=== PATIENT | female | born 1955 | race Caucasian/White ===

== ENCOUNTER → 2017-04-16 15:04 | Outpatient (CLI) | payer OTHER, SELFPAY | PROVIDERS: Family Provider Family Medicine; PCP Family Medicine; Visit Provider Nurse Practitioner Women's Health | DX: R30.0 Dysuria (principal) | CPT/HCPCS: 87077; 87086; 87088; 87186 ==

== ENCOUNTER → 2017-10-24 07:26 | Outpatient (CLI) | payer OTHER, SELFPAY ==
[2017-10-24 10:10] LABS: Hematocrit 41.1 % (37-47); Hemoglobin 13.3 g/dl (12.0-15.0); Mean Corp Hgb Conc 32.4 g/gl (32-36); Mean Corpuscular Hgb 25.8 pg (27.0-32.0); Mean Corpuscular Volume 79.7 fL (81-99); Mean Platelet Vol. 9.4 fl (6.2-12.0); Platelet Count 227 K/mm3 (150-450); RBC Distribution Width CV 14.9 % (11.6-14.6); RBC Distribution Width SD 43.4 fl (35.1-43.9); Red Blood Count 5.16 M/mm3 (4.2-5.4); White Blood Count 5.2 K/mm3 (4.4-11.0)
[2017-10-24 10:16] LABS: Scan Indicated on CBC? Y/N NO
[2017-10-24 10:28] LABS: Anion Gap 9 (5-15); BUN 20 mg/dL (7-18); BUN/Creat Ratio 23.9 RATIO (10-20); Calcium,Total 8.8 mg/dL (8.5-10.1); Chloride 107 mmol/L (98-107); Cholesterol 175 mg/dL (200); Creatinine, Serum 0.84 mg/dL (0.55-1.02); EST Glomerular Filtration Rate 73 mL/min (>60); Est Glom Filt Rate - Afr Amer 88 mL/min (>60); Glucose 81 mg/dL (74-106); High Density Lipoprotein 49 mg/dL; Potassium 3.9 mmol/L (3.5-5.1); Sodium Level 144 mmol/L (136-145); Triglycerides 94 mg/dL; Very Low Density Lipoprotein 19 mg/dL (5-40)
[2017-10-25 08:49] LABS: Vitamin D,25 Hydroxy 52.3 ng/mL (29.95-100.01)
== END ==
PROVIDERS: Family Provider Family Medicine; PCP Family Medicine; Visit Provider Family Medicine
DX: I10 Essential (primary) hypertension (principal); E78.5 Hyperlipidemia, unspecified; M19.049 Primary osteoarthritis, unspecified hand
CPT/HCPCS: 36415; 80048; 80061; 82306; 85027

== ENCOUNTER → 2017-11-25 08:44 | Outpatient (CLI) | payer OTHER, SELFPAY | PROVIDERS: Family Provider Family Medicine; PCP Family Medicine; Visit Provider Nurse Practitioner Adult Health | DX: N39.0 Urinary tract infection, site not specified (principal); R30.0 Dysuria | CPT/HCPCS: 87086; 87088 ==

== ENCOUNTER → 2017-12-02 09:19 | Outpatient (CLI) | payer OTHER, SELFPAY | PROVIDERS: Family Provider Family Medicine; PCP Family Medicine; Visit Provider Nurse Practitioner Women's Health | DX: R30.0 Dysuria (principal) | CPT/HCPCS: 87077; 87086; 87088; 87186 ==

== ENCOUNTER → 2018-06-19 16:10 | Outpatient (CLI) | payer OTHER, SELFPAY ==
[2018-06-19 13:08] VITALS: BMI 25.8
[2018-06-24 14:41] LABS: HPV APTIMA, High Risk Negative (Negative)
== END ==
PROVIDERS: Family Provider Family Medicine; PCP Family Medicine; Referring Provider Nurse Practitioner Women's Health; Visit Provider Nurse Practitioner Women's Health
DX: Z12.4 Encounter for screening for malignant neoplasm of cervix (principal)
CPT/HCPCS: 87624; 88175; G0145

== ENCOUNTER → 2019-02-19 07:39 | Outpatient (CLI) | payer OTHER, SELFPAY ==
[2018-12-25 12:39] VITALS: BMI 25.8
[2019-02-19 10:28] LABS: Absolute Lymphocyte Count 1.26 X10^3/uL (0.83-4.51); Absolute Neutrophil Count 3.4 X10^3/uL (2.0-7.7); Basophil# 0.02 X10^3/uL; Basophil% 0.4 % (0-1); Eosinophil# 0.17 X10^3/uL; Eosinophils% 3.2 % (0-5); Hematocrit 44.4 % (37-47); Hemoglobin 14.4 g/dL (12.0-15.0); Lymphocyte # 1.26 X10^3/ul (4.0); Lymphocyte % 23.6 % (19-41); Mean Corp Hgb Conc 32.4 g/dL (32-36); Mean Corpuscular Hgb 27.5 pg (27.0-32.0); Mean Corpuscular Volume 84.7 fL (81-99); Monocyte# 0.52 X10^3/uL; Monocyte% 9.7 % (0-10); NRBC Flagged by Analyzer 0 % (0-5); Neutrophil # 3.36 X10^3/uL (2.7-7.7); Neutrophil % 62.9 % (47-70); Platelet Count 206 K/mm3 (150-450); RBC Distribution Width CV 13.8 % (11.6-14.6); RBC Distribution Width SD 42.7 fl (35.1-43.9); Red Blood Count 5.24 M/mm3 (4.2-5.4); White Blood Count 5.3 K/mm3 (4.4-11.0)
[2019-02-19 10:41] LABS: Microalbumin:Creatinine Ratio 52.6 mg/g CRE (<30 mg/g CRE)
[2019-02-19 10:42] LABS: ALB/GLOB Ratio 1.2 RATIO (0.9-2.4); AST(SGOT) 23 U/L (15-37); Alanine Aminotransfer ALT/SGPT 39 U/L (13-56); Albumin, Serum 3.8 g/dL (3.2-5.0); Alkaline Phosphatase 80 U/L (45-117); Anion Gap 5 (5-15); BUN 21 mg/dL (7-18); BUN/Creat Ratio 24.5 RATIO (10-20); Calcium,Total 9.1 mg/dL (8.5-10.1); Chloride 106 mmol/L (98-107); Cholesterol 171 mg/dL (200); Creatinine, Serum 0.86 mg/dL (0.55-1.02); EST Glomerular Filtration Rate 71 mL/min (>60); Est Glom Filt Rate - Afr Amer 86 mL/min (>60); Free T3 3.9 pg/mL (2.18-3.98); Globulin 3.3 g/dL (2.2-4.2); Glucose 89 mg/dL (74-106); High Density Lipoprotein 43 mg/dL; Potassium 3.8 mmol/L (3.5-5.1); Protein, Total 7.1 g/dL (6.4-8.2); Sodium Level 141 mmol/L (136-145); T4 Free Direct 0.99 ng/dL (0.76-1.46); Thyroid Stim Hormone (TSH) 0.95 uIU/mL (0.358-3.74); Triglycerides 137 mg/dL; Very Low Density Lipoprotein 27 mg/dL (5-40)
== END ==
PROVIDERS: Family Provider Family Medicine; PCP Family Medicine; Referring Provider Family Medicine; Visit Provider Family Medicine
DX: E04.1 Nontoxic single thyroid nodule (principal); I10 Essential (primary) hypertension; E78.5 Hyperlipidemia, unspecified
CPT/HCPCS: 36415; 80053; 80061; 82043; 82570; 84439; 84443; 84481; 85025

== ENCOUNTER → 2019-03-26 16:25 | Outpatient (CLI) | payer OTHER, SELFPAY ==
[2018-12-25 12:39] VITALS: BMI 25.8
--- NOTE | 2019-03-26 16:25 | LES_PTH ---
PATIENT: OSVALDO KEN [facility] U#:[id number] AGE/SX: 69/F ROOM: RE03/26/[address]: Dr. Dong Jones MD : 1955 BED: DIS: SPEC #: [id number] RECD: 03/26/19 18:14 STATUS: CARRIE ERIC #: [id number] ADRIAN: 03/26/19 16:[address]: Dong Jones DEPT: SURGICAL PATHOLOGY RECD BY: Denny Fitzgerald ENTERED: 03/27/19 11:55 SP TYPE: Lesion OTHR DR: Dong Jones MD Tissues: Skin of leg, NOS Procedures: Surgery Specimen Level IV HEADER OPERATION: Shave biopsy of left leg PRE-OP DIAGNOSIS: 2 x 1 x 0.3 mm raised verrucal lesion TISSUE SUBMITTED: Left leg shave biopsy MICROSCOPIC DIAGNOSIS Lesion of left leg, shave biopsy: Verrucoid keratosis, inflamed. AM:kailey 03/30/19 MICROSCOPIC DESCRIPTION Slides are reviewed. GROSS DESCRIPTION Received in fixative is one container labeled with the patient's name and designated leg shave biopsy. The specimen consists of a light cho shaved biopsy of skin measuring 1.2 x 1.2 x 0.2 cm. The specimen is inked, serially sectioned and totally submitted in one cassette. / AM:kailey 03/27/19 TC:5 CPT: 31872
== END ==
PROVIDERS: Family Provider Family Medicine; PCP Family Medicine; Referring Provider Family Medicine; Visit Provider Family Medicine
DX: L98.9 Disorder of the skin and subcutaneous tissue, unspecified (principal)
CPT/HCPCS: 88305

== ENCOUNTER → 2019-05-15 14:36 | Outpatient (CLI) | payer OTHER, SELFPAY ==
[2018-12-25 12:39] VITALS: BMI 25.8
== END ==
PROVIDERS: PCP Family Medicine; Visit Provider Family Medicine
DX: N39.0 Urinary tract infection, site not specified (principal)
CPT/HCPCS: 87086; 87088

== ENCOUNTER → 2019-05-20 17:48 | Outpatient (CLI) | payer OTHER, SELFPAY ==
[2018-12-25 12:39] VITALS: BMI 25.8
[2019-05-20 17:51] LABS: Mucous, Urine 0 SEEN /hpf (<or=2+); Red Blood Cells-Urine 0 SEEN /hpf (0-5); Squamous Epithelial Cells - UA 0 SEEN /hpf (5-10)
[2019-05-20 18:51] LABS: Color, Urine Yellow (Yellow); Glucose, Dipstick Normal (Normal); Ketone-Dipstick Negative (Negative); Leukocyte Esterase-Dipstick 100 /ul (Negative); Nitrite-Dipstick Negative (Negative); Occult Blood-Urine Negative /ul (Negative); Protein-Dipstick Negative (Negative); Urine Bilirubin Dipstick Negative (Negative); Urine Clarity Clear (Clear); Urine Urobilinogen Normal (Normal)
[2019-05-20 19:39] LABS: Bacteria 1+ /hpf (None Seen); White Blood Cells 5-10 SEEN /hpf (0-5)
== END ==
PROVIDERS: PCP Family Medicine; Referring Provider Family Medicine; Visit Provider Family Medicine
DX: Z00.00 Encounter for general adult medical examination without abnormal findings (principal); R30.0 Dysuria; R35.0 Frequency of micturition
CPT/HCPCS: 81001; 87086; 87088; 87186

== ENCOUNTER → 2019-05-26 08:02 | Outpatient (CLI) | payer OTHER, SELFPAY ==
[2018-12-25 12:39] VITALS: BMI 25.8
[2019-05-26 10:13] LABS: Absolute Lymphocyte Count 1.94 X10^3/uL (0.83-4.51); Absolute Neutrophil Count 4.9 X10^3/uL (2.0-7.7); Basophil# 0.05 X10^3/uL; Basophil% 0.7 % (0-1); Eosinophil# 0.24 X10^3/uL; Eosinophils% 3.1 % (0-5); Hematocrit 45.1 % (37-47); Hemoglobin 14.4 g/dL (12.0-15.0); Lymphocyte # 1.94 X10^3/ul (4.0); Lymphocyte % 25.3 % (19-41); Mean Corp Hgb Conc 31.9 g/dL (32-36); Mean Corpuscular Hgb 27.5 pg (27.0-32.0); Mean Corpuscular Volume 86.2 fL (81-99); Mean Platelet Vol. 8.8 fl (6.2-12.0); Monocyte# 0.53 X10^3/uL; Monocyte% 6.9 % (0-10); NRBC Flagged by Analyzer 0 % (0-5); Neutrophil # 4.89 X10^3/uL (2.7-7.7); Neutrophil % 63.6 % (47-70); Platelet Count 260 K/mm3 (150-450); RBC Distribution Width CV 13.7 % (11.6-14.6); RBC Distribution Width SD 43.2 fl (35.1-43.9); Red Blood Count 5.23 M/mm3 (4.2-5.4); White Blood Count 7.7 K/mm3 (4.4-11.0)
[2019-05-26 10:44] LABS: AST(SGOT) 25 U/L (15-37); Alanine Aminotransfer ALT/SGPT 46 U/L (13-56); Albumin, Serum 3.6 g/dL (3.2-5.0); Alkaline Phosphatase 88 U/L (45-117); Anion Gap 4 (5-15); BUN 21 mg/dL (7-18); BUN/Creat Ratio 26.3 RATIO (10-20); Calcium,Total 8.9 mg/dL (8.5-10.1); Chloride 106 mmol/L (98-107); Cholesterol 213 mg/dL (200); EST Glomerular Filtration Rate 77 mL/min (>60); Est Glom Filt Rate - Afr Amer 93 mL/min (>60); Globulin 3.5 g/dL (2.2-4.2); Glucose 89 mg/dL (74-106); High Density Lipoprotein 42 mg/dL; Potassium 3.9 mmol/L (3.5-5.1); Protein, Total 7.1 g/dL (6.4-8.2); Sodium Level 140 mmol/L (136-145); Thyroid Stim Hormone (TSH) 1.17 uIU/mL (0.358-3.74); Triglycerides 190 mg/dL; Very Low Density Lipoprotein 38 mg/dL (5-40)
[2019-05-26 10:59] LABS: Hemoglobin A1c 5.8 % (4.2-6.3)
== END ==
PROVIDERS: PCP Family Medicine; Referring Provider Family Medicine; Visit Provider Family Medicine
DX: Z00.00 Encounter for general adult medical examination without abnormal findings (principal); R30.0 Dysuria; R35.0 Frequency of micturition
CPT/HCPCS: 36415; 80053; 80061; 83036; 84443; 85025

== ENCOUNTER → 2019-12-01 12:45 | Outpatient (CLI) | payer OTHER, SELFPAY ==
[2018-12-25 12:39] VITALS: BMI 25.8
[2019-12-01 15:47] LABS: Absolute Lymphocyte Count 1.75 X10^3/uL (0.83-4.51); Absolute Neutrophil Count 4.2 X10^3/uL (2.0-7.7); Basophil# 0.03 X10^3/uL; Basophil% 0.4 % (0-1); Eosinophil# 0.18 X10^3/uL; Eosinophils% 2.7 % (0-5); Hematocrit 43.5 % (37-47); Hemoglobin 13.8 g/dL (12.0-15.0); Lymphocyte # 1.75 X10^3/ul (4.0); Lymphocyte % 25.8 % (19-41); Mean Corp Hgb Conc 31.7 g/dL (32-36); Mean Corpuscular Hgb 27.7 pg (27.0-32.0); Mean Corpuscular Volume 87.3 fL (81-99); Mean Platelet Vol. 9.1 fl (6.2-12.0); Monocyte# 0.63 X10^3/uL; Monocyte% 9.3 % (0-10); NRBC Flagged by Analyzer 0 % (0-5); Neutrophil # 4.18 X10^3/uL (2.7-7.7); Neutrophil % 61.5 % (47-70); Platelet Count 265 K/mm3 (150-450); RBC Distribution Width CV 13.4 % (11.6-14.6); Red Blood Count 4.98 M/mm3 (4.2-5.4); White Blood Count 6.8 K/mm3 (4.4-11.0)
[2019-12-01 16:07] LABS: ALB/GLOB Ratio 0.8 RATIO (0.9-2.4); AST(SGOT) 62 U/L (15-37); Alanine Aminotransfer ALT/SGPT 131 U/L (13-56); Albumin, Serum 3.5 g/dL (3.2-5.0); Alkaline Phosphatase 146 U/L (45-117); Anion Gap 7 (5-15); BUN 24 mg/dL (7-18); Calcium,Total 9.5 mg/dL (8.5-10.1); Chloride 104 mmol/L (98-107); Creatinine, Serum 0.83 mg/dL (0.55-1.02); EST Glomerular Filtration Rate 74 mL/min (>60); Est Glom Filt Rate - Afr Amer 89 mL/min (>60); Globulin 4.2 g/dL (2.2-4.2); Glucose 80 mg/dL (74-106); Potassium 4.6 mmol/L (3.5-5.1); Protein, Total 7.7 g/dL (6.4-8.2); Sodium Level 140 mmol/L (136-145)
[2019-12-01 16:10] LABS: Erythrocyte Sedimentation Rate 27 mm/hr (0-30)
== END ==
PROVIDERS: PCP Family Medicine; Referring Provider Family Medicine; Visit Provider Family Medicine
DX: R68.83 Chills (without fever) (principal)
CPT/HCPCS: 36415; 80053; 85025; 85652; 86140

== ENCOUNTER → 2019-12-29 09:07 | Outpatient (CLI) | payer MEDICARE, OTHER, SELFPAY ==
[2018-12-25 12:39] VITALS: BMI 25.8
[2019-12-29 10:54] LABS: AST(SGOT) 22 U/L (15-37); Alanine Aminotransfer ALT/SGPT 37 U/L (13-56); Albumin, Serum 3.6 g/dL (3.2-5.0); Alkaline Phosphatase 79 U/L (45-117); Anion Gap 5 (5-15); BUN 21 mg/dL (7-18); BUN/Creat Ratio 24.5 RATIO (10-20); Calcium,Total 9.3 mg/dL (8.5-10.1); Chloride 106 mmol/L (98-107); Cholesterol 179 mg/dL (200); Creatinine, Serum 0.86 mg/dL (0.55-1.02); EST Glomerular Filtration Rate 71 mL/min (>60); Est Glom Filt Rate - Afr Amer 86 mL/min (>60); Globulin 3.7 g/dL (2.2-4.2); Glucose 88 mg/dL (74-106); High Density Lipoprotein 50 mg/dL; Potassium 4.2 mmol/L (3.5-5.1); Protein, Total 7.3 g/dL (6.4-8.2); Sodium Level 139 mmol/L (136-145); Thyroid Stim Hormone (TSH) 0.95 uIU/mL (0.358-3.74); Triglycerides 150 mg/dL; Very Low Density Lipoprotein 30 mg/dL (5-40)
== END ==
PROVIDERS: PCP Family Medicine; Referring Provider Family Medicine; Visit Provider Family Medicine
DX: Z00.00 Encounter for general adult medical examination without abnormal findings (principal); E78.5 Hyperlipidemia, unspecified
CPT/HCPCS: 36415; 80053; 80061; 84443

== ENCOUNTER → 2020-06-23 07:30 | Outpatient (CLI) | payer MEDICARE, OTHER, SELFPAY ==
[2018-12-25 12:39] VITALS: BMI 25.8
[2020-06-23 10:53] LABS: ALB/GLOB Ratio 1.1 RATIO (0.9-2.4); AST(SGOT) 26 U/L (15-37); Alanine Aminotransfer ALT/SGPT 49 U/L (13-56); Albumin, Serum 3.6 g/dL (3.2-5.0); Alkaline Phosphatase 97 U/L (45-117); Anion Gap 5 (5-15); BUN 19 mg/dL (7-18); BUN/Creat Ratio 23.9 RATIO (10-20); Calcium,Total 9.2 mg/dL (8.5-10.1); Chloride 105 mmol/L (98-107); Cholesterol 196 mg/dL (200); EST Glomerular Filtration Rate 77 mL/min (>60); Est Glom Filt Rate - Afr Amer 93 mL/min (>60); Globulin 3.4 g/dL (2.2-4.2); Glucose 89 mg/dL (74-106); High Density Lipoprotein 44 mg/dL; Potassium 3.9 mmol/L (3.5-5.1); Sodium Level 140 mmol/L (136-145); Thyroid Stim Hormone (TSH) 1.35 uIU/mL (0.358-3.74); Triglycerides 219 mg/dL; Very Low Density Lipoprotein 44 mg/dL (5-40)
== END ==
PROVIDERS: PCP Family Medicine; Referring Provider Family Medicine; Visit Provider Family Medicine
DX: Z00.00 Encounter for general adult medical examination without abnormal findings (principal); I10 Essential (primary) hypertension
CPT/HCPCS: 36415; 80053; 80061; 84443

== ENCOUNTER → 2021-07-19 | Outpatient (CLI) | payer MEDICARE, OTHER, SELFPAY ==
[2021-07-19 10:14] LABS: Absolute Lymphocyte Count 1.81 X10^3/uL (0.83-4.51); Absolute Neutrophil Count 3.8 X10^3/uL (2.0-7.7); Basophil# 0.03 X10^3/uL; Basophil% 0.5 % (0-1); Eosinophil# 0.21 X10^3/uL; Eosinophils% 3.3 % (0-5); Hematocrit 45.4 % (37-47); Hemoglobin 14.6 g/dL (12.0-15.0); Lymphocyte # 1.81 X10^3/ul (0.83-4.51); Lymphocyte % 28.7 % (19-41); Mean Corp Hgb Conc 32.2 g/dL (32-36); Mean Corpuscular Hgb 28.1 pg (27.0-32.0); Mean Corpuscular Volume 87.3 fL (81-99); Mean Platelet Vol. 8.9 fl (6.2-12.0); Monocyte# 0.48 X10^3/uL; Monocyte% 7.6 % (0-10); NRBC Flagged by Analyzer 0 % (0-5); Neutrophil # 3.75 X10^3/uL (2.7-7.7); Neutrophil % 59.6 % (47-70); Platelet Count 255 K/mm3 (150-450); RBC Distribution Width CV 13.2 % (11.6-14.6); RBC Distribution Width SD 42.2 fl (35.1-43.9); White Blood Count 6.3 K/mm3 (4.4-11.0)
[2021-07-19 10:37] LABS: AST(SGOT) 23 U/L (15-37); Alanine Aminotransfer ALT/SGPT 35 U/L (13-56); Albumin, Serum 3.7 g/dL (3.2-5.0); Alkaline Phosphatase 80 U/L (45-117); Anion Gap 3 (5-15); BUN 18 mg/dL (7-18); BUN/Creat Ratio 20.7 RATIO (10-20); Calcium,Total 9.4 mg/dL (8.5-10.1); Chloride 105 mmol/L (98-107); Cholesterol 160 mg/dL (200); Creatinine, Serum 0.87 mg/dL (0.55-1.02); EST Glomerular Filtration Rate 69 mL/min (>60); Est Glom Filt Rate - Afr Amer 84 mL/min (>60); Globulin 3.6 g/dL (2.2-4.2); Glucose 80 mg/dL (74-106); High Density Lipoprotein 39 mg/dL; Potassium 3.9 mmol/L (3.5-5.1); Protein, Total 7.3 g/dL (6.4-8.2); Sodium Level 141 mmol/L (136-145); Triglycerides 186 mg/dL; Very Low Density Lipoprotein 37 mg/dL (5-40)
== END | disposition home or self-care (01) ==
LOC: MTLAB 07:29
PROVIDERS: PCP Family Medicine; Referring Provider Family Medicine; Visit Provider Family Medicine
DX: C50.919 Malignant neoplasm of unspecified site of unspecified female breast (principal); I10 Essential (primary) hypertension; E78.5 Hyperlipidemia, unspecified
CPT/HCPCS: 36415; 80053; 80061; 85025

== ENCOUNTER → 2022-01-25 | Outpatient (CLI) | payer MEDICARE, OTHER, SELFPAY ==
[2022-01-25 18:50] LABS: ALB/GLOB Ratio 1.1 RATIO (0.9-2.4); AST(SGOT) 18 U/L (15-37); Alanine Aminotransfer ALT/SGPT 33 U/L (13-56); Albumin, Serum 3.5 g/dL (3.2-5.0); Alkaline Phosphatase 83 U/L (45-117); Anion Gap 5 (5-15); BUN 23 mg/dL (7-18); BUN/Creat Ratio 24.8 RATIO (10-20); Calcium,Total 8.9 mg/dL (8.5-10.1); Chloride 105 mmol/L (98-107); Creatinine, Serum 0.93 mg/dL (0.55-1.02); EST Glomerular Filtration Rate 64 mL/min (>60); Est Glom Filt Rate - Afr Amer 78 mL/min (>60); Globulin 3.3 g/dL (2.2-4.2); Glucose 173 mg/dL (74-106); Potassium 3.9 mmol/L (3.5-5.1); Protein, Total 6.8 g/dL (6.4-8.2); Sodium Level 139 mmol/L (136-145); Thyroid Stim Hormone (TSH) 0.83 uIU/mL (0.358-3.74)
[2022-01-25 18:59] LABS: Microalbumin,Random Urine 95.9 mg/L (NO RANGE EST.); Microalbumin:Creatinine Ratio 89.6 mg/g CRE (<30 mg/g CRE)
== END | disposition home or self-care (01) ==
LOC: MFPLAB 15:04
PROVIDERS: PCP Family Medicine; Referring Provider Family Medicine; Visit Provider Family Medicine
DX: I10 Essential (primary) hypertension (principal); E04.1 Nontoxic single thyroid nodule
CPT/HCPCS: 36415; 80053; 82043; 82570; 84443

== ENCOUNTER → 2022-07-24 | Outpatient (CLI) | payer MEDICARE, OTHER, SELFPAY ==
[2022-07-24 15:55] LABS: Absolute Lymphocyte Count 1.86 X10^3/uL (0.83-4.51); Absolute Neutrophil Count 5.2 X10^3/uL (2.0-7.7); Basophil# 0.03 X10^3/uL; Basophil% 0.4 % (0-1); Eosinophil# 0.27 X10^3/uL; Eosinophils% 3.4 % (0-5); Hematocrit 44.5 % (37-47); Hemoglobin 14.2 g/dL (12.0-15.0); Lymphocyte # 1.86 X10^3/ul (0.83-4.51); Lymphocyte % 23.7 % (19-41); Mean Corp Hgb Conc 31.9 g/dL (32-36); Mean Corpuscular Hgb 27.2 pg (27.0-32.0); Mean Corpuscular Volume 85.2 fL (81-99); Mean Platelet Vol. 9.1 fl (6.2-12.0); Monocyte# 0.49 X10^3/uL; Monocyte% 6.2 % (0-10); NRBC Flagged by Analyzer 0 % (0-5); Neutrophil # 5.18 X10^3/uL (2.7-7.7); Platelet Count 239 K/mm3 (150-450); RBC Distribution Width CV 13.8 % (11.6-14.6); RBC Distribution Width SD 42.2 fl (35.1-43.9); Red Blood Count 5.22 M/mm3 (4.2-5.4); White Blood Count 7.9 K/mm3 (4.4-11.0)
[2022-07-24 16:27] LABS: ALB/GLOB Ratio 1.2 RATIO (0.9-2.4); AST(SGOT) 31 U/L (15-37); Alanine Aminotransfer ALT/SGPT 50 U/L (13-56); Albumin, Serum 3.8 g/dL (3.2-5.0); Alkaline Phosphatase 96 U/L (45-117); Anion Gap 8 (5-15); BUN 21 mg/dL (7-18); BUN/Creat Ratio 26.4 RATIO (10-20); CRP < 2.90 mg/L (0.0-3.0); Calcium,Total 9.2 mg/dL (8.5-10.1); Chloride 104 mmol/L (98-107); EST Glomerular Filtration Rate 77 mL/min (>60); Est Glom Filt Rate - Afr Amer 93 mL/min (>60); Globulin 3.1 g/dL (2.2-4.2); Glucose 148 mg/dL (74-106); Potassium 4.1 mmol/L (3.5-5.1); Protein, Total 6.9 g/dL (6.4-8.2); Sodium Level 141 mmol/L (136-145)
[2022-07-24 18:19] LABS: Microalbumin,Random Urine 90.7 mg/L (NO RANGE EST.); Microalbumin:Creatinine Ratio 68.2 mg/g CRE (<30 mg/g CRE)
== END | disposition home or self-care (01) ==
LOC: MTLAB 14:17
PROVIDERS: PCP Family Medicine; Referring Provider Family Medicine; Visit Provider Family Medicine
DX: I10 Essential (primary) hypertension (principal); R09.81 Nasal congestion
CPT/HCPCS: 36415; 80053; 82043; 82570; 85025; 86140

== ENCOUNTER → 2023-01-29 | Outpatient (CLI) | payer MEDICARE, OTHER, SELFPAY ==
[2023-01-29 17:38] LABS: Absolute Lymphocyte Count 1.99 X10^3/uL (0.83-4.51); Absolute Neutrophil Count 5.5 X10^3/uL (2.0-7.7); Basophil# 0.03 X10^3/uL; Basophil% 0.4 % (0-1); Eosinophil# 0.29 X10^3/uL; Eosinophils% 3.5 % (0-5); Hematocrit 46.6 % (37-47); Hemoglobin 14.5 g/dL (12.0-15.0); Lymphocyte # 1.99 X10^3/ul (0.83-4.51); Lymphocyte % 23.8 % (19-41); Mean Corp Hgb Conc 31.1 g/dL (32-36); Mean Corpuscular Volume 86.8 fL (81-99); Mean Platelet Vol. 9.3 fl (6.2-12.0); NRBC Flagged by Analyzer 0 % (0-5); Neutrophil # 5.52 X10^3/uL (2.7-7.7); Neutrophil % 66.1 % (47-70); Platelet Count 291 K/mm3 (150-450); RBC Distribution Width CV 13.7 % (11.6-14.6); RBC Distribution Width SD 43.5 fl (35.1-43.9); Red Blood Count 5.37 M/mm3 (4.2-5.4); White Blood Count 8.4 K/mm3 (4.4-11.0)
[2023-01-29 18:27] LABS: Microalbumin:Creatinine Ratio 75.4 mg/g CRE (<30 mg/g CRE)
[2023-01-29 18:32] LABS: AST(SGOT) 19 U/L (15-37); Alanine Aminotransfer ALT/SGPT 32 U/L (13-56); Albumin, Serum 3.8 g/dL (3.2-5.0); Alkaline Phosphatase 93 U/L (45-117); Anion Gap 7 (5-15); BUN 25 mg/dL (7-18); BUN/Creat Ratio 26.3 RATIO (10-20); Calcium,Total 9.2 mg/dL (8.5-10.1); Chloride 104 mmol/L (98-107); Creatinine, Serum 0.95 mg/dL (0.55-1.02); EST Glomerular Filtration Rate 62 mL/min (>60); Est Glom Filt Rate - Afr Amer 75 mL/min (>60); Globulin 3.7 g/dL (2.2-4.2); Glucose 154 mg/dL (74-106); Potassium 4.1 mmol/L (3.5-5.1); Protein, Total 7.5 g/dL (6.4-8.2); Sodium Level 139 mmol/L (136-145); T4 Free Direct 0.99 ng/dL (0.76-1.46); Thyroid Stim Hormone (TSH) 0.76 uIU/mL (0.358-3.74)
== END | disposition home or self-care (01) ==
LOC: MFPLAB 15:02
PROVIDERS: PCP Family Medicine; Visit Provider Family Medicine
DX: M19.049 Primary osteoarthritis, unspecified hand (principal); E04.1 Nontoxic single thyroid nodule; I10 Essential (primary) hypertension
CPT/HCPCS: 36415; 80053; 82043; 82570; 84439; 84443; 85025

== ENCOUNTER 2023-03-04 10:00 | Outpatient (RCR) | payer MEDICARE, OTHER, SELFPAY ==
--- NOTE | 2023-02-13 12:46 | HP.OTEVAL_ITS ---
Patient's Visit Information Visit Information Visit Information: OSVALDO KEN is a 67 year old F, referred to Occupational Therapy by Dr. Dong Jones MD, with a diagnosis of OA. Date of Evaluation: 02/13/23 Occupational Therapist: RAYSA Magana/Francia, CHT Subjective Subjective: This 67 year old female was seen for OT eval with dx OA of bilateral hands. pt states right hand limiting more than left- more difficulty with cold temperatures pt states she continues to struggle with pain in hands and weakness- states she does notice a big difference if she does not take her Meloxicam pt would like to know what she can do to decrease pain increase function to continue to perform her ADls and IADls at a IND level. ADLs Dressing: Button shirt Fasteners: Buttons, Zippers and Snaps Grooming: Trim nails and Squeeze toothpaste on Kitchen: Chop with knife, Peel fruits & vegetables, Open jars, Open bottle caps and Ziplock bags Household: Dust and Laundry Yard: Mow lawn Comments: the above daily tasks are challenging and cause pain following. pt states she will have her help her the most he can Pain right hand: Current Pain Intensity: 3 Pain Intensity Range: 4 left hand: Current Pain Intensity: 0 Pain Intensity Range: 4 ROM CMC: right 30 left 25 MP: right hyper ext + 30 /left + 30 Radial Abduction: right 30 left 30# PIP: right IF 80 MF 70 RF 80 left IF 85 MF90 RF 95 ROM Comments: pt demo a all PIP and DIP joint deformity thumb CMC OA with MPJ instability pt demo with a decrease in PIP flexion of right D2-5 Strength Equity Research Analyst: right 20# left 25# Lateral Pinch: right 10# left 10# Tripod Pinch: right 10# left 6# Strength Comments: pt demo weakness of bilateral hands discomfort with resistive testing Sensation Sensation Comments: neuropathy Quick DASH-Disab of Arm,Shoulder& Hand Quick DASH Score: 35.0000 Goals Goal:: pt will demo a increase in bilateral hand strength by 10# to increase pts ind with ADLs by d,c Goal:: pt will demo the ability to form right composite fist to hold small obj ects without difficulty (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 Goal:: Pt will demo understanding of using supportive bracing 80% of workday/ADLS to decrease stress on tendon origin to allow healing and decrease pain by end of 4th session. 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 pt would benefit from skilled OT services 1-2x week for 6-10 weeks to ed. pt on joint protection raji. use of ad. eq. light strengthening- modalities to decrease joint stiffness and pain. Today therapist ed. pt on dx. and use of heat to decrease joint pain. pt demo understanding and agrees to POC. Rehabilitation Potential: Good Anticipated Interventions Anticipated Interventions: A/AAROM/PROM, Strengthening, Modalities, Orthoses, Joint Protection/Energy Conservation, Ergonomic Education, ADL Training, Education re assistive Equipment, Education re Diagnosis and Home Program Visit Plan Frequency: 2x /Week Duration: 2-4 Months General Plan: ed.pt on joint protection modalities to decrease pain thumb care for CMC OA ed. on bracing to support CMC and MPJ support of bracing for work tasks TEXT: Thank you for the opportunity to evaluate your patient. For Medicare and Medicare HMO plans, please review the plan of care and approve it. It will need to be FAXED BACK to us at [phone] for Medicare purposes. Please let me know if there are questions or concerns regarding this plan of care. Physician Sig nature: Date:
--- NOTE | 2023-06-26 14:42 | HP.OT.NRP ---
Patient Information Patient Information: OSVALDO KEN was seen in my office for initial evaluation on 02/13/23. 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 Pertinent comments regarding their Occupational therapy will appear below: pt was seen for 4 OT sessions. pt has not scheduled further apts and due to time lapse in services pt is d/c. At this point I will be discontinuing this patient from occupational therapy. I would be happy to see this patient again in the future if found appropriate by the physician. Thank you! Alma Bo, OTR/L, CHT
== END 2023-03-04 19:00 | disposition home or self-care (01) ==
LOC: OT 10:00
PROVIDERS: PCP Family Medicine; Referring Provider Family Medicine; Visit Provider Family Medicine
DX: M19.049 Primary osteoarthritis, unspecified hand (principal)
CPT/HCPCS: 97110; 97140; 97166; 97530

== ENCOUNTER → 2023-07-17 | Outpatient (CLI) | payer MEDICARE, OTHER, SELFPAY ==
[2023-07-17 10:33] LABS: Microalbumin:Creatinine Ratio 85.5 mg/g CRE (<30 mg/g CRE)
[2023-07-17 10:55] LABS: AST(SGOT) 25 U/L (15-37); Alanine Aminotransfer ALT/SGPT 42 U/L (13-56); Albumin, Serum 3.6 g/dL (3.2-5.0); Alkaline Phosphatase 99 U/L (45-117); Anion Gap 3 (5-15); BUN 19 mg/dL (7-18); BUN/Creat Ratio 22.1 RATIO (10-20); Calcium,Total 9.3 mg/dL (8.5-10.1); Chloride 105 mmol/L (98-107); Creatinine, Serum 0.86 mg/dL (0.55-1.02); EST Glomerular Filtration Rate 70 mL/min (>60); Est Glom Filt Rate - Afr Amer 84 mL/min (>60); Globulin 3.6 g/dL (2.2-4.2); Glucose 97 mg/dL (74-106); Protein, Total 7.2 g/dL (6.4-8.2); Sodium Level 139 mmol/L (136-145)
== END | disposition home or self-care (01) ==
PROVIDERS: PCP Family Medicine; Referring Provider Family Medicine; Visit Provider Family Medicine
DX: I10 Essential (primary) hypertension (principal)
CPT/HCPCS: 36415; 80053; 82043; 82570

== ENCOUNTER → 2023-08-19 | Outpatient (CLI) | payer MEDICARE, OTHER, SELFPAY | END | disposition home or self-care (01) | LOC: LABSPEC 13:53 | PROVIDERS: PCP Family Medicine; Referring Provider Nurse Practitioner Women's Health; Visit Provider Nurse Practitioner Women's Health | DX: N89.8 Other specified noninflammatory disorders of vagina (principal) | CPT/HCPCS: 87255 ==

== ENCOUNTER → 2023-09-20 | Outpatient (CLI) | payer MEDICARE, OTHER, SELFPAY ==
[2023-09-20 10:11] LABS: Mucous, Urine 0 SEEN /hpf (<or=2+)
[2023-09-20 10:39] LABS: Color, Urine Yellow (Yellow); Glucose, Dipstick Normal (Normal); Ketone-Dipstick Negative (Negative); Leukocyte Esterase-Dipstick 100 /ul (Negative); Nitrite-Dipstick Positive (Negative); Occult Blood-Urine 10 /ul (Negative); Protein-Dipstick 15 mg/dl (Negative); Specific Gravity, Urine 1.015 (1.002-1.030); Urine Clarity Sl. Cloudy (Clear); Urine Urobilinogen 1 mg/dl (Normal)
[2023-09-20 10:40] LABS: Urine Bilirubin Dipstick 3 mg/dL (Negative)
[2023-09-20 10:50] LABS: Bacteria 1+ /hpf (None Seen); Red Blood Cells-Urine 0-5 SEEN /hpf (0-5); Squamous Epithelial Cells - UA 0-5 SEEN /hpf (5-10); White Blood Cells 10-25 SEEN /hpf (0-5)
== END | disposition home or self-care (01) ==
PROVIDERS: PCP Family Medicine; Referring Provider Physician Assistant Surgical; Visit Provider Physician Assistant Surgical
DX: N39.0 Urinary tract infection, site not specified (principal); R30.0 Dysuria
CPT/HCPCS: 81001; 87077; 87086; 87088; 87186

== ENCOUNTER → 2024-01-07 | Outpatient (CLI) | payer MEDICARE, OTHER, SELFPAY ==
--- OUTSIDE RECORDS SUMMARY | 2024-01-07 10:25 | XMS RPT_ITS | CCD ---
Author Organization [facility] Care Team Providers Care Glaze Carrier Name Role Phone Cogar SQE, Roslyn N Unavailable Cogar SQE, Roslyn N Unavailable Jennifer CUTTER TENDER, Mine Hobbs Unavailable Violetta Deluna Unavailable Unavailable Kelle Cohen Unavailable Unavailable Chi LAZARN, Lida Gillespie Unavailable Unavailab inocencia VO, Eddi Arce Unavailable Kelle Cohen Unavailable Unavailable Zhao HUBER MD, Lucille Unavailable Andriy Jones MD Primary Care Provider Zhao HUBER MD, Lucille Unavailable Andriy Jones MD Primary Care Provider Zhao HUBER MD, Lucille Unavailable Andriy Jones MD Primary Care Provider Andriy Jones MD Primary Care Provider Lucille Churchill MD Unavailable Andriy Jones MD Primary Care Provider ANDRIY JONES Primary Care Unavailable JUAN AMBRIZ Attending Unavailable ANDRIY JONES Primary Care Unavailable JUAN AMBRIZ Referring Unavailable JUAN AMBRIZ Attending Unavailable Allergies Allergy Classification Reported Allergen(s) Allergy Type Date of Onset Reaction(s) Facility (13 sources) miconazole drug allergy 08-02-2016 [facility] Work Phone: (13 sources) CURITY TELFA ADHESIVE drug allergy 08-02-2016 [facility] Work Phone: (8 sources) Miconazole; Translations: [MICONAZOLE] Drug Allergy 11-17-2003 [facility] (8 sources) Polyhexam Jaczvp-Cyw-Vyh Band; Translations: [POLYHEXAM [id number] BAND] Drug Allergy 01-31-2016 [facility] Medications Current Medications Medication Drug Class(es) Dates Sig (Normalized) Sig (Original) amLODIPine 2.5 mg oral tablet (7 sources) Dihydropyridine Calcium Channel Christa take 1 tablet by mouth once daily amLODIPine (NORVASC) 2.5 mg tablet Take 2.5 mg by mouth once daily. 0 Active Comment on above: Take 2.5 mg by mouth once daily. azelastine hydrochloride 0.137 mg/actuat metered dose nasal spray (2 sources) Histamine-1 Receptor Antagonist Start: 09-12-2022 take 2 spray(s) nasal route twice daily azelastine 0.1% nasal spray instill 2 sprays into each nostril twice a day if needed for NASAL IRRITATION 0 09/12/2022 Active Comment on above: instill 2 sprays int o each nostril twice a day if needed for NASAL IRRITATION Calcium Carbonate / vitamin D3 (7 sources) take 1 tablet by mouth twice daily calcium carbonate/vitami n D3 (CALCIUM 600 + D ORAL) Take 1 tablet by mouth twice daily. 0 Active Comment on above: Take 1 tablet by celestino th twice daily. lisinopril 40 mg oral tablet (20 sources) Angiotensin Converting Enzyme Inhibitor Start: 08-02-2016 take 1 tablet by mouth once daily lisinopril (ZESTRIL, PRINIVIL) 40 mg tablet Take 40 mg by mouth once daily. 0 02/04/2017 Active Start: 08-02-2016 LISINOPRIL 10 MG TABS as directed LISINOPRIL [id number] Roslyn Xie LPN Comment on above: Take 40 mg by mouth once daily. meloxicam 15 mg oral tablet (20 sources) Nonsteroidal Anti-inflammatory Drug Start: 3 take 1 tablet by mouth once daily meloxicam (MOBIC) 15 mg tablet Take 1 tablet by mouth once daily. 0 10/21/2012 Active Comment on above: Take 1 tablet by celestino th once daily. pumpkin seed extract/soy germ (AZO BLADDER CONTROL ORAL) (7 sources) take 1 tablet by mouth twice daily pumpkin seed extract/soy germ (AZO BLADDER CONTROL ORAL) Take 1 tablet by mouth twice daily. 0 Active Comment on above: Take 1 tablet by celestino th twice daily. rosuvastatin calcium 10 mg oral tablet (7 sources) HMG-CoA Reductase Inhibitor Start: 0 take 1 tablet by mouth once daily rosuvastatin (CRESTOR) 10 mg tablet Take 10 mg by mouth once daily. 0 01/02/2020 Active Comment on above: Take 10 mg by mouth once daily. Completed/Discontinued Medications Medication Drug Class(es) Dates Sig (Normalized) Sig (Original) acetaminophen 32 mg/ml oral solution (20 sources) Start: 08-02-2016 ACETAMINOPHEN 160 MG/5ML ELIX as directed ACETAMINOPHEN [id number] Roslyn Pascalar SQE acetaminophen (T YLENOL EXTRA STRENGTH) 500 mg tablet Take 1,000 mg by mouth as needed. 0 Active Comment on above: Take 1,000 mg by celestino th as needed. biotin 1 mg oral capsule (13 sources) Start: 08-02-2016 BIOTIN 1 MG CAPS as directed BIOTIN [id number] Roslyn Jose Miguel Pascalar SQE cholecalciferol (20 sources) Vitamin D Start: 08-02-2016 AQUEOUS VITAMIN D 400 UNIT/ML LIQD as directed CHOLECALCIFEROL [id number] Roslyn Jose Miguel Gwynar SQE Start: 08-02-2016 AQUEOUS VITAMI N D 400 UNIT/ML LIQD as directed CHOLECALCIFEROL [id number] Roslyn Jose Miguel Pascalar SQE Start: 08-02-2016 AQUEOUS VITAMI N D 400 UNIT/ML LIQD as directed CHOLECALCIFEROL [id number] Roslyn Gillespie Gwynar SQE take 1 tablet by celestino th once daily cholecalciferol (VITAMIN D) 1,000 unit tab tablet Take 1,000 Units by mouth once daily. 0 Active Comment on above: Take 1,000 Units by mouth once daily. ciprofloxacin 500 mg oral tablet (20 sources) Quinolone Antimicrobial Start: 01-29-20 End: 02-01-20 17 take 1 tablet by mouth twice daily CIPROFLOXACIN HCL 500 MG TABS One tablet by mouth twice daily CIPROFLOXACIN HCL [id number] Mine Rodriguez CUTTER TENDER Start: 08-02-2016 CETRAXAL 0.2 % SOLN as directed CIPROFLOXACIN HCL [id number] Roslyn N Cogar SQE Start: 08-02-2016 CETRAXAL 0.2 % SOLN as directed CIPROFLOXACIN HCL [id number] Roslyn N Cogar SQE diclofenac sodium 0.01 mg/mg topical gel (7 sources) Nonsteroidal Anti-inflammatory Drug End: 10-01-2023 diclofenac (VOLTAREN) 1 % topical gel Apply to affected area twice daily. 0 10/01/2023 Discontinued Comment on above: Apply to affected ar ea twice daily. exemestane 25 mg oral tablet (7 sources) Aromatase Inhibitor Start: 03-27-2023 End: 10-01-2023 exemestane (AROMASIN) 25 mg tablet TAKE 1 TABLET DAILY AFTER A MEAL 90 tablet 1 03/27/2023 10/01/2023 Discontinued Start: 03-20-2022 exemestane (AR OMASIN) 25 mg tablet TAKE 1 TABLET DAILY AFTER A MEAL 90 tablet 3 03/20/2022 Active Start: 03-24-2021 exemestane (AR OMASIN) 25 mg tablet TAKE 1 TABLET DAILY AFTER A MEAL 90 tablet 3 03/24/2021 Active Comment on above: TAKE 1 TABLET DAILY AFTER A MEAL MASTECTOMY BRA(S) (9 sources) Start: 01-09-2017 MASTECTOMY BRA(S) MASTECTOMY BRA(S) Omega Randle MD OMEGA-3 FATTY ACIDS (2 sources) Start: 08-02-2016 [facility] OMEGA-3 GUMMY FISH/DHA 113.5 MG CHEW as directed OMEGA-3 FATTY ACIDS [id number] Roslyn N Cogar SQE OMEGA-3 FATTY ACIDS (11 sources) Start: 08-02-2016 [facility] OMEGA-3 GUMMY FISH/DHA 113.5 MG CHEW as directed OMEGA-3 FATTY ACIDS [id number] Roslyn N Cogar SQE omeprazole (20 sources) Proton Pump Inhibitor Start: 08-02-2016 [facility] OMEPRAZOLE 20 MG TBEC as directed OMEPRAZOLE [id number] Roslyn N Cogar SQE Start: 08-02-2016 [facility] OMEPRAZOLE 20 MG TBEC as directed OMEPRAZOLE [id number] Roslyn Xie SQE take 1 capsule by mo ut once daily as needed omeprazole (PRILOSEC) 20 mg capsule Indications: 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 0 Active Comment on above: Take 20 mg by mouth once daily as needed. 1 ml promethazine hydrochloride 50 mg/ml injection (13 sources) Phenothiazine Start: 08-03-19 17 PHENERGAN 50 MG/ML SOLN as directed PROMETHAZINE HCL [id number] Roslyn Xie SQE simvastatin 10 mg oral tablet (13 sources) HMG-CoA Reductase Inhibitor Start: 08-03-19 SIMVASTATIN 10 MG TABS as directed SIMVASTATIN [id number] Roslyn Xie SQE sulfamethoxazole 800 mg / trimethoprim 160 mg oral tablet (3 sources) Dihydrofolate Reductase Inhibitor Antibacterial, Sulfonamide Antimicrobial Start: 02-13-20 17 take 1 tablet by mouth twice daily SULFAMETHOXAZOLE-TR IMETHOPRIM 800-160 MG TABS One tablet by mouth twice daily SULFAMETHOXAZOLE-TR IMETHOPRIM [id number] Mine Rodriguez CUTTER TENDER Problems Active Problems Problem Classification Problem Date Documented Da te Episodic/Chronic Cancer of breast (20 sources) Malignant neoplasm of upper-outer quadrant of female breast; Translations: [Malignant neoplasm of upper-outer quadrant of left female breast] Onset: 08-21-2006 Resolved: 09-24-2016 Chronic Essential hypertension (13 sources) Hypertensive disorder; Translations: [Essential (primary) hypertension] 08-02-2016 Chronic Menopausal disorders (7 sources) Atrophic vaginitis; Translations: [Postmenopausal atrophic vaginitis] Onset: 02-03-2013 02-03-2013 Chronic Other aftercare (1 source) Long-term current use of aromatase inhibitor; 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] Episodic Other diseases of veins and lymphatics (7 sources) Lymphedema; Translations: [Lymphedema, not elsewhere classified] Onset: 04-13-2019 04-13-2019 Chronic Residual codes; unclassified (1 source) Menopause present; Translations: [Asymptomatic menopausal state] Episodic Unclassified (8 sources) Influenza vaccination ; Translations: [Encounter for immunization] Onset: 01-07-2017 01-07-2017 Past or Other Problems Problem Classification Problem Date Documented Date Episodic/Chronic Genitourinary symptoms and ill-defined conditions (14 sources) Dysuria; Translations: [Urgent desire to urinate] Onset: 3 01-28-2017 Episodic Lymphadenitis (7 sources) Axillary lymphadenopathy; Translations: [Localized enlarged lymph nodes] Onset: 6 01-24-2016 Episodic Nonmalignant breast conditions (1 source) Mammographic microcalcification of breast; Translations: [Mammographic microcalcification found on diagnostic imaging of breast] Onset: 4 Resolved: 2 11-08-2011 Episodic Open wounds of extremities (13 sources) Unspecified open wound of unspecified toe(s) with damage to nail, initial encounter; Translations: [Unspecified open wound of unspecified toe(s) with damage to nail, initial encounter] Onset: 7 08-02-2016 Episodic Other bone disease and musculoskeletal deformities (7 sources) Osteopenia; Translations: [Other specified disorders of bone density and structure, unspecified site] Onset: 3 04-29-2012 Episodic Other screening for suspected conditions (not mental disorders or infectious disease) (1 source) Mammography abnormal; Translations: [Other abnormal and inconclusive findings on diagnostic imaging of breast] Onset: 8 Resolved: 2 11-08-2011 Episodic Urinary tract infections (3 sources) Urinary tract infectious disease; Translations: [Urinary tract infection, site not specified] Onset: 7 02-12-2017 Episodic Results Test Name Value Interpretation Reference Range Facility [facility] 10-01-2023 CNOVS Visit (SP) Office (HEMAWS) OSVALDO KEN ([id number]) 1955 F Date Time Provider Department 10/01/23 1:30 PM JUAN AMBRIZ During your visit today, we recorded the following information about you: Temperature Pulse Blood pressure Weight 97.2 degrees 82/minute 137/84 75.6 kg Juan Ambriz APRN.LUMBER PLANER 10/01/2023 1:54 PM Signed Chief Complaint Patient presents with: Established Patient HPI: Osvaldo Ken is a 67 year old female who presents here today for follow up breast cancer. Per Dr. Torres's previous note: H/o noted on a screening mammogram done 12/26/2015 to be status post lumpectomy of the right breast. Biopsy clips were noted in both breasts. There was a surgical clip noted in the right breast. Significant only, there was a new mass observed in the left breast in the upper outer quadrant at middle depth. She underwent diagnostic imaging on 01/05/2016. The mammogram portion identified a 2 cm irregular high density mass with a spiculated margin and pleomorphic calcifications in the left breast at the 12:00 middle depth. Ultrasound demonstrated a 2.2 x 1.6 x 2.4 cm irregular mass within angular margin in the left breast at 12:00 middle depth 4 cm from the nipple. It was noted to be hypoechoic with internal echoes and posterior acoustic shadowing. An ultrasound-guided core needle biopsy of the left breast mass done on 01/10/2016 retrieved tissue that on pathologic analysis proved to be invasive ductal carcinoma, nuclear grade 2. ER-positive (>95%, strong) and NV (4%, weak). HER-2 quantified at 3+. An MRI of the breast performed on 01/19/2016 demonstrated no suspicious enhancement or mass identified within the right breast. In the left breast there was a 4.4 x 2.7 x 3.9 cm irregular mass with spiculated margins at 12:00 middle depth left breast. Two enlarged lymph nodes were noted in the left axilla measuring 1.4 x 1.0 cm and 1.1 x 0.9 cm. Additionally there were at least 2 subcentimeter T2 hyperintense lesions in the liver. A dedicated liver MRI was recommended for further evaluation. She underwent biopsy of the 2 lymph nodes 01/24/2016. Both negative for malignancy in the submitted sample. MRI abdomen showed no evidence liver metastases. --------- Previous therapy: 1) Neoadjuvant AC every 3 weeks followed by weekly Taxol/Herceptin and Perjeta. She required admission for NF following first cycle. Completed herceptin. 2) Underwent bilateral mastectomy with left sentinel axillary lymph node biopsy on 08/22/2016. Pathology: FROZEN SECTION DIAGNOSIS A. Left axillary sentinel lymph node, biopsy: Two out of two lymph nodes negative for metastatic carcinoma. MICROSCOPIC DIAGNOSIS A. Left axillary lymph nodes, biopsy: Two out of two lymph nodes negative for metastatic carcinoma. B. Left breast, mastectomy: Invasive ductal carcinoma. Ductal carcinoma in situ. See complete cancer checklist below. C. Possible additional left axillary sentinel lymph nodes, biopsy: Breast parenchyma with adenosis with associated microcalcifications and fibrocystic change. No evidence of malignancy. D. Right breast, mastectomy: Extensive adenosis with associated microcalcifications. Skin with seborrheic keratosis. Microfibroadenomas. No evidence of carcinoma. COMMENT B. INVASIVE BREAST CANCER SUMMARY: Procedure: Mastectomy Specimen: Total breast Specimen integrity: Single intact specimen. Specimen size: 25 x 18 x 5 cm Specimen laterality: Left breast Nipple: Free of carcinoma Skeletal muscle: Not present Histologic type of invasive carcinoma: invasive ductal carcinoma Histologic Grade: [place] grade: Glandular/tubular differentiation score: 3 Nuclear pleomorphism score: 2 Mitotic count score: 2 Overall grade - 2 (Total score of 7) Margins: Uninvolved by invasive carcinoma. 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 See specimen A. Method of evaluation of sentinel lymph nodes: H AND E and immunohistochemistry. Microcalcifications - present in non-neoplastic adenosis Treatment effect - no known presurgical therapy Additional patholo (more content not included)... Normal [facility] CNOVSPon 03-27-2023 CNOVSP Visit (SP) Office (HEMAWS) OSVALDO KEN ([id number]) 1955 F Date Time Provider Department 03/27/23 8:30 AM JUAN AMBRIZ During your visit today, we recorded the following information about you: Temperature Pulse Blood pressure Weight 98.2 degrees 94/minute 158/79 75.5 kg Height 1.689 m Juan Ambriz APRN.LUMBER PLANER 03/27/2023 8:56 AM Signed Chief Complaint Patient presents with: Established Patient HPI: Osvaldo Ken is a 67 year old female who presents here today for follow up breast cancer. Per Dr. Torres's previous note: H/o noted on a screening mammogram done 12/26/2015 to be status post lumpectomy of the right breast. Biopsy clips were noted in both breasts. There was a surgical clip noted in the right breast. Significant only, there was a new mass observed in the left breast in the upper outer quadrant at middle depth. She underwent diagnostic imaging on 01/05/2016. The mammogram portion identified a 2 cm irregular high density mass with a spiculated margin and pleomorphic calcifications in the left breast at the 12:00 middle depth. Ultrasound demonstrated a 2.2 x 1.6 x 2.4 cm irregular mass within angular margin in the left breast at 12:00 middle depth 4 cm from the nipple. It was noted to be hypoechoic with internal echoes and posterior acoustic shadowing. An ultrasound-guided core needle biopsy of the left breast mass done on 01/10/2016 retrieved tissue that on pathologic analysis proved to be invasive ductal carcinoma, nuclear grade 2. ER-positive (>95%, strong) and NV (4%, weak). HER-2 quantified at 3+. An MRI of the breast performed on 01/19/2016 demonstrated no suspicious enhancement or mass identified within the right breast. In the left breast there was a 4.4 x 2.7 x 3.9 cm irregular mass with spiculated margins at 12:00 middle depth left breast. Two enlarged lymph nodes were noted in the left axilla measuring 1.4 x 1.0 cm and 1.1 x 0.9 cm. Additionally there were at least 2 subcentimeter T2 hyperintense lesions in the liver. A dedicated liver MRI was recommended for further evaluation. She underwent biopsy of the 2 lymph nodes 01/24/2016. Both negative for malignancy in the submitted sample. MRI abdomen showed no evidence liver metastases. --------- Previous therapy: 1) Neoadjuvant AC every 3 weeks followed by weekly Taxol/Herceptin and Perjeta. She required admission for following first cycle. Completed herceptin. 2) Underwent bilateral mastectomy with left sentinel axillary lymph node biopsy on 08/22/2016. Pathology: FROZEN SECTION DIAGNOSIS A. Left axillary sentinel lymph node, biopsy: Two out of two lymph nodes negative for metastatic carcinoma. MICROSCOPIC DIAGNOSIS A. Left axillary lymph nodes, biopsy: Two out of two lymph nodes negative for metastatic carcinoma. B. Left breast, mastectomy: Invasive ductal carcinoma. Ductal carcinoma in situ. See complete cancer checklist below. C. Possible additional left axillary sentinel lymph nodes, biopsy: Breast parenchyma with adenosis with associated microcalcifications and fibrocystic change. No evidence of malignancy. D. Right breast, mastectomy: Extensive adenosis with associated microcalcifications. Skin with seborrheic keratosis. Microfibroadenomas. No evidence of carcinoma. COMMENT B. INVASIVE BREAST CANCER SUMMARY: Procedure: Mastectomy Specimen: Total breast Specimen integrity: Single intact specimen. Specimen size: 25 x 18 x 5 cm Specimen laterality: Left breast Nipple: Free of carcinoma Skeletal muscle: Not present Histologic type of invasive carcinoma: invasive ductal carcinoma Histologic Grade: [place] grade: Glandular/tubular differentiation score: 3 Nuclear pleomorphism score: 2 Mitotic count score: 2 Overall grade - 2 (Total score of 7) Margins: Uninvolved by invasive carcinoma. 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 See specimen A. Method of evaluation of sentinel lymph nodes: H AND E and immunohistochemistry. Microcalcifications - present in non-neoplastic adenosis Treatment effect - no known presurgical therapy (more content not included)... Normal [facility] Microbiology: Culture, Urine on 02-16-2017 CUUR . Invalid Interpretation Code [facility] Office Visiton 02-12-2017 Bilirubin Ql (U) Negative Invalid Interpretation Code [facility] blood in urine (hemoglobin) by dipstick non-hemolyzed moderate Invalid Interpretation Code [facility] Documentation of current medications (procedure) Done Invalid Interpretation Code [facility] specific gravity, urine 1.010 Invalid Interpretation Code [facility] Tobacco smoking status NHIS Tobacco smoking status NHIS Invalid Interpretation Code [facility] Tobacco smoking status NHIS Never Invalid Interpretation Code [facility] Tobacco use HS Never smoker Invalid Interpretation Code [facility] Urine, appearance clear Invalid Interpretation Code [facility] Urine, color yellow Invalid Interpretation Code [facility] Urine, glucose presence Negative Invalid Interpretation Code [facility] Urine, ketones presence Negative Invalid Interpretation Code [facility] Urine, leukocyte esterase presence 1+ Invalid Interpretation Code [facility] Urine, nitrite presence Negative Invalid Interpretation Code [facility] Urine, pH 6.0 [pH] Invalid Interpretation Code [facility] Urine, protein Negative Invalid Interpretation Code [facility] Urine, urobilinogen presence Negative Invalid Interpretation Code [facility] Microbiology: Culture, Urine on 01-30-2017 CUUR Trimethoprim/Sulfame tho $ <=20 S Invalid Interpretation Code [facility] Microbiology: (P) Culture, U rineon 01-29-2017 CUUR . Invalid Interpretation Code [facility] Office Visit: , HTNon 2016 Documentation of current medications (procedure) Done Invalid Interpretation Code [facility] Work Phone: Protein mass conc Done Invalid Interpretation Code [facility] Work Phone: Tobacco smoking status NHIS Never Invalid Interpretation Code [facility] Work Phone: Tobacco smoking status NHIS Never smoker Invalid Interpretation Code [facility] Work Phone: Tobacco use [facility] Never smoker Invalid Interpretation Code [facility] Work Phone: Vital Signs Date Time Vital Sign Value Performing Clinician Facility 10-01-2023 13:26-0400 Body mass index (BMI) [Ratio] 26.5 kg/m2 Juan Ambriz APRN.LUMBER PLANER Work Phone: [facility] 10-01-2023 13:26-0400 Body temperature 97.2 [degF] Juan Ambriz APRN.LUMBER PLANER Work Phone: [facility] 10-01-2023 13:26-0400 Body weight 75.61 kg Juan Ambriz APRN.LUMBER PLANER Work Phone: [facility] 10-01-2023 13:26-0400 Diastolic blood pressure 84 mm[Hg] Juan Ambriz APRN.LUMBER PLANER Work Phone: [facility] 10-01-2023 13:26-0400 Heart rate 82 /min Juan Ambriz FLAT HAMMERER.LUMBER PLANER Work Phone: [facility] 10-01-2023 13:26-0400 SaO2% (BldA) [Mass fraction] 95 % Juan Ambriz FLAT HAMMERER.LUMBER PLANER Work Phone: [facility] 10-01-2023 13:26-0400 Systolic blood pressure 137 mm[Hg] Juan Ambriz FLAT HAMMERER.LUMBER PLANER Work Phone: [facility] 09-25-2022 13:29-0400 Body height 168.9 cm Juan Ambriz FLAT HAMMERER.LUMBER PLANER Work Phone: [facility] 09-25-2022 13:29-0400 Body temperature 97.11 [degF] Juan Ambriz FLAT HAMMERER.LUMBER PLANER Work Phone: [facility] 09-25-2022 13:29-0400 Body weight 75.07 kg Juan Ambriz FLAT HAMMERER.LUMBER PLANER Work Phone: [facility] 09-25-2022 13:29-0400 Diastolic blood pressure 75 mm[Hg] Juan Ambriz FLAT HAMMERER.LUMBER PLANER Work Phone: [facility] 09-25-2022 13:29-0400 Heart rate 80 /min Juan Ambriz FLAT HAMMERER.LUMBER PLANER Work Phone: [facility] 09-25-2022 13:29-0400 SaO2% (BldA) [Mass fraction] 95 % [place] Ambriz FLAT HAMMERER.LUMBER PLANER Work Phone: [facility] 09-25-2022 13:29-0400 Systolic blood pressure 120 mm[Hg] Juan Ambriz FLAT HAMMERER.LUMBER PLANER Work Phone: [facility] 09-21-2021 13:51-0400 Body temperature 97.81 [degF] Juan Ambriz FLAT HAMMERER.LUMBER PLANER Work Phone: [facility] 09-21-2021 13:51-0400 Body weight 74.84 kg Juan Ambriz FLAT HAMMERER.LUMBER PLANER Work Phone: [facility] 09-21-2021 13:51-0400 Diastolic blood pressure 75 mm[Hg] Juan Ambriz FLAT HAMMERER.LUMBER PLANER Work Phone: [facility] 09-21-2021 13:51-0400 Heart rate 79 /min Juan Sethenter FLAT HAMMERER.LUMBER PLANER Work Phone: [facility] 09-21-2021 13:51-0400 Systolic blood pressure 130 mm[Hg] Juan Sethenter FLAT HAMMERER.LUMBER PLANER Work Phone: [facility] 02-12-2017 14:22-0500 BMI (Body Mass Index) 25.43 kg/m2 Mine Rodriguez NP [facility] 02-12-2017 14:22-0500 BP Diastolic 77 mm[Hg] Mine Rodriguez NP [facility] 02-12-2017 14:22-0500 BP Systolic 127 mm[Hg] Mine Rodriguez NP [facility] 02-12-2017 14:22-0500 Height 167.64 cm Mine Rodriguez NP [facility] 02-12-2017 14:22-0500 Weight 71.49 kg Mine Rodriguez NP [facility] 01-04-2017 12:50-0400 Body Temperature 98.9 [degF] Lida Mireles LPN [facility] Work Phone: 08-02-2016 09:30-0400 BMI (Body Mass Index) 27.29 kg/m2 Roslyn Xie LPN [facility] Work Phone: 08-02-2016 09:30-0400 Body Temperature 98.7 [degF] Roslyn Xie LPN [facility] Work Phone: 08-02-2016 09:30-0400 BP Diastolic 94 mm[Hg] Roslyn Xie LPN [facility] Work Phone: 08-02-2016 09:30-0400 BP Systolic 148 mm[Hg] Roslyn Xie LPN [facility] Work Phone: 08-02-2016 09:30-0400 Height 165.1 cm Roslyn Xie LPN [facility] Work Phone: 08-02-2016 09:30-0400 Pulse (Heart Rate) 83 /min Roslyn Xie LPN [facility] Work Phone: 08-02-2016 09:30-0400 Pulse Oximetry 97 % Roslyn Xie LPN [facility] Work Phone: 08-02-2016 09:30-0400 Respiratory Rate 16 /min Roslyn Xie LPN [facility] Work Phone: 08-02-2016 09:30-0400 Weight 74.39 kg Roslyn Xie LPN [facility] Work Phone: Encounters Encounter Date Encounter Type Care Provider Facility Start: 10-01-2023 End: 10-01-2023 ambulatory Juan Ambriz FLAT HAMMERER.LUMBER PLANER Work Phone: Hematology/Oncology Comment on above: Malignant neoplasm o f upper-outer quadrant of left breast in female, estrogen receptor positive (HCC) (Primary Dx) Start: 10-01-2023 End: 10-01-2023 Patient encounter procedure Juan Ambriz FLAT HAMMERER.LUMBER PLANER Work Phone: Hematology/Oncology Start: 03-27-2023 End: 03-27-2023 ambulatory ANDRIY JONES Facility:[facility] Start: 09-25-2022 End: 09-25-2022 ambulatory Juan Ambriz FLAT HAMMERER.LUMBER PLANER Work Phone: Hematology/Oncology Comment on above: Malignant neoplasm o f upper-outer quadrant of left breast in female, estrogen receptor positive (HCC) (Primary Dx) Start: 09-25-2022 End: 09-25-2022 Patient encounter procedure Juan Ambriz FLAT HAMMERER.LUMBER PLANER [facility] Start: 04-14-2022 Telephone encounter Juan hunter FLAT HAMMERER.LUMBER PLANER Work Phone: Hematology/Oncology Comment on above: Future Appointment Start: 03-20-2022 Orders Only Lazaro A Masci D O Work Phone: Hematology/Oncology Start: 03-13-2022 Telephone encounter Juan hunter FLAT HAMMERER.LUMBER PLANER Work Phone: Hematology/Oncology Comment on above: Patient Question Start: 11-06-2021 ambulatory Juan Bailey r FLAT HAMMERER.LUMBER PLANER Work Phone: Hematology/Oncology Comment on above: Bone Density Start: 09-21-2021 End: 09-21-2021 ambulatory Juan Ambriz FLAT HAMMERER.LUMBER PLANER Work Phone: Hematology/Oncology Comment on above: Malignant neoplasm o f upper-outer quadrant of left breast in female, estrogen receptor positive (HCC) (Primary Dx); 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; 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 Start: 09-21-2021 End: 09-21-2021 Patient encounter procedure Juan Ambriz FLAT HAMMERER.LUMBER PLANER Work Phone: [facility] Procedures Date Procedure Procedure Detail Performing Clinician Start: 09-03-2021 Adult depression scr eening assessment Juan Ambriz FLAT HAMMERER.LUMBER PLANER Work Phone: Start: 02-12-2017 End: 02-12-2017 Urnls dip stick/tablet rgnt non-auto w/o micrscp Mine Rodriguez CUTTER TENDER Work Phone: Start: 01-07-2017 End: 01-07-2017 Cciiv4 vaccine preservative free 0.5 ml im use Eddi VO Work Phone: Start: 01-07-2017 Influenza vaccination Flu vaccine Jason VO Start: 10-27-2015 Lipid 1996 panel - S david or Plasma Juan Ambriz FLAT HAMMERER.LUMBER PLANER Work Phone: Start: 11-16-2014 Colonoscopy Juan hunter FLAT HAMMERER.LUMBER PLANER Work Phone: Plan of Treatment Date Care Activity Detail Author Start: 03-20-2033 Urine microalbumin profile DTaP,Tdap,Td Vaccine (2 - Td or Tdap) [facility] Start: 11-16-[address] [facility] Start: 11-16-2024 COLORECTAL CANCER SCREENING COLORECTAL CANCER SCREENING [facility] Start: 11-16-2024 Screening for malign ant neoplasm of colon [facility] Start: 03-31-2024 End: 03-31-2024 ambulatory 03/31/2024 1:30 PM EST Visit (SP) Office Hematology/Oncology [address] [place] [id number] Juan Ambriz APRN.LUMBER PLANER [address] [place] [id number] 6 MTH OV* Hematology/Oncology Comment on above: 6 MTH OV* Start: 11-17-2023 Influenza vaccination Influenza Vacc ine (#1) [facility] Start: 06-17-2023 Covid-19 Vaccine () Covid-19 Vaccine ( season) [facility] Start: 03-18-2023 Advance Directive Discussion Advance Directive Discussion [facility] Start: 03-18-2023 Behavioral Health Screening Behavioral Health Screening [facility] Start: 11-16-2022 Influenza vaccination INFLUENZA (#1) [facility] Start: 09-03-2022 Adult depression screening assessment DEPRESSION SCREENING [facility] Start: 03-18-2022 ADVANCE DIRECTIVE DISCUSSION ADVANCE DIRECTIVE DISCUSSION [facility] Start: 03-18-2022 DEPRESSION ASSESSMENT DEPRESSION ASS ESSMENT [facility] Start: 11-16-2021 Influenza vaccination INFLUENZA (#1) [facility] Start: 05-13-2021 COVID-19 VACCINE (4 - Booster for Pfizer series) COVID-19 VACCINE (4 - Booster for Pfizer series) [facility] Start: 05-05-2021 COVID-19 VACCINE (4 - Booster for Pfizer series) COVID-19 VACCINE (4 - Booster for Pfizer series) [facility] Start: 04-07-2021 COVID-19 VACCINE (4 - Booster for Pfizer series) COVID-19 VACCINE (4 - Booster for Pfizer series) [facility] Start: 04-07-2021 COVID-19 VACCINE (4 - Pfizer series) COVID-19 VACCINE (4 - Pfizer series) [facility] Start: 03-18-2021 ADVANCE DIRECTIVE DISCUSSION ADVANCE DIRECTIVE DISCUSSION [facility] Start: 03-18-2021 DEPRESSION ASSESSMENT DEPRESSION ASS ESSMENT [facility] Start: 10-26-2020 Lipid panel Lipid Screening [facility] Start: 10-26-2020 [address] L[address]ID SCREEN [facility] Start: 12-29-2019 PNEUMOCOCCAL: 65+ (1 - PCV) PNEUMOCOCCAL: 65+ (1 - PCV) [facility] Start: 07-03-2019 DIABETES SCREEN DIABETES SCREEN [facility] Start: 07-03-2019 Diabetes Screening Diabetes Screenin g [facility] Start: 02-21-2017 End: 02-21-2017 Appointment Appointment [facility] Start: 02-12-2017 End: 02-12-2017 Appointment Appointment [facility] Start: 02-12-2017 End: 02-12-2017 *CUUID - Urine AV Culture - Identificatn *CUUID - Urine AV Culture - Identificatn [facility] Start: 01-28-2017 End: 01-28-2017 *CUUID - Urine AV Culture - Identificatn *CUUID - Urine AV Culture - Identificatn [facility] Start: 01-04-2017 End: 01-04-2017 Appointment Appointment [facility] Work Phone: Start: 08-02-2016 End: 08-02-2016 Appointment Appointment [facility] Work Phone: Start: 2004 SHINGRIX VACCINE (1 of 2) SHINGRIX VACCINE (1 of 2) [facility] Start: 12-29-1999 COLOGUARD (FIT-DNA) COLOGUARD (FIT-D NA) [facility] Start: 12-29-[address] COLONOGRAPHY [facility] Start: 12-29-1999 FECAL OCCULT BLOOD FECAL OCCULT BLOO D [facility] Start: 12-29-1999 Screening for malign ant neoplasm of colon [facility] Start: 12-29-1999 SIGMOIDOSCOPY SIGMOIDOSCOPY [facility] Start: 1973 SHINGRIX VACCINE (1 of 2) SHINGRIX VACCINE (1 of 2) [facility] Start: 1973 Urine microalbumin profile DTAP,TDAP,TD (1 - Tdap) [facility] Start: 1972 HEPATITIS C SCREENING HEPATITIS C [facility] Start: 1972 Hepatitis C screening Hepatitis C [facility] Start: 1960 PNEUMOCOCCAL: 65+ (1 - PCV) PNEUMOCOCCAL: 65+ (1 - PCV) [facility] End: 10-21-2022 Dxa bone density study / sites axial skel DXA-AXIAL [facility] Routine Menopause custodial (current) use of aromatase inhibitors 1 Occurrences starting 09/21/2021 until 10/21/2022 [facility] Work Phone: Comment on above: 1 Occurrences starti ng 09/21/2021 until 10/21/2022 Patient Education CHRONIC%20HYPERTENSION [facility] Work Phone: [facility] Immunizations Immunization Date Immunization Notes Care Provider Aracely hammond 12-14-2022 influenza virus vacc ine, unspecified formulation Juan Ambriz FLAT HAMMERER.LUMBER PLANER Work Phone: [facility] 01-04-2017 influenza, injectabl e, quadrivalent, preservative free Juan Ambriz FLAT HAMMERER.LUMBER PLANER Work Phone: [facility] Payers Date Payer Category Payer Medicare MEDICARE MEDICAR E A AND B [id number] 2019-Present [phone] [address] [address] [place] [address] Medicare [id number] 2019 Medicare MEDICARE MEDICAR E A AND B [id number] 2019-Present [phone] [address] [address] [place] [address] Medicare [id number] 2019 Unknown MMO MMO MEDICARE SUPPLEMENT [id number] 2019-Present [phone] [address] [place] [address] Indemnity [id number] 2019 Unknown MMO MMO MEDICARE SUPPLEMENT [id number] 2019-Present [phone] [address] [place] [address] Indemnity [id number] 2019 Medicare [id number] 2019 Medicare [id number] Social History Date Type Detail Facility Start: 01-24-2011 Tobacco smoking stat us MDIS Never smoked tobacco [facility] Start: 09-21-2021 End: 10-01-2023 Alcohol intake Current non-drinker of alcohol (finding) [facility] Start: 1955 Sex Assigned At Not on file C [facility] Start: 09-11-2021 End: 09-21-2021 Exposure to SARS-CoV-2 (event) Not sure [facility] Start: 01-24-2011 Tobacco use and exposure Smoke less tobacco non-user [facility] Start: 02-21-2020 End: 09-25-2022 History of Social function [facility] Start: 02-21-2020 End: 09-25-[address] [facility] Adult Depression Screening Assessment 0 [facility] Start: 1955 Sex Assigned At Female C [facility] Start: 03-25-2023 Gender identity Identifies as female gender (finding) [facility] Start: 03-25-2023 Sexual orientation Heterosexual (magi latif) [facility] Medical Equipment Procedure Code Equipment Code Equipment Origin al Text Equipment Identifier Dates [place] [employer] M ri 6fr Polyurethane Implantable Infusion Slim Catheter - [id number] Start: 01-31-2016 Clinical Notes 01-24-2016 to 10-01-2023 Juan Ambriz APRN.CNP - 10/01/2023 1:23 PM Juan Virk APRN.CNP - 09/25/2022 1:41 PM EDTTelephone Encounter - Nargis Elliott - 04/14/2022 2:58 PM EST Note Date & Type Note Facility 10-01-2023 Note HNO ID: [id number] Author: JUAN AMBRIZ APRN.CNP Service: ? Author Type: Nurse Practitioner Type: Progress Notes Filed: 10/01/2023 13:54 Note Text: Chief Complaint Patient presents with: Established Patient HPI: Osvaldo Ken is a 67 year old female who presents here today for follow up breast cancer. Per Dr. Torres's previous note: H/o noted on a screening mammogram done 12/26/2015 to be status post lumpectomy of the right breast. Biopsy clips were noted in both breasts. There was a surgical clip noted in the right breast. Significant only, there was a new mass observed in the left breast in the upper outer quadrant at middle depth. She underwent diagnostic imaging on 01/05/2016. The mammogram portion identified a 2 cm irregular high density mass with a spiculated margin and pleomorphic calcifications in the left breast at the 12:00 middle depth. Ultrasound demonstrated a 2.2 x 1.6 x 2.4 cm irregular mass within angular margin in the left breast at 12:00 middle depth 4 cm from the nipple. It was noted to be hypoechoic with internal echoes and posterior acoustic shadowing. An ultrasound-guided core needle biopsy of the left breast mass done on 01/10/2016 retrieved tissue that on pathologic analysis proved to be invasive ductal carcinoma, nuclear grade 2. ER-positive (>95%, strong) and NV (4%, weak). HER-2 quantified at 3+. An MRI of the breast performed on 01/19/2016 demonstrated no suspicious enhancement or mass identified within the right breast. In the left breast there was a 4.4 x 2.7 x 3.9 cm irregular mass with spiculated margins at 12:00 middle depth left breast. Two enlarged lymph nodes were noted in the left axilla measuring 1.4 x 1.0 cm and 1.1 x 0.9 cm. Additionally there were at least 2 subcentimeter T2 hyperintense lesions in the liver. A dedicated liver MRI was recommended for further evaluation. She underwent biopsy of the 2 lymph nodes 01/24/2016. Both negative for malignancy in the submitted sample. MRI abdomen showed no evidence liver metastases. Previous therapy: 1) Neoadjuvant AC every 3 weeks followed by weekly Taxol/Herceptin and Perjeta. She required admission for NF following first cycle. Completed herceptin. 2) Underwent bilateral mastectomy with left sentinel axillary lymph node biopsy on 08/22/2016. Pathology: FROZEN SECTION DIAGNOSIS A. Left axillary sentinel lymph node, biopsy: Two out of two lymph nodes negative for metastatic carcinoma. MICROSCOPIC DIAGNOSIS A. Left axillary lymph nodes, biopsy: Two out of two lymph nodes negative for metastatic carcinoma. B. Left breast, mastectomy: Invasive ductal carcinoma. Ductal carcinoma in situ. See complete cancer checklist below. C. Possible additional left axillary sentinel lymph nodes, biopsy: Breast parenchyma with adenosis with associated microcalcifications and fibrocystic change. No evidence of malignancy. D. Right breast, mastectomy: Extensive adenosis with associated microcalcifications. Skin with seborrheic keratosis. Microfibroadenomas. No evidence of carcinoma. COMMENT B. INVASIVE BREAST CANCER SUMMARY: Procedure: Mastectomy Specimen: Total breast Specimen integrity: Single intact specimen. Specimen size: 25 x 18 x 5 cm Specimen laterality: Left breast Nipple: Free of carcinoma Skeletal muscle: Not present Histologic type of invasive carcinoma: invasive ductal carcinoma Histologic Grade: [place] grade: Glandular/tubular differentiation score: 3 Nuclear pleomorphism score: 2 Mitotic count score: 2 Overall grade - 2 (Total score of 7) Margins: Uninvolved by invasive carcinoma. 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 See specimen A. Method of evaluation of sentinel lymph nodes: H AND E and immunohistochemistry. Microcalcifications - present in non-neoplastic adenosis Treatment effect - no known presurgical therapy Additional pathologic findings: Extensive adenosis with associated microcalcifications and focal microfibroadenoma. Changes of previous biopsy. Ancillary studies: Previously performed on same tumor ([id number] / [id number]). ER: >95%, strong NV: 4%, weak Her2 chuck: 3+ (IHC) PATH (more content not included)... [facility] 10-01-2023 History of Present illness Narrative Chief Complaint Patient presents with: Established Patient HPI: Osvaldo Ken is a 67 year old female who presents here today for follow up breast cancer. Per Dr. Torres's previous note: H/o noted on a screening mammogram done 12/26/2015 to be status post lumpectomy of the right breast. Biopsy clips were noted in both breasts. There was a surgical clip noted in the right breast. Significant only, there was a new mass observed in the left breast in the upper outer quadrant at middle depth. She underwent diagnostic imaging on 01/05/2016. The mammogram portion identified a 2 cm irregular high density mass with a spiculated margin and pleomorphic calcifications in the left breast at the 12:00 middle depth. Ultrasound demonstrated a 2.2 x 1.6 x 2.4 cm irregular mass within angular margin in the left breast at 12:00 middle depth 4 cm from the nipple. It was noted to be hypoechoic with internal echoes and posterior acoustic shadowing. An ultrasound-guided core needle biopsy of the left breast mass done on 01/10/2016 retrieved tissue that on pathologic analysis proved to be invasive ductal carcinoma, nuclear grade 2. ER-positive (>95%, strong) and NV (4%, weak). HER-2 quantified at 3+. An MRI of the breast performed on 01/19/2016 demonstrated no suspicious enhancement or mass identified within the right breast. In the left breast there was a 4.4 x 2.7 x 3.9 cm irregular mass with spiculated margins at 12:00 middle depth left breast. Two enlarged lymph nodes were noted in the left axilla measuring 1.4 x 1.0 cm and 1.1 x 0.9 cm. Additionally there were at least 2 subcentimeter T2 hyperintense lesions in the liver. A dedicated liver MRI was recommended for further evaluation. She underwent biopsy of the 2 lymph nodes 01/24/2016. Both negative for malignancy in the submitted sample. MRI abdomen showed no evidence liver metastases. Previous therapy: 1) Neoadjuvant AC every 3 weeks followed by weekly Taxol/Herceptin and Perjeta. She required admission for NF following first cycle. Completed herceptin. 2) Underwent bilateral mastectomy with left sentinel axillary lymph node biopsy on 08/22/2016. Pathology: FROZEN SECTION DIAGNOSIS A. Left axillary sentinel lymph node, biopsy: Two out of two lymph nodes negative for metastatic carcinoma. MICROSCOPIC DIAGNOSIS A. Left axillary lymph nodes, biopsy: Two out of two lymph nodes negative for metastatic carcinoma. B. Left breast, mastectomy: Invasive ductal carcinoma. Ductal carcinoma in situ. See complete cancer checklist below. C. Possible additional left axillary sentinel lymph nodes, biopsy: Breast parenchyma with adenosis with associated microcalcifications and fibrocystic change. No evidence of malignancy. D. Right breast, mastectomy: Extensive adenosis with associated microcalcifications. Skin with seborrheic keratosis. Microfibroadenomas. No evidence of carcinoma. COMMENT B. INVASIVE BREAST CANCER SUMMARY: Procedure: Mastectomy Specimen: Total breast Specimen integrity: Single intact specimen. Specimen size: 25 x 18 x 5 cm Specimen laterality: Left breast Nipple: Free of carcinoma Skeletal muscle: Not present Histologic type of invasive carcinoma: invasive ductal carcinoma Histologic Grade: Isma grade: Glandular/tubular differentiation score: 3 Nuclear pleomorphism score: 2 Mitotic count score: 2 Overall grade - 2 (Total score of 7) Margins: Uninvolved by invasive carcinoma. 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 See specimen A. Method of evaluation of sentinel lymph nodes: H & E and immunohistochemistry. Microcalcifications - present in non-neoplastic adenosis Treatment effect - no known presurgical therapy Additional pathologic findings: Extensive adenosis with associated microcalcifications and focal microfibroadenoma. Changes of previous biopsy. Ancillary studies: Previously performed on same tumor ([id number] / [id number]). ER: >95%, strong NV: 4%, weak Her2 chuck: 3+ (IHC) PATHOLOGIC STAGE: pT1c N0(sn) Mx 3) Anastrozole-Began September 2016. Stopped due to MS side effects. Current therapy: 4) Exemestane. Began November 2016 No new concerns today. Appetite: Good. Wt. stable. Energy level: Good. Denies fevers or recent illness. Resp:occ. 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 Skin:denies rashes/lesions Heme:denies bleeding The ROS is otherwise negative. Past medical history, appointments, medications, allergies reviewed. No changes. EXAM: BP 137/84 Pulse 82 Temp 36.2 C (97.2 F) (Temporal) Wt 75.6 kg (166 lb 11.2 oz) LMP 12/17/2003 SpO2 95% BMI 26.50 kg/m APPEARANCE Well appearing, alert, in no acute distress, well-hydrated, well nourished. HEART RRR with normal S1 and S2, no murmurs LUNG clear to auscultation BREAST FEMALE b/l mastectomy scars, no nodule LYMPH NODES No cervical lymphadenopathy, No supraclavicular lymphadenopathy, and No axillary lymphadenopathy. ABDOMEN bowel sounds normoactive, soft, non-tender, non-distended EXTREMITIES No edema NEURO Awake, alert and oriented x 3, Normal gait, and No involuntary motions. SKIN Skin color, texture, turgor normal, no suspicious rashes or lesions ASSESSMENT/PLAN: 1. Malignant neoplasm of upper-outer quadrant of left breast in female, estrogen receptor positive (HCC) - ICD9: 174.4, V86.0, ICD10: C50.412, Z17.0 cT2 cN0 ER/NV positive, HER-2 amplified invasive ductal carcinoma of the left breast. ypT1c (1.8 cm residual tumor) pN0(sln). - No concerning findings on exam. - Did not tolerate arimidex d/t joint pain/aches. - Tolerated aromasin overall well-hand stiffness/aches. - Will complete 7 years of therapy this month. - Follow up in 6 months. - Pt. aware to call office with any questions/concerns. The patient indicates understanding of these issues and agrees with the plan. All documentation from previous visit of 03/27/23-Dr. Torres/myself was copied and pasted, documentation has been reviewed and edited as necessary for today's visit. Juan Ambriz APRN.OTTO documented in this encounter [facility] 03-27-2023 Note HNO ID: [id number] Author: JUAN AMBRIZ APRN.OTTO Service: ? Author Type: Nurse Practitioner Type: Progress Notes Filed: 03/27/2023 08:56 Note Text: Chief Complaint Patient presents with: Established Patient HPI: Osvaldo Ken is a 67 year old female who presents here today for follow up breast cancer. Per Dr. Torres's previous note: H/o noted on a screening mammogram done 12/26/2015 to be status post lumpectomy of the right breast. Biopsy clips were noted in both breasts. There was a surgical clip noted in the right breast. Significant only, there was a new mass observed in the left breast in the upper outer quadrant at middle depth. She underwent diagnostic imaging on 01/05/2016. The mammogram portion identified a 2 cm irregular high density mass with a spiculated margin and pleomorphic calcifications in the left breast at the 12:00 middle depth. Ultrasound demonstrated a 2.2 x 1.6 x 2.4 cm irregular mass within angular margin in the left breast at 12:00 middle depth 4 cm from the nipple. It was noted to be hypoechoic with internal echoes and posterior acoustic shadowing. An ultrasound-guided core needle biopsy of the left breast mass done on 01/10/2016 retrieved tissue that on pathologic analysis proved to be invasive ductal carcinoma, nuclear grade 2. ER-positive (>95%, strong) and NV (4%, weak). HER-2 quantified at 3+. An MRI of the breast performed on 01/19/2016 demonstrated no suspicious enhancement or mass identified within the right breast. In the left breast there was a 4.4 x 2.7 x 3.9 cm irregular mass with spiculated margins at 12:00 middle depth left breast. Two enlarged lymph nodes were noted in the left axilla measuring 1.4 x 1.0 cm and 1.1 x 0.9 cm. Additionally there were at least 2 subcentimeter T2 hyperintense lesions in the liver. A dedicated liver MRI was recommended for further evaluation. She underwent biopsy of the 2 lymph nodes 01/24/2016. Both negative for malignancy in the submitted sample. MRI abdomen showed no evidence liver metastases. Previous therapy: 1) Neoadjuvant AC every 3 weeks followed by weekly Taxol/Herceptin and Perjeta. She required admission for NF following first cycle. Completed herceptin. 2) Underwent bilateral mastectomy with left sentinel axillary lymph node biopsy on 08/22/2016. Pathology: FROZEN SECTION DIAGNOSIS A. Left axillary sentinel lymph node, biopsy: Two out of two lymph nodes negative for metastatic carcinoma. MICROSCOPIC DIAGNOSIS A. Left axillary lymph nodes, biopsy: Two out of two lymph nodes negative for metastatic carcinoma. B. Left breast, mastectomy: Invasive ductal carcinoma. Ductal carcinoma in situ. See complete cancer checklist below. C. Possible additional left axillary sentinel lymph nodes, biopsy: Breast parenchyma with adenosis with associated microcalcifications and fibrocystic change. No evidence of malignancy. D. Right breast, mastectomy: Extensive adenosis with associated microcalcifications. Skin with seborrheic keratosis. Microfibroadenomas. No evidence of carcinoma. COMMENT B. INVASIVE BREAST CANCER SUMMARY: Procedure: Mastectomy Specimen: Total breast Specimen integrity: Single intact specimen. Specimen size: 25 x 18 x 5 cm Specimen laterality: Left breast Nipple: Free of carcinoma Skeletal muscle: Not present Histologic type of invasive carcinoma: invasive ductal carcinoma Histologic Grade: [place] grade: Glandular/tubular differentiation score: 3 Nuclear pleomorphism score: 2 Mitotic count score: 2 Overall grade - 2 (Total score of 7) Margins: Uninvolved by invasive carcinoma. 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 See specimen A. Method of evaluation of sentinel lymph nodes: H AND E and immunohistochemistry. Microcalcifications - present in non-neoplastic adenosis Treatment effect - no known presurgical therapy Additional pathologic findings: Extensive adenosis with associated microcalcifications and focal microfibroadenoma. Changes of previous biopsy. Ancillary studies: Previously performed on same tumor ([id number] / [id number]). ER: >95%, strong NV: 4%, weak Her2 chuck: 3+ ([facility]) PATH (more content not included)... [facility] 09-25-2022 History of Present illness Narrative Chief Complaint Patient presents with: Established Patient HPI: Osvaldo Ken is a 66 year old female who presents here today for follow up breast cancer. Per Dr. Torres's previous note: H/o noted on a screening mammogram done 12/26/2015 to be status post lumpectomy of the right breast. Biopsy clips were noted in both breasts. There was a surgical clip noted in the right breast. Significant only, there was a new mass observed in the left breast in the upper outer quadrant at middle depth. She underwent diagnostic imaging on 01/05/2016. The mammogram portion identified a 2 cm irregular high density mass with a spiculated margin and pleomorphic calcifications in the left breast at the 12:00 middle depth. Ultrasound demonstrated a 2.2 x 1.6 x 2.4 cm irregular mass within angular margin in the left breast at 12:00 middle depth 4 cm from the nipple. It was noted to be hypoechoic with internal echoes and posterior acoustic shadowing. An ultrasound-guided core needle biopsy of the left breast mass done on 01/10/2016 retrieved tissue that on pathologic analysis proved to be invasive ductal carcinoma, nuclear grade 2. ER-positive (>95%, strong) and NV (4%, weak). HER-2 quantified at 3+. An MRI of the breast performed on 01/19/2016 demonstrated no suspicious enhancement or mass identified within the right breast. In the left breast there was a 4.4 x 2.7 x 3.9 cm irregular mass with spiculated margins at 12:00 middle depth left breast. Two enlarged lymph nodes were noted in the left axilla measuring 1.4 x 1.0 cm and 1.1 x 0.9 cm. Additionally there were at least 2 subcentimeter T2 hyperintense lesions in the liver. A dedicated liver MRI was recommended for further evaluation. She underwent biopsy of the 2 lymph nodes 01/24/2016. Both negative for malignancy in the submitted sample. MRI abdomen showed no evidence liver metastases. Previous therapy: 1) Neoadjuvant AC every 3 weeks followed by weekly Taxol/Herceptin and Perjeta. She required admission for NF following first cycle. Completed herceptin. 2) Underwent bilateral mastectomy with left sentinel axillary lymph node biopsy on 08/22/2016. Pathology: FROZEN SECTION DIAGNOSIS A. Left axillary sentinel lymph node, biopsy: Two out of two lymph nodes negative for metastatic carcinoma. MICROSCOPIC DIAGNOSIS A. Left axillary lymph nodes, biopsy: Two out of two lymph nodes negative for metastatic carcinoma. B. Left breast, mastectomy: Invasive ductal carcinoma. Ductal carcinoma in situ. See complete cancer checklist below. C. Possible additional left axillary sentinel lymph nodes, biopsy: Breast parenchyma with adenosis with associated microcalcifications and fibrocystic change. No evidence of malignancy. D. Right breast, mastectomy: Extensive adenosis with associated microcalcifications. Skin with seborrheic keratosis. Microfibroadenomas. No evidence of carcinoma. COMMENT B. INVASIVE BREAST CANCER SUMMARY: Procedure: Mastectomy Specimen: Total breast Specimen integrity: Single intact specimen. Specimen size: 25 x 18 x 5 cm Specimen laterality: Left breast Nipple: Free of carcinoma Skeletal muscle: Not present Histologic type of invasive carcinoma: invasive ductal carcinoma Histologic Grade: [place] grade: Glandular/tubular differentiation score: 3 Nuclear pleomorphism score: 2 Mitotic count score: 2 Overall grade - 2 (Total score of 7) Margins: Uninvolved by invasive carcinoma. 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 See specimen A. Method of evaluation of sentinel lymph nodes: H & E and immunohistochemistry. Microcalcifications - present in non-neoplastic adenosis Treatment effect - no known presurgical therapy Additional pathologic findings: Extensive adenosis with associated microcalcifications and focal microfibroadenoma. Changes of previous biopsy. Ancillary studies: Previously performed on same tumor ([id number] / [id number]). ER: >95%, strong NV: 4%, weak Her2 chuck: 3+ ([facility]) PATHOLOGIC STAGE: pT1c N0(sn) Mx 3) Anastrozole-Began September 2016. Stopped due to MS side effects. Current therapy: 4) Exemestane. Began November 2016 No new concerns today. Appetite: Good. Energy level: I'd say good. Denies fevers. 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 Skin:denies rashes/lesions Heme:denies bleeding The ROS is otherwise negative. Past medical history, appointments, medications, allergies reviewed. No changes. EXAM: BP 120/75 Pulse 80 Temp 36.2 C (97.1 F) (Temporal) Ht 168.9 cm (5' 6.5 ) Wt 75.1 kg (165 lb 8 oz) LMP 12/17/2003 SpO2 95% BMI 26.31 kg/m APPEARANCE Well appearing, alert, in no acute distress, well-hydrated, well nourished. HEART RRR with normal S1 and S2, no murmurs LUNG clear to auscultation BREAST FEMALE b/l mastectomy scars, no nodule LYMPH NODES No cervical lymphadenopathy, No supraclavicular lymphadenopathy, and No axillary lymphadenopathy. ABDOMEN bowel sounds normoactive, soft, non-tender EXTREMITIES No edema NEURO Awake, alert and oriented x 3, Normal gait, and No involuntary motions. SKIN Skin color, texture, turgor normal, no suspicious rashes or lesions ASSESSMENT/PLAN: 1. Malignant neoplasm of upper-outer quadrant of left breast in female, estrogen receptor positive (HCC) - ICD9: 174.4, V86.0, ICD10: C50.412, Z17.0 cT2 cN0 ER/NV positive, HER-2 amplified invasive ductal carcinoma of the left breast. ypT1c (1.8 cm residual tumor) pN0(sln). - No concerning findings on exam. - Did not tolerate arimidex d/t joint pain/aches. - Tolerating aromasin well. - Continue aromasin to complete 7 years of therapy. - Follow up in 6 months. - Pt. aware to call office with any questions/concerns. The patient indicates understanding of these issues and agrees with the plan. All documentation from previous visit of 03/20/22-Dr. Torres/myself was copied and pasted, documentation has been reviewed and edited as necessary for today's visit. Juan Ambriz APRN.OTTO documented in this encounter [facility] 04-14-2022 Miscellaneous Notes LM for patient to return call to reschedule. When patient calls, please reschedule 09/17 appointment to another day/time that best suits the patient. Once rescheduled, document and close this note. Nargis Elliott documented in this encounter [facility] 03-14-2022 Miscellaneous Notes Ruthann called to confirm if fax arrived. She is sending again. Please call her at [phone] if not received. Noted. Will watch for fax from [employer]. Fatmata Salazar LPN Pt stated [employer] may be reaching out for a new prescription for the bras and bra forms for pt. Need new because of being on Medicare now. documented in this encounter [facility] 11-07-2021 Miscellaneous Notes Spoke with pt. Reviewed bone density. Pt. agreeable to continue aromasin. Goal of therapy 7 years. Juan Ambriz APRN.LUMBER PLANER documented in this encounter [facility] 09-21-2021 Nurse Note Est. Pt, 6 month f/u Kimberly Clements LPN documented in this encounter [facility] 09-21-2021 History of Present illness Narrative Chief Complaint Patient presents with: Established Patient HPI: Osvaldo Ken is a 65 year old female who presents here today for follow up breast cancer. Per Dr. Torres's previous note: H/o noted on a screening mammogram done 12/26/2015 to be status post lumpectomy of the right breast. Biopsy clips were noted in both breasts. There was a surgical clip noted in the right breast. Significant only, there was a new mass observed in the left breast in the upper outer quadrant at middle depth. She underwent diagnostic imaging on 01/05/2016. The mammogram portion identified a 2 cm irregular high density mass with a spiculated margin and pleomorphic calcifications in the left breast at the 12:00 middle depth. Ultrasound demonstrated a 2.2 x 1.6 x 2.4 cm irregular mass within angular margin in the left breast at 12:00 middle depth 4 cm from the nipple. It was noted to be hypoechoic with internal echoes and posterior acoustic shadowing. An ultrasound-guided core needle biopsy of the left breast mass done on 01/10/2016 retrieved tissue that on pathologic analysis proved to be invasive ductal carcinoma, nuclear grade 2. ER-positive (>95%, strong) and NV (4%, weak). HER-2 quantified at 3+. An MRI of the breast performed on 01/19/2016 demonstrated no suspicious enhancement or mass identified within the right breast. In the left breast there was a 4.4 x 2.7 x 3.9 cm irregular mass with spiculated margins at 12:00 middle depth left breast. Two enlarged lymph nodes were noted in the left axilla measuring 1.4 x 1.0 cm and 1.1 x 0.9 cm. Additionally there were at least 2 subcentimeter T2 hyperintense lesions in the liver. A dedicated liver MRI was recommended for further evaluation. She underwent biopsy of the 2 lymph nodes 01/24/2016. Both negative for malignancy in the submitted sample. MRI abdomen showed no evidence liver metastases. Previous therapy: 1) Neoadjuvant AC every 3 weeks followed by weekly Taxol/Herceptin and Perjeta. She required admission for NF following first cycle. Completed herceptin. 2) Underwent bilateral mastectomy with left sentinel axillary lymph node biopsy on 08/22/2016. Pathology: FROZEN SECTION DIAGNOSIS A. Left axillary sentinel lymph node, biopsy: Two out of two lymph nodes negative for metastatic carcinoma. MICROSCOPIC DIAGNOSIS A. Left axillary lymph nodes, biopsy: Two out of two lymph nodes negative for metastatic carcinoma. B. Left breast, mastectomy: Invasive ductal carcinoma. Ductal carcinoma in situ. See complete cancer checklist below. C. Possible additional left axillary sentinel lymph nodes, biopsy: Breast parenchyma with adenosis with associated microcalcifications and fibrocystic change. No evidence of malignancy. D. Right breast, mastectomy: Extensive adenosis with associated microcalcifications. Skin with seborrheic keratosis. Microfibroadenomas. No evidence of carcinoma. COMMENT B. INVASIVE BREAST CANCER SUMMARY: Procedure: Mastectomy Specimen: Total breast Specimen integrity: Single intact specimen. Specimen size: 25 x 18 x 5 cm Specimen laterality: Left breast Nipple: Free of carcinoma Skeletal muscle: Not present Histologic type of invasive carcinoma: invasive ductal carcinoma Histologic Grade: [place] grade: Glandular/tubular differentiation score: 3 Nuclear pleomorphism score: 2 Mitotic count score: 2 Overall grade 2 (Total score of 7) Margins: Uninvolved by invasive carcinoma. Distance from closest (posterior margin) 20 mm Lymph-Vascular invasion: Not identified Dermal lymph-vascular invasion: No identified Ductal carcinoma in situ (DCIS) DCIS is present Estimated size (extent) of DCIS: 2 x 2 x 2 mm Number of blocks with DCIS: 3 Number of blocks examined: 15 Architectural patterns: Cribriform, solid and focal comedo Nuclear grade: Grade 3 Necrosis: Focally present Lobular carcinoma in situ (LCIS): Not present Lymph nodes: Number of sentinel lymph nodes examined 2 Total number of lymph nodes examined (sentinel and nonsentinel) 2 No evidence of macrometastases, micrometastases or isolated tumor cells. See specimen A. Method of evaluation of sentinel lymph nodes: H & E and immunohistochemistry. Microcalcifications present in non-neoplastic adenosis Treatment effect - no known presurgical therapy Additional pathologic findings: Extensive adenosis with associated microcalcifications and focal microfibroadenoma. Changes of previous biopsy. Ancillary studies: Previously performed on same tumor ([id number] / [id number]). ER: >95%, strong NV: 4%, weak Her2 chuck: 3+ ([facility]) PATHOLOGIC STAGE: pT1c N0(sn) Mx 3) Anastrozole-Began September 2016. Stopped due to MS side effects. Current therapy: 4) Exemestane. Began November 2016 No new concerns today. Appetite: Good. Energy level: It's ok. Denies fevers or recent illness. 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 Skin:denies rashes/lesions Heme:denies bleeding The ROS is otherwise negative. Past medical history, appointments, medications, allergies reviewed. No changes. EXAM: BP 130/75 Pulse 79 Temp 36.6 C (97.8 F) Wt 74.8 kg (165 lb) LMP 12/17/2003 BMI 26.52 kg/m APPEARANCE Well appearing, alert, in no acute distress, well-hydrated, well nourished. HEART RRR with normal S1 and S2, no murmurs LUNG clear to auscultation BREAST FEMALE b/l mastectomy scars, no nodule LYMPH NODES No cervical lymphadenopathy, No supraclavicular lymphadenopathy and No axillary lymphadenopathy. ABDOMEN bowel sounds normoactive, soft, non-tender, non-distended, without organomegaly or palpable masses EXTREMITIES No edema NEURO Awake, alert and oriented x 3, Normal gait and No involuntary motions. SKIN Skin color, texture, turgor normal, no suspicious rashes or lesions ASSESSMENT/PLAN: 1. Malignant neoplasm of upper-outer quadrant of left breast in female, estrogen receptor positive (HCC) - ICD9: 174.4, V86.0, ICD10: C50.412, Z17.0 cT2 cN0 ER/NV positive, HER-2 amplified invasive ductal carcinoma of the left breast. ypT1c (1.8 cm residual tumor) pN0(sln). - No concerning findings on exam. - Did not tolerate arimidex d/t joint pain/aches. - Tolerating aromasin well. - Has now completed 5 years of AI therapy. - Continue aromasin for now. If worsening bone density will stop. - Needs bone density. - Follow up in 6 months. - Pt. aware to call office with any questions/concerns. The patient indicates understanding of these issues and agrees with the plan. All documentation from previous visit of 03/06/21-Dr. Torres/myself was copied and pasted, documentation has been reviewed and edited as necessary for today's visit. Juan Ambriz APRN.OTTO documented in this encounter [facility] 01-24-2016 History of Past i llness Narrative Problem Noted Date Resolved Date Breast cancer of upper-outer quadrant of left fe male breast 01/24/2016 09/24/2016 Cancer Staging:Clinical: Unsigned Infiltrating ductal carcinoma of left breast 06/201501/24/2016 Abnormal mammogram, unspecified 04/11/2007 11/08/2011 BREAST CANCER UPPER OUTER (LCIS) 08/21/2006 01/24/2016 Mammographic microcalcification 11/17/2003 11/08/2011 documented as of this encounter (statuses as of 09/21/2021) [facility] History of Past illness Narrative* Problem Noted Date Resolved Date Breast cancer of upper-outer quadrant of left fe male breast 01/24/2016 09/24/2016 Cancer Staging:Clinical: Unsigned Infiltrating ductal carcinoma of left breast 06/201501/24/2016 Abnormal mammogram, unspecified 04/11/2007 11/08/2011 BREAST CANCER UPPER OUTER (LCIS) 08/21/2006 01/24/2016 Mammographic microcalcification 11/17/2003 11/08/2011 documented as of this encounter (statuses as of 11/07/2021) [facility] of Past illness Narrative* Problem Noted Date Resolved Date Breast cancer of upper-outer quadrant of left fe male breast 01/24/2016 09/24/2016 Cancer Staging:Clinical: Unsigned Infiltrating ductal carcinoma of left breast 06/201501/24/2016 Abnormal mammogram, unspecified 04/11/2007 11/08/2011 BREAST CANCER UPPER OUTER (LCIS) 08/21/2006 01/24/2016 Mammographic microcalcification 11/17/2003 11/08/2011 documented as of this encounter (statuses as of 03/18/2022) [facility] of Past illness Narrative* Problem Noted Date Resolved Date Breast cancer of upper-outer quadrant of left fe male breast 01/24/2016 09/24/2016 Cancer Staging:Clinical: Unsigned Infiltrating ductal carcinoma of left breast 06/201501/24/2016 Abnormal mammogram, unspecified 04/11/2007 11/08/2011 BREAST CANCER UPPER OUTER (LCIS) 08/21/2006 01/24/2016 Mammographic microcalcification 11/17/2003 11/08/2011 documented as of this encounter (statuses as of 03/22/2022) [facility] History of Past illness Narrative* Problem Noted Date Resolved Date Breast cancer of upper-outer quadrant of left fe male breast 01/24/2016 09/24/2016 Cancer Staging:Clinical: Unsigned Infiltrating ductal carcinoma of left breast 06/201501/24/2016 Abnormal mammogram, unspecified 04/11/2007 11/08/2011 BREAST CANCER UPPER OUTER (LCIS) 08/21/2006 01/24/2016 Mammographic microcalcification 11/17/2003 11/08/2011 documented as of this encounter (statuses as of 04/14/2022) [facility] of Past illness Narrative* Problem Noted Date Diagnosed Date Resolved Date Breast cancer of upper-outer quadrant of left female breast 01/24/2016 09/24/2016 Cancer Staging:Clinical: Unsigned Infiltrating ductal carcinoma of left breast 6 01/24/2016 Abnormal mammogram, unspecified 04/11/2007 11/08/2011 BREAST CANCER UPPER OUTER (LCIS) 08/21/2006 01/24/2016 Mammographic microcalcification 11/17/2003 11/08/2011 documented as of this encounter (statuses as of 09/26/2022) 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 Diagnosis Malignant neoplasm of upper-outer quadrant of left breast in female, estrogen receptor positive (HCC)- Primary [facility] Diagnosis Malignant neoplasm of upper-outer quadrant of left breast in female, estrogen receptor positive (HCC)- Primary documented in this encounter [facility] Advance Directives No Advanced Directives Records FoundDocuments on File Type Date Recorded Patient Corporate Representative Expl anation Advance Directive(s) 01/31/2016 12:55 PM Advance Directive(s) 01/30/2016 3:55 PM Summary Purpose Family History No Family History Records Found Additional Source Comments Source Comments (unrecognize d section and content) In the event this informatio n is protected by the Federal Confidentiality of Alcohol and Drug Abuse Patient Records regulations: The Federal rules restrict any use of the information to criminally investigate or prosecute any alcohol or drug abuse patient.[facility] event this information is protected by the Federal Confidentiality of Alcohol and Drug Abuse Patient Records regulations: The Federal rules restrict any use of the information to criminally investigate or prosecute any alcohol or drug abuse patient.[facility] the event this information is protected by the Federal Confidentiality of Alcohol and Drug Abuse Patient Records regulations: The Federal rules restrict any use of the information to criminally investigate or prosecute any alcohol or drug abuse patient.[facility] event this information is protected by the Federal Confidentiality of Alcohol and Drug Abuse Patient Records regulations: The Federal rules restrict any use of the information to criminally investigate or prosecute any alcohol or drug abuse patient.[facility] event this information is protected by the Federal Confidentiality of Alcohol and Drug Abuse Patient Records regulations: The Federal rules restrict any use of the information to criminally investigate or prosecute any alcohol or drug abuse patient.[facility] event this information is protected by the Federal Confidentiality of Alcohol and Drug Abuse Patient Records regulations: The Federal rules restrict any use of the information to criminally investigate or prosecute any alcohol or drug abuse patient.[facility] event this information is protected by the Federal Confidentiality of Alcohol and Drug Abuse Patient Records regulations: The Federal rules restrict any use of the information to criminally investigate or prosecute any alcohol or drug abuse patient.[facility] Reason for Visit (unrecogniz ed section and content) Reason Comments Established Patient Reason Comments Patient Question Reason Comments Future Appointment Care Teams (unrecognized sec tion and content) Glaze Carrier Relationship Specialty Start Date End Date Andriy Jones MD [address], [place] [id number] PCP - General Family Practice 12/04/18 Lucille Churchill MD, [address], [place] [id number] Physician Radiation Oncology 07/02/16 Glaze Carrier Relationship Specialty Start Date End Date Andriy Jones MD [address], [place] [id number] PCP - General Family Practice 12/04/18 Lucille Churchill MD, [address] [place] [address] Physician Radiation Oncology 07/02/16 Glaze Carrier Relationship Specialty Start Date End Date Andriy Jones MD [address] [place] [address] PCP - General Family Medicine 12/04/18 Lucille Churchill MD, [address] [place] [address] Physician Radiation Oncology 07/02/16 Glaze Carrier Relationship Specialty Start Date End Date Andriy Jones MD [address] [place] [address] PCP - General Family Medicine 12/04/18 Lucille Churchill MD, [address] [place] [address] Physician Radiation Oncology 07/02/16 Glaze Carrier Relationship Specialty Start Date End Date Andriy Jones MD [address] [place] [address] PCP - General Family Medicine 12/04/18 Lucille Churchill MD, [address] [place] [address] Physician Radiation Oncology 07/02/16 Glaze Carrier Relationship Specialty Start Date End Date Andriy Jones MD [address] [place] [address] PCP - General Family Medicine 12/04/18 Lucille Churchill MD, [address] [place] [address] Physician Radiation Oncology 07/02/16 Glaze Carrier Relationship Specialty Start Date End Date Andriy Jones MD [address] [facility] [place], [place] [id number] PCP - General Family Medicine 12/04/18 Lucille Churchill MD [address] [address] Physician Radiation Oncology 07/02/16 INFORMATION SOURCE (unrecogn ized section and content) DATE CREATED AUTHOR 10/05/2023 [facility] FOR RECORDS PERTAINING TO PATIENTS WHO ARE OR HAVE BEEN ENROLLED IN A CHEMICAL DEPENDENCY/SUBSTANCEABUSE PROGRAM, SOME INFORMATION MAY BE OMITTED. This clinical summary was aggregated from multiple sources. Caution should be exercised in using it in the provision of clinical care. This summary normalizes information from multiple sources, and as a consequence, information in this document may materially change the coding, format and clinical context of patient data. In addition, data may be omitted in some cases. CLINICAL DECISIONS SHOULD BE BASED ON THE PRIMARY CLINICAL RECORDS. [employer] provides no warranty or guarantee of the accuracy or completeness of information in this document.
== END | disposition home or self-care (01) ==
LOC: LABSPEC 09:54
PROVIDERS: PCP Family Medicine; Referring Provider Physician Assistant; Visit Provider Physician Assistant
DX: N39.0 Urinary tract infection, site not specified (principal)
CPT/HCPCS: 87077; 87086; 87088; 87186

== ENCOUNTER → 2024-04-07 | Outpatient (CLI) | payer MEDICARE, OTHER, SELFPAY ==
[2024-04-07 10:03] LABS: Absolute Lymphocyte Count 1.62 X10^3/uL (0.83-4.51); Absolute Neutrophil Count 1.8 X10^3/uL (2.0-7.7); Basophil# 0.04 X10^3/uL; Basophil% 0.9 % (0-1); Eosinophil# 0.16 X10^3/uL; Eosinophils% 3.6 % (0-5); Hematocrit 44.2 % (37-47); Hemoglobin 14.2 g/dL (12.0-15.0); Lymphocyte # 1.62 X10^3/ul (0.83-4.51); Lymphocyte % 36.9 % (19-41); Mean Corp Hgb Conc 32.1 g/dL (32-36); Mean Corpuscular Hgb 27.6 pg (27.0-32.0); Monocyte# 0.72 X10^3/uL; Monocyte% 16.4 % (0-10); NRBC Flagged by Analyzer 0 % (0-5); Neutrophil # 1.83 X10^3/uL (2.7-7.7); Neutrophil % 41.7 % (47-70); Platelet Count 208 K/mm3 (150-450); RBC Distribution Width CV 13.7 % (11.6-14.6); RBC Distribution Width SD 43.3 fl (35.1-43.9); Red Blood Count 5.14 M/mm3 (4.2-5.4); White Blood Count 4.4 K/mm3 (4.4-11.0)
[2024-04-07 10:25] LABS: Microalbumin,Random Urine 53.7 mg/L (NO RANGE EST.); Microalbumin:Creatinine Ratio 47.9 mg/g CRE (<30 mg/g CRE)
[2024-04-07 10:34] LABS: AST(SGOT) 30 U/L (15-37); Alanine Aminotransfer ALT/SGPT 52 U/L (13-56); Albumin, Serum 3.3 g/dL (3.2-5.0); Alkaline Phosphatase 83 U/L (45-117); Anion Gap 2 (5-15); BUN 17 mg/dL (7-18); BUN/Creat Ratio 21.7 RATIO (10-20); Calcium,Total 9.2 mg/dL (8.5-10.1); Chloride 108 mmol/L (98-107); Cholesterol 159 mg/dL (200); Creatinine, Serum 0.78 mg/dL (0.55-1.02); EST Glomerular Filtration Rate 77 mL/min (>60); Est Glom Filt Rate - Afr Amer 94 mL/min (>60); Globulin 3.3 g/dL (2.2-4.2); Glucose 87 mg/dL (74-106); High Density Lipoprotein 51 mg/dL; Protein, Total 6.6 g/dL (6.4-8.2); Sodium Level 140 mmol/L (136-145); Triglycerides 172 mg/dL; Very Low Density Lipoprotein 34 mg/dL (5-40)
== END | disposition home or self-care (01) ==
LOC: MTLAB 07:49
PROVIDERS: PCP Family Medicine; Referring Provider Family Medicine; Visit Provider Family Medicine
DX: E04.1 Nontoxic single thyroid nodule (principal); M19.049 Primary osteoarthritis, unspecified hand; I10 Essential (primary) hypertension; E78.5 Hyperlipidemia, unspecified
CPT/HCPCS: 36415; 80053; 80061; 82043; 82570; 84443; 85025

== ENCOUNTER → 2024-07-28 | Outpatient (CLI) | payer MEDICARE, OTHER, SELFPAY | END | disposition home or self-care (01) | LOC: LABSPEC 15:33 | PROVIDERS: PCP Family Medicine; Referring Provider Nurse Practitioner Women's Health; Visit Provider Nurse Practitioner Women's Health | DX: R30.0 Dysuria (principal) | CPT/HCPCS: 87077; 87086; 87088; 87186 ==

== ENCOUNTER → 2024-08-17 | Outpatient (CLI) | payer MEDICARE, OTHER, SELFPAY | END | disposition home or self-care (01) | LOC: LABSPEC 08:14 | PROVIDERS: PCP Family Medicine; Visit Provider Nurse Practitioner Family | DX: R82.90 Unspecified abnormal findings in urine (principal) | CPT/HCPCS: 87086; 87088; 87186 ==

== ENCOUNTER → 2024-09-16 | Outpatient (CLI) | payer MEDICARE, OTHER, SELFPAY ==
--- OUTSIDE RECORDS SUMMARY | 2024-09-16 07:59 | XMS RPT_ITS | CCD ---
Author Organization [facility] Care Team Providers Care Chain Saw Operator Name Role Phone Cogar PRINTED FORMS PROOFREADER, Roslyn N Unavailable Cogar PRINTED FORMS PROOFREADER, Roslyn N Unavailable Jennifer WHITFIELD, Mine Hobbs Unavailable Violetta Deluna Unavailable Unavailable Kelle Cohen Unavailable Unavailable Chi LAZARN, Lida Gillespie Unavailable Unavailab inocencia VO, Eddi Arce Unavailable Kelle Cohen Unavailable Unavailable Zhao HUBER MD, Lucille Unavailable Andriy Jones MD Primary Care Provider Zhao HUBER MD, Lucille Unavailable Andriy Jones MD Primary Care Provider MD Andriy Jones Primary Care Provider UnavailDr. Andriy Delgadillo Attending Provider Zhao HUBER MD, Lucille Unavailable Andriy Jones MD Primary Care Provider Andriy Jones MD Primary Care Provider Lucille Churchill MD Unavailable Andriy Jones MD Primary Care Provider ANDRIY JONES Primary Care Unavailable IRENE AMBRIZ Attending Unavailable ANDRIY JONES Primary Care Unavailable IRENE AMBRIZ Attending Unavailable Dr. Andriy Jones MD Primary Care Provider Dr. Andriy Jones MD Attending Provider [phone] Andriy Jones MD Referring Provider Jennifer RABBIT BREEDER-C, Mine Attending Provider Jennifer RABBIT BREEDER-C, Mine Referring Provider Robert HUBER, Dr. Umana Primary Care Provider Robert HUBER, Dr. Umana Referring Provider Brianna RABBIT BREEDER-C, Marnie Attending Provider Jones, Andriy Referring Unavailable Jones, Andriy Primary Care Unavailable Foster VO, Eddi Attending Unavailable Jones, Andriy Referring Unavailable Marnie Reed Attending Unavailable Jones, Andriy Primary Care Unavailable Jones, Andriy Referring Unavailable Jones, Andriy Primary Care Unavailable Jennifer RABBIT BREEDER, Mine Attending Unavailable Ervin VO, Carlos Eduardo Knowles Attending Unavailable Jones, Andriy Referring Unavailable Jones, Andriy Primary Care Unavailable Ervin VO, Carlos Eduardo Knowles Attending Unavailable Ervin VO, Carlos Eduardo Knowles Referring Unavailable Jones, Andriy Primary Care Unavailable Jones, Andriy Primary Care Unavailable Jones, Andriy Attending Unavailable Jones, Andriy Primary Care Unavailable Foster PA, Eddi Attending Unavailable Foster PA, Eddi Referring Unavailable Marnie Reed Attending Unavailable Jones, Andriy Primary Care Unavailable Jones, Andriy Primary Care Unavailable Gracey RABBIT BREEDER, Mine Attending Unavailable Gracey RABBIT BREEDER, Mine Referring Unavailable Jones, Andriy Attending Unavailable Jones, Andriy Referring Unavailable Jones, Andriy Primary Care Unavailable Allergies Allergy Classification Reported Allergen(s) Allergy Type Date of Onset Reaction(s) Facility Adhesive Tape (1 source) Adhesive Tape Substance Allergy 2 [facility] Azole Antifungals (1 source) Miconazole Drug Allergy 2 [facility] (13 sources) miconazole drug allergy 7 [facility] Work Phone: (13 sources) CURITY TELFA ADHESIVE drug allergy 7 [facility] Work Phone: (1 source) MYCONAZOL Allergy to substance 9 [facility] Work Phone: (1 source) TELFA Allergy to substance 9 [facility] Work Phone: (16 sources) Miconazole; Translations: [MICONAZOLE] Drug Allergy 4 [facility] (9 sources) Polyhexam Oqzwrv-Lmx-Azp Band; Translations: [POLYHEXAM JEPBFM-[id number]-CSD BAND] Drug Allergy 6 [facility] (8 sources) Adhesive Tape; Translations: [adhesive tape] Propensity to adverse reactions 2 Other [facility] Comment on above: TELFA REDNESS (1 source) Miconazole Drug Allergy 5 [facility] Repository Medications Current Medications Medication Drug Class(es) Dates Sig (Normalized) Sig (Original) amLODIPine 2.5 mg oral tablet (12 sources) Dihydropyridine Calcium Channel Christa Start: 08-19-2023 take 1 tablet by mouth once daily Amlodipine 2.5 mg tablet Active 2.5 mg PO DAILY August 19, 2023 12:00am Comment on above: Take 2.5 mg by mouth once daily. azelastine hydrochloride 0.137 mg/actuat metered dose nasal spray (7 sources) Histamine-1 Receptor Antagonist Start: 08-19-2023 Azelastine 137 mcg (0.1 %) aerosol,spray Active 1 NMA INTRANASAL TWICE A DAY August 19, 2023 12:00am administer into each nostril Start: 09-12-2022 take 2 spray(s) nasa l route twice daily azelastine 0.1% nasal spray instill 2 sprays into each nostril twice a day if needed for NASAL IRRITATION 09/12/2022 Active Comment on above: instill 2 sprays int o each nostril twice a day if needed for NASAL IRRITATION calcium carbonate 1500 mg oral tablet (9 sources) Start: 02-21-2016 Calcium Carbonate 600 MG tablet Active 1 {tbl} PO DAILY February 21, 2016 1:00am Calcium Carbonate / vitamin D3 (8 sources) take 1 tablet by mouth twice daily calcium carbonate/vitamin D3 (CALCIUM 600 + D ORAL) Take 1 tablet by mouth twice daily. Active take 1 tablet by mouth twice daniela ly calcium carbonate/vitamin D3 (CALCIUM 600 + D ORAL) Take 1 tablet by mouth twice daily. 0 Active Comment on above: Take 1 tablet by celestino twice daily. diclofenac sodium 0.01 mg/mg topical gel (11 sources) Nonsteroidal Anti-inflammatory Drug Start: apply 2 g topically once Diclofenac Sodium 1 % gel Active 2 g TOPICAL ONCE August 19, 2023 12:00am apply to single elbow, wrist or hand; for hand includes palm/fingers/back of hand End: 10-01-2023 diclofenac (VOLTAREN) 1 % to pical gel Apply to affected area twice daily. 0 10/01/2023 Discontinued Comment on above: Apply to affected ar ea twice daily. lisinopril 30 mg oral tablet (20 sources) Angiotensin Converting Enzyme Inhibitor Start: 08-19-2023 Lisinopril 30 mg tablet Active 40 mg PO DAILY August 19, 2023 11:33am Start: 08-02-2016 take 1 tablet by celestino th once daily lisinopril (ZESTRIL, PRINIVIL) 40 mg tablet Take 40 mg by mouth once daily. 02/04/2017 Active Start: 08-02-2016 LISINOPRIL 10 MG TABS as directed LISINOPRIL [id number] Roslyn Xie LPN Start: 02-21-2016 End: 08-19-2023 take 1 tablet by mouth once daily Lisinopril 30 MG tablet Discontinued 30 mg PO DAILY February 21, 2016 1:00am August 19, 2023 11:38am Comment on above: Take 40 mg by mouth once daily. meloxicam 15 mg oral tablet (20 sources) Nonsteroidal Anti-inflammatory Drug Start: 10-21-2012 take 1 tablet by mouth once daily Meloxicam 15 MG tablet Active 15 mg PO DAILY February 21, 2016 1:00am Comment on above: Take 1 tablet by celestino once daily. [place]-3 Fatty Acids (5 sources) Start: 02-21-2016 take 1000 mg by mouth once daily [place]-3 Fatty Acids Active 1000 MG PO DAILY February 21, 2016 6:09am Start: 02-21-2016 take 1000 mg by mouth once daniela ly [place]-3 Fatty Acids Active 1000 MG PO DAILY February 21, 2016 1:00am Start: 02-21-2016 take 1000 mg by mouth once daniela ly [place]-3 Fatty Acids Active 1000 MG PO DAILY February 21, 2016 12:00am [place]-3 Fatty Acids 500 MG capsule (4 sources) Start: 02-21-2016 take 1 capsule by mouth once daily [place]-3 Fatty Acids 500 MG capsule Active 1000 mg PO DAILY February 21, 2016 1:00am pumpkin seed extract/soy germ (AZO BLADDER CONTROL ORAL) (8 sources) take 1 tablet by mouth twice daily pumpkin seed extract/soy germ (AZO BLADDER CONTROL ORAL) Take 1 tablet by mouth twice daily. Active take 1 tablet by mouth twice daniela ly pumpkin seed extract/soy germ (AZO BLADDER CONTROL ORAL) Take 1 tablet by mouth twice daily. 0 Active Comment on above: Take 1 tablet by celestino th twice daily. rosuvastatin calcium 40 mg oral tablet (12 sources) HMG-CoA Reductase Inhibitor Start: take 1 tablet by mouth once daily Rosuvastatin 40 mg tablet Active 40 mg PO DAILY August 19, 2023 12:00am Start: 01-02-2020 take 1 tablet by celestino th once daily rosuvastatin (CRESTOR) 10 mg tablet Take 10 mg by mouth once daily. 01/02/2020 Active Comment on above: Take 10 mg by mouth once daily. trastuzumab (9 sources) HER2/chuck Receptor Antagonist Start: 08-16-2016 Herceptin Active IV August 16, 2016 10:16am Start: 08-16-2016 Herceptin Acti ve IV August 16, 2016 12:00am Start: 08-16-2016 Herceptin Acti ve IV August 15, 2016 11:00pm Vitamin D3 (9 sources) Start: 02-21-2016 take 1 tablet by celestino th once daily Vitamin D3 Active 1 TABLET PO DAILY February 21, 2016 6:09am Start: 02-21-2016 Vitamin D3 Act omero 1 {tbl} PO DAILY February 21, 2016 1:00am Start: 02-21-2016 take 1 tablet by mouth once da renetta Vitamin D3 Active 1 TABLET PO DAILY February 21, 2016 1:00am Start: 02-21-2016 take 1 tablet by mouth once da renetta Vitamin D3 Active 1 TABLET PO DAILY February 21, 2016 12:00am Completed/Discontinued Medications Medication Drug Class(es) Dates Sig (Normalized) Sig (Original) acetaminophen 32 mg/ml oral solution (20 sources) Start: 08-02-2016 ACETAMINOPHEN 160 MG/5ML ELIX as directed ACETAMINOPHEN [id number] Roslyn Xie LPN acetaminophen (T YLENOL EXTRA STRENGTH) 500 mg tablet Take 1,000 mg by mouth as needed. Active Comment on above: Take 1,000 mg by celestino th as needed. acetaminophen 325 mg / HYDROcodone bitartrate 5 mg oral tablet (9 sources) Opioid Agonist Start: 08-22-2016 End: 08-19-2023 Hydrocodone-Acetaminophe n 1 TABLET tablet Discontinued 1 {tbl} PO EVERY 6 HOURS NEEDED as needed for Pain August 22, 2016 12:00am August 19, 2023 11:33am Start: 08-22-2016 take 1 tablet by celestino th every six hours as needed Hydrocodone-Acetaminophen Active 1 TABLE T PO EVERY 6 HOURS NEEDED August 22, 2016 12:00am biotin 1 mg oral capsule (13 sources) Start: 08-02-2016 BIOTIN 1 MG CA PS as directed BIOTIN [id number] Roslyn N Cogar PRINTED FORMS PROOFREADER cholecalciferol (20 sources) Vitamin D Start: 08-02-2016 AQUEOUS VITAMI N D 400 UNIT/ML LIQD as directed CHOLECALCIFEROL [id number] Roslyn N Cogar PRINTED FORMS PROOFREADER Start: 08-02-2016 AQUEOUS VITAMI N D 400 UNIT/ML LIQD as directed CHOLECALCIFEROL [id number] Roslyn N Cogar PRINTED FORMS PROOFREADER Start: 08-02-2016 AQUEOUS VITAMI N D 400 UNIT/ML LIQD as directed CHOLECALCIFEROL [id number] Roslyn N Cogar PRINTED FORMS PROOFREADER take 1 tablet by celestino th once daily cholecalciferol (VITAMIN D) 1,000 unit tab tablet Take 1,000 Units by mouth once daily. Active Comment on above: Take 1,000 Units by mouth once daily. ciprofloxacin 500 mg oral tablet (20 sources) Quinolone Antimicrobial Start: 12-03-19 End: 12-06-19 take 1 tablet by mouth twice daily Ciprofloxacin Hcl 500 mg tablet Discontinued 500 mg PO TWICE A DAY 6 3 December 02, 2017 12:00am December 04, 2017 12:00am December 05, 2017 12:07am Start: 04-16-2017 End: 04-21-2017 take 1 tablet by mouth twice daily Ciprofloxacin Hcl 500 mg tablet Discontinued 500 mg PO TWICE A DAY 10 5 April 16, 2017 1:00am April 20, 2017 1:00am April 21, 2017 1:06am Start: 01-28-2017 End: 01-31-2017 take 1 tablet by mouth twice daily CIPROFLOXACIN HCL 500 MG TABS One tablet by mouth twice daily CIPROFLOXACIN HCL [id number] Minechristi Rodriguez ROSEANN Start: 08-02-2016 CETRAXAL 0.2 % SOLN as directed CIPROFLOXACIN HCL [id number] Roslyn Pascalar PRINTED FORMS PROOFREADER Start: 08-02-2016 CETRAXAL 0.2 % SOLN as directed CIPROFLOXACIN HCL [id number] Roslyn Gillespie Cogar PRINTED FORMS PROOFREADER exemestane 25 mg oral tablet (11 sources) Aromatase Inhibitor Start: 03-27-2023 End: 07-28-2024 take 1 tablet by mouth once daily after mealtime Exemestane (Aromasin) 25 mg tablet Discontinued 25 mg PO DAILY August 19, 2023 12:00am July 28, 2024 2:25pm must administer after a meal Start: 03-20-2022 exemestane (AR OMASIN) 25 mg tablet TAKE 1 TABLET DAILY AFTER A MEAL 90 tablet 3 03/20/2022 Active Start: 03-24-2021 exemestane (AR OMASIN) 25 mg tablet TAKE 1 TABLET DAILY AFTER A MEAL 90 tablet 3 03/24/2021 Active Comment on above: TAKE 1 TABLET DAILY AFTER A MEAL MASTECTOMY BRA(S) (9 sources) Start: MASTECTOMY BRA(S) MASTECTOMY BRA(S) Omega Randle MD nitrofurantoin, macrocrystals 25 mg / nitrofurantoin, monohydrate 75 mg oral capsule (20 sources) Nitrofuran Antibacterial Start: End: take 1 capsule by mouth twice daily at mealtime Nitrofurantoin Monohyd/M-Cryst (Macrobid) 100 mg capsule Discontinued 100 mg PO TWICE A DAY 14 July 28, 2024 12:00am August 03, 2024 12:00am August 04, 2024 12:08am must administer with a meal/food Start: 01-07-2024 End: 01-12-2024 take 1 capsule by mouth every twelve hours at mealtime Nitrofurantoin Monohyd/M-Cryst (Macrobid) 100 mg capsule Discontinued 100 mg PO Q12H 10 January 07, 2024 12:00am January 11, 2024 12:00am January 12, 2024 12:08am must administer with a meal/food Start: 09-20-2023 End: 09-27-2023 take 1 capsule by mouth every twelve hours at mealtime Nitrofurantoin Monohyd/M-Cryst 100 mg capsule Discontinued 1 NMA PO Q12H 14 September 20, 2023 12:00am September 26, 2023 12:00am September 27, 2023 12:06am administer with a meal/food; swallow whole; do not open, crush, dissolve , or chew Start: 04-04-2017 End: 04-11-2017 take 1 capsule by mouth every twelve hours at mealtime Nitrofurantoin Monohyd/M-Cryst 100 mg capsule Discontinued 100 mg PO Q12H 14 April 04, 2017 1:00am April 10, 2017 1:00am April 11, 2017 1:05am administer with a meal/food; swallow whole; do not open, crush, dissolve , or chew OMEGA-3 FATTY ACIDS (2 sources) Start: 08-02-2016 [facility] OMEGA-3 MMY FISH/DHA 113.5 MG CHEW as directed OMEGA-3 FATTY ACIDS [id number] Roslyn N Cogar PRINTED FORMS PROOFREADER OMEGA-3 FATTY ACIDS (11 sources) Start: 08-02-2016 [facility] OMEGA-3 MMY FISH/DHA 113.5 MG CHEW as directed OMEGA-3 FATTY ACIDS [id number] Roslyn N Cogar PRINTED FORMS PROOFREADER omeprazole (20 sources) Proton Pump Inhibitor Start: 08-02-2016 [facility] OMEP RAZOLE 20 MG TBEC as directed OMEPRAZOLE [id number] Roslyn N Cogar PRINTED FORMS PROOFREADER Start: 08-02-2016 [facility] OMEPRAZOLE 20 MG TBEC as directed OMEPRAZOLE [id number] Roslyn N Cogar PRINTED FORMS PROOFREADER Start: 02-21-2016 take 1 capsule by mo [facility] once daily as needed for gastroesophageal reflux disease Omeprazole 20 MG capsule Active 20 mg PO DAILY NEEDED as needed for Heartburn February 21, 2016 1:00am Comment on above: Take 20 mg by mouth once daily as needed. 1 ml promethazine hydrochloride 50 mg/ml injection (13 sources) Phenothiazine Start: 08-02-2016 PHENERGAN 50 MG/ML SOLN as directed PROMETHAZINE HCL [id number] Roslyn Xie PRINTED FORMS PROOFREADER simvastatin 10 mg oral tablet (20 sources) HMG-CoA Reductase Inhibitor Start: 08-02-2016 SIMVASTATIN 10 MG TABS as directed SIMVASTATIN [id number] Roslyn Xie LPN Start: 02-21-2016 End: 08-19-2023 take 1 tablet by mouth at bedtime Simvastatin 40 MG tablet Discontinued 40 mg PO AT BEDTIME February 21, 2016 1:00am August 19, 2023 11:34am sulfamethoxazole 800 mg / trimethoprim 160 mg oral tablet (3 sources) Dihydrofolate Reductase Inhibitor Antibacterial, Sulfonamide Antimicrobial Start: 02-12-2017 take 1 tablet by mouth twice daily SULFAMETHOXAZOLE-TRIMETHOPRIM 800-160 MG TABS One tablet by mouth twice daily SULFAMETHOXAZOLE-TRIMETHOPRIM [id number] Mine Rodriguez RABBIT BREEDER valACYclovir 1000 mg oral tablet (4 sources) Herpesvirus Nucleoside Analog DNA Polymerase Inhibitor, Herpes Simplex Virus Nucleoside Analog DNA Polymerase Inhibitor, Herpes Zoster Virus Nucleoside Analog DNA Polymerase Inhibitor Start: 08-19-2023 End: 08-29-2023 Valacyclovir 1 gram tablet Discontinued 1000 mg PO TWICE A DAY 04 01August 19, 2023 12:00am August 28, 2023 12:00am August 29, 2023 12:06am Problems Active Problems Problem Classification Problem Date Documented Date Episodic/Chronic Cancer of breast (20 sources) Malignant neoplasm of upper-outer quadrant of female breast; Translations: [Malignant neoplasm of upper-outer quadrant of left female breast] Onset: 08-21-2006 Resolved: 09-24-2016 Chronic Cancer of breast (13 sources) History of malignant neoplasm of breast; Translations: [Personal history of malignant neoplasm of breast] 06-19-2018 Episodic Comment on above: 2016 on left but had bilateral mastectomy, chemo only Disorders of lipid metabolism (9 sources) Hyperlipidemia; Translations: [Hyperlipidemia, unspecified] 02-21-2017 Chronic Esophageal disorders (9 sources) Gastroesophageal reflux disease; Translations: [Gastro-esophageal reflux disease without esophagitis] 02-21-2017 Chronic Essential hypertension (20 sources) Hypertensive disorder; Translations: [Essential (primary) hypertension] 08-02-2016 Chronic Genitourinary symptoms and ill-defined conditions (20 sources) Dysuria; Translations: [Urgent desire to urinate] Onset: 02-03-2013 01-28-2017 Episodic Menopausal disorders (8 sources) Atrophic vaginitis; Translations: [Postmenopausal atrophic vaginitis] Onset: 02-03-2013 02-03-2013 Chronic Osteoarthritis (9 sources) Arthritis; Translations: [Unspecified osteoarthritis, unspecified site] 02-21-2017 Chronic Other aftercare (1 source) Long-term current use of aromatase inhibitor; Translations: [custodial (current) use of aromatase inhibitors] Episodic Other diseases of veins and lymphatics (8 sources) Lymphedema; Translations: [Lymphedema, not elsewhere classified] Onset: 04-13-2019 04-13-2019 Chronic Residual codes; unclassified (1 source) Menopause present; Translations: [Asymptomatic menopausal state] Episodic Thyroid disorders (1 source) Nontoxic single thyroid nodule; Translations: [Nontoxic single thyroid nodule] Onset: 04-28-2024 Chronic Unclassified (8 sources) Influenza vaccination ; Translations: [Encounter for immunization] Onset: 01-07-2017 01-07-2017 Past or Other Problems Problem Classification Problem Date Documented Date Episodic/Chronic Lymphadenitis (8 sources) Axillary lymphadenopathy; Translations: [Localized enlarged lymph nodes] Onset: 6 01-24-2016 Episodic Nonmalignant breast conditions (2 sources) Mammographic microcalcification of breast; Translations: [Mammographic microcalcification found on diagnostic imaging of breast] Onset: 4 Resolved: 2 11-08-2011 Episodic Open wounds of extremities (13 sources) Unspecified open wound of unspecified toe(s) with damage to nail, initial encounter; Translations: [Unspecified open wound of unspecified toe(s) with damage to nail, initial encounter] Onset: 7 08-02-2016 Episodic Other bone disease and musculoskeletal deformities (8 sources) Osteopenia; Translations: [Other specified disorders of bone density and structure, unspecified site] Onset: 3 04-29-2012 Episodic Other screening for suspected conditions (not mental disorders or infectious disease) (2 sources) Mammography abnormal; Translations: [Other abnormal and inconclusive findings on diagnostic imaging of breast] Onset: 8 Resolved: 2 11-08-2011 Episodic Urinary tract infections (14 sources) Urinary tract infectious disease; Translations: [Recurrent urinary tract infection] Onset: 7 02-12-2017 Episodic Results Test Name Value Interpretation Reference Range Facility Urine Cultureon 08-19-2024 [facility] Presumptive E. coli [place] Count 11,000-25,000 Presumptive E. coli: REACTION Ampicillin Islt MEHNAZ >=32 Ampicillin+Sulbac Islt MEHNAZ >=32 R Cefepime Islt MEHNAZ <=0.12 S cefTRIAXone Islt MEHNAZ 0.5 S Ciprofloxacin Islt MEHNAZ <=0.06 S B-Lactamase Extended Susc Islt NEG Gentamicin Islt MEHNAZ <=1 S levoFLOXacin Islt MEHNAZ <=0.12 S Meropenem Islt MEHNAZ <=0.25 S Nitrofurantoin Islt MEHNAZ <=16 S Pip+Tazo Islt MEHNAZ 16 I TMP SMX Islt MEHNAZ <=20 S Normal [facility] Comment on above: Performed By: #### M [id number] #### [facility] [address] [place] [address], [id number] Urine cultureOrdered By: Pete Reed on 08-17-2024 Bacteria identified Cx Nom (U) Presumptive E. coli Abnormal [facility] Laboratory - Chemistry and C hemistry - challengeOrdered By: Marnie Reed on 08-15-2024 Bilirubin Ql (U) Negative [facility] Glucose Ql (U) Negative [facility] Ketones Ql (U) Negative [facility] pH (U) 6.0 [pH] [facility] Specific gravity (U) [Rel density] 1.010 [facility] Urobilinogen (U) [Mass/Vol] Negative [facility] Laboratory - Hematology and Cell countsOrdered By: Marnie Reed on 08-15-2024 Hemoglobin Ql (U) Negative [facility] Laboratory - Specimen inform ationOrdered By: Marnie Reed on 08-15-2024 Clarity (U) Clear [facility] Color (U) Yellow [facility] Laboratory - UrinalysisOrder ed By: Marnie Reed on 08-15-2024 Nitrite Ql (U) Negative [facility] Protein Ql (U) Trace [facility] No Panel InformationOrdered By: Marnie Reed on 08-15-2024 Urine Leukocytes Positive [facility] Urine Non-Hemolyzed Blood Negative [facility] Urgent Care Visit Reporton 0 08-15-2024 Urgent Care Visit Report [facility] [address], [address] [place] [address] OFFICE VISIT Date of Service: 08/15/24 MR#: [id number] Acct: [id number] Name: LATOYA KEN Rep #: [id number] : 1955 Provider: JAZMYN Reed Age/Sex: 68/F Location: [email or web address] Status: Signed Intake Vital Signs 07/28/24 14:25 08/15/24 08:38 Height 5 ft 6 in BP 118/72 Blood Pressure Location Lt brachial Position Sitting Respiration 15 Pulse 82 Pulse Source NIBP Temp 98.1 F Temp Source Oral Pulse Oximetry (%) 97 Oxygen Delivery Method room air Intake Visit Reasons: CONCERN FOR UTI Chief Complaint: urinary 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 Is patient in pain?: No Allergies miconazole Allergy (Verified 08/15/24 09:24) Rash adhesive tape Adverse Reaction (Verified 08/15/24 09:24) Other Medications ???Medication ???Instructions ???Recorded ???Confirmed ???Type Vitamin D3 1 tab PO DAILY 02/21/16 07/28/24 H istory calcium carbonate 1 tab PO DAILY 02/21/16 07/28/24 H istory meloxicam 15 mg tablet 15 mg PO DAILY 02/21/16 07/28/24 H istory omega-3 fatty acids 500 mg capsule 1,000 mg PO DAILY 02/21/1607/28 History omeprazole 20 mg capsule,delayed 20 mg PO DAILY PRN PRN Heartburn 1 04/23/15 07/28/24 History release Herceptin IV 08/16/16 07/28/24 History amlodipine 2.5 mg tablet 2.5 mg PO DAILY 08/19/23 07/28/24 History azelastine 137 mcg (0.1 %) nasal 1 spray intranasal BID 08/19/23 History spray diclofenac sodium 1 % topical gel 2 g topical ONCE 08/19/23 5 History lisinopril 30 mg tablet 40 mg PO DAILY 08/19/23 07/28/24 H istory rosuvastatin 40 mg tablet 40 mg PO DAILY 08/19/23 07/28/24 H istory Is last menstrual period known: No Post menopausal: Yes Patient : No Have you fallen in the past year?: No Nurse's Note: urinary urgency for over 1 week. had UTI 5-13 and given 5 days of Macrobid, pt was improved but s/s did not resolve. after ATB s/s fully returned immediately. denies abd pain, back pain, fever. [facility] Medical History (Updated 08/15/24 @ 09:33 by JAZMYN Sweeney) Breast cancer GERD (gastroesophageal reflux disease) Arthritis Hyperlipidemia Hypertension Surgical History H/O left mastectomy Family History Mother Breast cancer Father Myocardial infarction Social History Smoking Status: Never smoker alcohol intake: never substance use type: does not use what type of physical activity do you participate in: none seatbelt use: always do you feel safe at home: Yes HPI HPI Chief Complaint: urinary urgency Details: LATOYA KEN, is a 68 F who presents to the office today for urine urgency -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- they did a urine- was tx for uti with macrobid- took the full course of the atb -never felt like it cleared up when completed atb -had exam with pcp on 08/06- felt fine -current sx urgency- no burning or pain, no discharge, no fever or chills, denies back, abdominal or pelvic pain -tried so far azo defense on occasion- trying to drink more water- denies a lot of caffeine intake -urine flow normal -last night up 3x -denies any hx of DM2 ROS Const Constitutional: Positive for other (ROS negative x6 except what was placed in HPI) Exam Const General: cooperative and no acute distress Orientation: alert and oriented x3 Resp Effort Inspection: normal respiratory effort, able to speak in complete sentences and symmetric chest movement Auscultation: Bilateral: Clear to Auscultation, Left: Clear to Auscultation and Right: Clear to Auscultation Cardio Rate: regular rate Rhythm: regular rhythm Heart Sounds: S1 normal and S2 normal GI Auscultation: normal bowel sounds Palpation: soft and no hepatosplenomegaly Other: -in office urine negative for uti -no abd/pelvic pain with palpation -no CVA tenderness Neuro General: patient alert, patient awake and patient oriented x3 Extrem General: normal to inspection and full ROM Psych Appearance: grossly normal Mental Status: mental status grossly normal Attitude: cooperative Thought Process: normal Thought Content: normal Judgment: judgment good Results POC Urinalysis Dip (Clinic) Office Urine Color Yellow Last Edit by Kelle Biggs on 08/15/24 08:52 Office Urine Clarity Clear Last Edit by Kelle Biggs on 08/15/24 08:52 Office Urine Glucose Negative Last Edit by Kelle Biggs on 08/15/24 08:52 Office Urine Ketones Negative Last Edit by Kelle Biggs on 08/15/24 08:52 Off Ur Spec [place] 1.010 Last Edit by Kelle Biggs on 08/15/24 08:52 Office Ur (more content not included)... Normal [facility] Urine Cultureon 07-30-2024 URC Escherichia coli [place] Count 50,000-80,000 Escherichia coli: REACTION Ampicillin Islt MEHNAZ >=32 Ampicillin+Sulbac Islt MEHNAZ >=32 R Cefepime Islt MEHNAZ <=0.12 S cefTRIAXone Islt MEHNAZ 0.5 S Ciprofloxacin Islt MEHNAZ <=0.06 S B-Lactamase Extended Susc Islt NEG Gentamicin Islt MEHNAZ <=1 S levoFLOXacin Islt MEHNAZ <=0.12 S Meropenem Islt MEHNAZ <=0.25 S Nitrofurantoin Islt MEHNAZ <=16 S Pip+Tazo Islt MEHNAZ 16 I TMP SMX Islt MEHNAZ <=20 S Normal [facility] Comment on above: Performed By: #### M 100.1659 #### [facility] Laboratory [facility] [place] [address], [address] Laboratory - Chemistry and C hemistry - challengeOrdered By: Mine Rodriguez on 07-28-2024 Bilirubin Ql (U) Negative [facility] Glucose Ql (U) Negative [facility] Ketones Ql (U) Negative [facility] pH (U) 5.0 [pH] [facility] Specific gravity (U) [Rel density] 1.015 [facility] Urobilinogen (U) [Mass/Vol] Negative [facility] Laboratory - Hematology and Cell countsOrdered By: Mine Rodriguez on 07-28-2024 Hemoglobin Ql (U) Negative [facility] Laboratory - Specimen inform ationOrdered By: Mine Rodriguez on 07-28-2024 Clarity (U) Cloudy [facility] Color (U) YELLOW [facility] Laboratory - UrinalysisOrder ed By: Mine Rodriguez on 07-28-2024 Nitrite Ql (U) Positive [facility] Protein Ql (U) Negative [facility] No Panel InformationOrdered By: Mine Rodriguez on 07-28-2024 Urine Leukocytes Positive [facility] Urine Non-Hemolyzed Blood Negative [facility] 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 Office Visit Reporton 07-28-2024 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 Office Visit Report [facility] [address], [address] [place] [address] OFFICE VISIT Date of Service: 07/28/24 MR#: [id number] Acct: [id number] Name: LATOYA KEN Rep #: [id number] : 1955 Provider: JAZMYN bailey Age/Sex: 68/F Location: [facility] [place] Status: Signed Intake Vital Signs 09/20/23 09:01 07/28/24 14:20 07/28/24 14:25 Height 5 ft 6 in 5 ft 6 in 5 ft 6 in Weight: 166 lb 2 oz BMI 26.8 BP 128/78 H 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: No Is patient in pain?: No Allergies miconazole Allergy (Verified 07/28/24 14:40) Rash adhesive tape Adverse Reaction (Verified 07/28/24 14:40) Other Medications ???Medication ???Instructions ???Recorded ???Confirmed ???Type Vitamin D3 1 tab PO DAILY 02/21/16 07/28/24 H istory calcium carbonate 1 tab PO DAILY 02/21/16 07/28/24 H istory meloxicam 15 mg tablet 15 mg PO DAILY 02/21/16 07/28/24 H istory omega-3 fatty acids 500 mg capsule 1,000 mg PO DAILY 02/21/1607/28 History omeprazole 20 mg capsule,delayed 20 mg PO DAILY PRN PRN Heartburn 1 04/23/15 07/28/24 History release Herceptin IV 08/16/16 07/28/24 History amlodipine 2.5 mg tablet 2.5 mg PO DAILY 08/19/23 07/28/24 History azelastine 137 mcg (0.1 %) nasal 1 spray intranasal BID 08/19/23 History spray diclofenac sodium 1 % topical gel 2 g topical ONCE 08/19/23 5 History lisinopril 30 mg tablet 40 mg PO DAILY 08/19/23 07/28/24 H istory rosuvastatin 40 mg tablet 40 mg PO DAILY 08/19/23 07/28/24 H istory nitrofurantoin 100 mg PO BID 7 days #14 caps 07/1607/28/24 Rx monohydrate/macrocryst als 100 mg capsule (Macrobid) Is last menstrual period known: No Post menopausal: Yes Patient : No : No PFSH Medical History Breast cancer GERD (gastroesophageal reflux disease) Arthritis Hyperlipidemia Hypertension Surgical History H/O left mastectomy Family History Mother Breast cancer Father Myocardial infarction Social History Smoking Status: Never smoker alcohol intake: never substance use type: does not use what type of physical activity do you participate in: none seatbelt use: always do you feel safe at home: Yes History 2 Elective abortions Hx Para 2 Spontaneous abortions Hx # Term Pregnancies Ectopic pregnancies Hx # Pregnancies Multiple births # of living children Past Pregnancies Del. Date Name GA/Weeks Outcome Route Bth Weight Infant Gen Labor Lgth Anesthesia Del Locatn Provider FOB Unknown 10/19/1983 John Unknown 03/20/1985 [facility] Encounter for routine gynecological examination Details: LATOYA KEN is a 68 year old who presents for annual exam. Feeling urinary urgency Last PAP: NA History of abnormal PAP: no Last mammogram: NA History of abnormal mammogram: bilat mastectomy left breast CA 2016 and chemo Colon cancer screening: <10 yr Shannen Other preventative health care screenings: Krystal Jones Female Reproductive History Questions: metorrhagia: No and sexually active: No ROS Const Constitutional: Denies fatigue, weight gain or weight loss Cardio Card: Denies chest pain Resp Resp: Denies cough or dyspnea on exertion GI GI: Denies abdominal pain, bloating, change in stool character, constipation or vomiting : Reports as per HPI; Denies difficulty voiding, pelvic pain, urinary frequency, urinary incontinence, urinary urgency, vaginal discharge or vaginal pruritus Exam Const General: cooperative, healthy appearing, no acute distress and well developed Orientation: alert, oriented to person and oriented to place HENWA Head: normal to inspection Neck Neck: normal visual inspection Thyroid: thyroid normal Lymphatic: no lymphadenopathy noted Chest Breast inspection: Other (bilateral mastectomy) Breast palpation: no axillary lymphadenopathy and other (bilateral mastectomy.) Resp Effort Inspection: normal respiratory effort GI Palpation: soft, no masses and nontender Rectal Exam: deferred External Female Exam: normal external appearance and normal appearance of the urethra Urethra: normal appearance of the urethra and normal palpation Speculum Exam - Vagina: normal vaginal discharge and vagina atrophic Speculum Exam - Cervix: normal appearance of the cervix Bimanual Exam- Vagina Uterus: normal bimanual exam, uterine size normal, uterine shape normal and non-tender Bimanual Exam- Adnexa, other: normal adnexae, no masses, normal and non-t (more content not included)... Normal [facility] Urine cultureOrdered By: Bartolome Rodriguez on 07-28-2024 Bacteria identified Cx Nom (U) Escherichia coli Abnormal [facility] Absolute lymphocyte countOrd ered By: Andriy Jones on 04-07-2024 Lymphocytes Auto (Unsp spec) [#/Vol] 1.62 10*3/uL 0.83-4.51 [facility] Absolute neutrophil countOrd ered By: Andriy Jones on 04-07-2024 Neutrophils (Bld) [#/Vol] 1.8 10*3/uL Low 2.0-7.7 [facility] Albumin to globulin ratioOrd ered By: Andriy Jones on 04-07-2024 Albumin/Globulin [Mass ratio] 1.0 {ratio} 0.9-2.4 [facility] Automated lymphocyte count a s percentage of total leukocytesOrdered By: Andriy Jones on 04-07-2024 Lymphocytes/100 WBC Auto (Unsp spec) 36.9 % - [facility] Basophil percentageOrdered B y: Andriy Jones on 04-07-2024 Basophils/100 WBC (Bld) 0.9 % 0-1 [facility] Bilirubin, totalOrdered By: Andriy Jones on 04-07-2024 Bilirubin [Mass/Vol] 0.40 mg/dL 0.20-1.00 [facility] Comment on above: For patients on eltr ombopag therapy, use of Dimension [place] TBIL is not recommended. Blood urea nitrogen (BUN)/cr eatinine ratioOrdered By: Andriyhailee Jones on 04-07-2024 Urea nitrogen/Creatinine [Mass ratio] 21.7 mg/mg High 10- [facility] CBC W/Diff, Automatedon 03-19 Absolute Lymph 1.62 X10 3/uL Normal 0.83-4.51 [facility] Comment on above: Order Comment: Order Date: 02/06/24 Order Info: [id number] - CBCD Performed By: #### L 500.4050, L502.0250, L500.4100, L501.9520, L100.0100 #### [facility] Laboratory [address] [place], [address] Absolute Neut 1.8 X10 3/uL Low 2.0-7.7 [facility] Comment on above: Order Comment: Order Date: 02/06/24 Order Info: [id number] - CBCD Performed By: #### L 500.4050, L502.0250, L500.4100, L501.9520, L100.0100 #### [facility] Laboratory [address] [place], [address] Basophils/100 WBC (Bld) 0.9 % Normal 0-1 [facility] Comment on above: Order Comment: Order Date: 02/06/24 Order Info: [id number] - CBCD Performed By: #### L 500.4050, L502.0250, L500.4100, L501.9520, L100.0100 #### [facility] Laboratory [address] [place], [address] Eosinophils/100 WBC (Bld) 3.6 % Normal 0-5 [facility] Comment on above: Order Comment: Order Date: 02/06/24 Order Info: [id number] - CBCD Performed By: #### L 500.4050, L502.0250, L500.4100, L501.9520, L100.0100 #### [facility] Laboratory [address] [place], [address] Erythrocyte distribution width (RBC) [Ratio] 13.7 % Normal 11.6-14.6 [facility] Comment on above: Order Comment: Order Date: 02/06/24 Order Info: [id number] - CBCD Performed By: #### L 500.4050, L502.0250, L500.4100, L501.9520, L100.0100 #### [facility] Laboratory [address] [place], [address] Hematocrit (Bld) [Volume fraction] 44.2 % Normal 37-47 [facility] Comment on above: Order Comment: Order Date: 02/06/24 Order Info: [id number] - CBCD Performed By: #### L 500.4050, L502.0250, L500.4100, L501.9520, L100.0100 #### [facility] Laboratory [address] [place], [address] Hemoglobin (Bld) [Mass/Vol] 14.2 g/dL Normal 12.0-15.0 [facility] Comment on above: Order Comment: Order Date: 02/06/24 Order Info: [id number] - CBCD Performed By: #### L 500.4050, L502.0250, L500.4100, L501.9520, L100.0100 #### [facility] Laboratory [address] [place], [address] IG% 0.500 Normal 0.0-0.9 [facility] Comment on above: Order Comment: Order Date: 02/06/24 Order Info: [id number] - CBCD Result Comment: IG% - Immature Granulocytes (promyelocytes, myelocytes and metamyelocytes) > 1% indicates that a LEFT SHIFT is Present. Performed By: #### L 500.4050, L502.0250, L500.4100, L501.9520, L100.0100 #### [facility] Laboratory [address] [place], [address] Lymphocytes/100 WBC (Bld) 36.9 % Normal 19-41 [facility] Comment on above: Order Comment: Order Date: 02/06/24 Order Info: [id number] - CBCD Performed By: #### L 500.4050, L502.0250, L500.4100, L501.9520, L100.0100 #### [facility] Laboratory [address] [place], [address] MCH (RBC) [Entitic mass] 27.6 pg Normal 27.0-32.0 [facility] Comment on above: Order Comment: Order Date: 02/06/24 Order Info: [id number] - CBCD Performed By: #### L 500.4050, L502.0250, L500.4100, L501.9520, L100.0100 #### [facility] Laboratory [address] [place], [address] MCHC (RBC) [Mass/Vol] 32.1 g/dL Normal 32-[address] [facility] Comment on above: Order Comment: Order Date: 02/06/24 Order Info: [id number] - CBCD Performed By: #### L 500.4050, L502.0250, L500.4100, L501.9520, L100.0100 #### [facility] Laboratory [address] [place], [address] MCV (RBC) [Entitic vol] 86.0 fL Normal 81-99 [facility] Comment on above: Order Comment: Order Date: 02/06/24 Order Info: [id number] - CBCD Performed By: #### L 500.4050, L502.0250, L500.4100, L501.9520, L100.0100 #### [facility] Laboratory [address] [place], [address] Monocytes/100 WBC (Bld) 16.4 % High 0-10 [facility] Comment on above: Order Comment: Order Date: 02/06/24 Order Info: [id number]- - CBCD Performed By: #### L 500.4050, L502.0250, L500.4100, L501.9520, L100.0100 #### [facility] Laboratory [address] [place], [address] Neutrophils/100 WBC (Bld) 41.7 % Low 47-70 [facility] Comment on above: Order Comment: Order Date: 02/06/24 Order Info: [id number]- - CBCD Performed By: #### L 500.4050, L502.0250, L500.4100, L501.9520, L100.0100 #### [facility] Laboratory [address] [place], [address] Nucleated RBC (Bld) [#/Vol] 0 10*3/uL Normal 0-5 [facility] Comment on above: Order Comment: Order Date: 02/06/24 Order Info: [id number] - CBCD Performed By: #### L 500.4050, L502.0250, L500.4100, L501.9520, L100.0100 #### [facility] Laboratory [address] [place], [address] Platelet mean volume (Bld) [Entitic vol] 9.0 fL Normal 6.2-12.0 [facility] Comment on above: Order Comment: Order Date: 02/06/24 Order Info: [id number] - CBCD Performed By: #### L 500.4050, L502.0250, L500.4100, L501.9520, L100.0100 #### [facility] Laboratory [address] [place], [address] Platelets (Bld) [#/Vol] 208 10*3/uL Normal 150-450 [facility] Comment on above: Order Comment: Order Date: 02/06/24 Order Info: [id number]- - CBCD Performed By: #### L 500.4050, L502.0250, L500.4100, L501.9520, L100.0100 #### [facility] Laboratory [address] [place], [address] RBC (Bld) [#/Vol] 5.14 10*6/uL Normal 4.2-5.4 [facility] Comment on above: Order Comment: Order Date: 02/06/24 Order Info: [id number]- - CBCD Performed By: #### L 500.4050, L502.0250, L500.4100, L501.9520, L100.0100 #### [facility] Laboratory [address] [place], [address] RDW SD 43.3 fl Normal 35.1-43.9 [facility] Comment on above: Order Comment: Order Date: 02/06/24 Order Info: [id number] - CBCD Performed By: #### L 500.4050, L502.0250, L500.4100, L501.9520, L100.0100 #### [facility] Laboratory [address] [place], [address] WBC (Bld) [#/Vol] 4.4 10*3/uL Normal 4.4-11.0 [facility] Comment on above: Order Comment: Order Date: 02/06/24 Order Info: [id number] - CBCD Performed By: #### L 500.4050, L502.0250, L500.4100, L501.9520, L100.0100 #### [facility] Laboratory [address] [place], [address] Carbon dioxide measurementOr dered By: Andriy Jones on 04-07-2024 CO2 [Moles/Vol] 31.0 mmol/L 21.0-32.0 [facility] Chloride measurementOrdered By: Andriy Jones on 04-07-2024 Chloride [Moles/Vol] 108 mmol/L High 98-107 [facility] Comprehensive Metabolic Prof ilon 04-07-2024 Albumin [Mass/Vol] 3.3 g/dL Normal 3.2-5.0 [facility] Comment on above: Order Comment: Order Date: 02/06/24Order Info: [id number] - CMPOrder Info: [id number] - LIPIDOrder Info: [id number] - TSH Performed By: #### L 500.4050, L502.0250, L500.4100, L501.9520, L100.0100 ####[facility] [address] [place], [address] Albumin/Globulin [Mass ratio] 1.0 {ratio} Normal 0.9-2.4 [facility] Comment on above: Order Comment: Order Date: 02/06/24Order Info: [id number] - CMPOrder Info: [id number] - LIPIDOrder Info: [id number] - TSH Performed By: #### L 500.4050, L502.0250, L500.4100, L501.9520, L100.0100 ####[facility] [address] [place], [address] ALK P 83 U/L Normal 45-117 [facility] Comment on above: Order Comment: Order Date: 02/06/24Order Info: [id number] - CMPOrder Info: [id number] - LIPIDOrder Info: [id number] - TSH Performed By: #### L 500.4050, L502.0250, L500.4100, L501.9520, L100.0100 ####[facility] [address] [place], [address] ALT [Catalytic activity/Vol] 52 U/L Normal 13-56 [facility] Comment on above: Order Comment: Order Date: 02/06/24Order Info: [id number] - CMPOrder Info: [id number] - LIPIDOrder Info: [id number] - TSH Performed By: #### L 500.4050, L502.0250, L500.4100, L501.9520, L100.0100 ####[facility] [address] [place], [address] AST [Catalytic activity/Vol] 30 U/L Normal 15-37 [facility] Comment on above: Order Comment: Order Date: 02/06/24Order Info: [id number] - CMPOrder Info: [id number] - LIPIDOrder Info: [id number] - TSH Performed By: #### L 500.4050, L502.0250, L500.4100, L501.9520, L100.0100 ####[facility] [address] [place], [address] Bilirubin [Mass/Vol] 0.40 mg/dL Normal 0.20-1.00 [facility] Comment on above: Order Comment: Order Date: 02/06/24Order Info: [id number] - CMPOrder Info: [id number] - LIPIDOrder Info: [id number] - TSH Result Comment: For patients on eltrombopag therapy, use of Dimension [place] TBIL is not recommended. Performed By: #### L 500.4050, L502.0250, L500.4100, L501.9520, L100.0100 ####[facility] [address] [place], [address] BUN/CRE 21.7 RATIO High 10-20 [facility] Comment on above: Order Comment: Order Date: 02/06/24Order Info: [id number] - CMPOrder Info: [id number] - LIPIDOrder Info: [id number] - TSH Performed By: #### L 500.4050, L502.0250, L500.4100, L501.9520, L100.0100 ####[facility] [address] [place], [address] CA,Total 9.2 mg/dL Normal 8.5-10.1 [facility] Comment on above: Order Comment: Order Date: 02/06/24Order Info: [id number]- - CMPOrder Info: [id number] - LIPIDOrder Info: [id number] - TSH Performed By: #### L 500.4050, L502.0250, L500.4100, L501.9520, L100.0100 ####[facility] [address] [place], [address] Chloride [Moles/Vol] 108 mmol/L High 98-107 [facility] Comment on above: Order Comment: Order Date: 02/06/24Order Info: [id number] - CMPOrder Info: [id number] - LIPIDOrder Info: [id number] - TSH Performed By: #### L 500.4050, L502.0250, L500.4100, L501.9520, L100.0100 ####[facility] [address] [place], [address] CO2 [Moles/Vol] 31.0 mmol/L Normal 21.0-32.0 [facility] Comment on above: Order Comment: Order Date: 02/06/24Order Info: [id number]- - CMPOrder Info: [id number] - LIPIDOrder Info: 3 - TSH Performed By: #### L 500.4050, L502.0250, L500.4100, L501.9520, L100.0100 ####[facility] [address] [place], [address] Creatinine [Mass/Vol] 0.78 mg/dL Normal 0.55-1.[address] [facility] Comment on above: Order Comment: Order Date: 02/06/24Order Info: [id number]- - CMPOrder Info: [id number] - LIPIDOrder Info: 3 - TSH Result Comment: The validity of the calculated GFR GFRAA in patients over 70 years has not been determined. Clinical correlation is essential. Performed By: #### L 500.4050, L502.0250, L500.4100, L501.9520, L100.0100 ####[facility] [address] [place], [address] EST GFR - AA 94 mL/min Normal >60 [facility] Comment on above: Order Comment: Order Date: 02/06/24Order Info: [id number] - CMPOrder Info: - LIPIDOrder Info: [id number] - TSH Result Comment: Afri can [place] GFR Calc Performed By: #### L 500.4050, L502.0250, L500.4100, L501.9520, L100.0100 ####[facility] [address] [place], [address] GAP 2 Low 5-15 [facility] Comment on above: Order Comment: Order Date: 02/06/24Order Info: 07 - CMPOrder Info: [id number] - LIPIDOrder Info: 3 - TSH Performed By: #### L 500.4050, L502.0250, L500.4100, L501.9520, L100.0100 ####[facility] [address] [place], [address] GFR/1.73 sq M.predicted among non-blacks MDRD (S/P/Bld) [Vol rate/Area] 77 mL/min/{1.73_m2} Normal >60 [facility] Comment on above: Order Comment: Order Date: 02/06/24Order Info: 07- - CMPOrder Info: [id number] - LIPIDOrder Info: [id number] - TSH Result Comment: Non- GFR Calc Performed By: #### L 500.4050, L502.0250, L500.4100, L501.9520, L100.0100 ####[facility] [address] [place], [address] Globulin (S) [Mass/Vol] 3.3 g/dL Normal 2.2-4.2 [facility] Comment on above: Order Comment: Order Date: 02/06/24Order Info: [id number]- - CMPOrder Info: [id number] - LIPIDOrder Info: [id number] - TSH Performed By: #### L 500.4050, L502.0250, L500.4100, L501.9520, L100.0100 ####[facility] [address] [place], [address] Glucose [Mass/Vol] 87 mg/dL Normal 74-106 [facility] Comment on above: Order Comment: Order Date: 02/06/24Order Info: [id number] - CMPOrder Info: [id number] - LIPIDOrder Info: [id number] - TSH Performed By: #### L 500.4050, L502.0250, L500.4100, L501.9520, L100.0100 ####[facility] [address] [place], [address] Potassium [Moles/Vol] 4.0 mmol/L Normal 3.5-5.[address] [facility] Comment on above: Order Comment: Order Date: 02/06/24Order Info: 07- - CMPOrder Info: [id number] - LIPIDOrder Info: 6-3 - TSH Performed By: #### L 500.4050, L502.0250, L500.4100, L501.9520, L100.0100 ####[facility] [address] [place], [address] Sodium [Moles/Vol] 140 mmol/L Normal 136-145 [facility] Comment on above: Order Comment: Order Date: 02/06/24Order Info: [id number] - CMPOrder Info: [id number] - LIPIDOrder Info: [id number] - TSH Performed By: #### L 500.4050, L502.0250, L500.4100, L501.9520, L100.0100 ####[facility] [address] [place], [place], [address] T PROT 6.6 g/dL Normal 6.4-8.2 [facility] Comment on above: Order Comment: Order Date: 02/06/24Order Info: [id number] - CMPOrder Info: [id number] - LIPIDOrder Info: 3 - TSH Performed By: #### L 500.4050, L502.0250, L500.4100, L501.9520, L100.0100 ####[facility] [address] [place], [address] Urea nitrogen [Mass/Vol] 17 mg/dL Normal 7-18 [facility] Comment on above: Order Comment: Order Date: 02/06/24Order Info: [id number] - CMPOrder Info: [id number] - LIPIDOrder Info: 3 - TSH Performed By: #### L 500.4050, L502.0250, L500.4100, L501.9520, L100.0100 ####[facility] [address] [place], [place], [id number] Eosinophil percentageOrdered By: Andriy Jones on 04-07-2024 Eosinophils/100 WBC (Bld) 3.6 % 0-5 [facility] Erythrocyte distribution wid th ratioOrdered By: Andriy Jones on 04-07-2024 Erythrocyte distribution width (RBC) [Ratio] 13.7 % 11.6-14.6 [facility] Erythrocyte distribution wid th standard deviationOrdered By: Andriy Jones on 04-07-2024 Erythrocyte distribution width (RBC) [Ratio] 43.3 fl 35.1-43.9 [facility] Glomerular filtration rate ( GFR) estimationOrdered By: Andriy Jones on 04-07-2024 GFR/1.73 sq M.predicted among non-blacks MDRD (S/P/Bld) [Vol rate/Area] 77 mL/min/{1.73_m2} >60 [facility] Comment on above: Non- GFR Calc Glucose measurementOrdered B y: Andriy Jones on 04-07-2024 Glucose [Mass/Vol] 87 mg/dL 74-106 [facility] Hematocrit Auto (Bld) [Volum e fraction]Ordered By: Andriy Jones on 04-07-2024 Hematocrit (Bld) [Volume fraction] 44.2 % 37-47 [facility] Hemoglobin measurementOrdere d By: Andriy Jones on 04-07-2024 Hemoglobin (Bld) [Mass/Vol] 14.2 g/dL 12.0-15.0 [facility] High density lipoprotein (HD L) measurementOrdered By: Andriy Jones on 04-07-2024 Cholesterol in HDL [Mass/Vol] 51 mg/dL >40 [facility] Comment on above: The drugs N-Acetylcy steine and Metamizole may falsely depress this assay. Reference Range HDL <40 mg/dL Low HDL Cholesterol HDL >or= 60 mg/dL High HDL Cholesterol Immature granulocytes/100 WB C Auto (Bld)Ordered By: Andriy Jones on 04-07-2024 Immature granulocytes/100 WBC (Bld) 0.500 % 0.0-0.9 [facility] Comment on above: IG% - Immature Granu locytes (promyelocytes, myelocytes and metamyelocytes) > 1% indicates that a LEFT SHIFT is Present. Laboratory - Chemistry and C hemistry - challengeOrdered By: Andriy Jones on 04-07-2024 AST [Catalytic activity/Vol] 30 U/L 15-37 [facility] Lipid Profileon 04-07-2024 Cholesterol [Mass/Vol] 159 mg/dL Normal 200 [facility] Comment on above: Order Comment: Order Date: 02/06/24Order Info: [id number] - CMPOrder Info: [id number] - LIPIDOrder Info: [id number] - TSH Result Comment: <200 mg/dL Desirable 200-240 mg/dL Borderline >240 mg/dL High Risk Performed By: #### L 500.4050, L502.0250, L500.4100, L501.9520, L100.0100 ####[facility] [address] [place], [address] Cholesterol in HDL [Mass/Vol] 51 mg/dL Normal [facility] Comment on above: Order Comment: Order Date: 02/06/24Order Info: [id number] - CMPOrder Info: [id number] - LIPIDOrder Info: [id number] - TSH Result Comment: The drugs N-Acetylcysteine and Metamizole may falsely depress this assay. Reference Range HDL <40 mg/dL Low HDL Cholesterol HDL >or= 60 mg/dL High HDL Cholesterol Performed By: #### L 500.4050, L502.0250, L500.4100, L501.9520, L100.0100 ####[facility] [address] [place], [address] Cholesterol in LDL [Mass/Vol] 74 mg/dL Normal 0-130 [facility] Comment on above: Order Comment: Order Date: 02/06/24Order Info: [id number] - CMPOrder Info: [id number] - LIPIDOrder Info: [id number] - TSH Performed By: #### L 500.4050, L502.0250, L500.4100, L501.9520, L100.0100 ####[facility] [address] [place], [address] Cholesterol in VLDL [Mass/Vol] 34 mg/dL Normal 5-40 [facility] Comment on above: Order Comment: Order Date: 02/06/24Order Info: [id number] - CMPOrder Info: [id number] - LIPIDOrder Info: [id number] - TSH Performed By: #### L 500.4050, L502.0250, L500.4100, L501.9520, L100.0100 ####[facility] [address] [place], [address] Triglyceride [Mass/Vol] 172 mg/dL Normal [facility] Comment on above: Order Comment: Order Date: 02/06/24Order Info: [id number] - CMPOrder Info: [id number] - LIPIDOrder Info: [id number] - TSH Result Comment: The drugs N-Acetylcysteine and Metamizole may falsely depress this assay. Serum Triglycerides Reference Interval Normal <150 mg/dL Borderline high 150 - 199 mg/dL High 200 - 499 mg/dL Very High > or = 500 mg/dL Performed By: #### L 500.4050, L502.0250, L500.4100, L501.9520, L100.0100 ####[facility] [address] [place], [place], [phone] Low density lipoprotein (LDL ) cholesterol measurementOrdered By: Andriy Jones on 04-07-2024 Cholesterol in LDL [Mass/Vol] 74 mg/dL 0-130 [facility] MCV (mean corpuscular volume ) determinationOrdered By: Andriy Jones on 04-07-2024 MCV (RBC) [Entitic vol] 86.0 fL 81-99 [facility] Mean corpuscular hemoglobin (MCH) determinationOrdered By: Andriy Jones on 04-07-2024 MCH (RBC) [Entitic mass] 27.6 pg 27.0-32.0 [facility] Mean corpuscular hemoglobin concentration (MCHC) determinationOrdered By: Andriy Jones on 04-07-2024 MCHC (RBC) [Mass/Vol] 32.1 g/dL 32-[address] [facility] Mean platelet volume determi nationOrdered By: Andriy Jones on 04-07-2024 Platelet mean volume (Bld) [Entitic vol] 9.0 fL 6.2-12.0 [facility] Microalb:Creat Ratio,Random URon 04-07-2024 Creatinine [Mass/Vol] 112.00 mg/dL Normal NO RAN GE EST. [facility] Comment on above: Order Comment: Order Date: 02/06/24 Order Info: [id number] - MIACRE Performed By: #### L 500.4050, L502.0250, L500.4100, L501.9520, L100.0100 #### [facility] Laboratory [address] [place], [place], [address] MALB:CRE 47.9 mg/g CRE High <30 mg/g CRE [facility] Comment on above: Order Comment: Order Date: 02/06/24 Order Info: [id number] - MIACRE Performed By: #### L 500.4050, L502.0250, L500.4100, L501.9520, L100.0100 #### [facility] Laboratory [address] [place], [address] MICROALBUMIN,UR 53.7 mg/L Normal NO RANGE EST. [facility] Comment on above: Order Comment: Order Date: 02/06/24 Order Info: [id number] - MIACRE Performed By: #### L 500.4050, L502.0250, L500.4100, L501.9520, L100.0100 #### [facility] [address] [place], [place], [phone] Monocyte percentageOrdered B y: Andriy Jones on 04-07-2024 Monocytes/100 WBC (Bld) 16.4 % High 0-10 [facility] Neutrophil percentageOrdered By: Andriy Jones on 04-07-2024 Neutrophils/100 WBC (Bld) 41.7 % Low 47-70 [facility] Nucleated red blood cell per centageOrdered By: Andriy Jones on 04-07-2024 Nucleated RBC/100 WBC (Bld) [Ratio] 0 % 0-5 [facility] Platelet countOrdered By: David Jones on 04-07-2024 Platelets (Bld) [#/Vol] 208 10*3/uL 150-450 [facility] Potassium measurementOrdered By: Andriy Jones on 04-07-2024 Potassium [Moles/Vol] 4.0 mmol/L 3.5-5.[address] [facility] RBC Auto (Bld) [#/Vol]Ordere d By: Andriy Jones on 04-07-2024 RBC (Bld) [#/Vol] 5.14 10*6/uL 4.2-5.4 [facility] Serum anion gap measurementO rdered By: Andriy Jones on 04-07-2024 Anion gap [Moles/Vol] 2 mmol/L Low 5-[address] [facility] Serum globulin measurementOr dered By: Andriy Jones on 04-07-2024 Globulin (S) [Mass/Vol] 3.3 g/dL 2.2-4.2 [facility] Serum or plasma alanine larose otransferase (ALT) measurementOrdered By: Andriy Jones on 04-07-2024 ALT [Catalytic activity/Vol] 52 U/L 13-56 [facility] Serum or plasma albumin yahaira urement (mass/volume)Ordered By: Andriy Jones on 04-07-2024 Albumin [Mass/Vol] 3.3 g/dL 3.2-5.0 [facility] Serum or plasma alkaline shelbie sphatase measurementOrdered By: Andriy Jones on 04-07-2024 ALP [Catalytic activity/Vol] 83 U/L 45-117 [facility] Serum or plasma calcium yahaira urement (mass/volume)Ordered By: Andriy Jones on 04-07-2024 Calcium [Mass/Vol] 9.2 mg/dL 8.5-10.1 [facility] Serum or plasma cholesterol measurement (mass/volume)Ordered By: Andriy Jones on 04-07-2024 Cholesterol [Mass/Vol] 159 mg/dL <200 [facility] Comment on above: <200 mg/dL Desirable 200-240 mg/dL Borderline >240 mg/dL High Risk Serum or plasma creatinine m easurement (mass/volume)Ordered By: Andriy Jones on 04-07-2024 Creatinine [Mass/Vol] 0.78 mg/dL 0.55-1.[address] [facility] Comment on above: The validity of the calculated GFR & GFRAA in patients over 70 years has not been determined. Clinical correlation is essential. Serum or plasma thyroid stim ulating hormone (TSH) measurement (units/volume)Ordered By: Andriy Jones on 04-07-2024 TSH Qn 1.680 uIU/mL 0.358-3.740 [facility] Serum or plasma urea nitroge n measurement (mass/volume)Ordered By: Andriy Jones on 04-07-2024 Urea nitrogen [Mass/Vol] 17 mg/dL 7-18 [facility] Sodium levelOrdered By: Andriy Jones on 04-07-2024 Sodium [Moles/Vol] 140 mmol/L 136-145 [facility] Thyroid Stim Hormone (TSH)on 04-07-2024 TSH 1.680 uIU/mL Normal 0.358-3.740 [facility] Comment on above: Order Comment: Order Date: 02/06/24Order Info: [id number] - CMPOrder Info: [id number] - LIPIDOrder Info: [id number] - TSH Performed By: #### L 500.4050, L502.0250, L500.4100, L501.9520, L100.0100 ####[facility] [address] [place], [place], [phone] Total proteinOrdered By: Krystle Jones on 04-07-2024 Protein [Mass/Vol] 6.6 g/dL 6.4-8.2 [facility] Triglycerides measurementOrd ered By: Andriy Jones on 04-07-2024 Triglyceride [Mass/Vol] 172 mg/dL <199 [facility] Comment on above: The drugs N-Acetylcy steine and Metamizole may falsely depress this assay.Serum Triglycerides Reference Interval Normal <150 mg/dL Borderline high 150 - 199 mg/dL High 200 - 499 mg/dL Very High > or = 500 mg/dL Urine creatinine measurement (mass/volume)Ordered By: Andriy Jones on 04-07-2024 Creatinine (U) [Mass/Vol] 112.00 mg/dL NO RANGE EST. [facility] Very low density lipoprotein (VLDL) cholesterol measurementOrdered By: Andriy Jones on 04-07-2024 Very low density lipoprotein (VLDL) cholesterol measurement 34 mg/dL 5-40 [facility] White blood cell (WBC) count Ordered By: Andriy Jones on 04-07-2024 WBC (Bld) [#/Vol] 4.4 10*3/uL 4.4-11.0 [facility] CNOVSPon 03-31-2024 CNOVSP Visit (SP) Office (HEMAWS) LATOYA KEN ([id number]) 1955 F Date Time Provider Department 03/31/24 1:30 PM IRENE AMBRIZ During your visit today, we recorded the following information about you: Temperature Pulse Blood pressure Weight 97.6 degrees 89/minute 132/82 74 kg Irene Ambriz APRN.[employer] 03/31/2024 1:56 PM Signed Chief Complaint Patient presents with: Established Patient HPI: Latoya Ken is a 68 year old female who presents here today [...] nuclear grade 2. ER-positive (>95%, strong) and [place] (4%, weak). HER-2 quantified at 3+. An [...] effect - no known presurgical therapy Additional pathologi (more content not included)... Normal [facility] Urine Cultureon 01-09-2024 U[facility] Escherichia coli [place] Count >100,000 Escherichia coli: REACTION Ampicillin Islt MEHNAZ >=32 Ampicillin+Sulbac Islt MEHNAZ >=32 R ceFAZolin Islt MEHNAZ >=64 R Cefepime Islt MEHNAZ <=0.12 S cefTRIAXone Islt MEHNAZ <=0.25 S Ciprofloxacin Islt MEHNAZ <=0.25 S B-Lactamase Extended Susc Islt NEG Gentamicin Islt MEHNAZ <=1 S Imipenem Islt MEHNAZ <=0.25 S levoFLOXacin Islt MEHNAZ <=0.12 S Nitrofurantoin Islt MEHNAZ <=16 S Pip+Tazo Islt MEHNAZ 16 I Tobramycin Islt MEHNAZ <=1 S TMP SMX Islt MEHNAZ <=20 S Normal [facility] Comment on above: Performed By: #### M 100.2200 #### [facility] Laboratory [address] [place], [place], [id number] Urgent Care Visit Reporton 1 Urgent Care Visit Report [facility] [address] , [address] [place] [address] OFFICE VISIT Date of Service: 01/07/24 MR#: [id number] Acct: [id number] Name: LATOYA KEN Rep #: [id number] : 1955 Provider: TAVO Foster Age/Sex: 68/F Location: [facility] Status: Signed Intake Vital Signs 09/20/23 09:01 01/07/24 07:47 Height 5 ft 6 in Weight: 165 lb BMI 26.6 BP 148/96 H 118/62 Blood Pressure Location Lt brachial Lt brachial Position Sitting Sitting Respiration 16 15 Pulse 89 80 Pulse Source Monitor NIBP Temp 98.0 F 97.7 F L Temp Source Temporal Oral Pulse Oximetry (%) 98 98 Oxygen Delivery Method room air room air Intake Visit Reasons: Urinary tract infection Chief Complaint: dysuria 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: No Is patient in pain?: No Allergies miconazole Allergy (Verified 01/07/24 07:47) Rash adhesive tape Adverse Reaction (Verified 01/07/24 07:47) Other Is last menstrual period known: No Post menopausal: Yes Patient : No Have you fallen in the past year?: No Nurse's Note: urinary urgency, decreased output since this morning. denies abd pain/back pain/ fevers. concern for UTI PFSH Medical History (Updated 09/20/23 @ 09:10 by Eddi VO, PA) Breast cancer GERD (gastroesophageal reflux disease) Arthritis Hyperlipidemia Hypertension Surgical History H/O left mastectomy Family History Mother Breast cancer Father Myocardial infarction Social History Smoking Status: Never smoker alcohol intake: never substance use type: does not use what type of physical activity do you participate in: none seatbelt use: always do you feel safe at home: Yes HPI HPI Chief Complaint: dysuria Details: LATOYA KEN, is a 68 F who presents to the office today for initial evaluation at the [facility] for approximately 2 week history of urinary urgency/frequency and new dysuria and suprapubic pressure over the last 24 hours. No complaints of fever, chills, sweats, lightheadedness/dizzin ess, nausea/vomiting, or chest pain/shortness of breath/dyspnea on exertion/back pain. No changes in color/ character of stool - though urine mildly darker/cloudier. No knqf-lbn-zdinkex products taken to assist. No other associated symptoms and no alleviating/aggravatin g factors. ROS Const Constitutional: No other (As above) Exam Const General: cooperative, healthy appearing and no acute distress Orientation: alert, awake and oriented x3 Chest Chest palpation inspection: normal inspection of the chest Resp Effort Inspection: normal respiratory effort and able to speak in complete sentences Cardio Rate: regular rate Pulses: radial pulses present GI Inspection: normal to inspection Palpation: soft and tender suprapubic (Patient describes upon self-palpation) General: No CVA tenderness Skin General: no rashes or lesions noted Neuro General: patient alert, patient awake and patient oriented x3 Cognition: normal cognition Speech: speech normal Psych Appearance: grossly normal Mental Status: mental status grossly normal Mood: congruent mood Affect: normal affect Speech and Movement: speech and movement normal Attitude: cooperative Diagnoses Urinary tract infection N39.0 Assessment and Plan Assessment and Plan (1) Urinary tract infection: Status: Acute Plan: See POC results; urine sent to lab for UA and C/S. Macrobid as prescribed today. Supportive measures as instructed today. Follow-up with PCP in 3 to 5 days should symptoms not improve, sooner should symptoms only worsen or any other concerns develop. Patient states acknowledging understanding all the above Results POC Urinalysis Dip (Clinic) Office Urine Color Yellow Last Edit by Kelle Biggs on 01/07/24 08:05 Office Urine Clarity Cloudy Last Edit by Kelle Biggs on 01/07/24 08:05 Office Urine Glucose Negative Last Edit by Kelle Biggs on 01/07/24 08:05 Office Urine Ketones Negative Last Edit by Kelle Biggs on 01/07/24 08:05 Off Ur Spec [place] 1.025 Last Edit by Kelle Biggs on 01/07/24 08:05 Office Urine pH 5.0 Last Edit by Kelle Biggs on 01/07/24 08:05 Office Urine Bilirubin Negative Last Edit by Kelle Biggs on 01/07/24 08:05 Office Urine Urobilinogen Negative Last Edit by Kelle Biggs on 01/07/24 08:05 Office Urine Blood Small Last Edit by Kelle Biggs on 01/07/24 08:05 Office Urine Blood Hemolyzed NA Last Edit by Kelle Biggs on 01/07/24 08:05 Office Urine Protein 1+ Last Edit by Kelle Biggs on 01/07/24 08:05 Office Urine Nitrate Negative Last Edit by Kelle Biggs on 01/07/24 08:05 O (more content not included)... Normal [facility] CNOVSPon 10-01-2023 CNOVSP Visit (SP) Office (HEMAWS) SUELLENLATOYA Anderson ([id number]) 1955 F Date Time Provider Department 10/01/23 1:30 PM IRENE AMBRIZ During your visit today, we recorded the following information about you: Temperature Pulse Blood pressure Weight 97.2 degrees 82/minute 137/84 75.6 kg Irene Ambriz APRN.[employer] 10/01/2023 1:54 PM Signed Chief Complaint Patient presents with: Established Patient HPI: Latoya Ken is a 67 year old female [...] nuclear grade 2. ER-positive (>95%, strong) and [place] (4%, weak). HER-2 quantified at 3+. An [...] invasive carcinoma: invasive ductal carcinoma Histologic Grade: [place] grade: Glandular/tubular differentiation score: 3 Nuclear pleomorphism [...] Additional patholo (more content not included)... Normal [facility] Urine Cultureon 09-22-2023 U[facility] Escherichia coli [place] Count 80,000-100,000 Escherichia coli: REACTION Ampicillin Islt MEHNAZ >=32 R Ampicillin+Sulbac Islt MEHNAZ >=32 R ceFAZolin Islt MEHNAZ 8 S Cefepime Islt MEHNAZ <=0.12 S cefTRIAXone Islt MEHNAZ <=0.25 S Ciprofloxacin Islt MEHNAZ <=0.25 S Ertapenem Islt MEHNAZ <=0.12 S B-Lactamase Extended Susc Islt NEG Gentamicin Islt MEHNAZ <=1 S Imipenem Islt MEHNAZ <=0.25 S levoFLOXacin Islt MEHNAZ <=0.12 S Nitrofurantoin Islt MEHNAZ <=16 S Pip+Tazo Islt MEHNAZ 64 I Tobramycin Islt MEHNAZ <=1 S TMP SMX Islt MEHNAZ <=20 S Normal [facility] Comment on above: Performed By: #### L 400.0001, M100.2200 #### [facility] [address] [place], [address] Urgent Care Visit Reporton 0 09-20-2023 Urgent Care Visit Report [facility] [address], [address] [place] [address] OFFICE VISIT Date of Service: 09/20/23 MR#: [id number] Acct: [id number] Name: LATOYA KEN Rep #: [id number] : 1955 Provider: TAVO Diane Age/Sex: 67/F Location: [facility] Status: Signed Intake Vital Signs 08/19/23 11:38 09/20/23 09:01 Height 5 ft 6 in 5 ft 6 in Weight: 165 lb BMI 26.6 BP 148/96 H Blood Pressure Location Lt brachial Position Sitting Respiration 16 Pulse 89 Pulse Source Monitor Temp 98.0 F Temp Source Temporal Pulse Oximetry (%) 98 Oxygen Delivery Method room air Intake Visit Reasons: CONCERN FOR UTI Chief Complaint: UTI SX 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: No Accompanied by: Self Is patient in pain?: No Allergies miconazole Allergy (Verified 09/20/23 09:03) Rash adhesive tape Adverse Reaction (Verified 09/20/23 09:03) Other Medications ???Medication ???Instructions ???Recorded ???Confirmed ???Type Vitamin D3 1 tab PO DAILY 02/21/16 09/20/23 History calcium carbonate 1 tab PO DAILY 02/21/16 09/20/23 History meloxicam 15 mg tablet 15 mg PO DAILY 02/21/16 09/20/23 History omega-3 fatty acids 500 mg capsule 1,000 mg PO DAILY 02/21/16 09/20/23 History omeprazole 20 mg capsule,delayed 20 mg PO DAILY PRN PRN Heartburn 02/21/16 09/20/23 History release Herceptin IV 08/16/16 09/20/23 History amlodipine 2.5 mg tablet 2.5 mg PO DAILY 08/19/23 09/20/23 History azelastine 137 mcg (0.1 %) nasal 1 spray intranasal BID 08/19/23 09/20/23 History spray diclofenac sodium 1 % topical gel 2 g topical ONCE 08/19/23 09/20/23 History exemestane 25 mg tablet (Aromasin) 25 mg PO DAILY 08/19/23 09/20/23 History lisinopril 30 mg tablet 40 mg PO DAILY 08/19/23 09/20/23 History rosuvastatin 40 mg tablet 40 mg PO DAILY 08/19/23 09/20/23 History nitrofurantoin 1 cap PO Q12H 7 days #14 caps 09/20/23 09/20/23 Rx monohydrate/macrocryst als 100 mg capsule Have you fallen in the past year?: No Nurse's Note: pt states she has a burning sensation, frequency and an urgency. Pt started AZO yesterday. [facility] Medical History (Updated 09/20/23 @ 09:10 by Eddi VO, PA) Breast cancer GERD (gastroesophageal reflux disease) Arthritis Hyperlipidemia Hypertension Surgical History H/O left mastectomy Family History Mother Breast cancer Father Myocardial infarction Social History Smoking Status: Never smoker alcohol intake: never substance use type: does not use what type of physical activity do you participate in: none seatbelt use: always do you feel safe at home: Yes HPI HPI Chief Complaint: UTI SX Details: LATOYA KEN, is a 67 F who presents to the office today for complaint of burning with urination as well as increased urinary urgency and frequency starting yesterday. Patient denies fever, chills, sweats. No pelvic or abdominal pain. No hematuria or loss of bladder control. No other associated symptoms or alleviating/aggravatin g factors. ROS Const Constitutional: No other (6 system ROS completed with pertinent findings in the HPI otherwise normal.) Exam Const General: cooperative and healthy appearing Resp Effort Inspection: normal respiratory effort Auscultation: Bilateral: Clear to Auscultation Cardio Rate: regular rate Rhythm: regular rhythm GI Auscultation: normal bowel sounds General: No CVA tenderness Psych Appearance: grossly normal Mental Status: mental status grossly normal Coding Level of Care Code Off vis,new,level 3 Diagnoses Dysuria R30.0 Assessment and Plan Assessment and Plan (1) Dysuria: Status: Acute Plan: Macrobid as prescribed today. Encouraged to get plenty of rest, drink lots of clear liquids, and use Tylenol or Ibuprofen (unless contraindicated) for fever and comfort. Patient also educated on other symptomatic management techniques. To be seen in 7-10 days if no improvement; sooner if worsening of symptoms. Patient advised of potential red flags and when appropriate to report to the ED. Patient verbalized understanding and agreement with all the above. Orders: Orders Urinalysis, Complete Today R30.0 - Dysuria Culture, Urine Today N39.0 - Urinary tract infection, site not specified POC Urinalysis Dip (Clinic) Today R30.0 - Dysuria Medications: New nitrofurantoin monohyd/m-cryst 100 mg administer with a meal/food; swallow whole; do not open, crush, dissolve , or chew 1 cap PO Q12H 14 caps 0RF 7 days Clinical Quality Measures Falls Risk Screening/Assistive Devices Have you fallen in the past year?: No 09/20/23 0911 (more content not included)... Normal [facility] Urinalysis, Completeon 09-19 BACTERIA 1+ /hpf Normal None Seen [facility] Comment on above: Order Comment: QIAN CTOR TO SPECIFY Performed By: #### L 400.0001, M100.0 #### [facility] Laboratory [address] [facility] [place], [address] EPI,SQUAMOUS 0-5 SEEN Normal 5-10 [facility] Comment on above: Order Comment: QIAN CTOR TO SPECIFY Performed By: #### L 400.0001, M100.0 #### [facility] Laboratory [address] [place], [address] RBC 0-5 SEEN Normal 0-5 [facility] Comment on above: Order Comment: QIAN CTOR TO SPECIFY Performed By: #### L 400.0001, M100.2200 #### [facility] [address] [place], [address] WBC 10-25 SEEN Normal 0-5 [facility] [place] Comment on above: Order Comment: QIAN CTOR TO SPECIFY Performed By: #### L 400.0001, M100.0 #### [facility] [address] [place], [address] Mucus Ql (Urine sed) 0 SEEN Normal [facility] Comment on above: Order Comment: COLLE CTOR TO SPECIFY Performed By: #### L 400.0001, M100.2200 #### [facility] [address] [place], [address] Basophil percentageOrdered B y: Andriy Jones on 07-17-2023 Bilirubin [Mass/Vol] 0.60 mg/dL 0.20-1.00 [facility] Comment on above: For patients on eltr ombopag therapy, use of [place] TBIL is not recommended. Chloride [Moles/Vol] 105 mmol/L 98-107 [facility] Glucose [Mass/Vol] 97 mg/dL 74-106 [facility] Potassium [Moles/Vol] 4.0 mmol/L 3.5-5.[address] [facility] Protein [Mass/Vol] 7.2 g/dL 6.4-8.2 [facility] Sodium [Moles/Vol] 139 mmol/L 136-145 [facility] Laboratory - Chemistry and C hemistry - challengeOrdered By: Andriy Jones on 07-17-2023 Albumin/Globulin [Mass ratio] 1.0 {ratio} 0.9-2.4 [facility] ALP [Catalytic activity/Vol] 99 U/L 45-117 [facility] ALT [Catalytic activity/Vol] 42 U/L 13-56 [facility] CO2 [Moles/Vol] 31.0 mmol/L 21.0-32.0 [facility] Globulin (S) [Mass/Vol] 3.6 g/dL 2.2-4.2 [facility] Urea nitrogen/Creatinine [Mass ratio] 22.1 mg/mg 10-20 [facility] No Panel InformationOrdered By: Andriy Jones on 07-17-2023 Estimated GFR (MDRD) Amer 84 mL/min >60 [facility] Comment on above: GFR Calc Estimated GFR (MDRD) Non-Af Amer 70 mL/min >60 [facility] Comment on above: Non- GFR Calc Urine Microalbumin/Creatinine Ratio 85.5 mg/g CRE <30 [facility] Serum or plasma calcium yahaira urement (mass/volume)Ordered By: Andriy oJnes on 07-17-2023 Calcium [Mass/Vol] 9.3 mg/dL 8.5-10.1 [facility] Serum or plasma creatinine m easurement (mass/volume)Ordered By: Andriy Jones on 07-17-2023 Creatinine [Mass/Vol] 0.86 mg/dL 0.55-1.[address] [facility] Comment on above: The validity of the calculated GFR & GFRAA in patients over 70 years has not been determined. Clinical correlation is essential. Serum or plasma urea nitroge n measurement (mass/volume)Ordered By: Andriy Jones on 07-17-2023 Urea nitrogen [Mass/Vol] 19 mg/dL 7-18 [facility] Thin prep Papanicolaou smear with manual screeningOrdered By: Andriy Jones on 07-17-2023 Thin prep Papanicolaou smear with manual screening 3.6 g/dL 3.2-5.0 [facility] Thin prep Papanicolaou smear with manual screening 25 U/L 15-37 [facility] Thin prep Papanicolaou smear with manual screening 3 5-15 [facility] Thin prep Papanicolaou smear with manual screening 147.0 mg/L NO RANGE EST. [facility] Urine creatinine measurement (mass/volume)Ordered By: Andriy Jones on 07-17-2023 Creatinine (U) [Mass/Vol] 172.00 mg/dL NO RANGE EST. [facility] Absolute lymphocyte countOrd ered By: Dr. Jones on 07-24-2022 Lymphocytes Auto (Unsp spec) [#/Vol] 1.86 10*3/uL 0.83-4.51 [facility] Basophil percentageOrdered B y: Dr. Jones on 07-24-2022 Basophils/100 WBC (Bld) 0.4 % 0-1 [facility] Bilirubin [Mass/Vol] 0.30 mg/dL 0.20-1.00 [facility] Comment on above: For patients on eltr ombopag therapy, use of [place] TBIL is not recommended. Chloride [Moles/Vol] 104 mmol/L 98-107 [facility] Eosinophils/100 WBC (Bld) 3.4 % 0-5 [facility] Glucose [Mass/Vol] 148 mg/dL 74-106 [facility] Comment on above: Fasting Glucose resu lt greater than or equal to 126 mg/dL suggests DIABETES MELLITUS per A.D.A. criteria. Neutrophils (Bld) [#/Vol] 5.2 10*3/uL 2.0-7.7 [facility] Neutrophils/100 WBC (Bld) 66.0 % 47-70 [facility] Potassium [Moles/Vol] 4.1 mmol/L 3.5-5.[address] [facility] Protein [Mass/Vol] 6.9 g/dL 6.4-8.2 [facility] Sodium [Moles/Vol] 141 mmol/L 136-145 [facility] WBC (Bld) [#/Vol] 7.9 10*3/uL 4.4-11.0 [facility] Blood erythrocytes count (nu mber/volume)Ordered By: Dr. Jones on 07-24-2022 RBC (Bld) [#/Vol] 5.22 10*6/uL 4.2-5.4 [facility] Blood hemoglobin measurement (mass/volume)Ordered By: Dr. Jones on 07-24-2022 Hemoglobin (Bld) [Mass/Vol] 14.2 g/dL 12.0-15.0 [facility] Blood lymphocytes/100 leukoc ytesOrdered By: Dr. Jones on 07-24-2022 Lymphocytes/100 WBC (Bld) 23.7 % 19-41 [facility] Blood monocytes/100 leukocyt esOrdered By: Dr. Jones on 07-24-2022 Monocytes/100 WBC (Bld) 6.2 % 0-10 [facility] Blood platelet mean volumeOr dered By: Dr. Jones on 07-24-2022 Platelet mean volume (Bld) [Entitic vol] 9.1 fL 6.2-12.0 [facility] Determination of erythrocyte mean corpuscular volume (MCV)Ordered By: Dr. Jones on 07-24-2022 MCV (RBC) [Entitic vol] 85.2 fL 81-99 [facility] Hematocrit Auto (Bld) [Volum e fraction]Ordered By: Dr. Jones on 07-24-2022 Hematocrit (Bld) [Volume fraction] 44.5 % 37-47 [facility] Laboratory - Chemistry and C hemistry - challengeOrdered By: Dr. Jones on 07-24-2022 ALP [Catalytic activity/Vol] 96 U/L 45-117 [facility] ALT [Catalytic activity/Vol] 50 U/L 13-56 [facility] CO2 [Moles/Vol] 29.0 mmol/L 21.0-32.0 [facility] Globulin (S) [Mass/Vol] 3.1 g/dL 2.2-4.2 [facility] Urea nitrogen/Creatinine [Mass ratio] 26.4 mg/mg 10-20 [facility] - Hematology and Cell countsOrdered By: Dr. Jones on 07-24-2022 Erythrocyte distribution width (RBC) [Entitic vol] 42.2 fL 35.1-43.9 [facility] Erythrocyte distribution width (RBC) [Ratio] 13.8 % 11.6-14.6 [facility] Immature granulocytes/100 WBC (Bld) 0.300 % 0.0-0.9 [facility] Comment on above: IG% - Immature Granu locytes (promyelocytes, myelocytes and metamyelocytes) > 1% indicates that a LEFT SHIFT is Present. MCH (RBC) [Entitic mass] 27.2 pg 27.0-32.0 [facility] Nucleated RBC/100 WBC (Bld) [Ratio] 0 % 0-5 [facility] MCHC Auto (RBC) [Mass/Vol]Or dered By: Dr. Jones on 07-24-2022 MCHC (RBC) [Mass/Vol] 31.9 g/dL 32-[address] [facility] No Panel InformationOrdered By: Dr. Jones on 07-24-2022 Estimated GFR (MDRD) Amer 93 mL/min >60 [facility] Comment on above: GFR Calc Estimated GFR (MDRD) Non-Af Amer 77 mL/min >60 [facility] Comment on above: Non- GFR Calc Urine Microalbumin/Creatinine Ratio 68.2 mg/g CRE <30 [facility] Platelets bldOrdered By: Dr. Jones on 07-24-2022 Platelets (Bld) [#/Vol] 239 10*3/uL 150-450 [facility] Serum or plasma C reactive p rotein measurement (mass/volume)Ordered By: Dr. Jones on 07-24-2022 CRP [Mass/Vol] mg/L 0.0-3.0 [facility] Comment on above: C-Reactive Protein ( CRP) provides useful information for thediagnosis, therapy and monitoring of inflammatory processesand associated diseases. For the evaluation of Relative Riskfor Cardiovascular Disease, a High Sensitivity CRP (HSCRP)should be ordered. Serum or plasma albumin yahaira urement (mass/volume)Ordered By: Dr. Jones on 07-24-2022 Albumin [Mass/Vol] 3.8 g/dL 3.2-5.0 [facility] Serum or plasma albumin/glob ulin mass ratioOrdered By: Dr. Jones on 07-24-2022 Albumin/Globulin [Mass ratio] 1.2 {ratio} 0.9-2.4 [facility] Serum or plasma calcium yahaira urement (mass/volume)Ordered By: Dr. Jones on 07-24-2022 Calcium [Mass/Vol] 9.2 mg/dL 8.5-10.1 [facility] Serum or plasma creatinine m easurement (mass/volume)Ordered By: Dr. Jones on 07-24-2022 Creatinine [Mass/Vol] 0.80 mg/dL 0.55-1.[address] [facility] Comment on above: The validity of the calculated GFR & GFRAA in patients over 70 years has not been determined. Clinical correlation is essential. Serum or plasma urea nitroge n measurement (mass/volume)Ordered By: Dr. Jones on 07-24-2022 Urea nitrogen [Mass/Vol] 21 mg/dL 7-18 [facility] Thin prep Papanicolaou smear with manual screeningOrdered By: Dr. Jones on 07-24-2022 Thin prep Papanicolaou smear with manual screening 31 U/L 15-37 [facility] Thin prep Papanicolaou smear with manual screening 8 5-15 [facility] Thin prep Papanicolaou smear with manual screening 90.7 mg/L NO RANGE EST. [facility] Urine creatinine measurement (mass/volume)Ordered By: Dr. Jones on 07-24-2022 Creatinine (U) [Mass/Vol] 133.00 mg/dL NO RANGE EST. [facility] Basophil percentageon 2021 Bilirubin [Mass/Vol] 0.30 mg/dL 0.20-1.00 [facility] Work Phone: Comment on above: For patients on eltr ombopag therapy, use of [place] TBIL is not recommended. Chloride [Moles/Vol] 105 mmol/L 98-107 [facility] Work Phone: Glucose [Mass/Vol] 173 mg/dL 74-106 [facility] Work Phone: Comment on above: Fasting Glucose resu lt greater than or equal to 126 mg/dL suggests DIABETES MELLITUS per A.D.A. criteria. Potassium [Moles/Vol] 3.9 mmol/L 3.5-5.[address] [facility] Work Phone: Protein [Mass/Vol] 6.8 g/dL 6.4-8.2 [facility] Work Phone: Sodium [Moles/Vol] 139 mmol/L 136-145 [facility] Work Phone: Laboratory - Chemistry and C hemistry - challengeon 01-25-2022 ALP [Catalytic activity/Vol] 83 U/L 45-117 [facility] Work Phone: ALT [Catalytic activity/Vol] 33 U/L 13-56 [facility] Work Phone: [phone] CO2 [Moles/Vol] 29.0 mmol/L 21.0-32.0 [facility] Work Phone: Globulin (S) [Mass/Vol] 3.3 g/dL 2.2-4.2 [facility] Work Phone: Urea nitrogen/Creatinine [Mass ratio] 24.8 mg/mg 10-20 [facility] Work Phone: No Panel Informationon 01-25 Estimated GFR (MDRD) Amer 78 mL/min >60 [facility] Work Phone: Comment on above: GFR Calc Estimated GFR (MDRD) Non-Af Amer 64 mL/min >60 [facility] Work Phone: Comment on above: Non- GFR Calc Thyroid Stimulating Hormone (TSH) 0.83 uIU/mL 0.358-3.74 [facility] Work Phone: Urine Microalbumin/Creatinine Ratio 89.6 mg/g CRE <30 [facility] Work Phone: Serum or plasma albumin yahaira urement (mass/volume)on 01-25-2022 Albumin [Mass/Vol] 3.5 g/dL 3.2-5.0 [facility] Work Phone: Serum or plasma albumin/glob ulin mass ratioon 01-25-2022 Albumin/Globulin [Mass ratio] 1.1 {ratio} 0.9-2.4 [facility] Work Phone: Serum or plasma calcium yahaira urement (mass/volume)on 01-25-2022 Calcium [Mass/Vol] 8.9 mg/dL 8.5-10.1 [facility] Work Phone: Serum or plasma creatinine m easurement (mass/volume)on 01-25-2022 Creatinine [Mass/Vol] 0.93 mg/dL 0.55-1.[address] [facility] Work Phone: Comment on above: The validity of the calculated GFR & GFRAA in patients over 70 years has not been determined. Clinical correlation is essential. Serum or plasma urea nitroge n measurement (mass/volume)on 01-25-2022 Urea nitrogen [Mass/Vol] 23 mg/dL 7-18 [facility] Work Phone: Thin prep Papanicolaou smear with manual screeningon 01-25-2022 Thin prep Papanicolaou smear with manual screening 18 U/L 15-37 [facility] Work Phone: Thin prep Papanicolaou smear with manual screening 5 5-15 [facility] Work Phone: Thin prep Papanicolaou smear with manual screening 95.9 mg/L NO RANGE EST. [facility] Work Phone: Urine creatinine measurement (mass/volume)on 01-25-2022 Creatinine (U) [Mass/Vol] 107.00 mg/dL NO RANGE EST. [facility] Work Phone: Absolute lymphocyte counton 07-19-2021 Lymphocytes Auto (Unsp spec) [#/Vol] 1.81 10*3/uL 0.83-4.51 [facility] Work Phone: Basophil percentageon 2021 Basophils/100 WBC (Bld) 0.5 % 0-1 [facility] Work Phone: Bilirubin [Mass/Vol] 0.40 mg/dL 0.20-1.00 [facility] Work Phone: Comment on above: For patients on eltr ombopag therapy, use of [place] TBIL is not recommended. Chloride [Moles/Vol] 105 mmol/L 98-107 [facility] Work Phone: Cholesterol [Mass/Vol] 160 mg/dL <200 [facility] Work Phone: Comment on above: <200 mg/dL Desirable 200-240 mg/dL Borderline >240 mg/dL High Risk Eosinophils/100 WBC (Bld) 3.3 % 0-5 [facility] Work Phone: Glucose [Mass/Vol] 80 mg/dL 74-106 [facility] Work Phone: Neutrophils (Bld) [#/Vol] 3.8 10*3/uL 2.0-7.7 [facility] Work Phone: Neutrophils/100 WBC (Bld) 59.6 % 47-70 [facility] Work Phone: Potassium [Moles/Vol] 3.9 mmol/L 3.5-5.[address] [facility] Work Phone: Protein [Mass/Vol] 7.3 g/dL 6.4-8.2 [facility] Work Phone: Sodium [Moles/Vol] 141 mmol/L 136-145 [facility] Work Phone: Triglyceride [Mass/Vol] 186 mg/dL [facility] Work Phone: Comment on above: The drugs N-Acetylcy steine and Metamizole may falsely depress this assay.Serum Triglycerides Reference Interval Normal <150 mg/dL Borderline high 150 - 199 mg/dL High 200 - 499 mg/dL Very High > or = 500 mg/dL WBC (Bld) [#/Vol] 6.3 10*3/uL 4.4-11.0 [facility] Work Phone: Blood erythrocytes count (nu mber/volume)on 07-19-2021 RBC (Bld) [#/Vol] 5.20 10*6/uL 4.2-5.4 [facility] Work Phone: Blood hemoglobin measurement (mass/volume)on 07-19-2021 Hemoglobin (Bld) [Mass/Vol] 14.6 g/dL 12.0-15.0 [facility] Work Phone: Blood lymphocytes/100 leukoc yteson 07-19-2021 Lymphocytes/100 WBC (Bld) 28.7 % 19-41 [facility] Work Phone: Blood monocytes/100 leukocyt eson 07-19-2021 Monocytes/100 WBC (Bld) 7.6 % 0-10 [facility] Work Phone: Blood platelet mean volumeon 07-19-2021 Platelet mean volume (Bld) [Entitic vol] 8.9 fL 6.2-12.0 [facility] Work Phone: Determination of erythrocyte mean corpuscular volume (MCV)on 07-19-2021 MCV (RBC) [Entitic vol] 87.3 fL 81-99 [facility] Work Phone: Hematocrit Auto (Bld) [Volum e fraction]on 07-19-2021 Hematocrit (Bld) [Volume fraction] 45.4 % 37-47 [facility] Work Phone: Laboratory - Chemistry and C hemistry - challengeon 07-19-2021 ALP [Catalytic activity/Vol] 80 U/L 45-117 [facility] Work Phone: ALT [Catalytic activity/Vol] 35 U/L 13-56 [facility] Work Phone: CO2 [Moles/Vol] 33.0 mmol/L 21.0-32.0 [facility] Work Phone: Globulin (S) [Mass/Vol] 3.6 g/dL 2.2-4.2 [facility] Work Phone: Urea nitrogen/Creatinine [Mass ratio] 20.7 mg/mg 10-20 [facility] Work Phone: Laboratory - Hematology and Cell countson 07-19-2021 Erythrocyte distribution width (RBC) [Entitic vol] 42.2 fL 35.1-43.9 [facility] Work Phone: Erythrocyte distribution width (RBC) [Ratio] 13.2 % 11.6-14.6 [facility] Work Phone: Immature granulocytes/100 WBC (Bld) 0.300 % 0.0-0.9 [facility] Work Phone: Comment on above: IG% - Immature Granu locytes (promyelocytes, myelocytes and metamyelocytes) > 1% indicates that a LEFT SHIFT is Present. MCH (RBC) [Entitic mass] 28.1 pg 27.0-32.0 [facility] Work Phone: Nucleated RBC/100 WBC (Bld) [Ratio] 0 % 0-5 [facility] Work Phone: MCHC Auto (RBC) [Mass/Vol]on 07-19-2021 MCHC (RBC) [Mass/Vol] 32.2 g/dL 32-[address] [facility] Work Phone: No Panel Informationon 07-19 Estimated GFR (MDRD) Amer 84 mL/min >60 [facility] Work Phone: Comment on above: GFR Calc Estimated GFR (MDRD) Non-Af Amer 69 mL/min >60 [facility] Work Phone: Comment on above: Non- GFR Calc Platelets bldon 07-19-2021 Platelets (Bld) [#/Vol] 255 10*3/uL 150-450 [facility] Work Phone: Serum or plasma albumin yahaira urement (mass/volume)on 07-19-2021 Albumin [Mass/Vol] 3.7 g/dL 3.2-5.0 [facility] Work Phone: Serum or plasma albumin/glob ulin mass ratioon 07-19-2021 Albumin/Globulin [Mass ratio] 1.0 {ratio} 0.9-2.4 [facility] Work Phone: Serum or plasma calcium yahaira urement (mass/volume)on 07-19-2021 Calcium [Mass/Vol] 9.4 mg/dL 8.5-10.1 [facility] Work Phone: Serum or plasma cholesterol in HDL measurement (mass/volume)on 07-19-2021 Cholesterol in HDL [Mass/Vol] 39 mg/dL [facility] Work Phone: Comment on above: The drugs N-Acetylcy steine and Metamizole may falsely depress this assay. Reference Range HDL <40 mg/dL Low HDL Cholesterol HDL >or= 60 mg/dL High HDL Cholesterol Serum or plasma cholesterol in VLDL measurement (mass/volume)on 07-19-2021 Cholesterol in VLDL [Mass/Vol] 37 mg/dL 5-40 [facility] Work Phone: Serum or plasma creatinine m easurement (mass/volume)on 07-19-2021 Creatinine [Mass/Vol] 0.87 mg/dL 0.55-1.[address] [facility] Work Phone: Comment on above: The validity of the calculated GFR & GFRAA in patients over 70 years has not been determined. Clinical correlation is essential. Serum or plasma low density lipoprotein (LDL) cholesterol measurement (mass/volume)on 07-19-2021 Cholesterol in LDL [Mass/Vol] 84 mg/dL 0-130 [facility] Work Phone: Serum or plasma urea nitroge n measurement (mass/volume)on 07-19-2021 Urea nitrogen [Mass/Vol] 18 mg/dL 7-18 [facility] Work Phone: Thin prep Papanicolaou smear with manual screeningon 07-19-2021 Thin prep Papanicolaou smear with manual screening 23 U/L 15-37 [facility] Work Phone: Thin prep Papanicolaou smear with manual screening 3 5-15 [facility] Work Phone: Microbiology: Culture, Urine on 02-16-2017 CUUR . Invalid Interpretation Code [facility] Office Visiton 02-12-2017 Bilirubin Ql (U) Negative Invalid Interpretation Code [facility] blood in urine (hemoglobin) by dipstick non-hemolyzed moderate Invalid Interpretation Code [facility] Documentation of current medications (procedure) Done Invalid Interpretation Code [facility] specific gravity, urine 1.010 Invalid Interpretation Code [facility] Tobacco smoking status ALIS Tobacco smoking status NHIS Invalid Interpretation Code [facility] Tobacco smoking status NHIS Never Invalid Interpretation Code [facility] Tobacco use [facility] Never smoker Invalid Interpretation Code [facility] Urine, appearance clear Invalid Interpretation Code [facility] Urine, color yellow Invalid Interpretation Code [facility] Urine, glucose presence Negative Invalid Interpretation Code [facility] Urine, ketones presence Negative Invalid Interpretation Code [facility] Urine, leukocyte esterase presence 1+ Invalid Interpretation Code [facility] Urine, nitrite presence Negative Invalid Interpretation Code [facility] Urine, pH 6.0 [pH] Invalid Interpretation Code [facility] Urine, protein Negative Invalid Interpretation Code [facility] Urine, urobilinogen presence Negative Invalid Interpretation Code [facility] Microbiology: Culture, Urine on 01-30-2017 [facility] Trimethoprim/Sulfame th o $ <=20 S Invalid Interpretation Code [facility] Microbiology: (P) Culture, U rineon 01-29-2017 [facility]UR . Invalid Interpretation Code [facility] Office Visit: , HTNon 2016 Documentation of current medications (procedure) Done Invalid Interpretation Code [facility] Work Phone: Protein mass conc Done Invalid Interpretation Code [facility] Work Phone: Tobacco smoking status NHIS Never Invalid Interpretation Code [facility] Work Phone: Tobacco smoking status [facility] Never smoker Invalid Interpretation Code [facility] Work Phone: Tobacco use [facility] Never smoker Invalid Interpretation Code [facility] Work Phone: Vital Signs Date Time Vital Sign Value Performing Clinician Facility 08-15-2024 08:38-0400 Body temperature 98.1 [degF] Dr. Andriy Jones MD Work Phone: [facility] 08-15-2024 08:38-0400 Diastolic blood pressure 72 mm[Hg] Dr. Andriy Jones MD Work Phone: [facility] 08-15-2024 08:38-0400 Heart rate 82 /min Dr. Andriy Jones MD Work Phone: [facility] 08-15-2024 08:38-0400 Respiratory rate 15 /min Dr. Andriy Jones MD Work Phone: [facility] 08-15-2024 08:38-0400 SaO2% (BldA) [Mass fraction] 97 % Dr. Andriy Jones MD Work Phone: [facility] 08-15-2024 08:38-0400 Systolic blood pressure 118 mm[Hg] Dr. Andriy Jones MD Work Phone: [facility] 07-28-2024 14:25-0400 Body height 167.[address] Andriy Jones MD Work Phone: [facility] 07-28-2024 14:20-0400 Body mass index (BMI) [Ratio] 26.8 kg/m2 Dr. Andriy Jones MD Work Phone: [facility] 07-28-2024 14:20-0400 Body weight 75.[address] Andriy Jones MD Work Phone: [facility] 07-28-2024 14:20-0400 Diastolic blood pressure 78 mm[Hg] Dr. Andriy Jones MD Work Phone: [facility] 07-28-2024 14:20-0400 Systolic blood pressure 128 mm[Hg] Dr. Andriy Jones MD Work Phone: [facility] 03-31-2024 13:31-0500 Body mass index (BMI) [Ratio] 25.94 kg/m2 Irene Ambriz RESIDENTIAL FIELD MANAGER.[employer] Work Phone: [facility] [facility] 03-31-2024 13:31-0500 Body temperature 97.59 [degF] Irene Ambriz RESIDENTIAL FIELD MANAGER.TRUCK SHOP SUPERVISOR Work Phone: [facility] 03-31-2024 13:31-0500 Body weight 74 kg Irene Ambriz RESIDENTIAL FIELD MANAGER.TRUCK SHOP SUPERVISOR Work Phone: [facility] 03-31-2024 13:31-0500 Diastolic blood pressure 82 mm[Hg] Irene Ambriz RESIDENTIAL FIELD MANAGER.TRUCK SHOP SUPERVISOR Work Phone: [facility] 03-31-2024 13:31-0500 Heart rate 89 /min Irene Ambriz RESIDENTIAL FIELD MANAGER.TRUCK SHOP SUPERVISOR Work Phone: [facility] 03-31-2024 13:31-0500 SaO2% (BldA) [Mass fraction] 97 % Irene Ambriz RESIDENTIAL FIELD MANAGER.TRUCK SHOP SUPERVISOR Work Phone: [facility] 03-31-2024 13:31-0500 Systolic blood pressure 132 mm[Hg] Irene Ambriz RESIDENTIAL FIELD MANAGER.TRUCK SHOP SUPERVISOR Work Phone: [facility] 10-01-2023 13:26-0400 Body mass index (BMI) [Ratio] 26.5 kg/m2 [place] Ambriz RESIDENTIAL FIELD MANAGER.TRUCK SHOP SUPERVISOR Work Phone: [facility] 10-01-2023 13:26-0400 Body temperature 97.2 [degF] Irene Ambriz RESIDENTIAL FIELD MANAGER.TRUCK SHOP SUPERVISOR Work Phone: [facility] 10-01-2023 13:26-0400 Body weight 75.61 kg [place] Ambriz RESIDENTIAL FIELD MANAGER.TRUCK SHOP SUPERVISOR Work Phone: [facility] 10-01-2023 13:26-0400 Diastolic blood pressure 84 mm[Hg] [place] Ambriz RESIDENTIAL FIELD MANAGER.TRUCK SHOP SUPERVISOR Work Phone: [facility] 10-01-2023 13:26-0400 Heart rate 82 /min [place] Ambriz RESIDENTIAL FIELD MANAGER.TRUCK SHOP SUPERVISOR Work Phone: [facility] 10-01-2023 13:26-0400 SaO2% (BldA) [Mass fraction] 95 % [place] Ambriz RESIDENTIAL FIELD MANAGER.TRUCK SHOP SUPERVISOR Work Phone: [facility] 10-01-2023 13:26-0400 Systolic blood pressure 137 mm[Hg] [place] Ambriz RESIDENTIAL FIELD MANAGER.TRUCK SHOP SUPERVISOR Work Phone: [facility] 09-25-2022 13:29-0400 Body height 168.9 cm [place] Ambriz RESIDENTIAL FIELD MANAGER.TRUCK SHOP SUPERVISOR Work Phone: [facility] 09-25-2022 13:29-0400 Body temperature 97.11 [degF] [place] Ambriz RESIDENTIAL FIELD MANAGER.TRUCK SHOP SUPERVISOR Work Phone: [facility] 09-25-2022 13:29-0400 Body weight 75.07 kg [place] Ambriz RESIDENTIAL FIELD MANAGER.TRUCK SHOP SUPERVISOR Work Phone: [facility] 09-25-2022 13:29-0400 Diastolic blood pressure 75 mm[Hg] [place] Ambriz RESIDENTIAL FIELD MANAGER.TRUCK SHOP SUPERVISOR Work Phone: [facility] 09-25-2022 13:29-0400 Heart rate 80 /min Irene Ambriz RESIDENTIAL FIELD MANAGER.TRUCK SHOP SUPERVISOR Work Phone: [facility] 09-25-2022 13:29-0400 SaO2% (BldA) [Mass fraction] 95 % Irene Ambriz RESIDENTIAL FIELD MANAGER.TRUCK SHOP SUPERVISOR Work Phone: [facility] 09-25-2022 13:29-0400 Systolic blood pressure 120 mm[Hg] [place] Ambriz RESIDENTIAL FIELD MANAGER.TRUCK SHOP SUPERVISOR Work Phone: [facility] 09-21-2021 13:51-0400 Body temperature 97.81 [degF] [place] Ambriz RESIDENTIAL FIELD MANAGER.TRUCK SHOP SUPERVISOR Work Phone: [facility] 09-21-2021 13:51-0400 Body weight 74.84 kg [place] Ambriz RESIDENTIAL FIELD MANAGER.TRUCK SHOP SUPERVISOR Work Phone: [facility] 09-21-2021 13:51-0400 Diastolic blood pressure 75 mm[Hg] [place] Ambriz RESIDENTIAL FIELD MANAGER.TRUCK SHOP SUPERVISOR Work Phone: [facility] 09-21-2021 13:51-0400 Heart rate 79 /min Irene Sethenter RESIDENTIAL FIELD MANAGER.TRUCK SHOP SUPERVISOR Work Phone: [facility] 09-21-2021 13:51-0400 Systolic blood pressure 130 mm[Hg] [place] Ambriz RESIDENTIAL FIELD MANAGER.TRUCK SHOP SUPERVISOR Work Phone: [facility] 02-12-2017 14:22-0500 BMI (Body Mass Index) 25.43 kg/m2 Mine Rodriguez NP [facility] 02-12-2017 14:22-0500 BP Diastolic 77 mm[Hg] Mine Rodriguez [facility] 02-12-2017 14:22-0500 BP Systolic 127 mm[Hg] Mine Rodriguez [facility] 02-12-2017 14:22-0500 Height 167.64 cm Mine Rodriguez [facility] 02-12-2017 14:22-0500 Weight 71.49 kg Mine Rodriguez [facility] 01-04-2017 12:50-0400 Body Temperature 98.9 [degF] L[facility] Work Phone: 08-02-2016 09:30-0400 BMI (Body Mass Index) 27.29 kg/m2 Roslyn Xie LPN [facility] Work Phone: 08-02-2016 09:30-0400 Body Temperature 98.7 [degF] Roslyn Xie LPN [facility] Work Phone: 08-02-2016 09:30-0400 BP Diastolic 94 mm[Hg] Roslyn Xie LPN [facility] Work Phone: 08-02-2016 09:30-0400 BP Systolic 148 mm[Hg] Roslyn Xie LPN [facility] Work Phone: 08-02-2016 09:30-0400 Height 165.1 cm Roslyn Xie LPN [facility] Work Phone: 08-02-2016 09:30-0400 Pulse (Heart Rate) 83 /min Roslyn Xie LPN [facility] Work Phone: 08-02-2016 09:30-0400 Pulse Oximetry 97 % Roslyn Xie LPN [facility] Work Phone: 08-02-2016 09:30-0400 Respiratory Rate 16 /min Roslyn Xie LPN [facility] Work Phone: 08-02-2016 09:30-0400 Weight 74.39 kg Roslyn Xie LPN [facility] Work Phone: Encounters Encounter Date Encounter Type Care Provider Facility Start: 08-17-2024 End: 08-17-[address] Andriy Jones MD Work Phone: [facility] Work Phone: Start: 08-17-2024 End: 08-17-2024 Patient encounter procedure Marnie Reed NP-C -Laboratory Specimen Work Phone: Start: 08-17-2024 End: 08-17-2024 ambulatory Marnie Reed Facility:[facility] Start: 08-15-2024 End: 08-15-2024 Patient encounter procedure Marnie Reed R[facility]BIT BREEDER-C [facility] Work Phone: Start: 08-15-2024 End: 08-15-[address] Andriy Jones MD Work Phone: [facility] Work Phone: Start: 07-28-2024 End: 07-28-[address] Andriy Jones MD Work Phone: [facility] Work Phone: Start: 07-28-2024 End: 07-28-2024 Patient encounter procedure Mine Jennifer WHITFIELD-C -Laboratory Specimen Work Phone: Start: 07-28-2024 End: 07-28-2024 Patient encounter procedure Mine Rodriguez RABBIT BREEDER-C -[facility] Work Phone: Start: 07-28-2024 End: 07-28-2024 Patient encounter status Mine Rodriguez NP-C [facility] Start: 07-28-2024 End: 07-28-[address] Andriy Jones MD Work Phone: [facility] Work Phone: Start: 07-28-2024 End: 07-28-2024 ambulatory Andriy Jones Facility:[facility] Start: 04-21-2024 ambulatory Andriy Jones Facility:[facility] Start: 04-07-2024 End: 04-07-[address] Andriy Jones MD -Laboratory, [place] Work Phone: Start: 04-07-2024 End: 04-07-2024 ambulatory Andriy Jones Facility:[facility] Start: 03-31-2024 End: 03-31-2024 ambulatory ANDRIY JONES Facility:[facility] Start: 03-31-2024 End: 03-31-2024 Follow-up encounter Irene Ambriz APRN.TRUCK SHOP SUPERVISOR Work Phone: Hematology/Oncology Comment on above: Encounter for follow -up surveillance of breast cancer (Primary Dx) Start: 03-31-2024 End: 03-31-2024 Patient encounter procedure Irene Ambriz RESIDENTIAL FIELD MANAGER.TRUCK SHOP SUPERVISOR Work Phone: Hematology/Oncology Start: 01-07-2024 End: 01-07-2024 ambulatory Carlos Eduardo VO Facility:[facility] Start: 01-07-2024 End: 01-07-2024 ambulatory Carlos Eduardo VO Facility:[facility] Start: 10-01-2023 End: 10-01-2023 ambulatory Irene Ambriz RESIDENTIAL FIELD MANAGER.TRUCK SHOP SUPERVISOR Work Phone: Hematology/Oncology Comment on above: Malignant neoplasm o f upper-outer quadrant of left breast in female, estrogen receptor positive (HCC) (Primary Dx) Start: 10-01-2023 End: 10-01-2023 Patient encounter procedure Ireen Ambriz RESIDENTIAL FIELD MANAGER.TRUCK SHOP SUPERVISOR Work Phone: Hematology/Oncology Start: 09-20-2023 End: 09-20-2023 ambulatory [facility] Facility:[facility] Start: 09-20-2023 End: 09-20-2023 ambulatory [facility] Facility:[facility] Start: 07-17-2023 End: 07-17-2023 ambulatory [facility] Work Phone: Start: 07-17-2023 End: 07-17-2023 Patient encounter procedure [facility] Work Phone: Start: 03-04-2023 End: 03-04-2023 ambulatory [facility] Work Phone: Start: 03-04-2023 End: 03-04-2023 Discharged Recurring [facility]-Occupational Therapy Work Phone: Start: 09-25-2022 End: 09-25-2022 ambulatory Irene Ambriz RESIDENTIAL FIELD MANAGER.TRUCK SHOP SUPERVISOR Work Phone: Hematology/Oncology Comment on above: Malignant neoplasm o f upper-outer quadrant of left breast in female, estrogen receptor positive (HCC) (Primary Dx) Start: 09-25-2022 End: 09-25-2022 Patient encounter procedure Irene Ambriz RESIDENTIAL FIELD MANAGER.TRUCK SHOP SUPERVISOR Work Phone: [facility] Start: 07-24-2022 End: 07-24-2022 ambulatory [facility] Work Phone: Start: 07-24-2022 End: 07-24-2022 Patient encounter procedure [facility] Start: 04-14-2022 Telephone encounter Irene hunter RESIDENTIAL FIELD MANAGER.TRUCK SHOP SUPERVISOR Work Phone: Hematology/Oncology Comment on above: Future Appointment Start: 03-20-2022 Orders Only Lazaro Arce O Work Phone: Hematology/Oncology Start: 03-13-2022 Telephone encounter Irene hunter RESIDENTIAL FIELD MANAGER.TRUCK SHOP SUPERVISOR Work Phone: Hematology/Oncology Comment on above: Patient Question Start: 01-25-2022 End: 01-25-2022 ambulatory MD Andriy Jones [facility] Work Phone: Start: 01-25-2022 End: 01-25-2022 Patient encounter procedure MD Andriy Jones [facility] Start: 11-06-2021 ambulatory Irene Bailey r RESIDENTIAL FIELD MANAGER.TRUCK SHOP SUPERVISOR Work Phone: Hematology/Oncology Comment on above: Bone Density Start: 10-10-2021 Non-patient / Non-visit MD Andriy mascorro [facility] Start: 10-10-2021 Registered Referred MD Andriy Jones [facility] Start: 09-21-2021 End: 09-21-2021 ambulatory Irene Ambriz RESIDENTIAL FIELD MANAGER.TRUCK SHOP SUPERVISOR Work Phone: Hematology/Oncology Comment on above: Malignant neoplasm o f upper-outer quadrant of left breast in female, estrogen receptor positive (HCC) (Primary Dx); 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 Andriy Jones MD Work Phone: Start: 07-28-[address] Andriy Jones MD Work Phone: Start: 04-07-[address] Andriy Jones MD Work Phone: Start: 04-07-2024 Urine microalbumin/creatinine ratio measurement Dr. Andriy Jones MD Work Phone: Start: 04-07-2024 Measurement of renal function Dr. Andriy Jones MD Work Phone: Comment on above: GFR Calc Start: 09-03-2021 Adult depression scr eening assessment Irene Ambriz RESIDENTIAL FIELD MANAGER.TRUCK SHOP SUPERVISOR Work Phone: Start: 02-12-2017 End: 02-12-2017 Urnls dip stick/tablet rgnt non-auto w/o micrscp Mine Rodriguez [employer]EDER Work Phone: Start: 01-07-2017 End: 01-07-2017 Cciiv4 vaccine preservative free 0.5 ml im use Eddi VO Work Phone: Start: 01-07-2017 Influenza vaccination Flu vaccine C padmini VO Start: 10-27-2015 Lipid 1996 panel - S david or Plasma Irene Ambriz RESIDENTIAL FIELD MANAGER.TRUCK SHOP SUPERVISOR Work Phone: Start: 11-16-2014 Colonoscopy Irene hunter RESIDENTIAL FIELD MANAGER.TRUCK SHOP SUPERVISOR Work Phone: Plan of Treatment Date Care Activity Detail Author Start: 03-20-2033 Urine microalbumin profile DTaP,Tdap,Td Vaccine (2 - Td or Tdap) [facility] Start: 11-16-2024 Colonoscopy [address] [facility] Start: 11-16-2024 COLORECTAL CANCER SCREENING COLORECTAL CANCER SCREENING [facility] Start: 11-16-2024 Screening for malign ant neoplasm of colon [facility] Start: 09-29-2024 End: 09-29-2024 ambulatory 09/29/2024 2:00 PM EDT Visit (SP) Office Hematology/Oncology [address] [place] [address] Irene Ambriz RESIDENTIAL FIELD MANAGER.TRUCK SHOP SUPERVISOR [address] [place] [address] 6m f/up Hematology/Oncology Comment on above: 6m f/up Start: 03-31-2024 End: 03-31-2024 ambulatory 03/31/2024 1:30 PM EST Visit (SP) Office Hematology/Oncology [address] [place] [address] Irene Ambriz APRN.TRUCK SHOP SUPERVISOR [address] [place] [address] 6 MTH OV* Hematology/Oncology Comment on above: 6 MTH OV* Start: 03-18-2024 Advance Directive Discussion Advance Directive Discussion [facility] Start: 11-17-2023 Influenza vaccination Influenza Vacc ine (#1) [facility] Start: 06-17-2023 Covid-19 Vaccine ( season) Covid-19 Vaccine () [facility] Start: 03-18-2023 Advance Directive Discussion Advance Directive Discussion [facility] Start: 03-18-2023 Behavioral Health Screening Behavioral Health Screening [facility] Start: 11-16-2022 Influenza vaccination INFLUENZA (#1) [facility] Start: 09-03-2022 Adult depression screening assessment DEPRESSION SCREENING [facility] Start: 03-18-2022 ADVANCE DIRECTIVE DISCUSSION ADVANCE DIRECTIVE DISCUSSION [facility] Start: 03-18-2022 DEPRESSION ASSESSMENT DEPRESSION ASS ESSMENT [facility] Start: 11-16-2021 Influenza vaccination INFLUENZA (#1) [facility] Start: 05-13-2021 COVID-19 VACCINE (4 - Booster for Pfizer series) COVID-19 VACCINE (4 - Booster for Pfizer series) [facility] Start: 05-05-2021 COVID-19 VACCINE (4 - Booster for Pfizer series) COVID-19 VACCINE (4 - Booster for Pfizer series) [facility] Start: 04-07-2021 COVID-19 VACCINE (4 - Booster for Pfizer series) COVID-19 VACCINE (4 - Booster for Pfizer series) [facility] Start: 04-07-2021 COVID-19 VACCINE (4 - Pfizer series) COVID-19 VACCINE (4 - Pfizer series) [facility] Start: 03-18-2021 ADVANCE DIRECTIVE DISCUSSION ADVANCE DIRECTIVE DISCUSSION [facility] Start: 03-18-2021 DEPRESSION ASSESSMENT DEPRESSION ASS ESSMENT [facility] Start: 10-26-2020 Lipid panel Lipid Screening [facility] Start: 10-26-2020 LIPID SCREEN LIPID SCREEN [facility] Start: 12-29-2019 PNEUMOCOCCAL: 65+ (1 - PCV) PNEUMOCOCCAL: 65+ (1 - PCV) [facility] Start: 07-03-2019 DIABETES SCREEN DIABETES SCREEN [facility] Start: 07-03-2019 Diabetes Screening Diabetes Screenin g [facility] Start: 02-21-2017 End: 02-21-2017 Appointment Appointment [facility] Start: 02-12-2017 End: 02-12-2017 Appointment Appointment [facility] Start: 02-12-2017 End: 02-12-2017 *CUUID - Urine AV Culture - Identificatn *CUUID - Urine AV Culture - Identificatn [facility] Start: 01-28-2017 End: 01-28-2017 *CUUID - Urine AV Culture - Identificatn *CUUID - Urine AV Culture - Identificatn [facility] Start: 01-04-2017 End: 01-04-2017 Appointment Appointment [facility] Work Phone: Start: 08-02-2016 End: 08-02-2016 Appointment Appointment [facility] Work Phone: Start: 2004 SHINGRIX VACCINE (1 of 2) SHINGRIX VACCINE (1 of 2) [facility] Start: 12-29-1999 COLOGUARD (FIT-DNA) COLOGUARD (FIT-D NA) [facility] Start: 12-29-[address] COLONOGRAPHY [facility] Start: 12-29-1999 FECAL OCCULT BLOOD FECAL OCCULT BLOO D [facility] Start: 12-29-1999 Screening for malign ant neoplasm of colon [facility] Start: 12-29-1999 SIGMOIDOSCOPY SIGMOIDOSCOPY [facility] Start: 1973 SHINGRIX VACCINE (1 of 2) SHINGRIX VACCINE (1 of 2) [facility] Start: 1973 Urine microalbumin profile DTAP,TDAP,TD (1 - Tdap) [facility] Start: 1972 Anxiety Screening Anxiety Screening [facility] Start: 1972 Depression Screening Depression Scre erasmo [facility] Start: 1972 HEPATITIS C SCREENING HEPATITIS C [facility] Start: 1972 Hepatitis C screening Hepatitis C [facility] Start: 1960 PNEUMOCOCCAL: 65+ (1 - PCV) PNEUMOCOCCAL: 65+ (1 - PCV) 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 Immunizations Immunization Date Immunization Notes Care Provider Aracely hammond 12-14-2022 influenza virus vaccine, unspecified formulation Irene Ambriz RESIDENTIAL FIELD MANAGER.TRUCK SHOP SUPERVISOR Work Phone: [facility] 12-25-2018 Flucelvax Quad [id number] (PF) (flu vac qs 2019(4 yr up)CD(PF)) 60 mcg (15 mcg x [facility] Work Phone: 01-04-2017 influenza, injectabl e, quadrivalent, preservative free Irene Ambriz RESIDENTIAL FIELD MANAGER.TRUCK SHOP SUPERVISOR Work Phone: [facility] 01-13-2016 Influenza virus vaccine [facility] Payers Date Payer Category Payer Self-pay [id number] 2019 Medicare MEDICARE MEDICAR E A AND B [id number] 2019-Present [phone] [place] [address] Medicare [id number] 2019 Medicare MEDICARE MEDICAR E A AND B [id number] 2019-Present [phone] [address] [address] [place] [address] Medicare [id number] 2019 Unknown MMO MMO MEDICARE SUPPLEMENT [id number] 2019-Present [phone] [address] [place] [address] Indemnity [id number] 2019 Unknown MMO MMO MEDICARE SUPPLEMENT [id number] 2019-Present [phone] [address] [place] [address] Indemnity [id number] 2019 Medicare [id number] 2015 Unknown [id number] Unknown [id number] Unknown [id number] Unknown [id number] Unknown [id number] Unknown [id number] Unknown [id number] Unknown [id number] Unknown [id number] Unknown [id number] Unknown [id number] Social History Date Type Detail Facility Start: 12-25-2018 End: 12-25-2018 Tobacco smoking status NHIS Unknown if ever smoked [facility] Start: 1955 Sex Assigned At Female [facility] Start: 01-24-2011 End: 09-20-2023 Tobacco smoking status NHIS Never smoked tobacco [facility] Start: 09-21-2021 End: 03-31-2024 Alcohol intake Current non-drinker of alcohol (finding) [facility] Start: 1955 Sex Assigned At Not on file C [facility] Start: 09-11-2021 End: 09-21-2021 Exposure to SARS-CoV-2 (event) Not sure [facility] Start: 01-24-2011 Tobacco use and exposure Smokeless tobacco non-user [facility] Start: 09-25-2022 End: 03-31-2024 History of Social function [facility] Start: 09-25-2022 End: 03-31-2024 Tobacco use panel [facility] Adult Depression Screening Assessment [address] [facility] Start: 03-25-2023 Gender identity Identifies as female gender (finding) [facility] Start: 03-25-2023 Sexual orientation Heterosexual (fin ding) [facility] Medical Equipment Procedure Code Equipment Code Equipment Origin al Text Equipment Identifier Dates Port Powerport M ri 6fr Polyurethane Implantable Infusion Slim Catheter - [id number] Start: 01-31-2016 Clinical Notes 01-24-2016 to 08-15-2024 Note Date & Type Note Facility 08-15-[address] [facility] 08-15-2024 Progress note Note Date/Time August 15, 2024 9:34am [facility] [address], [address] [place] [address] OFFICE VISIT Date of Service: 08/15/24 MR#: [id number] Acct: [id number] Name: LATOYA KEN Rep #: [id number] : 1955 Provider: JAZMYN Edwards Age/Sex: 68/F Location: [facility] Status: Signed Intake Vital Signs 07/28/24 14:25 08/15/24 08:38 Height 5 ft 6 in BP 118/72 Blood Pressure Location Lt brachial Position Sitting Respiration 15 Pulse 82 Pulse Source NIBP Temp 98.1 F Temp Source Oral Pulse Oximetry (%) 97 Oxygen Delivery Method room air Intake Visit Reasons: CONCERN FOR UTI Chief Complaint: urinary 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 Is patient in pain?: No Allergies miconazole Allergy (Verified 08/15/24 09:24) Rash adhesive tape Adverse Reaction (Verified 08/15/24 09:24) Other Medications ?Medication ?Instructions ?Recorded ?Confirmed ?Type Vitamin D3 1 tab PO DAILY 02/21/1607/16 History calcium carbonate 1 tab PO DAILY 02/21/1607/16 History meloxicam 15 mg tablet 15 mg PO DAILY 02/21/1607/16 History omega-3 fatty acids 500 mg capsule 1,000 mg PO DAILY 1 04/23/15 07/28/24 History omeprazole 20 mg capsule,delayed 20 mg PO DAILY PRN [place] N Heartburn 02/21/16 07/28/24 History release Herceptin IV 08/16/16 07/28/24 History amlodipine 2.5 mg tablet 2.5 mg PO DAILY 08/19/23 History azelastine 137 mcg (0.1 %) nasal 1 spray intranasal BI D 08/19/23 07/28/24 History spray diclofenac sodium 1 % topical gel 2 g topical ONCE 06/0807/28/24 History lisinopril 30 mg tablet 40 mg PO DAILY 08/19/2307/16 History rosuvastatin 40 mg tablet 40 mg PO DAILY 08/19/2307/16 History Is last menstrual period known: No Post menopausal: Yes Patient : No Have you fallen in the past year?: No Nurse's Note: urinary urgency for over 1 week. had UTI 5-13 and given 5 days of Macrobid, pt was improved but s/s did not resolve. after ATB s/s fully returned immediately. denies abd pain, back pain, fever. [facility] Medical History (Updated 08/15/24 @ 09:33 by JAZMYN Sweeney) Breast cancer GERD (gastroesophageal reflux disease) Arthritis Hyperlipidemia Hypertension Surgical History H/O left mastectomy Family History Mother Breast cancer Father Myocardial infarction Social History Smoking Status: Never smoker alcohol intake: never substance use type: does not use what type of physical activity do you participate in: none seatbelt use: always do you feel safe at home: Yes HPI HPI Chief Complaint: urinary urgency Details: LATOYA KEN, is a 68 F who presents to the office today for urine urgency -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- they did a urine- was tx for uti with macrobid- took the full course of the atb -never felt like it cleared up when completed atb -had exam with pcp on 08/06- felt fine -current sx urgency- no burning or pain, no discharge, no fever or chills, denies back, abdominal or pelvic pain -tried so far azo defense on occasion- trying to drink more water- denies a lot of caffeine intake -urine flow normal -last night up 3x -denies any hx of DM2 ROS Const Constitutional: Positive for other (ROS negative x6 except what was placed in HPI) Exam Const General: cooperative and no acute distress Orientation: alert and oriented x3 Resp Effort & Inspection: normal respiratory effort, able to speak in complete sentences and symmetric chest movement Auscultation: Bilateral: Clear to Auscultation, Left: Clear to Auscultation and Right: Clear to Auscultation Cardio Rate: regular rate Rhythm: regular rhythm Heart Sounds: S1 normal and S2 normal GI Auscultation: normal bowel sounds Palpation: soft and no hepatosplenomegaly Other: -in office urine negative for uti -no abd/pelvic pain with palpation -no CVA tenderness Neuro General: patient alert, patient awake and patient oriented x3 Extrem General: normal to inspection and full ROM Psych Appearance: grossly normal Mental Status: mental status grossly normal Attitude: cooperative Thought Process: normal Thought Content: normal Judgment: judgment good Results POC Urinalysis Dip (Clinic) Office Urine Color Yellow Last Edit by Kelle Biggs on 08/15/24 08:52 Office Urine Clarity Clear Last Edit by Kelle Biggs on 08/15/24 08:52 Office Urine Glucose Negative Last Edit by Kelle Biggs on 08/15/24 08:52 Office Urine Ketones Negative Last Edit by Kelle Biggs on 08/15/24 08:52 Off Ur Spec [place] 1.010 Last Edit by Kelle Biggs on 08/15/24 08:52 Office Urine pH 6.0 Last Edit by Kelle Biggs on 08/15/24 08:52 Office Urine Bilirubin Negative Last Edit by Kelle Biggs on 08/15/24 08: 52 Office Urine Urobilinogen Negative Last Edit by Kelle Biggs on 08/15/24 08:52 Office Urine Blood Negative Last Edit by Kelle Biggs on 08/15/24 08:52 Office Urine Blood Hemolyzed Negative Last Edit by Kelle Biggs on 08:52 Office Urine Protein Trace Last Edit by Kelle Biggs on 08/15/24 08:52 Office Urine Nitrate Negative Last Edit by Kelle Biggs on 08/15/24 08:52 Off Ur Leukocytes Positive Last Edit by Kelle Biggs on 08/15/24 08:52 Coding Level of Care Code Off vis,est,level 3 Diagnoses Urine frequency R35.0 Assessment and Plan Assessment and Plan (1) Urine frequency: Status: Acute Plan: -made aware in office UA negative- will send for cx -increase water intake -Please follow up with your Primary Care Physician for ongoing chronic problems. If symptoms change or worsen, please present to Emergency Room for further evaluation 1. See visit diagnoses, disposition, and orders. 2. Reviewed and updated medication list; Discussed probable diagnosis, test results if available in office today and management options with patient/guardian: agreed to the medical plan above 3. Education provided regarding visit today, see after visit summary. Instruction provided in the use of fluids, vaporizer, acetaminophen, and/or other OTC medication for symptom control. Explained use of antibiotics only for proven or strongly suspected bacterial infections. 4. Prevention and health maintenance with primary care provider. 5. Patient/guardian educated to proceed to ED with worsening of condition, changes, or failure to improve. Orders: Orders POC Urinalysis Dip (Clinic) Today R39.15 - Urgency of urination Culture, Urine Today R82.90 - Unspecified abnormal findings in urine Clinical Quality Measures Falls Risk Screening/Assistive Devices Have you fallen in the past year?: No 08/15/24 0934 <Electronically signed by Marnie ELDRIDGE> Date _ Marnie ELDRIDGE Cosigner Signature: Date (if applicable) CC: ~ [facility] Work Phone: 1(147) 222-209005-13-2025 Evaluation note* Diagnosis Onset Date Resolution Status Admit Date Dysuria acute July 28, 2024 2:19pm Personal history of breast cancer acute July 28, 2024 2 :19pm Encounter for routine gynecological examination noneactive July 282024 2:19pm [facility] Work Phone: 1(187) 468-686305-13-2025 Evaluation note* Diagnosis Onset Date Resolution Status Admit Date Dysuria acute July 28, 2024 2:19pm Personal history of breast cancer acute July 28, 2024 2 :19pm Encounter for routine gynecological examination noneactive July 282024 2:19pm Urine frequency acute August 15, 2024 8:18am [employer] [facility] Work Phone: [phone] NoteHNO ID: [id number] Author: IRENE AMBRIZ APRN.OTTO Service: ? Author Type: Nurse Practitioner Type: Progress Notes Filed: 03/31/2024 13:56 Note Text: Chief Complaint Patient presents with: Established Patient HPI: Latoya Ken is a 68 year old female who presents here today [...] nuclear grade 2. ER-positive (>95%, strong) and [place] (4%, weak). HER-2 quantified at 3+. An [...] Ancillary studies: Previously performed on same tumor ([id number] / [id number]). ER: >95%, strong KY: 4%, weak Her2 chuck: 3+ (I[facility]) PATH (more content not included)...[facility]01-14-2025 History of Present illness Narrative* Irene Ambriz APRN.TRUCK SHOP SUPERVISOR - 03/31/2024 1:21 PM EST Chief Complaint Patient presents with: Established Patient HPI: Latoya Ken is a 68 year old female who presents here today [...] breast in the upper outer quadrant at middledepth. She underwent diagnostic imaging on 01/05/2016. The mammogram portion identified a 2 cm irregular high density mass with a spiculated margin and pleomorphic calcifications in the left breast at the 12:00 middle depth. Ultrasound demonstrated a 2.2 x 1.6 x 2.4 cm irregular mass within angular marginin the left breast at 12:00 middle depth 4 cm from the nipple. It was noted to be hypoechoic with internal echoes and posterior acoustic shadowing. An ultrasound-guided core needle biopsy of the left breast mass done on 01/10/2016 retrieved tissuethat on pathologic analysis proved to be invasive ductal carcinoma, nuclear grade 2. ER-positive (>95%, strong) and KY (4%, weak). HER-2 quantified at 3+. An [...] Ancillary studies: Previously performed on same tumor ([id number] / [id number]). ER: >95%, strong KY: 4%, weak Her2 chuck: 3+ (I[facility]) PATHOLOGIC STAGE: pT1c N0(sn) Mx 3) Anastrozole-Began September 2016. Stopped due to MS side effects. Current therapy: 4) Exemestane. Began November 2016 No new concerns today. Appetite:Good. Wt. down 3# since last visit. Energy level:Good. Denies fevers or recent illness. 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 Skin:denies rashes/lesions Heme:denies bleeding The ROS is otherwise negative. Past medical history, appointments, medications, allergies reviewed. No changes. EXAM: BP 132/82 Pulse 89 Temp 36.4 C (97.6 F) (Temporal) Wt 74 kg (163 lb 2.3 oz) LMP 12/17/2003 SpO2 97% BMI 25.94 kg/m APPEARANCE Well appearing, alert, in no [...] no suspicious rashes or lesions ASSESSMENT/PLAN: 1. 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 ypT1c (1.8 cm residual tumor) pN0(sln). - No concerning findings on exam. - Did not tolerate arimidex d/t joint pain/aches. - Tolerated aromasin overall well-hand stiffness/aches. - Completed 7 years of therapy September 2023. - Follow up in 6 months. - Pt. aware to call office with any questions/concerns. The sensitive examination was discussed with the Patient or Patient's Authorized Carry In Worker. Asapplicable, any other physician, advance practice provider, medical student, or other health professional student that will be observing or involved in the sensitive examination for educational or training purposes was discussed with the Patient or Authorized Carry In Worker. The Patient or Authorized Carry In Worker has agreed to proceed with the sensitive examination. (Sensitive examination includes inspection and/or palpation of the breasts, pelvis, prostate and anorectal regions) The patient indicates understanding of these issues and agrees with the plan. All documentation from previous visit of 10/01/23-Dr. Torres/myself was copied and pasted, documentation has been reviewed and edited as necessary for today's visit. Irene Ambriz APRN.OTTO documented in this encounterMer[facility] Health [facility]. [facility]24 NoteHNO ID: [id number] Author: IRENE AMBRIZ APRN.CNP Service: ? Author Type: Nurse Practitioner Type: Progress Notes Filed: 10/01/2023 13:54 Note Text: Chief Complaint Patient presents with: Established Patient HPI: Latoya Ken is a 67 year old female [...] nuclear grade 2. ER-positive (>95%, strong) and KY (4%, weak). HER-2 quantified at 3+. An [...] invasive carcinoma: invasive ductal carcinoma Histologic Grade: [place] grade: Glandular/tubular differentiation score: 3 Nuclear pleomorphism [...] Ancillary studies: Previously performed on same tumor ([id number] / [id number]). ER: >95%, strong KY: 4%, weak Her2 chuck: 3+ (I[facility]) PATH (more content not included)...[facility]07-16-2024 History of Present illness Narrative* Irene Ambriz, VLADIMIR.TRUCK SHOP SUPERVISOR - 10/01/2023 1:23 PM EDT Chief Complaint Patient presents with: Established Patient HPI: Latoya Ken is a 67 year old female [...] breast in the upper outer quadrant at middledepth. She underwent diagnostic imaging on 01/05/2016. The mammogram portion identified a 2 cm irregular high density mass with a spiculated margin and pleomorphic calcifications in the left breast at the 12:00 middle depth. Ultrasound demonstrated a 2.2 x 1.6 x 2.4 cm irregular mass within angular marginin the left breast at 12:00 middle depth 4 cm from the nipple. It was noted to be hypoechoic with internal echoes and posterior acoustic shadowing. An ultrasound-guided core needle biopsy of the left breast mass done on 01/10/2016 retrieved tissuethat on pathologic analysis proved to be invasive ductal carcinoma, nuclear grade 2. ER-positive (>95%, strong) and [place] (4%, weak). HER-2 quantified at 3+. An [...] Ancillary studies: Previously performed on same tumor ([id number] / [id number]). ER: >95%, strong KY: 4%, weak Her2 chuck: 3+ ([facility]) PATHOLOGIC STAGE: pT1c N0(sn) Mx 3) Anastrozole-Began September 2016. Stopped due to MS side effects. Current therapy: 4) Exemestane. Began November 2016 No new concerns today. Appetite:Good. Wt. stable. Energy level:Good. Denies fevers or recent illness. Resp:occ. cough with sinus drainage, denies sob at rest, +seasonal allergies Cardiac:denies chest pain/palpitations GI:denies abd pain, n/v, moving bowels regularly :denies dysuria/hematuria, recent UTI-treated by Extrem:denies pain to back/bones, joint pain/hand stiffness [...] 174.4, V86.0, ICD10: C50.412, Z17.0 cT2 cN0 ER/KY positive, HER-2 amplified invasive ductal carcinoma of [...] and edited as necessary for today's visit. Irene Ambriz APRN.CNP documented in this encounterMercy Health [facility]. [facility]07-11-2023 History of Present illness Narrative* Irene Ambriz APRN.CNP - 09/25/2022 1:41 PM EDT Chief Complaint Patient presents with: Established Patient HPI: Latoya Ken is a 66 year old female [...] breast in the upper outer quadrant at middledepth. She underwent diagnostic imaging on 01/05/2016. The mammogram portion identified a 2 cm irregular high density mass with a spiculated margin and pleomorphic calcifications in the left breast at the 12:00 middle depth. Ultrasound demonstrated a 2.2 x 1.6 x 2.4 cm irregular mass within angular marginin the left breast at 12:00 middle depth 4 cm from the nipple. It was noted to be hypoechoic with internal echoes and posterior acoustic shadowing. An ultrasound-guided core needle biopsy of the left breast mass done on 01/10/2016 retrieved tissuethat on pathologic analysis proved to be invasive ductal carcinoma, nuclear grade 2. ER-positive (>95%, strong) and [place] (4%, weak). HER-2 quantified at 3+. An [...] invasive carcinoma: invasive ductal carcinoma Histologic Grade: [place] grade: Glandular/tubular differentiation score: 3 Nuclear pleomorphism [...] Ancillary studies: Previously performed on same tumor ([id number] / [id number]). ER: >95%, strong [place]: 4%, weak Her2 chuck: 3+ ([facility]) PATHOLOGIC STAGE: pT1c N0(sn) Mx 3) Anastrozole-Began September 2016. Stopped due to MS side effects. Current therapy: 4) Exemestane. Began November 2016 No new concerns today. Appetite:Good. Energy level:I'd say good. Denies fevers. Resp:denies cough or [...] (97.1 F) (Temporal) Ht 168.9 cm (5' 6.5) Wt 75.1 kg (165 lb8 oz) LMP 12/17/2003 SpO2 95% BMI 26.31 [...] 174.4, V86.0, ICD10: C50.412, Z17.0 cT2 cN0 ER/KY positive, HER-2 amplified invasive ductal carcinoma of [...] and edited as necessary for today's visit. Irene Ambriz APRN.TRUCK SHOP SUPERVISOR documented in this encounterMer[facility] Health [facility]. [facility]01-28-2023 Miscellaneous Notes* Telephone Encounter - Nargis Elliott - 04/14/2022 2:58 PM EST LM for patient to return call to reschedule. When patient calls, please reschedule 09/17 appointment to another day/time that best suits the patient. Once rescheduled, document and close this note. Nargsi Elliott documented in this encounterMercy Health St. [facility]2022 Miscellaneous Notes* Telephone Encounter - Trina Cabrera Pss - 03/14/2022 9:21 AM EST Ruthann called to confirm if fax arrived. She is sending again. Please call her at [phone] if not received. * Telephone Encounter - Fatmata Salazar LPN - 03/13/2022 11:46 AM EST Noted. Will watch for fax from [employer]. Fatmata Salazar LPN * Telephone Encounter - Pascale Puente - 03/13/2022 10:39 AM EST Pt stated [employer] may be reaching out for a new prescription for the bras and bra forms for pt. Need new because of being on Medicare now. documented in this encounterMercy Health [facility]. [facility]08-23-2022 Miscellaneous Notes* Telephone Encounter - Irene Ambriz APRN.CNP - 11/07/2021 12:50 PM EDT Spoke with pt. Reviewed bone density. Pt. agreeable to continue aromasin. Goal of therapy 7 years. Irene Ambriz APRN.OTTO documented in this encounterMercy Health St. [facility]07-07-2022 Nurse Note* Kimberly Clements LPN - 09/21/2021 1:53 PM EDT Est. Pt, 6 month f/u Kimberly Clements LPN documented in this encounterMercy Health [facility]. [facility]07-07-2022 History of Present illness Narrative* Irene Ambriz APRN.CNP - 09/21/2021 1:50 PM EDT Chief Complaint Patient presents with: Established Patient HPI: Latoya Ken is a 65 year old female [...] breast in the upper outer quadrant at middledepth. She underwent diagnostic imaging on 01/05/2016. The mammogram portion identified a 2 cm irregular high density mass with a spiculated margin and pleomorphic calcifications in the left breast at the 12:00 middle depth. Ultrasound demonstrated a 2.2 x 1.6 x 2.4 cm irregular mass within angular marginin the left breast at 12:00 middle depth 4 cm from the nipple. It was noted to be hypoechoic with internal echoes and posterior acoustic shadowing. An ultrasound-guided core needle biopsy of the left breast mass done on 01/10/2016 retrieved tissuethat on pathologic analysis proved to be invasive ductal carcinoma, nuclear grade 2. ER-positive (>95%, strong) and [place] (4%, weak). HER-2 quantified at 3+. An [...] invasive carcinoma: invasive ductal carcinoma Histologic Grade: [place] grade: Glandular/tubular differentiation score: 3 Nuclear pleomorphism [...] Ancillary studies: Previously performed on same tumor ([id number] / [id number]). ER: >95%, strong [place]: 4%, weak Her2 chuck: 3+ ([facility]) PATHOLOGIC STAGE: pT1c N0(sn) Mx 3) Anastrozole-Began September 2016. Stopped due to MS side effects. Current therapy: 4) Exemestane. Began November 2016 No new concerns today. Appetite:Good. Energy level:It's ok. Denies fevers or recent illness. Resp:denies [...] normoactive, soft, non-tender, non-distended, without organomegaly or palpablemasses EXTREMITIES No edema NEURO Awake, alert and oriented x 3, Normal gait and No involuntary motions. SKIN Skin color, texture, turgor normal, no suspicious rashes or lesions ASSESSMENT/PLAN: 1. Malignant neoplasm of upper-outer quadrant of left breast in female, estrogen receptor positive (HCC) - ICD9: 174.4, V86.0, ICD10: C50.412, Z17.0 cT2 cN0 ER/KY positive, HER-2 amplified invasive ductal carcinoma of [...] and edited as necessary for today's visit. Irene Ambriz APRN.OTTO documented in this encounterMercy Health St. [facility]11-08-2016 History of Past illness Narrative* Problem Noted Date Resolved Date Breast cancer of upper-outer quadrant of left fe male breast 01/24/2016 09/24/2016 Cancer Staging:Clinical: Unsigned Infiltrating ductal carcinoma of left breast 06/201501/24/2016 Abnormal mammogram, unspecified 04/11/2007 11/08/2011 BREAST CANCER UPPER OUTER (LCIS) 08/21/2006 01/24/2016 Mammographic microcalcification 11/17/2003 11/08/2011 documented as of this encounter (statuses as of 09/21/2021) [facility] History of Past illness Narrative* Problem Noted Date Resolved Date Breast cancer of upper-outer quadrant of left fe male breast 01/24/2016 09/24/2016 Cancer Staging:Clinical: Unsigned Infiltrating ductal carcinoma of left breast 06/201501/24/2016 Abnormal mammogram, unspecified 04/11/2007 11/08/2011 BREAST CANCER UPPER OUTER (LCIS) 08/21/2006 01/24/2016 Mammographic microcalcification 11/17/2003 11/08/2011 documented as of this encounter (statuses as of 11/07/2021) [facility] History of Past illness Narrative* Problem Noted Date Resolved Date Breast cancer of upper-outer quadrant of left fe male breast 01/24/2016 09/24/2016 Cancer Staging:Clinical: Unsigned Infiltrating ductal carcinoma of left breast 06/201501/24/2016 Abnormal mammogram, unspecified 04/11/2007 11/08/2011 BREAST CANCER UPPER OUTER (LCIS) 08/21/2006 01/24/2016 Mammographic microcalcification 11/17/2003 11/08/2011 documented as of this encounter (statuses as of 03/18/2022) [facility] History of Past illness Narrative* Problem Noted Date Resolved Date Breast cancer of upper-outer quadrant of left fe male breast 01/24/2016 09/24/2016 Cancer Staging:Clinical: Unsigned Infiltrating ductal carcinoma of left breast 06/201501/24/2016 Abnormal mammogram, unspecified 04/11/2007 11/08/2011 BREAST CANCER UPPER OUTER (LCIS) 08/21/2006 01/24/2016 Mammographic microcalcification 11/17/2003 11/08/2011 documented as of this encounter (statuses as of 03/22/2022) [facility] History of Past illness Narrative* Problem Noted Date Resolved Date Breast cancer of upper-outer quadrant of left fe male breast 01/24/2016 09/24/2016 Cancer Staging:Clinical: Unsigned Infiltrating ductal carcinoma of left breast 06/201501/24/2016 Abnormal mammogram, unspecified 04/11/2007 11/08/2011 BREAST CANCER UPPER OUTER (LCIS) 08/21/2006 01/24/2016 Mammographic microcalcification 11/17/2003 11/08/2011 documented as of this encounter (statuses as of 04/14/2022) [facility] History of Past illness Narrative* Problem Noted Date Diagnosed Date Resolved Date Breast cancer of upper-outer quadrant of left female breast 01/24/2016 09/24/2016 Cancer Staging:Clinical: Unsigned Infiltrating ductal carcinoma of left breast 6 01/24/2016 Abnormal mammogram, unspecified 04/11/2007 11/08/2011 BREAST CANCER UPPER OUTER (LCIS) 08/21/2006 01/24/2016 Mammographic microcalcification 11/17/2003 11/08/2011 documented as of this encounter (statuses as of 09/26/2022) [facility] noteNo assessment information availableWooAshtabula County Medical Center Work Phone: Evaluation note* Diagnosis Malignant neoplasm of upper-outer quadrant of left breast in female, estrogen receptor positive (HCC)- Primary Menopause Symptomatic menopausal or female climacteric states custodial (current) use of aromatase inhibitors documented in this encounter [facility] note* Diagnosis Malignant neoplasm of upper-outer quadrant of left breast in female, estrogen receptor positive (HCC)- Primary documented in this encounter [facility]* Diagnosis Malignant neoplasm of upper-outer quadrant of left breast in female, estrogen receptor positive (HCC)- Primary [facility]* Diagnosis Encounter for follow-up surveillance of breast cancer- Primary Unspecified follow-up examination documented in this encounter [facility] note* Diagnosis Onset Date Resolution Status Admit Date Encounter for routine gynecological examination noneactive July 282024 2:19pm 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 2:19p m Reason for Visit Admit Date Encounter for routine gynecological exam ination July 28, 2024 2:19pm Reason for Visit Admit Date Dysuria July 28, 2024 2:19p m Personal history of breast cancer July 282024 2:19pm Encounter for routine gynecological exam ination July 28, 2024 2:19pm Chief Complaint Admit Date 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, 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 2: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 m CONCERN FOR UTI August 15, 2024 8:18a m Reason for Visit Admit Date Dysuria July 28, 2024 2:19p m Personal history of breast cancer July 282024 2:19pm Encounter for routine gynecological exam ination July 28, 2024 2:19pm Urine frequency August 15, 2024 8:18a m Family History No Family History Records Found Relationship Condition Age at Onset Recorded Date/T cecile mother Malignant neoplasm of breast Unknown father Myocardial infarction Unknown Advance Directives No Advanced Directives Records Found Advance Directive Response Recorded Date/ Time Advance Directives No February 21, 2016 5:56am Living Will No August 22, 2016 1 1:55am Power of Vocational Guidance Counselor No August 22, 2016 11:55am Documents on File Type Date Recorded 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 Advance Directive(s) 01/31/2016 12:55 PM Advance Directive(s) 01/30/2016 3:55 PM Advance Directive Response Recorded Date/ Time Advance Directives No February 21, 2016 4:56am Living Will No August 22, 2016 1 0:55am Power of Vocational Guidance Counselor No August 22, 2016 10:55am Advance Directive Response Recorded Date/ Time Advance Directives No September 19 8:32am Summary Purpose Additional Source Comments Goals (unrecognized section and content) Goals may be documented in a n alternate sectionGoals may be documented in an alternate sectionGoals may be documented in an alternate sectionGoals may be documented in an alternate sectionGoals may be documented in an alternate sectionGoals may be documented in an alternate sectionGoals may be documented in an alternate sectionGoals may be documented in an alternate sectionGoals may be documented in an alternate section Source Comments (unrecognize d section and content) In the event this informatio n is protected by the Federal Confidentiality of Alcohol and Drug Abuse Patient Records regulations: The Federal rules restrict any use of the information to criminally investigate or prosecute any alcohol or drug abuse patient.[facility] Center[facility] the event this information is protected by the Federal Confidentiality of Alcohol and Drug Abuse Patient Records regulations: The Federal rules restrict any use of the information to criminally investigate or prosecute any alcohol or drug abuse patient.[facility] CenterIn the event this information is protected by the Federal Confidentiality of Alcohol and Drug Abuse Patient Records regulations: The Federal rules restrict any use of the information to criminally investigate or prosecute any alcohol or drug abuse patient.[facility] CenterIn the event this information is protected by the Federal Confidentiality of Alcohol and Drug Abuse Patient Records regulations: The Federal rules restrict any use of the information to criminally investigate or prosecute any alcohol or drug abuse patient.[facility] CenterIn the event this information is protected by the Federal Confidentiality of Alcohol and Drug Abuse Patient Records regulations: The Federal rules restrict any use of the information to criminally investigate or prosecute any alcohol or drug abuse patient.[facility] CenterIn the event this information is protected by the Federal Confidentiality of Alcohol and Drug Abuse Patient Records regulations: The Federal rules restrict any use of the information to criminally investigate or prosecute any alcohol or drug abuse patient.[facility] CenterIn the event this information is protected by the Federal Confidentiality of Alcohol and Drug Abuse Patient Records regulations: The Federal rules restrict any use of the information to criminally investigate or prosecute any alcohol or drug abuse patient.[facility] CenterIn the event this information is protected by the Federal Confidentiality of Alcohol and Drug Abuse Patient Records regulations: The Federal rules restrict any use of the information to criminally investigate or prosecute any alcohol or drug abuse patient.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 Relationship Specialty Start Date End Date Andriy Jones MD [address] [place] [address] PCP - General Family Practice 12/04/18 Lucille Chucrhill MD, [address] [place] [address] Physician Radiation Oncology 07/02/16 Chain Saw 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 Relationship Specialty Start Date End Date Andriy Jones MD [address] [place] [address] PCP - General Family Medicine 12/04/18 Lucille Churchill MD, [address] [place] [address] Physician Radiation Oncology 07/02/16 Chain Saw 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 Andriy Jones MD Family Provider Active Dr. Andriy Jones MD Primary Care Provider Active Team Status: Inactive Member Role Status Dates Dr. 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 Andriy Jones MD Primary Care Provider Active Start: April 07, 2024 End: April 07, 2024 Dr. Andriy Jones MD Attending Provider Active St art: April 07, 2024 End: April 07, 2024 Dr. Andriy Jones MD Referring Provider Active St art: April 07, 2024 End: April 07, 2024 Team Status: Inactive Member Role Status Dates Dr. Andriy Jones MD Primary Care Provider Active Start: July 28, 2024 End: July 28, 2024 Dr. Andriy Jones MD Referring Provider Active St art: July 28, 2024 End: July 28, 2024 Mine Rodriguez NP [employer]-C Attending Provider Active Start: July 28, 2024 End: July 28, 2024 Team Status: Inactive Member Role Status Dates Dr. Andriy Jones MD Primary Care Provider Active Start: July 28, 2024 End: July 28, 2024 Mine Rodriguez NP [employer]-C Attending Provider Active Start: July 28, 2024 End: July 28, 2024 Mine Rodriguez NP [employer]-C Referring Provider Active Start: July 28, 2024 End: July 28, 2024 Team Status: Inactive Member Role Status Dates Dr. Andriy Jones MD Primary Care Provider Active Start: August 15, 2024 End: August 15, 2024 Dr. Andriy Jones MD Referring Provider Active St art: August 15, 2024 End: August 15, 2024 DEISI SweeneyC Attending Provider Active Start: August 15, 2024 End: August 15, 2024 Team Status: Inactive Member Role Status Dates Dr. Andriy Jones MD Primary Care Provider Active Start: August 17, 2024 End: August 17, 2024 Marnie Reed NP-C Attending Provider Active Start: August 17, 2024 End: August 17, 2024 INFORMATION SOURCE (unrecogn ized section and content) DATE CREATED AUTHOR 04/03/2024 [facility] DATE CREATED AUTHOR AUTHOR'S DOMENICO STEPHENSON 08/22/2024 [facility] FOR RECORDS PERTAINING TO PATIENTS WHO ARE [...] BE BASED ON THE PRIMARY CLINICAL RECORDS. [facility]. provides no warranty or guarantee of the accuracy or completeness of information in this document.
[2024-09-16 11:01] LABS: Hematocrit 42.2 % (37-47); Hemoglobin 13.8 g/dL (12.0-15.0); Immature Granulocytes Count 0.010 X10^3/uL (0.0-0.0); Mean Corp Hgb Conc 32.7 g/dL (32-36); Mean Corpuscular Volume 83.4 fL (81-99); Mean Platelet Vol. 9.0 fl (6.2-12.0); NRBC Flagged by Analyzer 0 % (0-5); Platelet Count 276 K/mm3 (150-450); RBC Distribution Width CV 13.2 % (11.6-14.6); RBC Distribution Width SD 40.2 fl (35.1-43.9); Red Blood Count 5.06 M/mm3 (4.2-5.4); White Blood Count 6.5 K/mm3 (4.4-11.0)
[2024-09-16 11:22] LABS: Creatinine, Urine (random) 162.00 mg/dL (28.00-217.00); Microalbumin,Random Urine 90.5 mg/L (NO RANGE EST.)
[2024-09-16 12:32] LABS: AST(SGOT) 25 U/L (<=31); Alanine Aminotransfer ALT/SGPT 23 U/L (<=34); Albumin, Serum 4.1 g/dL (3.4-4.8); Alkaline Phosphatase 80 U/L (35-104); Anion Gap 12 (5-15); BUN 16 mg/dL (4-19); BUN/Creat Ratio 21.8 RATIO (10-20); Calcium,Total 9.4 mg/dL (7.6-11.0); Carbon Dioxide 24.2 mmol/L (21.0-32.0); Chloride 104 mmol/L (98-108); Globulin 2.7 g/dL (2.2-4.2); Glucose 91 mg/dL (70-99); Potassium 4.1 mmol/L (3.3-5.1)
[2024-09-16 13:24] LABS: Cholesterol 177 mg/dL (<=200); Low Density Lipoprotein Calc. 91 mg/dL; Triglycerides 210 mg/dL; Very Low Density Lipoprotein 42 mg/dL (5-40); cholesterol:hdl ratio screen 4.06
== END | disposition home or self-care (01) ==
LOC: MTLAB 07:36
PROVIDERS: PCP Family Medicine; Referring Provider Family Medicine; Visit Provider Family Medicine
DX: I10 Essential (primary) hypertension (principal); E78.5 Hyperlipidemia, unspecified; R80.9 Proteinuria, unspecified; N39.0 Urinary tract infection, site not specified; E04.1 Nontoxic single thyroid nodule
CPT/HCPCS: 36415; 80053; 80061; 82043; 82570; 84439; 84443; 85025; 87086; 87088

== ENCOUNTER → 2024-11-18 | Outpatient (CLI) | payer MEDICARE, OTHER, SELFPAY ==
[2024-11-18 15:40] LABS: AST(SGOT) 24 U/L (<=31); Alanine Aminotransfer ALT/SGPT 30 U/L (<=34); Albumin, Serum 4.2 g/dL (3.4-4.8); Alkaline Phosphatase 87 U/L (35-104); Anion Gap 12 (5-15); BUN 17 mg/dL (4-19); BUN/Creat Ratio 21.8 RATIO (10-20); Calcium,Total 10.1 mg/dL (7.6-11.0); Carbon Dioxide 26.5 mmol/L (21.0-32.0); Chloride 102 mmol/L (98-108); Globulin 3.0 g/dL (2.2-4.2); Glucose 98 mg/dL (70-99); Potassium 4.6 mmol/L (3.3-5.1)
[2024-11-18 15:47] LABS: CRP < 3.00 mg/L (0.0-3.0); Lipase 37 U/L (13-75)
[2024-11-18 16:12] LABS: Hematocrit 43.8 % (37-47); Hemoglobin 14.2 g/dL (12.0-15.0); Immature Granulocytes Count 0.030 X10^3/uL (0.0-0.0); Mean Corp Hgb Conc 32.4 g/dL (32-36); Mean Corpuscular Volume 83.1 fL (81-99); Mean Platelet Vol. 9.2 fl (6.2-12.0); NRBC Flagged by Analyzer 0 % (0-5); Platelet Count 273 K/mm3 (150-450); RBC Distribution Width CV 14.3 % (11.6-14.6); RBC Distribution Width SD 43.1 fl (35.1-43.9); Red Blood Count 5.27 M/mm3 (4.2-5.4); White Blood Count 7.3 K/mm3 (4.4-11.0)
== END | disposition home or self-care (01) ==
LOC: MFPLAB 11:48
PROVIDERS: PCP Family Medicine; Visit Provider Family Medicine
DX: R10.84 Generalized abdominal pain (principal)
CPT/HCPCS: 36415; 80053; 83690; 84443; 85025; 85652; 86140

== ENCOUNTER → 2024-12-02 | Outpatient (CLI) | payer MEDICARE, OTHER, SELFPAY ==
--- NOTE | 2024-12-02 07:22 | US_ITS ---
PROCEDURE: ABDOMEN LIMITED 12/02/2024 REASON FOR EXAM: GENERALIZED ABDOMINAL PAIN TECHNIQUE: Procedure Code: USABDL Modality: US Procedure: ABDOMEN LIMITED COMPARISON: None FINDINGS: Liver: Grossly normal size and echotexture. Gallbladder: No stones, sludge, wall thickening or tenderness. Common bile duct: Normal measuring 3.9 mm . Pancreas: Normal Kidneys: The right kidney measures 11.1 cm 5.1 cm 4.6 cm.. Peritoneal Findings: No ascites identified. US/Abdomen Limited IMPRESSION: Unremarkable sonogram of the right upper quadrant. Reading Location: [place] [address]
--- OUTSIDE RECORDS SUMMARY | 2024-12-02 07:33 | XMS RPT_ITS | CCD ---
Author Organization [facility] Care Team Providers Care Director Nursing Service Name Role Phone CogRoslyn szymanski LPN N Unavailable Cogar LACROSSE COACH Roslyn N Unavailable Mine Rodriguez NP Unavailable Violetta Deluna Unavailable Unavailable Kelle Cohen Unavailable Unavailable Lida Mireles LPN Unavailable Unavailab inocencia VO, Eddi Arce Unavailable Kelle Cohen Unavailable Unavailable Zhao HUBER MD, Lucille Unavailable Andriy Jones MD Primary Care Provider Zhao HUBER MD, Lucille Unavailable Andriy Jones MD Primary Care Provider MD Andriy Jones Primary Care Provider Unavailabl Dr. Andriy Dexter Attending Provider Zhao HUBER MD, Lucille Unavailable Andriy Jones MD Primary Care Provider Andriy Jones MD Primary Care Provider Lucille Churchill MD Unavailable Andriy Jones MD Primary Care Provider Dr. Andriy Jones MD Primary Care Provider Dr. Andriy Jones MD Attending Provider [phone] Andriy Jones MD Referring Provider [phone] Mine Irene Attending Provider Jennifer SOX ANALYST-C, Mine Referring Provider Robert HUBER, Dr. Umana Primary Care Provider Dr. Andriy Jones MD Referring Provider [phone] Brianna SOX ANALYST-C, Marnie Attending Provider Robert HUBER, Dr. Umana Attending Provider [phone] JONES, ANDRIY A Primary Care Unavailable IRENE AMBRIZ Attending Unavailable JONES, ANDRIY A Primary Care Unavailable IRENE AMBRIZ Attending Unavailable Jones, Andriy Primary Care Unavailable Jennifer SOX ANALYST, Mine Attending Unavailable Jones, Andriy Referring Unavailable Jones, Andriy Referring Unavailable Jones, Andriy Primary Care Unavailable Jones, Andriy Attending Unavailable Jones, Andriy Primary Care Unavailable Jones, Andriy Attending Unavailable Jones, Andriy Primary Care Unavailable Jones, Andriy Attending Unavailable Jones, Andriy Referring Unavailable Jones, Andriy Referring Unavailable Jones, Andriy Primary Care Unavailable Jones, Andriy Attending Unavailable Carlos Eduardo Stewart Attending Unavailable Carlos Eduardo Stewart Referring Unavailable Jones, Andriy Primary Care Unavailable Marnie Reed Attending Unavailable Jones, Andriy Primary Care Unavailable Jones, Andriy Primary Care Unavailable Jennifer SOX ANALYST, Mine Attending Unavailable Jennifer SOX ANALYST, Mine Referring Unavailable Jones, Andriy Referring Unavailable Carlos Eduardo Stewart Attending Unavailable Jones, Andriy Primary Care Unavailable Marnie Reed Attending Unavailable Jones, Andriy Primary Care Unavailable Jones, Andryi Referring Unavailable Allergies Allergy Classification Reported Allergen(s) Allergy Type Date of Onset Reaction(s) Facility Adhesive Tape (1 source) Adhesive Tape Substance Allergy 2 [facility] Azole Antifungals (1 source) Miconazole Drug Allergy 2 [facility] (13 sources) miconazole drug allergy 7 [facility] Work Phone: (13 sources) CURITY TELFA ADHESIVE drug allergy 7 [facility] Work Phone: (1 source) MYCONAZOL Allergy to substance 9 [facility] Work Phone: (1 source) TELFA Allergy to substance 9 [facility] Work Phone: (18 sources) Miconazole; Translations: [MICONAZOLE] Drug Allergy 4 [facility] (10 sources) Polyhexam Rvatdb-Wpx-Inr Band; Translations: [POLYHEXAM MZUGJQ-[id number]-OXP BAND] Drug Allergy 6 [facility] (9 sources) Adhesive Tape; Translations: [adhesive tape] Propensity to adverse reactions 2 Other [facility] Comment on above: TELFA REDNESS (1 source) Miconazole Drug Allergy 5 [facility] Repository Medications Current Medications Medication Drug Class(es) Dates Sig (Normalized) Sig (Original) amLODIPine 2.5 mg oral tablet (14 sources) Dihydropyridine Calcium Channel Christa Start: 08-19-2023 take 1 tablet by mouth once daily Amlodipine 2.5 mg tablet Active 2.5 mg PO DAILY August 19, 2023 12:00am Comment on above: Take 2.5 mg by mouth once daily. azelastine hydrochloride 0.137 mg/actuat metered dose nasal spray (9 sources) Histamine-1 Receptor Antagonist Start: 08-19-2023 Azelastine [...] IRRITATION calcium carbonate 1500 mg oral tablet (10 sources) Start: 02-21-2016 Calcium Carbonate 600 MG tablet Active 1 {tbl} PO DAILY February 21, 2016 1:00am Calcium Carbonate / vitamin D3 (9 sources) take 1 tablet by mouth twice [...] daily. diclofenac sodium 0.01 mg/mg topical gel (12 sources) Nonsteroidal Anti-inflammatory Drug Start: apply 2 [...] Start: 08-02-2016 take 1 tablet by celestino once daily lisinopril (ZESTRIL, PRINIVIL) 40 mg tablet Take 40 mg by mouth once daily. 02/04/2017 Active Start: 08-02-2016 LISINOPRIL 10 MG TABS as directed LISINOPRIL [id number] Roslyn Xie LPN Start: 02-21-2016 End: 08-19-2023 [...] Take 1 tablet by celestino once daily. Leonard-3 Fatty Acids (5 sources) Start: 02-21-2016 take 1000 mg by mouth once daily Leonard-3 Fatty Acids Active 1000 MG PO DAILY February 21, 2016 6:09am Start: 02-21-2016 take 1000 mg by mouth once daniela ly Leonard-3 Fatty Acids Active 1000 MG PO DAILY February 21, 2016 1:00am Start: 02-21-2016 take 1000 mg by mouth once daniela ly Leonard-3 Fatty Acids Active 1000 MG PO DAILY February 21, 2016 12:00am Leonard-3 Fatty Acids 500 MG capsule (5 sources) Start: 02-21-2016 take 1 capsule by mouth once daily Leonard-3 Fatty Acids 500 MG capsule Active 1000 mg PO DAILY February 21, 2016 1:00am rosuvastatin calcium 40 mg oral tablet (14 sources) HMG-CoA Reductase Inhibitor Start: 08-19-2023 take 1 tablet by mouth once daily Rosuvastatin 40 mg tablet Active 40 mg PO DAILY August 19, 2023 12:00am Start: 01-02-2020 take 1 tablet by celestino th once daily rosuvastatin (CRESTOR) 10 mg tablet Take 10 mg by mouth once daily. 01/02/2020 Active Comment on above: Take 10 mg by mouth once daily. trastuzumab (10 sources) HER2/chuck Receptor Antagonist Start: 08-16-2016 Herceptin Active IV August 16, 2016 10:16am Start: 08-16-2016 Herceptin Acti ve IV August 16, 2016 12:00am Start: 08-16-2016 Herceptin Acti ve IV August 15, 2016 11:00pm Vitamin D3 (10 sources) Start: 02-21-2016 take 1 tablet by [...] ACETAMINOPHEN 160 MG/5ML ELIX as directed ACETAMINOPHEN [id number] Roslyn Pascalar LACROSSE COACH acetaminophen (T YLENOL EXTRA STRENGTH) 500 mg tablet Take 1,000 mg by mouth as needed. Active Comment on above: Take 1,000 mg by celestino th as needed. acetaminophen 325 mg / HYDROcodone bitartrate 5 mg oral tablet (10 sources) Opioid Agonist Start: 08-22-2016 End: 08-19-2023 Hydrocodone-Acetaminophe n 1 TABLET tablet Discontinued 1 {tbl} PO EVERY 6 HOURS NEEDED as needed for Pain 12 0 August 22, 2016 12:00am August 19, 2023 11:33am Start: 08-22-2016 take 1 tablet by celestino th every six hours as needed Hydrocodone-Acetaminophen Active 1 TABLE T PO EVERY 6 HOURS NEEDED August 22, 2016 12:00am biotin 1 mg oral capsule (13 sources) Start: 08-02-2016 BIOTIN 1 MG CA PS as directed BIOTIN [id number] Roslyn N Cogar LACROSSE COACH cholecalciferol (20 sources) Vitamin D Start: 08-02-2016 AQUEOUS VITAMI N D 400 UNIT/ML LIQD as directed CHOLECALCIFEROL [id number] Roslyn N Cogar LACROSSE COACH Start: 08-02-2016 AQUEOUS VITAMI N D 400 UNIT/ML LIQD as directed CHOLECALCIFEROL [id number] Roslyn N Cogar LACROSSE COACH Start: 08-02-2016 AQUEOUS VITAMI N D 400 UNIT/ML LIQD as directed CHOLECALCIFEROL [id number] Roslyn N Cogar LACROSSE COACH take 1 tablet by celestino th once [...] mg PO TWICE A DAY 6 3 0 December 02, 2017 12:00am December 04, 2017 12:00am December 05, 2017 12:07am Start: 04-16-2017 End: 04-21-2017 take 1 tablet by mouth twice daily Ciprofloxacin Hcl 500 mg tablet Discontinued 500 mg PO TWICE A DAY 10 5 0 April 16, 2017 1:00am April 20, 2017 1:00am April 21, 2017 1:06am Start: 01-28-2017 End: 01-31-2017 take 1 tablet by mouth twice daily CIPROFLOXACIN HCL 500 MG TABS One tablet by mouth twice daily CIPROFLOXACIN HCL [id number] Mine Rodriguez NP Start: 08-02-2016 CETRAXAL 0.2 % SOLN as directed CIPROFLOXACIN HCL [id number] Roslyn Gillespie Anne-Marie LAZARN Start: 08-02-2016 CETRAXAL 0.2 % SOLN as directed CIPROFLOXACIN HCL [id number] Roslyn Pascalstephon LACROSSE COACH exemestane 25 mg oral tablet (12 sources) Aromatase Inhibitor Start: 03-27-2023 End: 07-28-2024 [...] oral capsule (20 sources) Nitrofuran Antibacterial Start: 025 End: 025 take 1 capsule by mouth twice daily at mealtime Nitrofurantoin Monohyd/M-Cryst (Macrobid) 100 mg capsule Discontinued 100 mg PO TWICE A DAY 14 7 0 July 28, 2024 12:00am August 03, 2024 12:00am August 04, 2024 12:08am must administer with a meal/food Start: 01-07-2024 End: 01-12-2024 take 1 capsule by mouth every twelve hours at mealtime Nitrofurantoin Monohyd/M-Cryst (Macrobid) 100 mg capsule Discontinued 100 mg PO Q12H 10 5 0 January 07, 2024 12:00am January 11, 2024 12:00am January 12, 2024 12:08am must administer with a meal/food Start: 09-20-2023 End: 09-27-2023 take 1 capsule by mouth every twelve hours at mealtime Nitrofurantoin Monohyd/M-Cryst 100 mg capsule Discontinued 1 NMA PO Q12H 14 7 0 September 20, 2023 12:00am September 26, 2023 12:00am September 27, 2023 12:06am administer with a meal/food; swallow whole; do not open, crush, dissolve , or chew Start: 04-04-2017 End: 04-11-2017 take 1 capsule by mouth every twelve hours at mealtime Nitrofurantoin Monohyd/M-Cryst 100 mg capsule Discontinued 100 mg PO Q12H 14 7 0 April 04, 2017 1:00am April 10, 2017 1:00am April 11, 2017 1:05am administer with a meal/food; swallow whole; do not open, crush, dissolve , or chew OMEGA-3 FATTY ACIDS (2 sources) Start: 08-02-2016 [facility] OMEGA-3 MMY FISH/DHA 113.5 MG CHEW as directed OMEGA-3 FATTY ACIDS [id number] Roslyn Xie LPN OMEGA-3 FATTY ACIDS (11 sources) Start: 08-02-2016 [facility] OMEGA-3 MMY FISH/DHA 113.5 MG CHEW as directed OMEGA-3 FATTY ACIDS [id number] Roslyn Pascalar LACROSSE COACH omeprazole (20 sources) Proton Pump Inhibitor Start: 08-02-2016 [facility] OMEP RAZOLE 20 MG TBEC as directed OMEPRAZOLE [id number] Roslyn Gillespie Cogar LACROSSE COACH Start: 08-02-2016 [facility] OMEPRAZOLE 20 MG TBEC as directed OMEPRAZOLE [id number] Roslyn Pascalar LACROSSE COACH Start: 02-21-2016 take 1 capsule by [facility] once daily as needed for gastroesophageal reflux disease Omeprazole 20 MG capsule Active 20 mg PO DAILY NEEDED as needed for Heartburn February 21, 2016 1:00am Comment on above: Take 20 mg by mouth once daily as needed. 1 ml promethazine hydrochloride 50 mg/ml injection (13 sources) Phenothiazine Start: 08-03-19 17 PHENERGAN 50 MG/ML SOLN as directed PROMETHAZINE HCL [id number] Roslyn N Gwynar LACROSSE COACH pumpkin seed extract/soy germ (AZO BLADDER CONTROL ORAL) (9 sources) End: 09-30-19 take 1 tablet by mouth twice daily pumpkin seed extract/soy germ (AZO BLADDER CONTROL ORAL) Take 1 tablet by mouth twice daily. 09/29/2024 Discontinued take 1 tablet by mouth twice daniela ly pumpkin seed extract/soy germ (AZO BLADDER CONTROL ORAL) Take 1 tablet by mouth twice daily. Active take 1 tablet by mouth twice daniela ly pumpkin seed extract/soy germ (AZO BLADDER CONTROL ORAL) Take 1 tablet by mouth twice daily. 0 Active Comment on above: Take 1 tablet by celestino th twice daily. simvastatin 10 mg oral tablet (20 sources) HMG-CoA Reductase Inhibitor Start: 08-02-2016 SIMVASTATIN 10 MG TABS as directed SIMVASTATIN [id number] Roslyn Xie LEXUS Start: 02-21-2016 End: 08-19-2023 take 1 tablet [...] One tablet by mouth twice daily SULFAMETHOXAZOLE-TRIMETHOPRIM [id number] Mine Rodriguez SOX ANALYST valACYclovir 1000 mg oral tablet (5 sources) Herpesvirus Nucleoside Analog DNA Polymerase Inhibitor, Herpes Simplex Virus Nucleoside Analog DNA Polymerase Inhibitor, Herpes Zoster Virus Nucleoside Analog DNA Polymerase Inhibitor Start: 08-19-2023 End: 08-29-2023 Valacyclovir 1 gram tablet Discontinued 1000 mg PO TWICE A DAY 20 10 0 August 19, 2023 12:00am August 28, 2023 12:00am August 29, 2023 12:06am Problems Active Problems Problem Classification Problem Date Documented Date Episodic/Chronic Abdominal pain (1 source) Generalized abdominal pain; Translations: [Generalized abdominal pain] Onset: 11-26-2024 Episodic Cancer of breast (20 sources) Malignant neoplasm of upper-outer quadrant of female breast; Translations: [Malignant neoplasm of upper-outer quadrant of left female breast] Onset: 08-21-2006 Resolved: 09-24-2016 Chronic Cancer of breast (17 sources) History of malignant neoplasm of breast; Translations: [Personal history of malignant neoplasm of breast] Onset: 09-29-2024 06-19-2018 Episodic Comment on above: 2016 on left but had bilateral mastectomy, chemo only Disorders of lipid metabolism (10 sources) Hyperlipidemia; Translations: [Hyperlipidemia, unspecified] 02-21-2017 Chronic Esophageal disorders (10 sources) Gastroesophageal reflux disease; Translations: [Gastro-esophageal reflux disease without esophagitis] 02-21-2017 Chronic Essential hypertension (20 sources) Hypertensive disorder; Translations: [Essential (primary) hypertension] Onset: 09-22-2024 08-02-2016 Chronic Menopausal disorders (9 sources) Atrophic vaginitis; Translations: [Postmenopausal atrophic vaginitis] Onset: 02-03-2013 02-03-2013 Chronic Osteoarthritis (10 sources) Arthritis; Translations: [Unspecified osteoarthritis, unspecified site] 02-21-2017 Chronic Other aftercare (1 source) Long-term current use of aromatase inhibitor; Translations: [shelter (current) use of aromatase inhibitors] Episodic Other aftercare (1 source) Encounter for follow-up examination after completed treatment for malignant neoplasm; Translations: [Encounter for follow-up surveillance of breast cancer] Onset: 09-29-2024 Episodic Other diseases of veins and lymphatics (9 sources) Lymphedema; Translations: [Lymphedema, not elsewhere classified] [...] Date Episodic/Chronic Genitourinary symptoms and ill-defined conditions (20 sources) Dysuria; Translations: [Urgent desire to urinate] Onset: 3 01-28-2017 Episodic Lymphadenitis (9 sources) Axillary lymphadenopathy; Translations: [Localized enlarged lymph nodes] Onset: 6 01-24-2016 Episodic Nonmalignant breast conditions (3 sources) Mammographic microcalcification of breast; Translations: [Mammographic microcalcification found on diagnostic imaging of breast] Onset: 4 Resolved: 2 11-08-2011 Episodic Open wounds of extremities (13 sources) Unspecified open wound of unspecified toe(s) with damage to nail, initial encounter; Translations: [Unspecified open wound of unspecified toe(s) with damage to nail, initial encounter] Onset: 7 08-02-2016 Episodic Other bone disease and musculoskeletal deformities (9 sources) Osteopenia; Translations: [Other specified disorders of bone density and structure, unspecified site] Onset: 3 04-29-2012 Episodic Other screening for suspected conditions (not mental disorders or infectious disease) (3 sources) Mammography abnormal; Translations: [Other abnormal and inconclusive findings on diagnostic imaging of breast] Onset: 8 Resolved: 2 11-08-2011 Episodic Residual codes; unclassified (1 source) Estrogen receptor positive status [ER+]; Translations: [Malignant neoplasm of upper-outer quadrant of left breast in female, estrogen receptor positive (HCC)] Onset: 7 Episodic Urinary tract infections (14 sources) Urinary tract infectious disease; Translations: [Recurrent urinary tract infection] Onset: 7 02-12-2017 Episodic Results Test Name Value Interpretation Reference Range Facility CBC W/Diff, Automatedon 09-0 Absolute Lymph 1.76 X10 3/uL Normal 0.83-4.51 [facility] Comment on above: Order Comment: Order Date: 11/18/24Order Info: [id number] - CBCDOrder Info: [id number] - SED Performed By: #### L 501.2450, L501.6710, L101.9900, L500.4050, L100.0100, L501.9520 ####[facility] [address] [place], [place], [id number] Absolute Neut 4.6 X10 3/uL Normal 2.0-7.7 [facility] Comment on above: Order Comment: Order Date: 11/18/24Order Info: [id number] - CBCDOrder Info: [id number] - SED Performed By: #### L 501.2450, L501.6710, L101.9900, L500.4050, L100.0100, L501.9520 ####[facility] [address] [place], [address] Basophils/100 WBC (Bld) 0.7 % Normal 0-1 [facility] Comment on above: Order Comment: Order Date: 11/18/24Order Info: [id number]- - CBCDOrder Info: [id number] - SED Performed By: #### L 501.2450, L501.6710, L101.9900, L500.4050, L100.0100, L501.9520 ####[facility] [address] [place], [address] Eosinophils/100 WBC (Bld) 2.8 % Normal 0-5 [facility] Comment on above: Order Comment: Order Date: 11/18/24Order Info: [id number] - CBCDOrder Info: [id number] - SED Performed By: #### L 501.2450, L501.6710, L101.9900, L500.4050, L100.0100, L501.9520 ####[facility] [address] [place], [address] Erythrocyte distribution width (RBC) [Ratio] 14.3 % Normal 11.6-14.6 [facility] Comment on above: Order Comment: Order Date: 11/18/24Order Info: 0184- - CBCDOrder Info: [id number] - SED Performed By: #### L 501.2450, L501.6710, L101.9900, L500.4050, L100.0100, L501.9520 ####[facility] [address] [place], [address] Hematocrit (Bld) [Volume fraction] 43.8 % Normal 37-47 [facility] Comment on above: Order Comment: Order Date: 11/18/24Order Info: [id number]- - CBCDOrder Info: [id number] - SED Performed By: #### L 501.2450, L501.6710, L101.9900, L500.4050, L100.0100, L501.9520 ####[facility] [address] [place], [address] Hemoglobin (Bld) [Mass/Vol] 14.2 g/dL Normal 12.0-15.0 [facility] Comment on above: Order Comment: Order Date: 11/18/24Order Info: [id number] - CBCDOrder Info: [id number] - SED Performed By: #### L 501.2450, L501.6710, L101.9900, L500.4050, L100.0100, L501.9520 ####[facility] [address] [place], [address] IG% 0.400 Normal 0.0-0.9 [facility] Comment on above: Order Comment: Order Date: 11/18/24Order Info: 018- - CBCDOrder Info: [id number] - SED Result Comment: IG% - Immature Granulocytes (promyelocytes, myelocytes and metamyelocytes) > 1% indicates that a LEFT SHIFT is Present. Performed By: #### L 501.2450, L501.6710, L101.9900, L500.4050, L100.0100, L501.9520 ####[facility] [address] [place], [address] Lymphocytes/100 WBC (Bld) 24.2 % Normal 19-41 [facility] Comment on above: Order Comment: Order Date: 11/18/24Order Info: [id number] - CBCDOrder Info: [id number] - SED Performed By: #### L 501.2450, L501.6710, L101.9900, L500.4050, L100.0100, L501.9520 ####[facility] [address] [place], [address] MCH (RBC) [Entitic mass] 26.9 pg Low 27.0-32.0 [facility] Comment on above: Order Comment: Order Date: 11/18/24Order Info: 0184- - CBCDOrder Info: [id number] - SED Performed By: #### L 501.2450, L501.6710, L101.9900, L500.4050, L100.0100, L501.9520 ####[facility] [address] [place], [address] MCHC (RBC) [Mass/Vol] 32.4 g/dL Normal 32-36 [facility] Comment on above: Order Comment: Order Date: 11/18/24Order Info: 018- - CBCDOrder Info: [id number] - SED Performed By: #### L 501.2450, L501.6710, L101.9900, L500.4050, L100.0100, L501.9520 ####[facility] [address] [place], [address] MCV (RBC) [Entitic vol] 83.1 fL Normal 81-99 [facility] Comment on above: Order Comment: Order Date: 11/18/24Order Info: 018- - CBCDOrder Info: [id number] - SED Performed By: #### L 501.2450, L501.6710, L101.9900, L500.4050, L100.0100, L501.9520 ####[facility] [address] [place], [address] Monocytes/100 WBC (Bld) 8.1 % Normal 0-10 [facility] Comment on above: Order Comment: Order Date: 11/18/24Order Info: 0184- - CBCDOrder Info: [id number] - SED Performed By: #### L 501.2450, L501.6710, L101.9900, L500.4050, L100.0100, L501.9520 ####[facility] [address] [place], [address] Neutrophils/100 WBC (Bld) 63.8 % Normal 47-70 [facility] Comment on above: Order Comment: Order Date: 11/18/24Order Info: 0184- - CBCDOrder Info: [id number] - SED Performed By: #### L 501.2450, L501.6710, L101.9900, L500.4050, L100.0100, L501.9520 ####[facility] [address] [place], [address] Nucleated RBC (Bld) [#/Vol] 0 10*3/uL Normal 0-5 [facility] Comment on above: Order Comment: Order Date: 11/18/24Order Info: 018- - CBCDOrder Info: [id number] - SED Performed By: #### L 501.2450, L501.6710, L101.9900, L500.4050, L100.0100, L501.9520 ####[facility] [address] [place], [address] Platelet mean volume (Bld) [Entitic vol] 9.2 fL Normal 6.2-12.0 [facility] Comment on above: Order Comment: Order Date: 11/18/24Order Info: 0184- - CBCDOrder Info: [id number] - SED Performed By: #### L 501.2450, L501.6710, L101.9900, L500.4050, L100.0100, L501.9520 ####[facility] [address] [place], [address] Platelets (Bld) [#/Vol] 273 10*3/uL Normal 150-450 [facility] Comment on above: Order Comment: Order Date: 11/18/24Order Info: 0184- - CBCDOrder Info: [id number] - SED Performed By: #### L 501.2450, L501.6710, L101.9900, L500.4050, L100.0100, L501.9520 ####[facility] [address] [place], [address] RBC (Bld) [#/Vol] 5.27 10*6/uL Normal 4.2-5.[address] [facility] Comment on above: Order Comment: Order Date: 11/18/24Order Info: [id number] - CBCDOrder Info: [id number] - SED Performed By: #### L 501.2450, L501.6710, L101.9900, L500.4050, L100.0100, L501.9520 ####[facility] [address] [place], [address] RDW SD 43.1 fl Normal 35.1-43.9 [facility] Comment on above: Order Comment: Order Date: 11/18/24Order Info: [id number] - CBCDOrder Info: [id number] - SED Performed By: #### L 501.2450, L501.6710, L101.9900, L500.4050, L100.0100, L501.9520 ####[facility] [address] [place], [address] WBC (Bld) [#/Vol] 7.3 10*3/uL Normal 4.4-11.0 [facility] Comment on above: Order Comment: Order Date: 11/18/24Order Info: [id number] - CBCDOrder Info: [id number] - SED Performed By: #### L 501.2450, L501.6710, L101.9900, L500.4050, L100.0100, L501.9520 ####[facility] [address] [place], [address] CRPon 11-18-2024 C-REACTIVE PROT < 3.00 Normal 0.0-3.0 [facility] Comment on above: Order Comment: Order Date: 11/18/24Order Info: [id number] - CMPOrder Info: [id number] - LIPASEOrder Info: [id number] - CRPOrder Info: 301-3 - TSH Performed By: #### L 501.2450, L501.6710, L101.9900, L500.4050, L100.0100, L501.9520 ####[facility] [address] [place], [place], [address] Comprehensive Metabolic Prof ilon 11-18-2024 Albumin [Mass/Vol] 4.2 g/dL Normal 3.4-4.8 [facility] Comment on above: Order Comment: Order Date: 11/18/24Order Info: [id number] - CMPOrder Info: [id number] - LIPASEOrder Info: [id number] - CRPOrder Info: [id number] - TSH Performed By: #### L 501.2450, L501.6710, L101.9900, L500.4050, L100.0100, L501.9520 ####[facility] [address] [place], [place], [id number] Albumin/Globulin [Mass ratio] 1.4 {ratio} Normal 0.9-2.4 [facility] Comment on above: Order Comment: Order Date: 11/18/24Order Info: [id number] - CMPOrder Info: [id number] - LIPASEOrder Info: [id number] - CRPOrder Info: [id number] - TSH Performed By: #### L 501.2450, L501.6710, L101.9900, L500.4050, L100.0100, L501.9520 ####[facility] [address] [place], [place], [id number] ALK PHOS 87 U/L Normal 35-104 [facility] Comment on above: Order Comment: Order Date: 11/18/24Order Info: [id number] - CMPOrder Info: [id number] - LIPASEOrder Info: [id number] - CRPOrder Info: [id number] - TSH Performed By: #### L 501.2450, L501.6710, L101.9900, L500.4050, L100.0100, L501.9520 ####[facility] [address] [place], [address] ALT [Catalytic activity/Vol] 30 U/L Normal <=34 [facility] Comment on above: Order Comment: Order Date: 11/18/24Order Info: [id number] - CMPOrder Info: [id number] - LIPASEOrder Info: [id number] - CRPOrder Info: [id number] - TSH Performed By: #### L 501.2450, L501.6710, L101.9900, L500.4050, L100.0100, L501.9520 ####[facility] [address] [place], [address] AST [Catalytic activity/Vol] 24 U/L Normal <=31 [facility] Comment on above: Order Comment: Order Date: 11/18/24Order Info: 0786-1 - CMPOrder Info: 3040-3 - LIPASEOrder Info: [id number] - CRPOrder Info: 3016-3 - TSH Performed By: #### L 501.2450, L501.6710, L101.9900, L500.4050, L100.0100, L501.9520 ####[facility] [address] [place], [address] Bilirubin [Mass/Vol] 0.40 mg/dL Normal 0.00-1.30 [facility] Comment on above: Order Comment: Order Date: 11/18/24Order Info: 0786-1 - CMPOrder Info: 3040-3 - LIPASEOrder Info: [id number] - CRPOrder Info: 3016-3 - TSH Performed By: #### L 501.2450, L501.6710, L101.9900, L500.4050, L100.0100, L501.9520 ####[facility] [address] [place], [address] BUN/CRE 21.8 RATIO High 10-20 [facility] Comment on above: Order Comment: Order Date: 11/18/24Order Info: 0786-1 - CMPOrder Info: 3040-3 - LIPASEOrder Info: [id number] - CRPOrder Info: 3016-3 - TSH Performed By: #### L 501.2450, L501.6710, L101.9900, L500.4050, L100.0100, L501.9520 ####[facility] [address] [place], [address] Calcium [Mass/Vol] 10.1 mg/dL Normal 7.6-11.0 [facility] Comment on above: Order Comment: Order Date: 11/18/24Order Info: 0786-1 - CMPOrder Info: 3040-3 - LIPASEOrder Info: [id number] - CRPOrder Info: 301-3 - TSH Performed By: #### L 501.2450, L501.6710, L101.9900, L500.4050, L100.0100, L501.9520 ####[facility] [address] [place], [address] Chloride [Moles/Vol] 102 mmol/L Normal 98-108 [facility] Comment on above: Order Comment: Order Date: 11/18/24Order Info: 86-1 - CMPOrder Info: 0-3 - LIPASEOrder Info: [id number] - CRPOrder Info: 3016-3 - TSH Performed By: #### L 501.2450, L501.6710, L101.9900, L500.4050, L100.0100, L501.9520 ####[facility] [address] [place], [address] CO2 [Moles/Vol] 26.5 mmol/L Normal 21.0-32.0 [facility] Comment on above: Order Comment: Order Date: 11/18/24Order Info: 0786-1 - CMPOrder Info: 3040-3 - LIPASEOrder Info: [id number] - CRPOrder Info: 3016-3 - TSH Performed By: #### L 501.2450, L501.6710, L101.9900, L500.4050, L100.0100, L501.9520 ####[facility] [address] [place], [address] Creatinine [Mass/Vol] 0.76 mg/dL Normal 0.70-1.20 [facility] Comment on above: Order Comment: Order Date: 11/18/24Order Info: 0786-1 - CMPOrder Info: 3040-3 - LIPASEOrder Info: [id number] - CRPOrder Info: 301-3 - TSH Performed By: #### L 501.2450, L501.6710, L101.9900, L500.4050, L100.0100, L501.9520 ####[facility] [address] [place], [place], [address] GAP 12 Normal 5-15 [facility] Comment on above: Order Comment: Order Date: 11/18/24Order Info: 0786-1 - CMPOrder Info: 3040-3 - LIPASEOrder Info: [id number] - CRPOrder Info: 3 - TSH Performed By: #### L 501.2450, L501.6710, L101.9900, L500.4050, L100.0100, L501.9520 ####[facility] [address] [place], [place], [address] GFR/1.73 sq M.predicted among non-blacks MDRD (S/P/Bld) [Vol rate/Area] 85 mL/min/{1.73_m2} Normal >60 [facility] Comment on above: Order Comment: Order Date: 11/18/24Order Info: 0786-1 - CMPOrder Info: 3040-3 - LIPASEOrder Info: [id number] - CRPOrder Info: 3016-3 - TSH Result Comment: mL/m in/1.73m2 CKD-EPI Creatinine Equation (2020) Performed By: #### L 501.2450, L501.6710, L101.9900, L500.4050, L100.0100, L501.9520 ####[facility] [address] [place], [address] Globulin (S) [Mass/Vol] 3.0 g/dL Normal 2.2-4.2 [facility] Comment on above: Order Comment: Order Date: 11/18/24Order Info: 0786-1 - CMPOrder Info: 3040-3 - LIPASEOrder Info: [id number] - CRPOrder Info: 3016-3 - TSH Performed By: #### L 501.2450, L501.6710, L101.9900, L500.4050, L100.0100, L501.9520 ####[facility] [address] [place], [address] Glucose [Mass/Vol] 98 mg/dL Normal 70-99 [facility] Comment on above: Order Comment: Order Date: 11/18/24Order Info: 07-1 - CMPOrder Info: 3040-3 - LIPASEOrder Info: [id number] - CRPOrder Info: 3016-3 - TSH Performed By: #### L 501.2450, L501.6710, L101.9900, L500.4050, L100.0100, L501.9520 ####[facility] [address] [place], [address] Potassium [Moles/Vol] 4.6 mmol/L Normal 3.3-5.1 [facility] Comment on above: Order Comment: Order Date: 11/18/24Order Info: 0786-1 - CMPOrder Info: 3040-3 - LIPASEOrder Info: [id number] - CRPOrder Info: 3016-3 - TSH Performed By: #### L 501.2450, L501.6710, L101.9900, L500.4050, L100.0100, L501.9520 ####[facility] [address] [place], [address] Sodium [Moles/Vol] 140 mmol/L Normal 133-145 [facility] Comment on above: Order Comment: Order Date: 11/18/24Order Info: 0786-1 - CMPOrder Info: 3040-3 - LIPASEOrder Info: [id number] - CRPOrder Info: 3016-3 - TSH Performed By: #### L 501.2450, L501.6710, L101.9900, L500.4050, L100.0100, L501.9520 ####[facility] [address] [place], [place], [address] T PROT 7.2 g/dL Normal 5.9-8.4 [facility] Comment on above: Order Comment: Order Date: 11/18/24Order Info: 07-1 - CMPOrder Info: 0-3 - LIPASEOrder Info: [id number] - CRPOrder Info: 63 - TSH Performed By: #### L 501.2450, L501.6710, L101.9900, L500.4050, L100.0100, L501.9520 ####[facility] [address] [place], [place], [address] Urea nitrogen [Mass/Vol] 17 mg/dL Normal 4-19 [facility] Comment on above: Order Comment: Order Date: 11/18/24Order Info: 0786-1 - CMPOrder Info: 3039-3 - LIPASEOrder Info: [id number] - CRPOrder Info: 3016-3 - TSH Performed By: #### L 501.2450, L501.6710, L101.9900, L500.4050, L100.0100, L501.9520 ####[facility] [address] [place], [place], [address] Erythrocyte Sed Rateon 11-18 SED RATE 2 mm/hr Normal 0-30 [facility] Comment on above: Order Comment: Order Date: 11/18/24Order Info: [id number] - CBCDOrder Info: [id number] - SED Performed By: #### L 501.2450, L501.6710, L101.9900, L500.4050, L100.0100, L501.9520 ####[facility] [address] [place], [place], [address] Lipaseon 11-18-2024 Lipase [Catalytic activity/Vol] 37 U/L Normal 13-75 [facility] Comment on above: Order Comment: Order Date: 11/18/24Order Info: 0786-1 - CMPOrder Info: 3040-3 - LIPASEOrder Info: [id number] - CRPOrder Info: 3016-3 - TSH Result Comment: John chicas note: LIPASE revised reference range effective 22. New Lipase methodology. Expected to produce lower values than the previous assay method. NEW Reference Range: 13 - 75 U/L Performed By: #### L 501.2450, L501.6710, L101.9900, L500.4050, L100.0100, L501.9520 ####[facility] [address] [place], [place], [address] Thyroid Stim Hormone (TSH)on 11-18-2024 TSH 1.020 uIU/mL Normal 0.300-4.200 [facility] Comment on above: Order Comment: Order Date: 11/18/24Order Info: 0786-1 - CMPOrder Info: 3040-3 - LIPASEOrder Info: [id number] - CRPOrder Info: 3016-3 - TSH Performed By: #### L 501.2450, L501.6710, L101.9900, L500.4050, L100.0100, L501.9520 ####[facility] [address] [place], [place], [id number] CNOVSPon 09-29-2024 CNOVSP Visit (SP) Office (HEMAWS) LATOYA KEN ([id number]) 1955 F Date Time Provider Department 09/29/24 2:00 PM IRENE AMBRIZ During your visit today, we recorded the following information about you: Temperature Pulse Blood pressure Weight 98.5 degrees 87/minute 139/68 75 kg Irene Ambriz APRN.CNP 09/29/2024 2:22 PM Signed Chief Complaint Patient presents with: [...] nuclear grade 2. ER-positive (>95%, strong) and MT (4%, weak). HER-2 quantified at 3+. An [...] Additional pathologi (more content not included)... Normal [facility] Urine Cultureon 09-18-2024 URC Below infection leve l. Mixed Gram Pos Gram Neg Org [place]stock Count 1000-10,000 MIXC Mixed contaminants. Submit a new specimen if indicated. Normal [facility] Comment on above: Performed By: #### M 100.2200, L100.0100, L500.4100, L502.0250, L506.0400, L500.4050, L501.9520 ####[facility] [address] [place], [place], [address] Absolute lymphocyte countOrd ered By: Andriy Jones on 09-16-2024 Lymphocytes Auto (Unsp spec) [#/Vol] 1.73 10*3/uL 0.83-4.51 [facility] Absolute neutrophil countOrd ered By: Andriy Jones on 09-16-2024 Neutrophils (Bld) [#/Vol] 3.8 10*3/uL 2.0-7.7 [facility] Anion gap in Serum or Plasma Ordered By: Andriy Jones on 09-16-2024 Anion gap [Moles/Vol] 12 mmol/L 5-15 [facility] Automated lymphocyte count a s percentage of total leukocytesOrdered By: Andriy Jones on 09-16-2024 Lymphocytes/100 WBC Auto (Unsp spec) 26.7 % 19-41 [facility] BUN/creatinine ratioOrdered By: Andriy Jones on 09-16-2024 Urea nitrogen/Creatinine [Mass ratio] 21.8 mg/mg High 10-20 [facility] Basophil percentageOrdered B y: Andriy Jones on 09-16-2024 Basophils/100 WBC (Bld) 0.8 % 0-1 [facility] Bilirubin, totalOrdered By: Andriy Jones on 09-16-2024 Bilirubin [Mass/Vol] 0.46 mg/dL 0.00-1.30 [facility] CBC W/Diff, Automatedon Absolute Lymph 1.73 X10 3/uL Normal 0.83-4.51 [facility] Comment on above: Performed By: #### M 100.2200, L100.0100, L500.4100, L502.0250, L506.0400, L500.4050, L501.9520 ####[facility] [address] [place], [address] Absolute Neut 3.8 X10 3/uL Normal 2.0-7.7 [facility] Comment on above: Performed By: #### M 100.2200, L100.0100, L500.4100, L502.0250, L506.0400, L500.4050, L501.9520 ####[facility] [address] [place], [address] Basophils/100 WBC (Bld) 0.8 % Normal 0-1 [facility] Comment on above: Performed By: #### M 100.2200, L100.0100, L500.4100, L502.0250, L506.0400, L500.4050, L501.9520 ####[facility] [address] [place], [address] Eosinophils/100 WBC (Bld) 6.5 % High 0-5 [facility] Comment on above: Performed By: #### M 100.2200, L100.0100, L500.4100, L502.0250, L506.0400, L500.4050, L501.9520 ####[facility] [address] [place], [address] Erythrocyte distribution width (RBC) [Ratio] 13.2 % Normal 11.6-14.6 [facility] Comment on above: Performed By: #### M 100.2200, L100.0100, L500.4100, L502.0250, L506.0400, L500.4050, L501.9520 ####[facility] [address] [place], [address] Hematocrit (Bld) [Volume fraction] 42.2 % Normal 37-47 [facility] Comment on above: Performed By: #### M 100.2200, L100.0100, L500.4100, L502.0250, L506.0400, L500.4050, L501.9520 ####[facility] [address] [place], [address] Hemoglobin (Bld) [Mass/Vol] 13.8 g/dL Normal 12.0-15.0 [facility] Comment on above: Performed By: #### 100.2200, L100.0100, L500.4100, L502.0250, L506.0400, L500.4050, L501.9520 ####[facility] [address] [place], [address] IG% 0.200 Normal 0.0-0.9 [facility] Comment on above: Result Comment: IG% - Immature Granulocytes (promyelocytes, myelocytes and metamyelocytes) > 1% indicates that a LEFT SHIFT is Present. Performed By: #### M 100.2200, L100.0100, L500.4100, L502.0250, L506.0400, L500.4050, L501.9520 ####[facility] [address] [place], [address] Lymphocytes/100 WBC (Bld) 26.7 % Normal 19-41 [facility] Comment on above: Performed By: #### M 100.2200, L100.0100, L500.4100, L502.0250, L506.0400, L500.4050, L501.9520 ####[facility] [address] [place], [address] MCH (RBC) [Entitic mass] 27.3 pg Normal 27.0-32.0 [facility] Comment on above: Performed By: #### M 100.2200, L100.0100, L500.4100, L502.0250, L506.0400, L500.4050, L501.9520 ####[facility] [address] [place], [address] MCHC (RBC) [Mass/Vol] 32.7 g/dL Normal 32-36 [facility] Comment on above: Performed By: #### M 100.2200, L100.0100, L500.4100, L502.0250, L506.0400, L500.4050, L501.9520 ####[facility] [address] [place], [address] MCV (RBC) [Entitic vol] 83.4 fL Normal 81-99 [facility] Comment on above: Performed By: #### M 100.2200, L100.0100, L500.4100, L502.0250, L506.0400, L500.4050, L501.9520 ####[facility] [address] [place], [address] Monocytes/100 WBC (Bld) 7.6 % Normal 0-10 [facility] Comment on above: Performed By: #### M 100.2200, L100.0100, L500.4100, L502.0250, L506.0400, L500.4050, L501.9520 ####[facility] [address] [place], [address] Neutrophils/100 WBC (Bld) 58.2 % Normal 47-70 [facility] Comment on above: Performed By: #### M 100.2200, L100.0100, L500.4100, L502.0250, L506.0400, L500.4050, L501.9520 ####[facility] [address] [place], [address] Nucleated RBC (Bld) [#/Vol] 0 10*3/uL Normal 0-5 [facility] Comment on above: Performed By: #### M 100.2200, L100.0100, L500.4100, L502.0250, L506.0400, L500.4050, L501.9520 ####[facility] [address] [place], [address] Platelet mean volume (Bld) [Entitic vol] 9.0 fL Normal 6.2-12.0 [facility] Comment on above: Performed By: #### M 100.2200, L100.0100, L500.4100, L502.0250, L506.0400, L500.4050, L501.9520 ####[facility] [address] [place], [address] Platelets (Bld) [#/Vol] 276 10*3/uL Normal 150-450 [facility] Comment on above: Performed By: #### M 100.2200, L100.0100, L500.4100, L502.0250, L506.0400, L500.4050, L501.9520 ####[facility] [address] [place], [address] RBC (Bld) [#/Vol] 5.06 10*6/uL Normal 4.2-5.[address] [facility] Comment on above: Performed By: #### M 100.2200, L100.0100, L500.4100, L502.0250, L506.0400, L500.4050, L501.9520 ####[facility] [address] [place], [address] RDW SD 40.2 fl Normal 35.1-43.9 [facility] Comment on above: Performed By: #### M 100.2200, L100.0100, L500.4100, L502.0250, L506.0400, L500.4050, L501.9520 ####[facility] [address] [place], [address] WBC (Bld) [#/Vol] 6.5 10*3/uL Normal 4.4-11.0 [facility] Comment on above: Performed By: #### M 100.2200, L100.0100, L500.4100, L502.0250, L506.0400, L500.4050, L501.9520 ####[facility] [address] [place], [address] Calculated very low density lipoprotein (VLDL) cholesterol measurementOrdered By: Andriy Jones on 09-16-2024 Calculated very low density lipoprotein (VLDL) cholesterol measurement 42 mg/dL High 5-40 [facility] Carbon dioxide, total [Moles /volume] in Central venous bloodOrdered By: Andriy Jones on 09-16-2024 CO2 [Moles/Vol] 24.2 mmol/L 21.0-32.0 [facility] Chloride assayOrdered By: David Jones on 09-16-2024 Chloride [Moles/Vol] 104 mmol/L 98-108 [facility] Comprehensive Metabolic Prof ilon 09-16-2024 Albumin [Mass/Vol] 4.1 g/dL Normal 3.4-4.8 [facility] Comment on above: Performed By: #### M 100.2200, L100.0100, L500.4100, L502.0250, L506.0400, L500.4050, L501.9520 ####[facility] [address] [place], [address] Albumin/Globulin [Mass ratio] 1.5 {ratio} Normal 0.9-2.4 [facility] Comment on above: Performed By: #### M 100.2200, L100.0100, L500.4100, L502.0250, L506.0400, L500.4050, L501.9520 ####[facility] [address] [place], [address] ALK PHOS 80 U/L Normal 35-104 [facility] Comment on above: Performed By: #### M 100.2200, L100.0100, L500.4100, L502.0250, L506.0400, L500.4050, L501.9520 ####[facility] [address] [place], [address] ALT [Catalytic activity/Vol] 23 U/L Normal <=34 [facility] Comment on above: Performed By: #### M 100.2200, L100.0100, L500.4100, L502.0250, L506.0400, L500.4050, L501.9520 ####[facility] [address] [place], [address] AST [Catalytic activity/Vol] 25 U/L Normal <=31 [facility] Comment on above: Performed By: #### M 100.2200, L100.0100, L500.4100, L502.0250, L506.0400, L500.4050, L501.9520 ####[facility] [address] [place], [address] Bilirubin [Mass/Vol] 0.46 mg/dL Normal 0.00-1.30 [facility] Comment on above: Performed By: #### M 100.2200, L100.0100, L500.4100, L502.0250, L506.0400, L500.4050, L501.9520 ####[facility] [address] [place], [address] BUN/CRE 21.8 RATIO High 10-20 [facility] Comment on above: Performed By: #### M 100.2200, L100.0100, L500.4100, L502.0250, L506.0400, L500.4050, L501.9520 ####[facility] [address] [place], [address] Calcium [Mass/Vol] 9.4 mg/dL Normal 7.6-11.0 [facility] Comment on above: Performed By: #### M 100.2200, L100.0100, L500.4100, L502.0250, L506.0400, L500.4050, L501.9520 ####[facility] [address] [place], [address] Chloride [Moles/Vol] 104 mmol/L Normal 98-108 [facility] Comment on above: Performed By: #### M 100.2200, L100.0100, L500.4100, L502.0250, L506.0400, L500.4050, L501.9520 ####[facility] [address] [place], [address] CO2 [Moles/Vol] 24.2 mmol/L Normal 21.0-32.0 [facility] Comment on above: Performed By: #### M 100.2200, L100.0100, L500.4100, L502.0250, L506.0400, L500.4050, L501.9520 ####[facility] [address] [place], [address] Creatinine [Mass/Vol] 0.71 mg/dL Normal 0.70-1.20 [facility] Comment on above: Performed By: #### M 100.2200, L100.0100, L500.4100, L502.0250, L506.0400, L500.4050, L501.9520 ####[facility] [address] [place], [address] GAP 12 Normal 5-15 [facility] Comment on above: Performed By: #### M 100.2200, L100.0100, L500.4100, L502.0250, L506.0400, L500.4050, L501.9520 ####[facility] [address] [place], [address] GFR/1.73 sq M.predicted among non-blacks MDRD (S/P/Bld) [Vol rate/Area] 92 mL/min/{1.73_m2} Normal >60 [facility] Comment on above: Result Comment: mL/m in/1.73m2 CKD-EPI Creatinine Equation (2020) Performed By: #### M 100.2200, L100.0100, L500.4100, L502.0250, L506.0400, L500.4050, L501.9520 ####[facility] [address] [place], [address] Globulin (S) [Mass/Vol] 2.7 g/dL Normal 2.2-4.2 [facility] Comment on above: Performed By: #### M 100.2200, L100.0100, L500.4100, L502.0250, L506.0400, L500.4050, L501.9520 ####[facility] [address] [place], [address] Glucose [Mass/Vol] 91 mg/dL Normal 70-99 [facility] Comment on above: Performed By: #### M 100.2200, L100.0100, L500.4100, L502.0250, L506.0400, L500.4050, L501.9520 ####[facility] [address] [place], [address] Potassium [Moles/Vol] 4.1 mmol/L Normal 3.3-5.1 [facility] Comment on above: Performed By: #### M 100.2200, L100.0100, L500.4100, L502.0250, L506.0400, L500.4050, L501.9520 ####[facility] [address] [place], [address] Sodium [Moles/Vol] 141 mmol/L Normal 133-145 [facility] Comment on above: Performed By: #### M 100.2200, L100.0100, L500.4100, L502.0250, L506.0400, L500.4050, L501.9520 ####[facility] [address] [place], [place], [id number] T PROT 6.7 g/dL Normal 5.9-8.4 [facility] Comment on above: Performed By: #### M 100.2200, L100.0100, L500.4100, L502.0250, L506.0400, L500.4050, L501.9520 ####[facility] [address] [place], [address] Urea nitrogen [Mass/Vol] 16 mg/dL Normal 4-19 [facility] Comment on above: Performed By: #### M 100.2200, L100.0100, L500.4100, L502.0250, L506.0400, L500.4050, L501.9520 ####[facility] [address] [place], [address] Eosinophil percentageOrdered By: Andriy Jones on 09-16-2024 Eosinophils/100 WBC (Bld) 6.5 % High 0-5 [facility] Erythrocyte distribution wid th ratioOrdered By: Andriy Jones on 09-16-2024 Erythrocyte distribution width (RBC) [Ratio] 13.2 % 11.6-14.6 [facility] Erythrocyte distribution wid th standard deviationOrdered By: Andriy Jones on 09-16-2024 Erythrocyte distribution width (RBC) [Ratio] 40.2 fl 35.1-43.9 [facility] Glomerular filtration rate ( GFR) estimation/1.73 sq m using serum, plasma, or whole bOrdered By: Andriy Jones on 09-16-2024 GFR/1.73 sq M.predicted among non-blacks MDRD (S/P/Bld) [Vol rate/Area] 92 mL/min/{1.73_m2} >60 [facility] Comment on above: mL/min/1.73m2 CKD-EP I Creatinine Equation (2020) Hematocrit Auto (Bld) [Volum e fraction]Ordered By: Andriy Jones on 09-16-2024 Hematocrit (Bld) [Volume fraction] 42.2 % 37-47 [facility] Hemoglobin measurementOrdere d By: Andriy Jones on 09-16-2024 Hemoglobin (Bld) [Mass/Vol] 13.8 g/dL 12.0-15.0 [facility] Immature granulocytes/100 WB C Auto (Bld)Ordered By: Andriy Jones on 09-16-2024 Immature granulocytes/100 WBC (Bld) 0.200 % 0.0-0.9 [facility] Comment on above: IG% - Immature Granu locytes (promyelocytes, myelocytes and metamyelocytes) > 1% indicates that a LEFT SHIFT is Present. LDL calc ser/plasOrdered By: Andriy Jones on 09-16-2024 Cholesterol in LDL [Mass/Vol] 91 mg/dL [facility] Comment on above: Mkztuwduot=472-734 m g/dL & Higher Krpj=827 mg/dL or greater Laboratory - Chemistry and C hemistry - challengeOrdered By: Andriy Jones on 09-16-2024 AST [Catalytic activity/Vol] 25 U/L <32 [facility] Lipid Profileon 09-16-2024 CHOL:HDL 4.06 Normal [facility] Comment on above: Performed By: #### M 100.2200, L100.0100, L500.4100, L502.0250, L506.0400, L500.4050, L501.9520 ####[facility] [id number] [place], [place], [address] Cholesterol [Mass/Vol] 177 mg/dL Normal <=200 [facility] Comment on above: Result Comment: Chol esterol level, Desirable <200 mg/dL Borderline high cholesterol 200-239 mg/dL High cholesterol >=240 mg/dL Recommendations of the NCEP Adult Treatment Panel for the following risk-cutoff thresholds for the [place] population. Performed By: #### M 100.2200, L100.0100, L500.4100, L502.0250, L506.0400, L500.4050, L501.9520 ####[facility] [id number] [place], [address] Cholesterol in HDL [Mass/Vol] 44 mg/dL Normal [facility] Comment on above: Result Comment: Angie onal Cholesterol Education Program (NCEP) guidelines: <40 mg/dL: Low HDL-cholesterol (major risk factor for CHD) >= 60 mg/dL: High HDL-cholesterol (negative risk factor for CHD) HDL-cholesterol is affected by a number of factors, e.g. smoking, exercise, hormones, sex and age. Performed By: #### M 100.2200, L100.0100, L500.4100, L502.0250, L506.0400, L500.4050, L501.9520 ####[facility] [id number] [place], [address] Cholesterol in LDL [Mass/Vol] 91 mg/dL Normal [facility] Comment on above: Result Comment: Bord agqfwr=798-272 mg/dL Higher Jqeo=087 mg/dL or greater Performed By: #### M 100.2200, L100.0100, L500.4100, L502.0250, L506.0400, L500.4050, L501.9520 ####[facility] [id number] [place], [address] Cholesterol in VLDL [Mass/Vol] 42 mg/dL High 5-40 [facility] Comment on above: Performed By: #### M 100.2200, L100.0100, L500.4100, L502.0250, L506.0400, L500.4050, L501.9520 ####[facility] [id number] [place], [place], [id number] Triglyceride [Mass/Vol] 210 mg/dL High [facility] Comment on above: Result Comment: The drugs N-Acetylcysteine and Metamizole may falsely depress this assay. Normal range: <150 mg/dL Borderline High: 150-199 mg/dL High: 200-499 mg/dL Very High: >500 mg/dL Performed By: #### M 100.2200, L100.0100, L500.4100, L502.0250, L506.0400, L500.4050, L501.9520 ####[facility] [id number] [place], [place], [id number] MCV (mean corpuscular volume ) determinationOrdered By: Andriy Jones on 09-16-2024 MCV (RBC) [Entitic vol] 83.4 fL 81-99 [facility] Mean corpuscular hemoglobin (MCH) determinationOrdered By: Andriy Jones on 09-16-2024 MCH (RBC) [Entitic mass] 27.3 pg 27.0-32.0 [facility] Mean corpuscular hemoglobin concentration (MCHC) determinationOrdered By: Andriy Joens on 09-16-2024 MCHC (RBC) [Mass/Vol] 32.7 g/dL 32-36 [facility] Mean platelet volume determi nationOrdered By: Andriy Jones on 09-16-2024 Platelet mean volume (Bld) [Entitic vol] 9.0 fL 6.2-12.0 [facility] Microalb:Creat Ratio,Random URon 09-16-2024 Creatinine [Mass/Vol] 162.00 mg/dL Normal 28.00- 217.0 0 [facility] Comment on above: Performed By: #### M 100.2200, L100.0100, L500.4100, L502.0250, L506.0400, L500.4050, L501.9520 ####[facility] [address] [place], [place], [id number] MALB:CREAT 55.9 mg/g CRE Normal [facility] Comment on above: Performed By: #### M 100.2200, L100.0100, L500.4100, L502.0250, L506.0400, L500.4050, L501.9520 ####[facility] [address] [place], [place], [address] MICROALBUMIN,UR 90.5 mg/L Normal NO RANGE EST. [facility] Comment on above: Performed By: #### M 100.2200, L100.0100, L500.4100, L502.0250, L506.0400, L500.4050, L501.9520 ####[facility] [address] [place], [place], [id number] Monocyte percentageOrdered B y: Andriy Jones on 09-16-2024 Monocytes/100 WBC (Bld) 7.6 % 0-10 [facility] Neutrophil percentageOrdered By: Andriy Jones on 09-16-2024 Neutrophils/100 WBC (Bld) 58.2 % 47-70 [facility] Nucleated red blood cell per centageOrdered By: Andriy Jones on 09-16-2024 Nucleated RBC/100 WBC (Bld) [Ratio] 0 % 0-5 [facility] Platelet countOrdered By: David Jones on 09-16-2024 Platelets (Bld) [#/Vol] 276 10*3/uL 150-450 [facility] Potassium measurement (mass/ volume)Ordered By: Andriy Jones on 09-16-2024 Potassium (Unsp spec) [Mass/Vol] 4.1 mmol/L 3.3-5.1 [facility] RBC Auto (Bld) [#/Vol]Ordere d By: Andriy Jones on 09-16-2024 RBC (Bld) [#/Vol] 5.06 10*6/uL 4.2-5.[address] [facility] Random urine creatinine yahaira urement (mass/volume)Ordered By: Andriy Jones on 09-16-2024 Creatinine Unsp time (U) [Mass/Vol] 162.00 mg/dL 28.00-217.0 0 [facility] Screening total cholesterol/ high density lipoprotein (HDL) cholesterol ratioOrdered By: Andriy Jones on 09-16-2024 Cholesterol.total/Karime sterol in HDL [Mass ratio] 4.06 {ratio} [facility] Serum creatinine measurement (mass/volume)Ordered By: Andriy Jones on 09-16-2024 Creatinine [Mass/Vol] 0.71 mg/dL 0.70-1.20 [facility] Serum globulin measurementOr dered By: Andriy Jones on 09-16-2024 Globulin (S) [Mass/Vol] 2.7 g/dL 2.2-4.2 [facility] Serum glucose measurement (m ass/volume)Ordered By: Andriy Jones on 09-16-2024 Glucose [Mass/Vol] 91 mg/dL 70-99 [facility] Serum or plasma alanine larose otransferase (ALT) measurementOrdered By: Andriy Jones on 09-16-2024 ALT [Catalytic activity/Vol] 23 U/L <35 [facility] Serum or plasma albumin yahaira urement (mass/volume)Ordered By: Andriy Jones on 09-16-2024 Albumin [Mass/Vol] 4.1 g/dL 3.4-4.8 [facility] Serum or plasma albumin/glob ulin mass ratioOrdered By: Andriy Jones on 09-16-2024 Albumin/Globulin [Mass ratio] 1.5 {ratio} 0.9-2.4 [facility] Serum or plasma alkaline shelbie sphatase measurementOrdered By: Andriy Jones on 09-16-2024 ALP [Catalytic activity/Vol] 80 U/L 35-104 [facility] Serum or plasma calcium yahaira urement (mass/volume)Ordered By: Andriy Jones on 09-16-2024 Calcium [Mass/Vol] 9.4 mg/dL 7.6-11.0 [facility] Serum or plasma cholesterol in HDL measurement (mass/volume)Ordered By: Andriy Jones on 09-16-2024 Cholesterol in HDL [Mass/Vol] 44 mg/dL >40 [facility] Comment on above: National Cholesterol Education Program (NCEP) guidelines:<40 mg/dL: Low HDL-cholesterol (major risk factor for CHD)>= 60 mg/dL: High HDL-cholesterol (negative risk factor for CHD)HDL-cholesterol is affected by a number of factors, e.g. smoking, exercise, hormones, sex and age. Serum or plasma cholesterol measurement (mass/volume)Ordered By: Andriy Jones on 09-16-2024 Cholesterol [Mass/Vol] 177 mg/dL <201 [facility] Comment on above: Cholesterol level, D esirable <200 mg/dLBorderline high cholesterol 200-239 mg/dLHigh cholesterol >=240 mg/dLRecommendations of the NCEP Adult Treatment Panel for the following risk-cutoff thresholds for the [place] population. Serum or plasma urea nitroge n measurement (mass/volume)Ordered By: Andriy Jones on 09-16-2024 Urea nitrogen [Mass/Vol] 16 mg/dL 4-19 [facility] Sodium levelOrdered By: Andriy Jones on 09-16-2024 Sodium [Moles/Vol] 141 mmol/L 133-145 [facility] T4 Free Directon 09-16-2024 T4 FREE DIRECT 1.10 ng/dL Normal 0.76-1.46 [facility] Comment on above: Performed By: #### M 100.2200, L100.0100, L500.4100, L502.0250, L506.0400, L500.4050, L501.9520 ####[facility] [address] [place], [address] T4 freeOrdered By: Andriy mascorro on 09-16-2024 Free T4 [Mass/Vol] 1.10 ng/dL 0.76-1.46 [facility] TSH DL <= 0.005 mIU/L QnOrde red By: Andriy Jones on 09-16-2024 TSH Qn 1.600 uIU/mL 0.300-4.200 [facility] Thyroid Stim Hormone (TSH)on 09-16-2024 TSH 1.600 uIU/mL Normal 0.300-4.200 [facility] Comment on above: Performed By: #### M 100.2200, L100.0100, L500.4100, L502.0250, L506.0400, L500.4050, L501.9520 ####[facility] [address] [place], [address] Total proteinOrdered By: Krystle Jones on 09-16-2024 Protein [Mass/Vol] 6.7 g/dL 5.9-8.4 [facility] Triglycerides measurementOrd ered By: Andriy Jones on 09-16-2024 Triglyceride [Mass/Vol] 210 mg/dL High <199 [facility] Comment on above: The drugs N-Acetylcy steine and Metamizole may falsely depress this assay. Normal range: <150 mg/dLBorderline High: 150-199 mg/dLHigh: 200-499 mg/dLVery High: >500 mg/dL Urine albumin measurement wi th detection limit of 20 mg/L or less (mass/volume)Ordered By: Andriy Jones on 09-16-2024 Albumin DL <= 20 mg/L (U) [Mass/Vol] 90.5 mg/L NO RANGE EST. [facility] Urine cultureOrdered By: Kryslte Jones on 09-16-2024 Bacteria identified Cx Nom (U) Mixed Gram Pos & Gram Neg Org Abnormal [facility] White blood cell (WBC) count Ordered By: Andriy Jones on 09-16-2024 WBC (Bld) [#/Vol] 6.5 10*3/uL 4.4-11.0 [facility] Urine Cultureon 08-19-2024 URC Presumptive E. coli Blackstock Count 11,000-25,000 Presumptive E. coli: REACTION Ampicillin [...] TMP SMX Islt MEHNAZ <=20 S Normal [facility] Comment on above: Performed By: #### M 100.2200 #### [facility] [address] [place], [address] Urine cultureOrdered By: Pete Reed on 08-17-2024 Bacteria identified Cx Nom (U) Presumptive E. coli Abnormal [facility] - Chemistry and C hemistry - challengeOrdered By: Marnie Reed on 08-15-2024 Bilirubin Ql (U) Negative [facility] Glucose Ql (U) Negative [facility] Ketones Ql (U) Negative [facility] pH (U) 6.0 [pH] [facility] Specific gravity (U) [Rel density] 1.010 [facility] Urobilinogen (U) [Mass/Vol] Negative [facility] - Hematology and Cell countsOrdered By: Marnie Reed on 08-15-2024 Hemoglobin Ql (U) Negative [facility] - Specimen inform ationOrdered By: Marnie Reed on 08-15-2024 Clarity (U) Clear [facility] Color (U) Yellow [facility] - UrinalysisOrder ed By: Marnie Reed on 08-15-2024 Nitrite Ql (U) Negative [facility] Protein Ql (U) Trace [facility] No Panel InformationOrdered By: Marnie Reed on 08-15-2024 Urine Leukocytes Positive [facility] Urine Non-Hemolyzed Blood Negative [facility] Urgent Care Visit Reporton 0 08-15-2024 Urgent Care Visit Report [facility] [address] , [address] [place] [address] OFFICE VISIT Date of Service: 08/15/24 MR#: [id number] Acct: [id number] Name: LATOYA KEN Rep #: [id number] : 1955 Provider: JAZMYN Reed Age/Sex: 68/F Location: [facility] [place] Status: Signed Intake Vital Signs 07/28/24 14:25 08/15/24 08:38 Height 5 ft 6 in BP 118/72 Blood Pressure Location Lt brachial Position Sitting Respiration 15 Pulse 82 Pulse Source NIBP Temp 98.1 F Temp Source Oral Pulse Oximetry (%) 97 Oxygen Delivery Method room air Intake Visit Reasons: CONCERN FOR UTI Chief Complaint: urinary urgency Inside Outside Sales Representative Required: No Is patient in pain?: No [...] immediately. denies abd pain, back pain, fever. [facility] Medical History (Updated 08/15/24 @ 09:33 by [...] today for urine urgency -sx started saw obstetrics and gynecology professor on 07/28- they did a urine- was [...] Biggs on 08/15/24 08:52 Off Ur Spec [place] 1.010 Last Edit by Kelle Biggs on 08/15/24 08:52 Office Ur (more content not included)... Normal [facility] Urine Cultureon 07-30-2024 URC Escherichia coli Blackstock Count 50,000-80,000 Escherichia coli: REACTION Ampicillin Islt [...] TMP SMX Islt MEHNAZ <=20 S Normal [facility] Comment on above: Performed By: #### M 100.2200 #### [facility] [address] [place], [place] [address]amberly [place], [place], [id number] Laboratory - Chemistry and C hemistry - challengeOrdered By: Mine Rodriguez on 07-28-2024 Bilirubin Ql (U) Negative [facility] Glucose Ql (U) Negative [facility] Ketones Ql (U) Negative [facility] pH (U) 5.0 [pH] [facility] Specific gravity (U) [Rel density] 1.015 [facility] Urobilinogen (U) [Mass/Vol] Negative [facility] - Hematology and Cell countsOrdered By: Mine Rodriguez on 07-28-2024 Hemoglobin Ql (U) Negative [facility] - Specimen inform ationOrdered By: Mine Rodriguez on 07-28-2024 Clarity (U) Cloudy [facility] Color (U) YELLOW [facility] - UrinalysisOrder ed By: Mine Rodriguez on 07-28-2024 Nitrite Ql (U) Positive [facility] Protein Ql (U) Negative [facility] No Panel InformationOrdered By: Mine Rodriguez on 07-28-2024 Urine Leukocytes Positive [facility] Urine Non-Hemolyzed Blood Negative [facility] Multimedia Manager Office Visit Reporton 07-28-2024 Multimedia Manager Office Visit Report [facility] [address], [address] [place] [address] OFFICE VISIT Date of Service: 07/28/24 MR#: [id number] Acct: [id number] Name: LATOYA KEN Rep #: [id number] : 1955 Provider: JAZMYN bailey Age/Sex: 68/F Location: [facility] Status: Signed Intake Vital Signs 09/20/23 09:01 07/28/24 14:20 07/28/24 14:25 Height 5 ft 6 in 5 ft 6 in 5 ft 6 in Weight: 166 lb 2 oz BMI 26.8 BP 128/78 H 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 Provider FOB Unknown 10/19/1983 John Unknown 03/20/1985 Tunde HPI Encounter for routine gynecological examination Details: LATOYA [...] oriented to person and oriented to place HENHI Head: normal to inspection Neck Neck: normal [...] and non-t (more content not included)... Normal [facility] Urine cultureOrdered By: Bartolome Rodriguez on 07-28-2024 Bacteria identified Cx Nom (U) Escherichia coli Abnormal [facility] Absolute lymphocyte countOrd ered By: Andriy Jones on 04-07-2024 Lymphocytes Auto (Unsp spec) [#/Vol] 1.62 10*3/uL 0.83-4.51 [facility] Absolute neutrophil countOrd ered By: Andriy Jones on 04-07-2024 Neutrophils (Bld) [#/Vol] 1.8 10*3/uL Low 2.0-7.7 [facility] Albumin to globulin ratioOrd ered By: Andriy Jones on 04-07-2024 Albumin/Globulin [Mass ratio] 1.0 {ratio} 0.9-2.4 [facility] Automated lymphocyte count a s percentage of total leukocytesOrdered By: Andriy Jones on 04-07-2024 Lymphocytes/100 WBC Auto (Unsp spec) 36.9 % 19-41 [facility] Basophil percentageOrdered B y: Andriy Jones on 04-07-2024 Basophils/100 WBC (Bld) 0.9 % 0-1 [facility] Bilirubin, totalOrdered By: Andriy Jones on 04-07-2024 Bilirubin [Mass/Vol] 0.40 mg/dL 0.20-1.00 [facility] Comment on above: For patients on eltr ombopag therapy, use of Dimension [place] TBIL is not recommended. Blood urea nitrogen (BUN)/cr eatinine ratioOrdered By: Andriy Jones on 01-21-2025 Urea nitrogen/Creatinine [Mass ratio] 21.7 mg/mg High 10-20 [facility] CBC W/Diff, Automatedon 01-2 -2024 Absolute Lymph 1.62 X10 3/uL Normal 0.83-4.51 [facility] Comment on above: Order Comment: Order Date: 02/06/24 Order Info: [id number] - CBCD Performed By: #### L 501.9520, L100.0100, L500.4050, L502.0250, L500.4100 #### [facility] [address] [place], [address] Absolute Neut 1.8 X10 3/uL Low 2.0-7.7 [facility] Comment on above: Order Comment: Order Date: 02/06/24 Order Info: [id number] - CBCD Performed By: #### L 501.9520, L100.0100, L500.4050, L502.0250, L500.4100 #### [facility] [address] [place], [address] Basophils/100 WBC (Bld) 0.9 % Normal 0-1 [facility] Comment on above: Order Comment: Order Date: 02/06/24 Order Info: [id number] - CBCD Performed By: #### L 501.9520, L100.0100, L500.4050, L502.0250, L500.4100 #### [facility] [address] [place], [address] Eosinophils/100 WBC (Bld) 3.6 % Normal 0-5 [facility] Comment on above: Order Comment: Order Date: 02/06/24 Order Info: [id number] - CBCD Performed By: #### L 501.9520, L100.0100, L500.4050, L502.0250, L500.4100 #### [facility] [address] [place], [address] Erythrocyte distribution width (RBC) [Ratio] 13.7 % Normal 11.6-14.6 [facility] Comment on above: Order Comment: Order Date: 02/06/24 Order Info: 0184-1 - CBCD Performed By: #### L 501.9520, L100.0100, L500.4050, L502.0250, L500.4100 #### [facility] [address] [place], [address] Hematocrit (Bld) [Volume fraction] 44.2 % Normal 37-47 [facility] Comment on above: Order Comment: Order Date: 02/06/24 Order Info: 0184-1 - CBCD Performed By: #### L 501.9520, L100.0100, L500.4050, L502.0250, L500.4100 #### [facility] [address] [place], [address] Hemoglobin (Bld) [Mass/Vol] 14.2 g/dL Normal 12.0-15.0 [facility] Comment on above: Order Comment: Order Date: 02/06/24 Order Info: 0184-1 - CBCD Performed By: #### L 501.9520, L100.0100, L500.4050, L502.0250, L500.4100 #### [facility] [address] [place], [address] IG% 0.500 Normal 0.0-0.9 [facility] Comment on above: Order Comment: Order Date: 02/06/24 Order Info: 0184-1 - CBCD Result Comment: IG% - Immature Granulocytes (promyelocytes, myelocytes and metamyelocytes) > 1% indicates that a LEFT SHIFT is Present. Performed By: #### L 501.9520, L100.0100, L500.4050, L502.0250, L500.4100 #### [facility] [address] [place], [address] Lymphocytes/100 WBC (Bld) 36.9 % Normal 19-41 [facility] Comment on above: Order Comment: Order Date: 02/06/24 Order Info: 0184-1 - CBCD Performed By: #### L 501.9520, L100.0100, L500.4050, L502.0250, L500.4100 #### [facility] [address] [place], [address] MCH (RBC) [Entitic mass] 27.6 pg Normal 27.0-32.0 [facility] Comment on above: Order Comment: Order Date: 02/06/24 Order Info: 0184- - CBCD Performed By: #### L 501.9520, L100.0100, L500.4050, L502.0250, L500.4100 #### [facility] [address] [place], [address] MCHC (RBC) [Mass/Vol] 32.1 g/dL Normal 32-36 [facility] Comment on above: Order Comment: Order Date: 02/06/24 Order Info: 0184- - CBCD Performed By: #### L 501.9520, L100.0100, L500.4050, L502.0250, L500.4100 #### [facility] [address] [place], [address] MCV (RBC) [Entitic vol] 86.0 fL Normal 81-99 [facility] Comment on above: Order Comment: Order Date: 02/06/24 Order Info: 0184- - CBCD Performed By: #### L 501.9520, L100.0100, L500.4050, L502.0250, L500.4100 #### [facility] [address] [facility] [place], [address] Monocytes/100 WBC (Bld) 16.4 % High 0-10 [facility] Comment on above: Order Comment: Order Date: 02/06/24 Order Info: 0184- - CBCD Performed By: #### L 501.9520, L100.0100, L500.4050, L502.0250, L500.4100 #### [facility] [address] [place], [address] Neutrophils/100 WBC (Bld) 41.7 % Low 47-70 [facility] Comment on above: Order Comment: Order Date: 02/06/24 Order Info: 018- - CBCD Performed By: #### L 501.9520, L100.0100, L500.4050, L502.0250, L500.4100 #### [facility] [address] [place], [address] Nucleated RBC (Bld) [#/Vol] 0 10*3/uL Normal 0-5 [facility] Comment on above: Order Comment: Order Date: 02/06/24 Order Info: 018- - CBCD Performed By: #### L 501.9520, L100.0100, L500.4050, L502.0250, L500.4100 #### [facility] [address] [place], [address] Platelet mean volume (Bld) [Entitic vol] 9.0 fL Normal 6.2-12.0 [facility] Comment on above: Order Comment: Order Date: 02/06/24 Order Info: 018- - CBCD Performed By: #### L 501.9520, L100.0100, L500.4050, L502.0250, L500.4100 #### [facility] [address] [place], [address] Platelets (Bld) [#/Vol] 208 10*3/uL Normal 150-450 [facility] Comment on above: Order Comment: Order Date: 02/06/24 Order Info: 018- - CBCD Performed By: #### L 501.9520, L100.0100, L500.4050, L502.0250, L500.4100 #### [facility] [address] [place], [address] RBC (Bld) [#/Vol] 5.14 10*6/uL Normal 4.2-5.[address] [facility] Comment on above: Order Comment: Order Date: 02/06/24 Order Info: 0184-1 - CBCD Performed By: #### L 501.9520, L100.0100, L500.4050, L502.0250, L500.4100 #### [facility] [address] [place], [address] RDW SD 43.3 fl Normal 35.1-43.9 [facility] Comment on above: Order Comment: Order Date: 02/06/24 Order Info: 0184-1 - CBCD Performed By: #### L 501.9520, L100.0100, L500.4050, L502.0250, L500.4100 #### [facility] [address] [place], [address] WBC (Bld) [#/Vol] 4.4 10*3/uL Normal 4.4-11.0 [facility] Comment on above: Order Comment: Order Date: 02/06/24 Order Info: 0184-1 - CBCD Performed By: #### L 501.9520, L100.0100, L500.4050, L502.0250, L500.4100 #### [facility] [address] [place], [address] Carbon dioxide measurementOr dered By: Andriy Jones on 04-07-2024 CO2 [Moles/Vol] 31.0 mmol/L 21.0-32.0 [facility] Chloride measurementOrdered By: Andriy Jones on 04-07-2024 Chloride [Moles/Vol] 108 mmol/L High 98-107 [facility] Comprehensive Metabolic Prof ilon 04-07-2024 Albumin [Mass/Vol] 3.3 g/dL Normal 3.2-5.0 [facility] Comment on above: Order Comment: Order Date: 02/06/24 Order Info: 0786-1 - CMP Order Info: [id number] - LIPID Order Info: 3015-05 - TSH Performed By: #### L 501.9520, L100.0100, L500.4050, L502.0250, L500.4100 #### [facility] [address] [place], [address] Albumin/Globulin [Mass ratio] 1.0 {ratio} Normal 0.9-2.4 [facility] Comment on above: Order Comment: Order Date: 02/06/24 Order Info: 0786- - CMP Order Info: [id number] - LIPID Order Info: 3015-05 - TSH Performed By: #### L 501.9520, L100.0100, L500.4050, L502.0250, L500.4100 #### [facility] [address] [place], [address] ALK P 83 U/L Normal 45-117 [facility] Comment on above: Order Comment: Order Date: 02/06/24 Order Info: 0786-1 - CMP Order Info: [id number] - LIPID Order Info: 3015-05 - TSH Performed By: #### L 501.9520, L100.0100, L500.4050, L502.0250, L500.4100 #### [facility] [address] [place], [address] ALT [Catalytic activity/Vol] 52 U/L Normal 13-56 [facility] Comment on above: Order Comment: Order Date: 02/06/24 Order Info: [id number] - CMP Order Info: [id number] - LIPID Order Info: 3015-05 - TSH Performed By: #### L 501.9520, L100.0100, L500.4050, L502.0250, L500.4100 #### [facility] [address] [place], [address] AST [Catalytic activity/Vol] 30 U/L Normal 15-37 [facility] Comment on above: Order Comment: Order Date: 02/06/24 Order Info: [id number] - CMP Order Info: - LIPID Order Info: 3 - TSH Performed By: #### L 501.9520, L100.0100, L500.4050, L502.0250, L500.4100 #### [facility] [address] [place], [address] Bilirubin [Mass/Vol] 0.40 mg/dL Normal 0.20-1.00 [facility] Comment on above: Order Comment: Order Date: 02/06/24 Order Info: 785-03 - CMP Order Info: - LIPID Order Info: [id number] - TSH Result Comment: For patients on eltrombopag therapy, use of Dimension [place] TBIL is not recommended. Performed By: #### L 501.9520, L100.0100, L500.4050, L502.0250, L500.4100 #### [facility] [address] [place], [address] BUN/CRE 21.7 RATIO High 10-20 [facility] Comment on above: Order Comment: Order Date: 02/06/24 Order Info: [id number] - CMP Order Info: - LIPID Order Info: 3 - TSH Performed By: #### L 501.9520, L100.0100, L500.4050, L502.0250, L500.4100 #### [facility] [address] [place], [address] CA,Total 9.2 mg/dL Normal 8.5-10.1 [facility] Comment on above: Order Comment: Order Date: 02/06/24 Order Info: [id number] - CMP Order Info: - LIPID Order Info: 3 - TSH Performed By: #### L 501.9520, L100.0100, L500.4050, L502.0250, L500.4100 #### [facility] [address] [place], [address] Chloride [Moles/Vol] 108 mmol/L High 98-107 [facility] Comment on above: Order Comment: Order Date: 02/06/24 Order Info: 785- - CMP Order Info: [id number] - LIPID Order Info: 3 - TSH Performed By: #### L 501.9520, L100.0100, L500.4050, L502.0250, L500.4100 #### [facility] [address] [place], [address] CO2 [Moles/Vol] 31.0 mmol/L Normal 21.0-32.0 [facility] Comment on above: Order Comment: Order Date: 02/06/24 Order Info: [id number] - CMP Order Info: - LIPID Order Info: 3015-05 - TSH Performed By: #### L 501.9520, L100.0100, L500.4050, L502.0250, L500.4100 #### [facility] [address] [place], [address] Creatinine [Mass/Vol] 0.78 mg/dL Normal 0.55-1.02 [facility] Comment on above: Order Comment: Order Date: 02/06/24 Order Info: 785-03 - CMP Order Info: - LIPID Order Info: 3015-05 - TSH Result Comment: The validity of the calculated GFR GFRAA in patients over 70 years has not been determined. Clinical correlation is essential. Performed By: #### L 501.9520, L100.0100, L500.4050, L502.0250, L500.4100 #### [facility] [address] [place], [address] EST GFR - AA 94 mL/min Normal >60 [facility] Comment on above: Order Comment: Order Date: 02/06/24 Order Info: 785-03 - CMP Order Info: - LIPID Order Info: [id number] - TSH Result Comment: Afri can [place]ian GFR Calc Performed By: #### L 501.9520, L100.0100, L500.4050, L502.0250, L500.4100 #### [facility] [address] [place], [address] GAP 2 Low 5-15 [facility] Comment on above: Order Comment: Order Date: 02/06/24 Order Info: 785- - CMP Order Info: - LIPID Order Info: 3015-05 - TSH Performed By: #### L 501.9520, L100.0100, L500.4050, L502.0250, L500.4100 #### [facility] [address] [place], [place], [id number] GFR/1.73 sq M.predicted among non-blacks MDRD (S/P/Bld) [Vol rate/Area] 77 mL/min/{1.73_m2} Normal >60 [facility] Comment on above: Order Comment: Order Date: 02/06/24 Order Info: 785-03 - CMP Order Info: - LIPID Order Info: 3015-05 - TSH Result Comment: Non- GFR Calc Performed By: #### L 501.9520, L100.0100, L500.4050, L502.0250, L500.4100 #### [facility] [facility] [address] [place], [address] Globulin (S) [Mass/Vol] 3.3 g/dL Normal 2.2-4.2 [facility] Comment on above: Order Comment: Order Date: 02/06/24 Order Info: 07 - CMP Order Info: [id number] - LIPID Order Info: [id number] - TSH Performed By: #### L 501.9520, L100.0100, L500.4050, L502.0250, L500.4100 #### [facility] [address] [place], [address] Glucose [Mass/Vol] 87 mg/dL Normal 74-106 [facility] Comment on above: Order Comment: Order Date: 02/06/24 Order Info: [id number] - CMP Order Info: - LIPID Order Info: [id number] - TSH Performed By: #### L 501.9520, L100.0100, L500.4050, L502.0250, L500.4100 #### [facility] [address] [place], [address] Potassium [Moles/Vol] 4.0 mmol/L Normal 3.5-5.1 [facility] Comment on above: Order Comment: Order Date: 02/06/24 Order Info: [id number] - CMP Order Info: - LIPID Order Info: [id number] - TSH Performed By: #### L 501.9520, L100.0100, L500.4050, L502.0250, L500.4100 #### [facility] [address] [place], [address] Sodium [Moles/Vol] 140 mmol/L Normal 136-145 [facility] Comment on above: Order Comment: Order Date: 02/06/24 Order Info: [id number] - CMP Order Info: - LIPID Order Info: [id number] - TSH Performed By: #### L 501.9520, L100.0100, L500.4050, L502.0250, L500.4100 #### [facility] [address] [place], [address] T PROT 6.6 g/dL Normal 6.4-8.2 [facility] Comment on above: Order Comment: Order Date: 02/06/24 Order Info: [id number] - CMP Order Info: - LIPID Order Info: [id number] - TSH Performed By: #### L 501.9520, L100.0100, L500.4050, L502.0250, L500.4100 #### [facility] [address] [place], [place], [address] Urea nitrogen [Mass/Vol] 17 mg/dL Normal 7-18 [facility] Comment on above: Order Comment: Order Date: 02/06/24 Order Info: [id number] - CMP Order Info: [id number] - LIPID Order Info: [id number] - TSH Performed By: #### L 501.9520, L100.0100, L500.4050, L502.0250, L500.4100 #### [facility] [address] [facility] [address] [place], [address] Eosinophil percentageOrdered By: Andriy Jones on 04-07-2024 Eosinophils/100 WBC (Bld) 3.6 % 0-5 [facility] Erythrocyte distribution wid th ratioOrdered By: Andriy Jones on 04-07-2024 Erythrocyte distribution width (RBC) [Ratio] 13.7 % 11.6-14.6 [facility] Erythrocyte distribution wid th standard deviationOrdered By: Andriy Jones on 04-07-2024 Erythrocyte distribution width (RBC) [Ratio] 43.3 fl 35.1-43.9 [facility] Glomerular filtration rate ( GFR) estimationOrdered By: Andriy Jones on 04-07-2024 GFR/1.73 sq M.predicted among non-blacks MDRD (S/P/Bld) [Vol rate/Area] 77 mL/min/{1.73_m2} >60 [facility] Comment on above: Non- GFR Calc Glucose measurementOrdered B y: Andriy Jones on 04-07-2024 Glucose [Mass/Vol] 87 mg/dL 74-106 [facility] Hematocrit Auto (Bld) [Volum e fraction]Ordered By: Andriy Jones on 04-07-2024 Hematocrit (Bld) [Volume fraction] 44.2 % 37-47 [facility] Hemoglobin measurementOrdere d By: Andriy Jones on 04-07-2024 Hemoglobin (Bld) [Mass/Vol] 14.2 g/dL 12.0-15.0 [facility] High density lipoprotein (HD L) measurementOrdered By: Andriy Jones on 04-07-2024 Cholesterol in HDL [Mass/Vol] 51 mg/dL >40 [facility] Comment on above: The drugs N-Acetylcy steine and Metamizole may falsely depress this assay. Reference Range HDL <40 mg/dL Low HDL Cholesterol HDL >or= 60 mg/dL High HDL Cholesterol Immature granulocytes/100 WB C Auto (Bld)Ordered By: Andriy Jones on 04-07-2024 Immature granulocytes/100 WBC (Bld) 0.500 % 0.0-0.9 [facility] Comment on above: IG% - Immature Granu locytes (promyelocytes, myelocytes and metamyelocytes) > 1% indicates that a LEFT SHIFT is Present. Laboratory - Chemistry and C hemistry - challengeOrdered By: Andriy Jones on 04-07-2024 AST [Catalytic activity/Vol] 30 U/L 15-37 [facility] Lipid Profileon 04-07-2024 Cholesterol [Mass/Vol] 159 mg/dL Normal 200 [facility] Comment on above: Order Comment: Order Date: 02/06/24 Order Info: [id number] - CMP Order Info: [id number] - LIPID Order Info: [id number] - TSH Result Comment: <200 mg/dL Desirable 200-240 mg/dL Borderline >240 mg/dL High Risk Performed By: #### L 501.9520, L100.0100, L500.4050, L502.0250, L500.4100 #### [facility] [address] [place], [address] Cholesterol in HDL [Mass/Vol] 51 mg/dL Normal [facility] Comment on above: Order Comment: Order Date: 02/06/24 Order Info: [id number] - CMP Order Info: [id number] - LIPID Order Info: [id number] - TSH Result Comment: The drugs N-Acetylcysteine and Metamizole may falsely depress this assay. Reference Range HDL <40 mg/dL Low HDL Cholesterol HDL >or= 60 mg/dL High HDL Cholesterol Performed By: #### L 501.9520, L100.0100, L500.4050, L502.0250, L500.4100 #### [facility] [address] [place], [place], [address] Cholesterol in LDL [Mass/Vol] 74 mg/dL Normal 0-130 [facility] Comment on above: Order Comment: Order Date: 02/06/24 Order Info: [id number] - CMP Order Info: [id number] - LIPID Order Info: [id number] - TSH Performed By: #### L 501.9520, L100.0100, L500.4050, L502.0250, L500.4100 #### [facility] [address] [place], [place], [address] Cholesterol in VLDL [Mass/Vol] 34 mg/dL Normal 5-40 [facility] Comment on above: Order Comment: Order Date: 02/06/24 Order Info: [id number] - CMP Order Info: [id number] - LIPID Order Info: [id number] - TSH Performed By: #### L 501.9520, L100.0100, L500.4050, L502.0250, L500.4100 #### [facility] [address] [place], [place], [address] Triglyceride [Mass/Vol] 172 mg/dL Normal [facility] Comment on above: Order Comment: Order Date: 02/06/24 Order Info: [id number] - CMP Order Info: [id number] - LIPID Order Info: [id number] - TSH Result Comment: The drugs N-Acetylcysteine and Metamizole may falsely depress this assay. Serum Triglycerides Reference Interval Normal <150 mg/dL Borderline high 150 - 199 mg/dL High 200 - 499 mg/dL Very High > or = 500 mg/dL Performed By: #### L 501.9520, L100.0100, L500.4050, L502.0250, L500.4100 #### [facility] [address] [place], [place], [address] Low density lipoprotein (LDL ) cholesterol measurementOrdered By: Andriy Jones on 04-07-2024 Cholesterol in LDL [Mass/Vol] 74 mg/dL 0-130 [facility] MCV (mean corpuscular volume ) determinationOrdered By: Andriy Jones on 04-07-2024 MCV (RBC) [Entitic vol] 86.0 fL 81-99 [facility] Mean corpuscular hemoglobin (MCH) determinationOrdered By: Andriy Jones on 04-07-2024 MCH (RBC) [Entitic mass] 27.6 pg 27.0-32.0 [facility] Mean corpuscular hemoglobin concentration (MCHC) determinationOrdered By: Andriy Jones on 04-07-2024 MCHC (RBC) [Mass/Vol] 32.1 g/dL 32-36 [facility] Mean platelet volume determi nationOrdered By: Andriy Jones on 04-07-2024 Platelet mean volume (Bld) [Entitic vol] 9.0 fL 6.2-12.0 [facility] Microalb:Creat Ratio,Random URon 04-07-2024 Creatinine [Mass/Vol] 112.00 mg/dL Normal NO RAN GE EST. [facility] Comment on above: Order Comment: Order Date: 02/06/24 Order Info: [id number] - MIACRE Performed By: #### L 501.9520, L100.0100, L500.4050, L502.0250, L500.4100 #### [facility] [address] [place], [place], [address] MALB:CRE 47.9 mg/g CRE High <30 mg/g CRE [facility] Comment on above: Order Comment: Order Date: 02/06/24 Order Info: [id number] - MIACRE Performed By: #### L 501.9520, L100.0100, L500.4050, L502.0250, L500.4100 #### [facility] [address] [place], [place], [address] MICROALBUMIN,UR 53.7 mg/L Normal NO RANGE EST. [facility] Comment on above: Order Comment: Order Date: 02/06/24 Order Info: [id number] - MIACRE Performed By: #### L 501.9520, L100.0100, L500.4050, L502.0250, L500.4100 #### [facility] [address], [address] Monocyte percentageOrdered B y: Andriy Jones on 04-07-2024 Monocytes/100 WBC (Bld) 16.4 % High 0-10 [facility] Neutrophil percentageOrdered By: Andriy Jones on 04-07-2024 Neutrophils/100 WBC (Bld) 41.7 % Low 47-70 [facility] Nucleated red blood cell per centageOrdered By: Andriy Jones on 04-07-2024 Nucleated RBC/100 WBC (Bld) [Ratio] 0 % 0-5 [facility] Platelet countOrdered By: David Jones on 04-07-2024 Platelets (Bld) [#/Vol] 208 10*3/uL 150-450 [facility] Potassium measurementOrdered By: Andriy Jones on 04-07-2024 Potassium [Moles/Vol] 4.0 mmol/L 3.5-5.1 [facility] RBC Auto (Bld) [#/Vol]Ordere d By: Andriy Jones on 04-07-2024 RBC (Bld) [#/Vol] 5.14 10*6/uL 4.2-5.[address] [facility] Serum anion gap measurementO rdered By: Andriy Jones on 04-07-2024 Anion gap [Moles/Vol] 2 mmol/L Low 5-15 [facility] Serum globulin measurementOr dered By: Andriy Jones on 04-07-2024 Globulin (S) [Mass/Vol] 3.3 g/dL 2.2-4.2 [facility] Serum or plasma alanine larose otransferase (ALT) measurementOrdered By: Andriy Jones on 04-07-2024 ALT [Catalytic activity/Vol] 52 U/L 13-56 [facility] Serum or plasma albumin yahaira urement (mass/volume)Ordered By: Andriy Jones on 04-07-2024 Albumin [Mass/Vol] 3.3 g/dL 3.2-5.0 [facility] Serum or plasma alkaline shelbie sphatase measurementOrdered By: Andriy Jones on 04-07-2024 ALP [Catalytic activity/Vol] 83 U/L 45-117 [facility] Serum or plasma calcium yahaira urement (mass/volume)Ordered By: Andriy Jones on 04-07-2024 Calcium [Mass/Vol] 9.2 mg/dL 8.5-10.1 [facility] Serum or plasma cholesterol measurement (mass/volume)Ordered By: Andriy Jones on 04-07-2024 Cholesterol [Mass/Vol] 159 mg/dL <200 [facility] Comment on above: <200 mg/dL Desirable 200-240 mg/dL Borderline >240 mg/dL High Risk Serum or plasma creatinine m easurement (mass/volume)Ordered By: Andriy Jones on 04-07-2024 Creatinine [Mass/Vol] 0.78 mg/dL 0.55-1.02 [facility] Comment on above: The validity of the calculated GFR & GFRAA in patients over 70 years has not been determined. Clinical correlation is essential. Serum or plasma thyroid stim ulating hormone (TSH) measurement (units/volume)Ordered By: Andriy Jones on 04-07-2024 TSH Qn 1.680 uIU/mL 0.358-3.740 [facility] Serum or plasma urea nitroge n measurement (mass/volume)Ordered By: Andriy Jones on 04-07-2024 Urea nitrogen [Mass/Vol] 17 mg/dL 7-18 [facility] Sodium levelOrdered By: Andriy Jones on 04-07-2024 Sodium [Moles/Vol] 140 mmol/L 136-145 [facility] Thyroid Stim Hormone (TSH)on 04-07-2024 TSH 1.680 uIU/mL Normal 0.358-3.740 [facility] Comment on above: Order Comment: Order Date: 02/06/24Order Info: [id number] - CMPOrder Info: [id number] - LIPIDOrder Info: [id number] - TSH Performed By: #### L 501.9520, L100.0100, L500.4050, L502.0250, L500.4100 ####[facility] [id number] [place], [address] Total proteinOrdered By: Krystle Jones on 04-07-2024 Protein [Mass/Vol] 6.6 g/dL 6.4-8.2 [facility] Triglycerides measurementOrd ered By: Andriy Jones on 04-07-2024 Triglyceride [Mass/Vol] 172 mg/dL <199 [facility] Comment on above: The drugs N-Acetylcy steine and Metamizole may falsely depress this assay.Serum Triglycerides Reference Interval Normal <150 mg/dL Borderline high 150 - 199 mg/dL High 200 - 499 mg/dL Very High > or = 500 mg/dL Urine creatinine measurement (mass/volume)Ordered By: Andriy Jones on 04-07-2024 Creatinine (U) [Mass/Vol] 112.00 mg/dL NO RANGE EST. [facility] Very low density lipoprotein (VLDL) cholesterol measurementOrdered By: Andriy Jones on 04-07-2024 Very low density lipoprotein (VLDL) cholesterol measurement 34 mg/dL 5-40 [facility] White blood cell (WBC) count Ordered By: Andriy Jones on 04-07-2024 WBC (Bld) [#/Vol] 4.4 10*3/uL 4.4-11.0 [facility] CNOVSPon 03-31-2024 CNOVSP Visit (SP) Office (HEMAWS) LATOYA KEN ([id number]) 1955 F Date Time Provider Department 03/31/24 1:30 PM IRENE AMBRIZ During your visit today, we recorded the following information about you: Temperature Pulse Blood pressure Weight 97.6 degrees 89/minute 132/82 74 kg Irene Ambriz APRN.CASH POSTING CLERK 03/31/2024 1:56 PM Signed Chief Complaint Patient [...] nuclear grade 2. ER-positive (>95%, strong) and MT (4%, weak). HER-2 quantified at 3+. An [...] invasive carcinoma: invasive ductal carcinoma Histologic Grade: Webster grade: Glandular/tubular differentiation score: 3 Nuclear pleomorphism [...] Additional pathologi (more content not included)... Normal [facility] Urine Cultureon 01-09-2024 [facility] Escherichia coli [place] Count >100,000 Escherichia coli: REACTION Ampicillin Islt [...] TMP SMX Islt MEHNAZ <=20 S Normal [facility] Comment on above: Performed By: #### M 100.2200 #### [facility] [address] [place], [place], [address] Urgent Care Visit Reporton 1 Urgent Care Visit Report [facility] [address], [address] [place], [place] [address] OFFICE VISIT Date of Service: 01/07/24 MR#: [id number] Acct: [id number] Name: LATOYA KEN Rep #: [id number] : 1955 Provider: TAVO Foster Age/Sex: 68/F Location: [facility] Status: Signed Intake Vital Signs 09/20/23 09:01 [...] Reasons: Urinary tract infection Chief Complaint: dysuria Inside Outside Sales Representative Required: No Is patient in pain?: No [...] stool - though urine mildly darker/cloudier. No egyw-vin-aqzvvyy products taken to assist. No other associated [...] Biggs on 01/07/24 08:05 Off Ur Spec [place] 1.025 Last Edit by Kelle Biggs on [...] 08:05 O (more content not included)... Normal [facility] Basophil percentageOrdered B y: Andriy Jones on 07-17-2023 Bilirubin [Mass/Vol] 0.60 mg/dL 0.20-1.00 [facility] Comment on above: For patients on eltr ombopag therapy, use of Dimension [place] TBIL is not recommended. Chloride [Moles/Vol] 105 mmol/L 98-107 [facility] Glucose [Mass/Vol] 97 mg/dL 74-106 [facility] Potassium [Moles/Vol] 4.0 mmol/L 3.5-5.1 [facility] Protein [Mass/Vol] 7.2 g/dL 6.4-8.2 [facility] Sodium [Moles/Vol] 139 mmol/L 136-145 [facility] Laboratory - Chemistry and C hemistry - challengeOrdered By: Andriy Jones on 07-17-2023 Albumin/Globulin [Mass ratio] 1.0 {ratio} 0.9-2.4 [facility] ALP [Catalytic activity/Vol] 99 U/L 45-117 [facility] ALT [Catalytic activity/Vol] 42 U/L 13-56 [facility] CO2 [Moles/Vol] 31.0 mmol/L 21.0-32.0 [facility] Globulin (S) [Mass/Vol] 3.6 g/dL 2.2-4.2 [facility] Urea nitrogen/Creatinine [Mass ratio] 22.1 mg/mg 10-20 [facility] No Panel InformationOrdered By: Andriy Jones on 07-17-2023 Estimated GFR (MDRD) Amer 84 mL/min >60 [facility] Comment on above: GFR Calc Estimated GFR (MDRD) Non-Af Amer 70 mL/min >60 [facility] Comment on above: Non- GFR Calc Urine Microalbumin/Creatinine Ratio 85.5 mg/g CRE <30 [facility] Serum or plasma calcium yahaira urement (mass/volume)Ordered By: Andriy Jones on 07-17-2023 Calcium [Mass/Vol] 9.3 mg/dL 8.5-10.1 [facility] Serum or plasma creatinine m easurement (mass/volume)Ordered By: Andriy Jones on 07-17-2023 Creatinine [Mass/Vol] 0.86 mg/dL 0.55-1.02 [facility] Comment on above: The validity of the calculated GFR & GFRAA in patients over 70 years has not been determined. Clinical correlation is essential. Serum or plasma urea nitroge n measurement (mass/volume)Ordered By: Andriy Jones on 07-17-2023 Urea nitrogen [Mass/Vol] 19 mg/dL 7-18 [facility] Thin prep Papanicolaou smear with manual screeningOrdered By: Andriy Jones on 07-17-2023 Thin prep Papanicolaou smear with manual screening 3.6 g/dL 3.2-5.0 [facility] Thin prep Papanicolaou smear with manual screening 25 U/L 15-37 [facility] Thin prep Papanicolaou smear with manual screening 3 5-15 [facility] Thin prep Papanicolaou smear with manual screening 147.0 mg/L NO RANGE EST. [facility] Urine creatinine measurement (mass/volume)Ordered By: Andriy Jones on 07-17-2023 Creatinine (U) [Mass/Vol] 172.00 mg/dL NO RANGE EST. [facility] Absolute lymphocyte countOrd ered By: Dr. Jones on 07-24-2022 Lymphocytes Auto (Unsp spec) [#/Vol] 1.86 10*3/uL 0.83-4.51 [facility] Basophil percentageOrdered B y: Dr. Jones on 07-24-2022 Basophils/100 WBC (Bld) 0.4 % 0-1 [facility] Bilirubin [Mass/Vol] 0.30 mg/dL 0.20-1.00 [facility] Comment on above: For patients on eltr ombopag therapy, use of Dimension [place] TBIL is not recommended. Chloride [Moles/Vol] 104 mmol/L 98-107 [facility] Eosinophils/100 WBC (Bld) 3.4 % 0-5 [facility] Glucose [Mass/Vol] 148 mg/dL 74-106 [facility] Comment on above: Fasting Glucose resu lt greater than or equal to 126 mg/dL suggests DIABETES MELLITUS per A.D.A. criteria. Neutrophils (Bld) [#/Vol] 5.2 10*3/uL 2.0-7.7 [facility] Neutrophils/100 WBC (Bld) 66.0 % 47-70 [facility] Potassium [Moles/Vol] 4.1 mmol/L 3.5-5.1 [facility] Protein [Mass/Vol] 6.9 g/dL 6.4-8.2 [facility] Sodium [Moles/Vol] 141 mmol/L 136-145 [facility] WBC (Bld) [#/Vol] 7.9 10*3/uL 4.4-11.0 [facility] Blood erythrocytes count (nu mber/volume)Ordered By: Dr. Jones on 07-24-2022 RBC (Bld) [#/Vol] 5.22 10*6/uL 4.2-5.[address] [facility] Blood hemoglobin measurement (mass/volume)Ordered By: Dr. Jones on 07-24-2022 Hemoglobin (Bld) [Mass/Vol] 14.2 g/dL 12.0-15.0 [facility] Blood lymphocytes/100 leukoc ytesOrdered By: Dr. Jones on 07-24-2022 Lymphocytes/100 WBC (Bld) 23.7 % 19-41 [facility] Blood monocytes/100 leukocyt esOrdered By: Dr. Jones on 07-24-2022 Monocytes/100 WBC (Bld) 6.2 % 0-10 [facility] Blood platelet mean volumeOr dered By: Dr. Jones on 07-24-2022 Platelet mean volume (Bld) [Entitic vol] 9.1 fL 6.2-12.0 [facility] Determination of erythrocyte mean corpuscular volume (MCV)Ordered By: Dr. Jones on 07-24-2022 MCV (RBC) [Entitic vol] 85.2 fL 81-99 [facility] Hematocrit Auto (Bld) [Volum e fraction]Ordered By: Dr. Jones on 07-24-2022 Hematocrit (Bld) [Volume fraction] 44.5 % 37-47 [facility] - Chemistry and C hemistry - challengeOrdered By: Dr. Jones on 07-24-2022 ALP [Catalytic activity/Vol] 96 U/L 45-117 [facility] ALT [Catalytic activity/Vol] 50 U/L 13-56 [facility] CO2 [Moles/Vol] 29.0 mmol/L 21.0-32.0 [facility] Globulin (S) [Mass/Vol] 3.1 g/dL 2.2-4.2 [facility] Urea nitrogen/Creatinine [Mass ratio] 26.4 mg/mg 10-20 [facility] - Hematology and Cell countsOrdered By: Dr. Jones on 07-24-2022 Erythrocyte distribution width (RBC) [Entitic vol] 42.2 fL 35.1-43.9 [facility] Erythrocyte distribution width (RBC) [Ratio] 13.8 % 11.6-14.6 [facility] Immature granulocytes/100 WBC (Bld) 0.300 % 0.0-0.9 [facility] Comment on above: IG% - Immature Granu locytes (promyelocytes, myelocytes and metamyelocytes) > 1% indicates that a LEFT SHIFT is Present. MCH (RBC) [Entitic mass] 27.2 pg 27.0-32.0 [facility] Nucleated RBC/100 WBC (Bld) [Ratio] 0 % 0-5 [facility] MCHC Auto (RBC) [Mass/Vol]Or dered By: Dr. Jones on 07-24-2022 MCHC (RBC) [Mass/Vol] 31.9 g/dL 32-36 [facility] No Panel InformationOrdered By: Dr. Jones on 07-24-2022 Estimated GFR (MDRD) Amer 93 mL/min >60 [facility] Comment on above: GFR Calc Estimated GFR (MDRD) Non-Af Amer 77 mL/min >60 [facility] Comment on above: Non- GFR Calc Urine Microalbumin/Creatinine Ratio 68.2 mg/g CRE <30 [facility] Platelets bldOrdered By: Dr. Jones on 07-24-2022 Platelets (Bld) [#/Vol] 239 10*3/uL 150-450 [facility] Serum or plasma C reactive p rotein measurement (mass/volume)Ordered By: Dr. Jones on 07-24-2022 CRP [Mass/Vol] mg/L 0.0-3.0 [facility] Comment on above: C-Reactive Protein ( CRP) provides useful information for thediagnosis, therapy and monitoring of inflammatory processesand associated diseases. For the evaluation of Relative Riskfor Cardiovascular Disease, a High Sensitivity CRP (HSCRP)should be ordered. Serum or plasma albumin yahaira urement (mass/volume)Ordered By: Dr. Jones on 07-24-2022 Albumin [Mass/Vol] 3.8 g/dL 3.2-5.0 [facility] Serum or plasma albumin/glob ulin mass ratioOrdered By: Dr. Jones on 07-24-2022 Albumin/Globulin [Mass ratio] 1.2 {ratio} 0.9-2.4 [facility] Serum or plasma calcium yahaira urement (mass/volume)Ordered By: Dr. Jones on 07-24-2022 Calcium [Mass/Vol] 9.2 mg/dL 8.5-10.1 [facility] Serum or plasma creatinine m easurement (mass/volume)Ordered By: Dr. Jones on 07-24-2022 Creatinine [Mass/Vol] 0.80 mg/dL 0.55-1.02 [facility] Comment on above: The validity of the calculated GFR & GFRAA in patients over 70 years has not been determined. Clinical correlation is essential. Serum or plasma urea nitroge n measurement (mass/volume)Ordered By: Dr. Jones on 07-24-2022 Urea nitrogen [Mass/Vol] 21 mg/dL 7-18 [facility] Thin prep Papanicolaou smear with manual screeningOrdered By: Dr. Jones on 07-24-2022 Thin prep Papanicolaou smear with manual screening 31 U/L 15-37 [facility] Thin prep Papanicolaou smear with manual screening 8 5-15 [facility] Thin prep Papanicolaou smear with manual screening 90.7 mg/L NO RANGE EST. [facility] Urine creatinine measurement (mass/volume)Ordered By: Dr. Jones on 07-24-2022 Creatinine (U) [Mass/Vol] 133.00 mg/dL NO RANGE EST. [facility] Basophil percentageon 2021 Bilirubin [Mass/Vol] 0.30 mg/dL 0.20-1.00 [facility] Work Phone: Comment on above: For patients on eltr ombopag therapy, use of Dimension [place] TBIL is not recommended. Chloride [Moles/Vol] 105 mmol/L 98-107 [facility] Work Phone: Glucose [Mass/Vol] 173 mg/dL 74-106 [facility] Work Phone: Comment on above: Fasting Glucose resu lt greater than or equal to 126 mg/dL suggests DIABETES MELLITUS per A.D.A. criteria. Potassium [Moles/Vol] 3.9 mmol/L 3.5-5.1 [facility] Work Phone: Protein [Mass/Vol] 6.8 g/dL 6.4-8.2 [facility] Work Phone: Sodium [Moles/Vol] 139 mmol/L 136-145 [facility] Work Phone: Laboratory - Chemistry and C hemistry - challengeon 01-25-2022 ALP [Catalytic activity/Vol] 83 U/L 45-117 [facility] Work Phone: ALT [Catalytic activity/Vol] 33 U/L 13-56 [facility] Work Phone: CO2 [Moles/Vol] 29.0 mmol/L 21.0-32.0 [facility] Work Phone: Globulin (S) [Mass/Vol] 3.3 g/dL 2.2-4.2 [facility] Work Phone: Urea nitrogen/Creatinine [Mass ratio] 24.8 mg/mg 10-20 [facility] Work Phone: No Panel Informationon 01-25 Estimated GFR (MDRD) Amer 78 mL/min >60 [facility] Work Phone: Comment on above: GFR Calc Estimated GFR (MDRD) Non-Af Amer 64 mL/min >60 [facility] Work Phone: Comment on above: Non- GFR Calc Thyroid Stimulating Hormone (TSH) 0.83 uIU/mL 0.358-3.74 [facility] Work Phone: Urine Microalbumin/Creatinine Ratio 89.6 mg/g CRE <30 [facility] Work Phone: Serum or plasma albumin yahaira urement (mass/volume)on 01-25-2022 Albumin [Mass/Vol] 3.5 g/dL 3.2-5.0 [facility] Work Phone: Serum or plasma albumin/glob ulin mass ratioon 01-25-2022 Albumin/Globulin [Mass ratio] 1.1 {ratio} 0.9-2.4 [facility] Work Phone: Serum or plasma calcium yahaira urement (mass/volume)on 01-25-2022 Calcium [Mass/Vol] 8.9 mg/dL 8.5-10.1 [facility] Work Phone: Serum or plasma creatinine m easurement (mass/volume)on 01-25-2022 Creatinine [Mass/Vol] 0.93 mg/dL 0.55-1.02 [facility] Work Phone: Comment on above: The validity of the calculated GFR & GFRAA in patients over 70 years has not been determined. Clinical correlation is essential. Serum or plasma urea nitroge n measurement (mass/volume)on 01-25-2022 Urea nitrogen [Mass/Vol] 23 mg/dL 7-18 [facility] Work Phone: Thin prep Papanicolaou smear with manual screeningon 01-25-2022 Thin prep Papanicolaou smear with manual screening 18 U/L 15-37 [facility] Work Phone: Thin prep Papanicolaou smear with manual screening 5 5-15 [facility] Work Phone: Thin prep Papanicolaou smear with manual screening 95.9 mg/L NO RANGE EST. [facility] Work Phone: Urine creatinine measurement (mass/volume)on 01-25-2022 Creatinine (U) [Mass/Vol] 107.00 mg/dL NO RANGE EST. [facility] Work Phone: Absolute lymphocyte counton 07-19-2021 Lymphocytes Auto (Unsp spec) [#/Vol] 1.81 10*3/uL 0.83-4.51 [facility] Work Phone: Basophil percentageon 2021 Basophils/100 WBC (Bld) 0.5 % 0-1 [facility] Work Phone: Bilirubin [Mass/Vol] 0.40 mg/dL 0.20-1.00 [facility] Work Phone: Comment on above: For patients on eltr ombopag therapy, use of Dimension [place] TBIL is not recommended. Chloride [Moles/Vol] 105 mmol/L 98-107 [facility] Work Phone: Cholesterol [Mass/Vol] 160 mg/dL <200 [facility] Work Phone: [phone] Comment on above: <200 mg/dL Desirable 200-240 mg/dL Borderline >240 mg/dL High Risk Eosinophils/100 WBC (Bld) 3.3 % 0-5 [facility] Work Phone: [phone] Glucose [Mass/Vol] 80 mg/dL 74-106 [facility] Work Phone: [phone] Neutrophils (Bld) [#/Vol] 3.8 10*3/uL 2.0-7.7 [facility] Work Phone: [phone] Neutrophils/100 WBC (Bld) 59.6 % 47-70 [facility] Work Phone: [phone] Potassium [Moles/Vol] 3.9 mmol/L 3.5-5.1 [facility]: [phone] Protein [Mass/Vol] 7.3 g/dL 6.4-8.2 [facility] Work [facility]: [phone] Sodium [Moles/Vol] 141 mmol/L 136-145 [facility] Work Phone: [phone] Triglyceride [Mass/Vol] 186 mg/dL [facility] Work Phone: [phone] Comment on above: The drugs N-Acetylcy steine and Metamizole may falsely depress this assay.Serum Triglycerides Reference Interval Normal <150 mg/dL Borderline high 150 - 199 mg/dL High 200 - 499 mg/dL Very High > or = 500 mg/dL WBC (Bld) [#/Vol] 6.3 10*3/uL 4.4-11.0 [facility] Work Phone: [phone] Blood erythrocytes count (nu mber/volume)on 07-19-2021 RBC (Bld) [#/Vol] 5.20 10*6/uL 4.2-5.[address] [facility] Work Phone: Blood hemoglobin measurement (mass/volume)on 07-19-2021 Hemoglobin (Bld) [Mass/Vol] 14.6 g/dL 12.0-15.0 [facility] Work Phone: Blood lymphocytes/100 leukoc yteson 07-19-2021 Lymphocytes/100 WBC (Bld) 28.7 % 19-41 [facility] Work Phone: Blood monocytes/100 leukocyt eson 07-19-2021 Monocytes/100 WBC (Bld) 7.6 % 0-10 [facility] Work Phone: Blood platelet mean volumeon 07-19-2021 Platelet mean volume (Bld) [Entitic vol] 8.9 fL 6.2-12.0 [facility] Work Phone: Determination of erythrocyte mean corpuscular volume (MCV)on 07-19-2021 MCV (RBC) [Entitic vol] 87.3 fL 81-99 [facility] Work Phone: Hematocrit Auto (Bld) [Volum e fraction]on 07-19-2021 Hematocrit (Bld) [Volume fraction] 45.4 % 37-47 [facility] Work Phone: Laboratory - Chemistry and C hemistry - challengeon 07-19-2021 ALP [Catalytic activity/Vol] 80 U/L 45-117 [facility] Work Phone: ALT [Catalytic activity/Vol] 35 U/L 13-56 [facility] Work Phone: CO2 [Moles/Vol] 33.0 mmol/L 21.0-32.0 [facility] Work Phone: Globulin (S) [Mass/Vol] 3.6 g/dL 2.2-4.2 [facility] Work Phone: Urea nitrogen/Creatinine [Mass ratio] 20.7 mg/mg 10-20 [facility] Work Phone: Laboratory - Hematology and Cell countson 07-19-2021 Erythrocyte distribution width (RBC) [Entitic vol] 42.2 fL 35.1-43.9 [facility] Work Phone: Erythrocyte distribution width (RBC) [Ratio] 13.2 % 11.6-14.6 [facility] Work Phone: Immature granulocytes/100 WBC (Bld) 0.300 % 0.0-0.9 [facility] Work Phone: Comment on above: IG% - Immature Granu locytes (promyelocytes, myelocytes and metamyelocytes) > 1% indicates that a LEFT SHIFT is Present. MCH (RBC) [Entitic mass] 28.1 pg 27.0-32.0 [facility] Work Phone: Nucleated RBC/100 WBC (Bld) [Ratio] 0 % 0-5 [facility] Work Phone: MCHC Auto (RBC) [Mass/Vol]on 07-19-2021 MCHC (RBC) [Mass/Vol] 32.2 g/dL 32-36 [facility] Work Phone: No Panel Informationon 07-19 Estimated GFR (MDRD) Amer 84 mL/min >60 [facility] Work Phone: Comment on above: GFR Calc Estimated GFR (MDRD) Non-Af Amer 69 mL/min >60 [facility] Work Phone: Comment on above: Non- GFR Calc Platelets bldon 07-19-2021 Platelets (Bld) [#/Vol] 255 10*3/uL 150-450 [facility] Work Phone: Serum or plasma albumin yahaira urement (mass/volume)on 07-19-2021 Albumin [Mass/Vol] 3.7 g/dL 3.2-5.0 [facility] Work Phone: Serum or plasma albumin/glob ulin mass ratioon 07-19-2021 Albumin/Globulin [Mass ratio] 1.0 {ratio} 0.9-2.4 [facility] Work Phone: Serum or plasma calcium yahaira urement (mass/volume)on 07-19-2021 Calcium [Mass/Vol] 9.4 mg/dL 8.5-10.1 [facility] Work Phone: Serum or plasma cholesterol in HDL measurement (mass/volume)on 07-19-2021 Cholesterol in HDL [Mass/Vol] 39 mg/dL [facility] Work Phone: Comment on above: The drugs N-Acetylcy steine and Metamizole may falsely depress this assay. Reference Range HDL <40 mg/dL Low HDL Cholesterol HDL >or= 60 mg/dL High HDL Cholesterol Serum or plasma cholesterol in VLDL measurement (mass/volume)on 07-19-2021 Cholesterol in VLDL [Mass/Vol] 37 mg/dL 5-40 [facility] Work Phone: Serum or plasma creatinine m easurement (mass/volume)on 07-19-2021 Creatinine [Mass/Vol] 0.87 mg/dL 0.55-1.02 [facility] Work Phone: Comment on above: The validity of the calculated GFR & GFRAA in patients over 70 years has not been determined. Clinical correlation is essential. Serum or plasma low density lipoprotein (LDL) cholesterol measurement (mass/volume)on 07-19-2021 Cholesterol in LDL [Mass/Vol] 84 mg/dL 0-130 [facility] Work Phone: Serum or plasma urea nitroge n measurement (mass/volume)on 07-19-2021 Urea nitrogen [Mass/Vol] 18 mg/dL 7-18 [facility] Work Phone: Thin prep Papanicolaou smear with manual screeningon 07-19-2021 Thin prep Papanicolaou smear with manual screening 23 U/L 15-37 [facility] Work Phone: Thin prep Papanicolaou smear with manual screening 3 5-15 [facility] Work Phone: Microbiology: Culture, Urine on 02-16-2017 CUUR . Invalid Interpretation Code [facility] Office Visiton 02-12-2017 Bilirubin Ql (U) Negative Invalid Interpretation Code [facility] blood in urine (hemoglobin) by dipstick non-hemolyzed moderate Invalid Interpretation Code [facility] Documentation of current medications (procedure) Done Invalid Interpretation Code [facility] specific gravity, urine 1.010 Invalid Interpretation Code [facility] Tobacco smoking status NHIS Tobacco smoking status NHIS Invalid Interpretation Code [facility] Tobacco smoking status NHIS Never Invalid Interpretation Code [facility] Tobacco use CPHS Never smoker Invalid Interpretation Code [facility] Urine, appearance clear Invalid Interpretation Code [facility] Urine, color yellow Invalid Interpretation Code [facility] Urine, glucose presence Negative Invalid Interpretation Code [facility] Urine, ketones presence Negative Invalid Interpretation Code [facility] Urine, leukocyte esterase presence 1+ Invalid Interpretation Code [facility] Urine, nitrite presence Negative Invalid Interpretation Code [facility] Urine, pH 6.0 [pH] Invalid Interpretation Code [facility] Urine, protein Negative Invalid Interpretation Code [facility] Urine, urobilinogen presence Negative Invalid Interpretation Code [facility] Microbiology: Culture, Urine on 01-30-2017 CUUR Trimethoprim/Sulfame th o $ <=20 S Invalid Interpretation Code [facility] Microbiology: (P) Culture, U rineon 01-29-2017 CUUR . Invalid Interpretation Code [facility] Office Visit: , HTNon 2016 Documentation of current medications (procedure) Done Invalid Interpretation Code [facility] Work Phone: Protein mass conc Done Invalid Interpretation Code [facility] Work Phone: Tobacco smoking status NHIS Never Invalid Interpretation Code [facility] Work Phone: Tobacco smoking status NHIS Never smoker Invalid Interpretation Code [facility] Work Phone: Tobacco use [facility] Never smoker Invalid Interpretation Code [facility] Work Phone: Vital Signs Date Time Vital Sign Value Performing Clinician Facility 09-29-2024 14:00-0400 Body mass index (BMI) [Ratio] 26.29 kg/m2 Okeana Ambriz GENERATOR REBUILDER.CASH POSTING CLERK Work Phone: [facility] 09-29-2024 14:00-0400 Body temperature 98.49 [degF] Irene Ambriz GENERATOR REBUILDER.CASH POSTING CLERK Work Phone: [facility] 09-29-2024 14:00-0400 Body weight 75 kg Irene Ambriz GENERATOR REBUILDER.CASH POSTING CLERK Work Phone: [facility] 09-29-2024 14:00-0400 Diastolic blood pressure 68 mm[Hg] Irene Ambriz GENERATOR REBUILDER.CASH POSTING CLERK Work Phone: [facility] 09-29-2024 14:00-0400 Heart rate 87 /min Irene Ambriz GENERATOR REBUILDER.CASH POSTING CLERK Work Phone: [facility] 09-29-2024 14:00-0400 Systolic blood pressure 139 mm[Hg] Irene Ambriz GENERATOR REBUILDER.CASH POSTING CLERK Work Phone: [facility] 08-15-2024 08:38-0400 Body temperature 98.1 [degF] Dr. Andriy Jones MD Work Phone: [facility] 08-15-2024 08:38-0400 Diastolic blood pressure 72 mm[Hg] Dr. Andriy Jones MD Work Phone: [facility] 08-15-2024 08:38-0400 Heart rate 82 /min Dr. Andriy Jones MD Work Phone: [facility] 08-15-2024 08:38-0400 Respiratory rate 15 /min Dr. Andriy Jones MD Work Phone: [facility] 08-15-2024 08:38-0400 SaO2% (BldA) [Mass fraction] 97 % Dr. Andriy Jones MD Work Phone: [facility] 08-15-2024 08:38-0400 Systolic blood pressure 118 mm[Hg] Dr. Andriy Jones MD Work Phone: [facility] 07-28-2024 14:25-0400 Body height 167.[address] Andriy Jones MD Work Phone: [facility] 07-28-2024 14:20-0400 Body mass index (BMI) [Ratio] 26.8 kg/m2 Dr. Andriy Jones MD Work Phone: [facility] 07-28-2024 14:20-0400 Body weight 75.[address] Andriy Jones MD Work Phone: [facility] 07-28-2024 14:20-0400 Diastolic blood pressure 78 mm[Hg] Dr. Andriy Jones MD Work Phone: [facility] 07-28-2024 14:20-0400 Systolic blood pressure 128 mm[Hg] Dr. Andriy Jones MD Work Phone: [facility] 03-31-2024 13:31-0500 Body mass index (BMI) [Ratio] 25.94 kg/m2 Irene Ambriz GENERATOR REBUILDER.CASH POSTING CLERK Work Phone: [facility] 03-31-2024 13:31-0500 Body temperature 97.59 [degF] Irene Ambriz GENERATOR REBUILDER.CASH POSTING CLERK Work Phone: [facility] 03-31-2024 13:31-0500 Body weight 74 kg Irene Ambriz GENERATOR REBUILDER.CASH POSTING CLERK Work Phone: [facility] 03-31-2024 13:31-0500 Diastolic blood pressure 82 mm[Hg] Irene Ambriz GENERATOR REBUILDER.CASH POSTING CLERK Work Phone: [facility] 03-31-2024 13:31-0500 Heart rate 89 /min Irene Ambriz GENERATOR REBUILDER.CASH POSTING CLERK Work Phone: [facility] 03-31-2024 13:31-0500 SaO2% (BldA) [Mass fraction] 97 % Irene Ambriz GENERATOR REBUILDER.CASH POSTING CLERK Work Phone: [facility] 03-31-2024 13:31-0500 Systolic blood pressure 132 mm[Hg] Irene Ambriz GENERATOR REBUILDER.CASH POSTING CLERK Work Phone: [facility] 10-01-2023 13:26-0400 Body mass index (BMI) [Ratio] 26.5 kg/m2 Irene Ambriz GENERATOR REBUILDER.CASH POSTING CLERK Work Phone: [facility] 10-01-2023 13:26-0400 Body temperature 97.2 [degF] Irene Ambriz GENERATOR REBUILDER.CASH POSTING CLERK Work Phone: [facility] 10-01-2023 13:26-0400 Body weight 75.61 kg Irene Ambriz GENERATOR REBUILDER.CASH POSTING CLERK Work Phone: [facility] 10-01-2023 13:26-0400 Diastolic blood pressure 84 mm[Hg] Okeana Ambriz GENERATOR REBUILDER.CASH POSTING CLERK Work Phone: [facility] 10-01-2023 13:26-0400 Heart rate 82 /min Okeana Ambriz GENERATOR REBUILDER.CASH POSTING CLERK Work Phone: [facility] 10-01-2023 13:26-0400 SaO2% (BldA) [Mass fraction] 95 % Irene Ambriz GENERATOR REBUILDER.CASH POSTING CLERK Work Phone: [facility] 10-01-2023 13:26-0400 Systolic blood pressure 137 mm[Hg] Okeana Ambriz GENERATOR REBUILDER.CASH POSTING CLERK Work Phone: [facility] 09-25-2022 13:29-0400 Body height 168.9 cm Okeana Ambriz GENERATOR REBUILDER.CASH POSTING CLERK Work Phone: [facility] 09-25-2022 13:29-0400 Body temperature 97.11 [degF] Okeana Ambriz GENERATOR REBUILDER.CASH POSTING CLERK Work Phone: [facility] 09-25-2022 13:29-0400 Body weight 75.07 kg Irene Ambriz GENERATOR REBUILDER.CASH POSTING CLERK Work Phone: [facility] 09-25-2022 13:29-0400 Diastolic blood pressure 75 mm[Hg] Irene Ambriz GENERATOR REBUILDER.CASH POSTING CLERK Work Phone: [facility] 09-25-2022 13:29-0400 Heart rate 80 /min Okeana Ambriz GENERATOR REBUILDER.CASH POSTING CLERK Work Phone: [facility] 09-25-2022 13:29-0400 SaO2% (BldA) [Mass fraction] 95 % Okeana Ambriz GENERATOR REBUILDER.CASH POSTING CLERK Work Phone: [facility] 09-25-2022 13:29-0400 Systolic blood pressure 120 mm[Hg] Irene Ambriz GENERATOR REBUILDER.CASH POSTING CLERK Work Phone: [facility] 09-21-2021 13:51-0400 Body temperature 97.81 [degF] Irene Ambriz GENERATOR REBUILDER.CASH POSTING CLERK Work Phone: [facility] 09-21-2021 13:51-0400 Body weight 74.84 kg Irene Ambriz GENERATOR REBUILDER.CASH POSTING CLERK Work Phone: [facility] 09-21-2021 13:51-0400 Diastolic blood pressure 75 mm[Hg] Okeana Ambriz GENERATOR REBUILDER.CASH POSTING CLERK Work Phone: [facility] 09-21-2021 13:51-0400 Heart rate 79 /min Okeana Ambriz GENERATOR REBUILDER.CASH POSTING CLERK Work Phone: [facility] 09-21-2021 13:51-0400 Systolic blood pressure 130 mm[Hg] Okeana Ambriz GENERATOR REBUILDER.CASH POSTING CLERK Work Phone: [facility] 02-12-2017 14:22-0500 BMI (Body Mass Index) 25.43 kg/m2 Mine Rodriguez NP [facility] 02-12-2017 14:22-0500 BP Diastolic 77 mm[Hg] Mine Rodriguez [facility] 02-12-2017 14:22-0500 BP Systolic 127 mm[Hg] Mine Rodriguez [facility] 02-12-2017 14:22-0500 Height 167.64 cm Mine Rodriguez NP [facility] 02-12-2017 14:22-0500 Weight 71.49 kg Mine Rodriguez [facility] 01-04-2017 12:50-0400 Body Temperature 98.9 [degF] Lida Mireles LPN [facility] Work Phone: 08-02-2016 09:30-0400 BMI (Body Mass Index) 27.29 kg/m2 Roslyn Xie LPN [facility] Work Phone: 08-02-2016 09:30-0400 Body Temperature 98.7 [degF] Roslyn Xie LPN [facility] Work Phone: 08-02-2016 09:30-0400 BP Diastolic 94 mm[Hg] Roslyn Xie LPN [facility] Work Phone: 08-02-2016 09:30-0400 BP Systolic 148 mm[Hg] Roslyn Xie LPN [facility] Work Phone: 08-02-2016 09:30-0400 Height 165.1 cm Roslyn Xie LPN [facility] Work Phone: 08-02-2016 09:30-0400 Pulse (Heart Rate) 83 /min Roslyn Xie LPN [facility] Work Phone: 08-02-2016 09:30-0400 Pulse Oximetry 97 % Roslyn Xie LPN [facility] Work Phone: 08-02-2016 09:30-0400 Respiratory Rate 16 /min Roslyn Xie LPN [facility] Work Phone: 08-02-2016 09:30-0400 Weight 74.39 kg Roslyn Xie LPN [facility] Work Phone: Encounters Encounter Date Encounter Type Care Provider Facility Start: 12-02-2024 [facility] Facility:[facility] Start: 11-18-[address] [facility] Facility:[facility] Start: 09-29-2024 End: 09-29-2024 Follow-up encounter Irene Ambriz APRN.CNP Work Phone: Hematology/Oncology Comment on above: Encounter for follow -up surveillance of breast cancer (Primary Dx); Malignant neoplasm of upper-outer quadrant of left breast in female, estrogen receptor positive (HCC) Start: 09-29-2024 End: 09-29-2024 Patient encounter procedure Irene Ambriz APRN.CNP Work Phone: Hematology/Oncology Start: 09-29-2024 End: 09-29-2024 ambulatory ANDRIY JONES Facility:[facility] Start: 09-16-2024 End: 09-16-[address] Andriy Jones MD Work Phone: -[facility] [place] Start: 09-16-2024 End: 09-16-[address] Andriy Jones MD -[facility] [place] Work Phone: Start: 09-16-2024 End: 09-16-2024 ambulatory Andriy Jones Facility:[facility] Start: 08-17-2024 End: 08-17-[address] Andriy Jones MD Work Phone: [facility] Work Phone: Start: 08-17-2024 End: 08-17-2024 Patient encounter procedure Marnie Reed SOX ANALYST-C -[facility] Work Phone: Start: 08-17-2024 End: 08-17-2024 ambulatory Marnie Reed Facility:[facility] Start: 08-15-2024 End: 08-15-2024 Patient encounter procedure Marnie Reed SOX ANALYST-C -[facility] Work Phone: Start: 08-15-2024 End: 08-15-[address] Andriy Jones MD Work Phone: [facility] Work Phone: Start: 07-28-2024 End: 07-28-[address] Andriy Jones MD Work Phone: [facility] Work Phone: Start: 07-28-2024 End: 07-28-2024 Patient encounter procedure Mine Rodriguez SOX ANALYST-C -[facility] Work Phone: Start: 07-28-2024 End: 07-28-2024 Patient encounter procedure Mine Jennifer SOX ANALYST-C -[facility] Work Phone: Start: 07-28-2024 End: 07-28-2024 Patient encounter status Mine Jennifer SOX ANALYST-C [facility] Start: 07-28-2024 End: 07-28-[address] Andriy Jones MD Work Phone: [facility] Work Phone: Start: 07-28-2024 End: 07-28-2024 ambulatory Andriy Jones Facility:[facility] Start: 04-07-2024 End: 04-07-[address] Andriy Jones MD -Laboratory, [place] Work Phone: Start: 04-07-2024 End: 04-07-2024 ambulatory Andriy Jones Facility:[facility] Start: 03-31-2024 End: 03-31-2024 ambulatory ANDRIY JONES Facility:[facility] Start: 03-31-2024 End: 03-31-2024 Follow-up encounter Irene Ambriz APRN.CASH POSTING CLERK Work Phone: Hematology/Oncology Comment on above: Encounter for follow -up surveillance of breast cancer (Primary Dx) Start: 03-31-2024 End: 03-31-2024 Patient encounter procedure Irene Ambriz APRN.CASH POSTING CLERK Work Phone: Hematology/Oncology Start: 01-07-2024 End: 01-07-2024 ambulatory Andriy Jones Facility:[facility] Start: 01-07-2024 End: 01-07-2024 ambulatory Carlos Eduardo VO Facility:[facility] Start: 10-01-2023 End: 10-01-2023 ambulatory Irene Ambriz APRN.CASH POSTING CLERK Work Phone: Hematology/Oncology Comment on above: Malignant neoplasm o f upper-outer quadrant of left breast in female, estrogen receptor positive (HCC) (Primary Dx) Start: 10-01-2023 End: 10-01-2023 Patient encounter procedure Irene Ambriz APRN.CASH POSTING CLERK Work Phone: Hematology/Oncology Start: 07-17-2023 End: 07-17-2023 ambulatory [facility] Work Phone: Start: 07-17-2023 End: 07-17-2023 Patient encounter procedure [facility] [place] Work Phone: Start: 03-04-2023 End: 03-04-2023 ambulatory [facility] Work Phone: Start: 03-04-2023 End: 03-04-2023 Discharged Recurring [facility] Work Phone: Start: 09-25-2022 End: 09-25-2022 ambulatory Irene Ambriz GENERATOR REBUILDER.CASH POSTING CLERK Work Phone: Hematology/Oncology Comment on above: Malignant neoplasm o f upper-outer quadrant of left breast in female, estrogen receptor positive (HCC) (Primary Dx) Start: 09-25-2022 End: 09-25-2022 Patient encounter procedure Irene Ambriz GENERATOR REBUILDER.CASH POSTING CLERK Work Phone: [facility] Start: 07-24-2022 End: 07-24-2022 ambulatory [facility] Work Phone: Start: 07-24-2022 End: 07-24-2022 Patient encounter procedure [facility] Start: 04-14-2022 Telephone encounter Irene hunter GENERATOR REBUILDER.CASH POSTING CLERK Work Phone: Hematology/Oncology Comment on above: Future Appointment Start: 03-20-2022 Orders Only Lazaro Becerra Work Phone: Hematology/Oncology Start: 03-13-2022 Telephone encounter Irene hunter GENERATOR REBUILDER.CASH POSTING CLERK Work Phone: Hematology/Oncology Comment on above: Patient Question Start: 01-25-2022 End: 01-25-2022 ambulatory MD Andriy Jones [facility] Work Phone: Start: 01-25-2022 End: 01-25-2022 Patient encounter procedure MD Andriy Jones [facility] Start: 11-06-2021 ambulatory Irene Bailey r GENERATOR REBUILDER.CASH POSTING CLERK Work Phone: Hematology/Oncology Comment on above: Bone Density Start: 10-10-2021 Non-patient / Non-visit MD Andriy mascorro [facility] Start: 10-10-2021 Registered Referred MD Andriy Jones [facility] Start: 09-21-2021 End: 09-21-2021 ambulatory Irene Ambriz APRN.CASH POSTING CLERK Work Phone: Hematology/Oncology Comment on above: Malignant neoplasm o f upper-outer quadrant of left breast in female, estrogen receptor positive (HCC) (Primary Dx); 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 Andriy Jones MD Work Phone: Start: 09-16-2024 Urine microalbumin/creatinine ratio measurement Dr. Andriy Jones MD Work Phone: Start: 08-17-[address] Andriy Jones [...] Adult depression scr eening assessment Irene Ambriz APRN.CASH POSTING CLERK Work Phone: Start: 02-12-2017 End: 02-12-2017 Urnls dip stick/tablet rgnt non-auto w/o micrscp Mine Rodriguez SOX ANALYST Work Phone: Start: 01-07-2017 End: 01-07-2017 Cciiv4 vaccine preservative free 0.5 ml im use Eddi VO Work Phone: Start: 01-07-2017 Influenza vaccination Flu vaccine C padmini VO Start: 10-27-2015 Lipid 1996 panel - S david or Plasma Irene Ambriz GENERATOR REBUILDER.CASH POSTING CLERK Work Phone: Start: 11-16-2014 Colonoscopy Irene hunter GENERATOR REBUILDER.OTTO Work Phone: Plan of Treatment Date Care Activity Detail Author Start: 03-20-2033 Urine microalbumin profile DTaP,Tdap,Td Vaccine (2 - Td or Tdap) [facility] Start: 03-31-2025 End: 03-31-2025 ambulatory 03/31/2025 10:30 AM EST Visit (SP) Office Hematology/Oncology [address] [place], [place] [id number] Irene Ambriz APRN.CASH POSTING CLERK [address] [place] [id number] 6 MTH OV* Hematology/Oncology Comment on above: 6 MTH OV* Start: 12-10-2024 End: 12-10-2024 Patient encounter procedure 12/10/2024 3:00 PM EDT Office Visit Urogynecology [address] [place] [address] Tanya Swift MD [address] [place], [place] [id number] recurrent UTI Urogynecology Comment on above: recurrent UTI Start: 11-16-2024 Colonoscopy COLONOSCOPY [facility] Start: 11-16-2024 COLORECTAL CANCER SCREENING COLORECTAL CANCER SCREENING [facility] Start: 11-16-2024 Influenza vaccination Influenza Vacc ine (#1) [facility] Start: 11-16-2024 Screening for malign ant neoplasm of colon [facility] Start: 09-29-2024 End: 09-29-2024 ambulatory 09/29/2024 2:00 PM EDT Visit (SP) Office Hematology/Oncology [address] [place], [place] [id number] Irene Ambriz, VLADIMIR.CASH POSTING CLERK [address] [place] [id number] 6m f/up Hematology/Oncology Comment on above: 6m f/up Start: 07-07-2024 Covid-19 Vaccine ( season) Covid-19 Vaccine ( season) [facility] Start: 03-31-2024 End: 03-31-2024 ambulatory 03/31/2024 1:30 PM EST Visit (SP) Office Hematology/Oncology [address] [place] [id number] Irene Ambriz APRN.CASH POSTING CLERK [address] [place] [id number] 6 MTH OV* Hematology/Oncology Comment on above: 6 MTH OV* Start: 03-18-2024 Advance Directive Discussion Advance Directive Discussion [facility] Start: 11-17-2023 Influenza vaccination Influenza Vacc ine (#1) [facility] Start: 06-17-2023 Covid-19 Vaccine ( season) Covid-19 Vaccine ( season) [facility] Start: 03-18-2023 Advance Directive Discussion Advance Directive Discussion [facility] Start: 03-18-2023 Behavioral Health Screening Behavioral Health Screening [facility] Start: 11-16-2022 Influenza vaccination INFLUENZA (#1) [facility] Start: 09-03-2022 Adult depression screening assessment DEPRESSION SCREENING [facility] Start: 03-18-2022 ADVANCE DIRECTIVE DISCUSSION ADVANCE DIRECTIVE DISCUSSION [facility] Start: 03-18-2022 DEPRESSION ASSESSMENT DEPRESSION ASS ESSMENT [facility] Start: 11-16-2021 Influenza vaccination INFLUENZA (#1) [facility] Start: 05-13-2021 COVID-19 VACCINE (4 - Booster for Pfizer series) COVID-19 VACCINE (4 - Booster for Pfizer series) [facility] Start: 05-05-2021 COVID-19 VACCINE (4 - Booster for Pfizer series) COVID-19 VACCINE (4 - Booster for Pfizer series) [facility] Start: 04-07-2021 COVID-19 VACCINE (4 - Booster for Pfizer series) COVID-19 VACCINE (4 - Booster for Pfizer series) [facility] Start: 04-07-2021 COVID-19 VACCINE (4 - Pfizer series) COVID-19 VACCINE (4 - Pfizer series) [facility] Start: 03-18-2021 ADVANCE DIRECTIVE DISCUSSION ADVANCE DIRECTIVE DISCUSSION [facility] Start: 03-18-2021 DEPRESSION ASSESSMENT DEPRESSION ASS ESSMENT [facility] Start: 10-26-2020 Lipid panel Lipid Screening [facility] Start: 10-26-2020 LIPID SCREEN LIPID SCREEN [facility] Start: 12-29-2019 PNEUMOCOCCAL: 65+ (1 - PCV) PNEUMOCOCCAL: 65+ (1 - PCV) [facility] Start: 07-03-2019 DIABETES SCREEN DIABETES SCREEN [facility] Start: 07-03-2019 Diabetes Screening Diabetes Screenin g [facility] Start: 02-21-2017 End: 02-21-2017 Appointment Appointment [facility] Start: 02-12-2017 End: 02-12-2017 Appointment Appointment [facility] Start: 02-12-2017 End: 02-12-2017 *CUUID - Urine AV Culture - Identificatn *CUUID - Urine AV Culture - Identificatn [facility] Start: 01-28-2017 End: 01-28-2017 *CUUID - Urine AV Culture - Identificatn *CUUID - Urine AV Culture - Identificatn [facility] Start: 01-04-2017 End: 01-04-2017 Appointment Appointment [facility] Work Phone: Start: 08-02-2016 End: 08-02-2016 Appointment Appointment [facility] Work Phone: Start: 2004 SHINGRIX VACCINE (1 of 2) SHINGRIX VACCINE (1 of 2) [facility] Start: 12-29-1999 COLOGUARD (FIT-DNA) COLOGUARD (FIT-D NA) [facility] Start: 12-29-[address] COLONOGRAPHY [facility] Start: 12-29-1999 FECAL OCCULT BLOOD FECAL OCCULT BLOO D [facility] Start: 12-29-1999 Screening for malign ant neoplasm of colon [facility] Start: 12-29-1999 SIGMOIDOSCOPY SIGMOIDOSCOPY [facility] Start: 1973 SHINGRIX VACCINE (1 of 2) SHINGRIX VACCINE (1 of 2) [facility] Start: 1973 Urine microalbumin profile DTAP,TDAP,TD (1 - Tdap) [facility] Start: 1972 Anxiety Screening Anxiety Screening [facility] Start: 1972 Depression Screening Depression Scre erasmo [facility] Start: 1972 HEPATITIS C SCREENING HEPATITIS C [facility] Start: 1972 Hepatitis C screening Hepatitis C [facility] Start: 1960 PNEUMOCOCCAL: 65+ (1 - PCV) PNEUMOCOCCAL: 65+ (1 - PCV) [facility] End: 10-21-2022 Dxa bone density study 1/ sites axial skel DXA-AXIAL [place] Radiology Routine [facility]opause shelter (current) use of aromatase inhibitors 1 Occurrences starting 09/21/2021 until 10/21/2022 [facility] Work Phone: Comment on above: 1 Occurrences starti ng 09/21/2021 until 10/21/2022 Patient Education CHRONIC%20HYPERTENSION [facility] Work Phone: [facility] Immunizations Immunization Date Immunization Notes Care Provider Aracely hammond 12-10-2023 influenza virus vaccine, unspecified formulation Irene Ambriz APRN.CNP Work Phone: [facility] 12-14-2022 influenza virus vaccine, unspecified formulation Irene Ambriz GENERATOR REBUILDER.CASH POSTING CLERK Work Phone: [facility] 12-25-2018 Flucelvax Quad [id number] (PF) (flu vac qs 2019(4 yr up)CD(PF)) 60 mcg (15 mcg x [facility] Work Phone: 01-04-2017 influenza, injectabl e, quadrivalent, preservative free Irene Ambriz GENERATOR REBUILDERLEONEL Work Phone: [facility] 01-13-2016 Influenza virus vaccine [facility] Payers Date Payer Category Payer Self-pay [id number] 2019 Medicare MEDICARE MEDICAR E A AND B [id number] 2019-Present [phone] [place] [address] Medicare [id number] 2019 Medicare [id number] 2019 Private Health Insurance MMO MED ICARE SUPPLEMENT [id number] 2019 Unknown MMO MMO MEDICARE SUPPLEMENT [id number] 2019-Present [phone] [address] [place] [address] Indemnity [id number] 2019 Unknown MMO MMO MEDICARE SUPPLEMENT [id number] 2019-Present [phone] [address] [place] [address] Indemnity [id number] 2019 Medicare [id number] 2015 Unknown [id number] Unknown [id number] Unknown [id number] 462 Unknown [id number] 462 Unknown [id number] 462 Unknown [id number] 462 Unknown [id number] 462 Unknown [id number] 462 Unknown [id number] 462 Unknown [id number] 462 Unknown [id number] 462 Unknown [id number] 462 Social History Date Type Detail Facility Start: 12-25-2018 End: 12-25-2018 Tobacco smoking status [facility] Unknown if ever smoked [facility] Start: 1955 Sex Assigned At Female [facility] Start: 01-24-2011 End: 09-20-2023 Tobacco smoking status CAIS Never smoked tobacco [facility] Start: 09-21-2021 End: 09-29-2024 Alcohol intake Current non-drinker of alcohol (finding) [facility] Start: 1955 Sex Assigned At Not on file [facility] Start: 09-11-2021 End: 09-21-2021 Exposure to SARS-CoV-2 (event) Not sure [facility] Start: 01-24-2011 Tobacco use and exposure Smokeless tobacco non-user [facility] Start: 09-25-2022 End: 03-31-2024 History of Social function [facility] Start: 09-25-2022 End: 03-31-2024 Tobacco use panel [facility] Adult Depression Screening Assessment 0 [facility] Start: 03-25-2023 Gender identity Identifies as female gender (finding) [facility] Start: 03-25-2023 Sexual orientation Heterosexual (magi bhavya) [facility] Medical Equipment Procedure Code Equipment Code Equipment Origin al Text Equipment Identifier Dates [employer] M ri 6fr Polyurethane Implantable Infusion Slim Catheter - [id number] Start: 01-31-2016 Functional Status Date Assessment Result Facility 02-03-2014 Are you deaf, or do you have serious difficulty hearing No 02/03/2014 8:59 AM Ashlyn Askew MA No [facility] 02-03-2014 Are you blind, or do you have serious difficulty seeing, even when wearing glasses No 02/03/2014 8:59 AM Ashlyn Askew MA [facility] 02-03-2014 Do you have serious difficulty walking or climbing stairs No 02/03/2014 8:59 AM Ashlyn Askew MA No [facility] 02-03-2014 Do you have difficul ty dressing or bathing No 02/03/2014 8:59 AM Ashlyn Askew MA No [facility] 02-03-2014 Because of a physica l, mental, or emotional condition, do you have difficulty doing errands alone such as visiting a physician's office or shopping No 02/03/2014 8:59 AM Ashlyn Askew MA [facility] Mental Status Date Assessment Result Facility 02-03-2014 Because of a physica l, mental, or emotional condition, do you have serious difficulty concentrating, remembering, or making decisions No 02/03/2014 8:59 AM Ashlyn Askew MA No [facility] Clinical Notes 01-24-2016 to 09-29-2024 Irene Ambriz APRN.CNP - 09/29/2024 2:03 PM EDT Note Date & Type Note Facility 09-29-2024 Note HNO ID: [id number] Author: IRENE AMBRIZ APRN.CASH POSTING CLERK Service: ? Author Type: Nurse Practitioner Type: Progress Notes Filed: 09/29/2024 14:22 Note Text: Chief Complaint Patient presents with: [...] nuclear grade 2. ER-positive (>95%, strong) and MT (4%, weak). HER-2 quantified at 3+. An [...] invasive carcinoma: invasive ductal carcinoma Histologic Grade: Webster grade: Glandular/tubular differentiation score: 3 Nuclear pleomorphism [...] Ancillary studies: Previously performed on same tumor ([id number] / [id number]). ER: >95%, strong MT: 4%, weak Her2 chuck: 3+ (IHC) PATH (more content not included)... [facility] 09-29-2024 History of Present illness Narrative Chief Complaint [...] nuclear grade 2. ER-positive (>95%, strong) and MT (4%, weak). HER-2 quantified at 3+. An [...] Ancillary studies: Previously performed on same tumor ([id number] / [id number]). ER: >95%, strong MT: 4%, weak Her2 chuck: 3+ (IHC) PATHOLOGIC STAGE: pT1c N0(sn) Mx 3) Anastrozole-Began September 2016. Stopped due to MS side effects. Current therapy: 4) Exemestane. Began November 2016 No new concerns today. Appetite:Fine. Wt. stable. Energy level:It's there. Denies fevers or recent illness. 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 Skin:denies rashes/lesions Heme:denies bleeding The ROS is otherwise negative. Past medical history, appointments, medications, allergies reviewed. No changes. EXAM: BP 139/68 Pulse 87 Temp 36.9 C (98.5 F) (Oral) Wt 75 kg (165 lb 5.5 oz) LMP 12/17/2003 BMI 26.29 kg/m APPEARANCE Well appearing, alert, in no acute distress, well-hydrated, well nourished. HEART RRR with normal S1 and S2, no murmurs LUNG clear to auscultation BREAST FEMALE b/l mastectomy sites, no skin changes/nodules LYMPH NODES No cervical lymphadenopathy, No supraclavicular lymphadenopathy, and No axillary lymphadenopathy. ABDOMEN bowel sounds normoactive, soft, non-tender EXTREMITIES No edema NEURO Awake, alert and oriented x 3, Normal gait, and No involuntary motions. SKIN Skin color, texture, turgor normal, no suspicious rashes or lesions ASSESSMENT/PLAN: 1. Encounter for follow-up surveillance of breast cancer - ICD9: V67.9, V10.3, ICD10: Z08, Z85.3 (primary diagnosis) 2. 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 All documentation from previous visit of 03/31/24-Dr. Torres/myself was copied and pasted, documentation has been reviewed and edited as necessary for today's visit. Irene Ambriz APRN.OTTO documented in this encounter [facility] 08-15-2024 Progress note [facility] 08-15-2024 Progress note Note Date/Time August 15, 2024 9:34am [facility] [address], [address] [place] [address] OFFICE VISIT Date of Service: 08/15/24 MR#: [id number] Acct: [id number] Name: LATOYA KEN Rep #: [id number] : 1955 Provider: JAZMYN Edwards Age/Sex: 68/F Location: [facility] Status: Signed Intake Vital Signs 07/28/24 14:25 08/15/24 08:38 Height 5 ft 6 in BP 118/72 Blood Pressure Location Lt brachial Position Sitting Respiration 15 Pulse 82 Pulse Source NIBP Temp 98.1 F Temp Source Oral Pulse Oximetry (%) 97 Oxygen Delivery Method room air Intake Visit Reasons: CONCERN FOR UTI Chief Complaint: urinary urgency Inside Outside Sales Representative Required: No Is patient in pain?: No [...] mg capsule,delayed 20 mg PO DAILY PRN MT N Heartburn 02/21/16 07/28/24 History release Herceptin [...] immediately. denies abd pain, back pain, fever. [facility] Medical History (Updated 08/15/24 @ 09:33 by [...] today for urine urgency -sx started saw obstetrics and gynecology professor on 07/28- they did a urine- was [...] Biggs on 08/15/24 08:52 Off Ur Spec [place] 1.010 Last Edit by Kelle Biggs on [...] signed by Marnie ELDRIDGE> Date _ Marnie LIPSCOMBC Cosigner Signature: Date (if applicable) CC: ~ [facility] Work Phone: 1(725) 959-914905-13-2025 Evaluation note* Diagnosis Onset Date Resolution Status Admit Date Dysuria acute July 28, 2024 2:19pm Personal history of breast cancer acute July 28, 2024 2 :19pm Encounter for routine gynecological examination noneactive July 282024 2:19pm [facility] Work Phone: 1(432) 438-367305-13-2025 Evaluation note* Diagnosis Onset Date Resolution Status Admit Date Dysuria acute July 28, 2024 2:19pm Personal history of breast cancer acute July 28, 2024 2 :19pm Encounter for routine gynecological examination noneactive July 282024 2:19pm Urine frequency acute August 15, 2024 8:18am [facility] Work Phone: 1(977) 169-350301-14-2025 NoteHNO ID: [id number] Author: IRENE AMBRIZ APRN.CASH POSTING CLERK Service: ? Author Type: Nurse Practitioner Type: [...] nuclear grade 2. ER-positive (>95%, strong) and MT (4%, weak). HER-2 quantified at 3+. An [...] Ancillary studies: Previously performed on same tumor ([id number] / [id number]). ER: >95%, strong MT: 4%, weak Her2 chuck: 3+ (IHC) PATH (more content not included)...[facility]01-14-2025 History of Present illness Narrative* Irene Ambriz VLADIMIR.CASH POSTING CLERK - 03/31/2024 1:21 PM EST Chief Complaint [...] nuclear grade 2. ER-positive (>95%, strong) and MT (4%, weak). HER-2 quantified at 3+. An [...] invasive carcinoma: invasive ductal carcinoma Histologic Grade: Webster grade: Glandular/tubular differentiation score: 3 Nuclear pleomorphism [...] Ancillary studies: Previously performed on same tumor ([id number] / [id number]). ER: >95%, strong MT: 4%, weak Her2 chuck: 3+ (IHC) PATHOLOGIC [...] V67.9, V10.3, ICD10: Z08, Z85.3 cT2 cN0 ER/MT positive, HER-2 amplified invasive ductal carcinoma of [...] discussed with the Patient or Patient's Authorized Target Man. Asapplicable, any other physician, advance practice provider, medical student, or other health professional student that will be observing or involved in the sensitive examination for educational or training purposes was discussed with the Patient or Authorized Target Man. The Patient or Authorized Target Man has agreed to proceed with the sensitive examination. (Sensitive examination includes inspection and/or palpation of the breasts, pelvis, prostate and anorectal regions) The patient indicates understanding of these issues and agrees with the plan. All documentation from previous visit of 10/01/23-Dr. Torres/myself was copied and pasted, documentation has been reviewed and edited as necessary for today's visit. Irene Ambriz APRN.CNP [facility] History of Present illness Narrative* Irene Ambriz APRN.CNP - 10/01/2023 1:23 PM EDT Chief Complaint [...] nuclear grade 2. ER-positive (>95%, strong) and MT (4%, weak). HER-2 quantified at 3+. An [...] invasive carcinoma: invasive ductal carcinoma Histologic Grade: Webster grade: Glandular/tubular differentiation score: 3 Nuclear pleomorphism [...] Ancillary studies: Previously performed on same tumor ([id number] / [id number]). 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 Irene Ambriz APRN.OTTO documented [facility] History of Present illness Narrative* Irene Ambriz [...] nuclear grade 2. ER-positive (>95%, strong) and MT (4%, weak). HER-2 quantified at 3+. An [...] Ancillary studies: Previously performed on same tumor ([id number] / [id number]). 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 Irene Ambriz APRN.OTTO documented in this encounter[facility]23 Miscellaneous Notes* Telephone Encounter - Nargis Elliott - 04/14/2022 2:58 PM EST LM for patient to return call to reschedule. When patient calls, please reschedule 09/17 appointment to another day/time that best suits the patient. Once rescheduled, document and close this note. Nargis Elliott documented [facility]2022 Miscellaneous Notes* Telephone Encounter - Trina Cabrera Pss - 03/14/2022 9:21 AM EST Ruthann called to confirm if fax arrived. She is sending again. Please call her at [phone] if not received. * Telephone Encounter - [...] being on Medicare now. documented in this encounter[facility]22 Miscellaneous Notes* Telephone Encounter - Irene Ambriz APRN.OTTO - 11/07/2021 12:50 PM EDT Spoke with pt. Reviewed bone density. Pt. agreeable to continue aromasin. Goal of therapy 7 years. Irene Ambriz APRN.OTTO documented in this encounter[facility]07-[facility]-2022 Nurse Note* Kimberly Clements LPN - 09/21/2021 1:53 PM EDT Est. Pt, 6 month f/u Kimberly Clements LPN documented in this encounterKind[facility]07-[facility]-2022 History of Present illness Narrative* Irene Ambriz APRN.CASH POSTING CLERK - 09/21/2021 1:50 PM EDT Chief Complaint [...] nuclear grade 2. ER-positive (>95%, strong) and MT (4%, weak). HER-2 quantified at 3+. An [...] invasive carcinoma: invasive ductal carcinoma Histologic Grade: Webster grade: Glandular/tubular differentiation score: 3 Nuclear pleomorphism [...] Ancillary studies: Previously performed on same tumor ([id number] / [id number]). 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 Irene Ambriz APRN.OTTO documented in this encounterKind[facility]11-08-2016 History of Past illness Narrative* Problem Noted Date Resolved Date Breast cancer of upper-outer quadrant of left fe male breast 01/24/2016 09/24/2016 Cancer Staging:Clinical: Unsigned Infiltrating ductal carcinoma of left breast 06/201501/24/2016 Abnormal mammogram, unspecified 04/11/2007 11/08/2011 BREAST CANCER UPPER OUTER (LCIS) 08/21/2006 01/24/2016 Mammographic microcalcification 11/17/2003 11/08/2011 documented as of this encounter (statuses as of 09/21/2021) [facility] History of Past illness Narrative* Problem Noted Date Resolved Date Breast cancer of upper-outer quadrant of left fe male breast 01/24/2016 09/24/2016 Cancer Staging:Clinical: Unsigned Infiltrating ductal carcinoma of left breast 06/201501/24/2016 Abnormal mammogram, unspecified 04/11/2007 11/08/2011 BREAST CANCER UPPER OUTER (LCIS) 08/21/2006 01/24/2016 Mammographic microcalcification 11/17/2003 11/08/2011 documented as of this encounter (statuses as of 11/07/2021) [facility] History of Past illness Narrative* Problem Noted Date Resolved Date Breast cancer of upper-outer quadrant of left fe male breast 01/24/2016 09/24/2016 Cancer Staging:Clinical: Unsigned Infiltrating ductal carcinoma of left breast 06/201501/24/2016 Abnormal mammogram, unspecified 04/11/2007 11/08/2011 BREAST CANCER UPPER OUTER (LCIS) 08/21/2006 01/24/2016 Mammographic microcalcification 11/17/2003 11/08/2011 documented as of this encounter (statuses as of 03/18/2022) [facility] History of Past illness Narrative* Problem Noted Date Resolved Date Breast cancer of upper-outer quadrant of left fe male breast 01/24/2016 09/24/2016 Cancer Staging:Clinical: Unsigned Infiltrating ductal carcinoma of left breast 06/201501/24/2016 Abnormal mammogram, unspecified 04/11/2007 11/08/2011 BREAST CANCER UPPER OUTER (LCIS) 08/21/2006 01/24/2016 Mammographic microcalcification 11/17/2003 11/08/2011 documented as of this encounter (statuses as of 03/22/2022) [facility] History of Past illness Narrative* Problem Noted Date Resolved Date Breast cancer of upper-outer quadrant of left fe male breast 01/24/2016 09/24/2016 Cancer Staging:Clinical: Unsigned Infiltrating ductal carcinoma of left breast 06/201501/24/2016 Abnormal mammogram, unspecified 04/11/2007 11/08/2011 BREAST CANCER UPPER OUTER (LCIS) 08/21/2006 01/24/2016 Mammographic microcalcification 11/17/2003 11/08/2011 documented as of this encounter (statuses as of 04/14/2022) [facility] History of Past illness Narrative* Problem Noted Date Diagnosed Date Resolved Date Breast cancer of upper-outer quadrant of left female breast 01/24/2016 09/24/2016 Cancer Staging:Clinical: Unsigned Infiltrating ductal carcinoma of left breast 6 01/24/2016 Abnormal mammogram, unspecified 04/11/2007 11/08/2011 BREAST CANCER UPPER OUTER (LCIS) 08/21/2006 01/24/2016 Mammographic microcalcification 11/17/2003 11/08/2011 documented as of this encounter (statuses as of 09/26/2022) [facility]No assessment [facility] Work Phone: Evaluation note* Diagnosis Malignant neoplasm of upper-outer quadrant of left breast in female, estrogen receptor positive (HCC)- Primary Menopause Symptomatic menopausal or female climacteric states shelter (current) use of aromatase inhibitors documented in this encounter [facility] note* Diagnosis Malignant neoplasm of upper-outer quadrant of left breast in female, estrogen receptor positive (HCC)- Primary documented in this encounter [facility] note* Diagnosis Malignant neoplasm of upper-outer quadrant of left breast in female, estrogen receptor positive (HCC)- Primary documented in this encounter [facility] note* Diagnosis Encounter for follow-up surveillance of breast cancer- Primary Unspecified follow-up examination documented in this encounter [facility] note* Diagnosis Onset Date Resolution Status Admit Date Encounter for routine gynecological examination noneactive July 282024 2:19pm [facility] Work Phone: Evaluation note* Diagnosis Encounter for follow-up surveillance of breast cancer- Primary Unspecified follow-up examination Malignant neoplasm of upper-outer quadrant of left breast in female, estrogen receptor positive (HCC) [facility]No reason for referral information availableBlFairmont [facility] Work Phone: Chief Complaint and Reason for Visit Chief Complaint EORDER Chief Complaint BLOOD FLOW Chief Complaint HAND OA RX HERE Chief Complaint Admit Date EORDER April 07, 2024 7 :47am 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, 2024 2:19p m Reason for Visit Admit Date Encounter for routine gynecological exam ination July 28, 2024 2:19pm Reason for Visit Admit Date Dysuria July 28, 2024 2:19p m Personal history of breast cancer July 282024 2:19pm Encounter for routine gynecological exam ination July 28, 2024 2:19pm Chief Complaint Admit Date 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, 2024 2:19p m CONCERN FOR UTI August 15, 2024 8:18a m Reason for Visit Admit Date Dysuria July 28, 2024 2:19p m Personal history of breast cancer July 282024 2:19pm Encounter for routine gynecological exam ination July 28, 2024 2:19pm Urine frequency August 15, 2024 8:18a m Chief Complaint Admit Date 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, 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 2:19p m CONCERN FOR UTI August 15, 2024 8:18a m LABS AND URINE September 16, 2024 7:34a m Family History No Family History Records Found Relationship Condition Age at Onset Recorded Date/T cecile mother Malignant neoplasm of breast Unknown father Myocardial infarction Unknown Advance Directives No Advanced Directives Records Found Advance Directive Response Recorded Date/ Time Advance Directives No February 21, 2016 5:56am Living Will No August 22, 2016 1 1:55am Power of Child Life Therapist No August 22, 2016 11:55am Documents on File Type Date Recorded Patient Target Man Expl anation Advance Directive(s) 01/31/2016 12:55 PM Advance Directive(s) 01/30/2016 3:55 PM Advance Directive Response Recorded Date/ Time Advance Directives No February 21, 2016 4:56am Living Will No August 22, 2016 1 0:55am Power of Child Life Therapist No August 22, 2016 10:55am Advance Directive [...] or prosecute any alcohol or drug abuse patient.[facility] the event this information is protected by the Federal Confidentiality of Alcohol and Drug Abuse Patient Records regulations: The Federal rules restrict any use of the information to criminally investigate or prosecute any alcohol or drug abuse patient.[facility] the event this information is protected by the Federal Confidentiality of Alcohol and Drug Abuse Patient Records regulations: The Federal rules restrict any use of the information to criminally investigate or prosecute any alcohol or drug abuse patient.[facility] the event this information is protected by the Federal Confidentiality of Alcohol and Drug Abuse Patient Records regulations: The Federal rules restrict any use of the information to criminally investigate or prosecute any alcohol or drug abuse patient.[facility] the event this information is protected by the Federal Confidentiality of Alcohol and Drug Abuse Patient Records regulations: The Federal rules restrict any use of the information to criminally investigate or prosecute any alcohol or drug abuse patient.[facility] the event this information is protected by the Federal Confidentiality of Alcohol and Drug Abuse Patient Records regulations: The Federal rules restrict any use of the information to criminally investigate or prosecute any alcohol or drug abuse patient.[facility] the event this information is protected by the Federal Confidentiality of Alcohol and Drug Abuse Patient Records regulations: The Federal rules restrict any use of the information to criminally investigate or prosecute any alcohol or drug abuse patient.[facility] the event this information is protected by the Federal Confidentiality of Alcohol and Drug Abuse Patient Records regulations: The Federal rules restrict any use of the information to criminally investigate or prosecute any alcohol or drug abuse patient.[facility] the event this information is protected by the Federal Confidentiality of Alcohol and Drug Abuse Patient Records regulations: The Federal rules restrict any use of the information to criminally investigate or prosecute any alcohol or drug abuse patient.[facility] Reason for Visit (unrecogniz ed section and content) Reason Comments Established Patient Reason Comments Patient Question Reason Comments Future Appointment Care Teams (unrecognized sec tion and content) Director Nursing Service Relationship Specialty Start Date End Date Andriy Jones MD [address] [place] [address] PCP - General Family Practice 12/04/18 Lucille Churchill MD, [address] [place] [address] Physician Radiation Oncology 07/02/16 Director Nursing Service Relationship Specialty Start Date End Date Andriy Jones MD [address] [place] [address] PCP - General Family Practice 12/04/18 Lucille Churchill MD, MD [address] [place] [address] Physician Radiation Oncology 07/02/16 Director Nursing Service Relationship Specialty Start Date End Date Andriy Jones MD [address] [place] [address] PCP - General Family Medicine 12/04/18 Lucille Churchill MD, [address] [place] [address] Physician Radiation Oncology 07/02/16 Director Nursing Service Relationship Specialty Start Date End Date Andriy Jones MD [address] [place] [address] PCP - General Family Medicine 12/04/18 Lucille Churchill MD, MD [address] [place] [address] Physician Radiation Oncology 07/02/16 Director Nursing Service Relationship Specialty Start Date End Date Andriy Jones MD [address] [place] [address] PCP - General Family Medicine 12/04/18 Lucille Churchill MD, [address] [place] [address] Physician Radiation Oncology 07/02/16 Team Status: Active Member Role Status Dates Dr. Andriy Jones MD Family Provider Active Dr. Andriy Jones MD Primary Care Provider Active Team Status: Inactive Member Role Status Dates Dr. Andriy Jones MD Primary Care Provide r, Attending Provider, Referring Provider Active Director Nursing Service Relationship Specialty Start Date End Date Andriy Jones MD [address] [place] [address] PCP - General Family Medicine 12/04/18 Luclile Churchill MD, [address] [place] [address] Physician Radiation Oncology 07/02/16 Director Nursing Service Relationship Specialty Start Date End Date Andriy Jones MD [address] [place] [address] PCP - General Family Medicine 12/04/18 Lucille Churchill MD [address] [place] [address] Physician Radiation Oncology 07/02/16 Director Nursing Service Relationship Specialty Start Date End Date Andriy Jones MD [address] [place] [address] PCP - General Family Medicine 12/04/18 Lucille Churchill MD [address] [place] [id number] Physician Radiation Oncology 07/02/16 Team Status: Inactive [...] End: July 28, 2024 Mine Rodriguez NP SOX ANALYST-C Attending Provider Active Start: July 28, 2024 End: July 28, 2024 Team Status: Inactive Member Role Status Dates Dr. Andriy Jones MD Primary Care Provider Active Start: July 28, 2024 End: July 28, 2024 Mine Rodriguez NP SOX ANALYST-C Attending Provider Active Start: July 28, 2024 End: July 28, 2024 Mine Rodriguez NP SOX ANALYST-C Referring Provider Active Start: July 28, 2024 [...] August 17, 2024 End: August 17, 2024 DEISI SweeneyC Attending Provider Active Start: August 17, 2024 End: August 17, 2024 Team Status: Active Member Role/Relationship Status Dates Dr. Andriy Jones MD Primary Care Provider Active Team Status: Inactive Member Role/Relationship Status Dates Dr. Andriy Jones MD Primary Care Provider Active Start: July 28, 2024 End: July 28, 2024 Dr. Andriy Jones MD Referring Provider Active St art: July 28, 2024 End: July 28, 2024 Mine Rodriguez NP, SOX ANALYST-C Attending Provider Active Start: July 28, 2024 End: July 28, 2024 Team Status: Inactive Member Role/Relationship Status Dates Dr. Andriy Jones MD Primary Care Provider Active Start: July 28, 2024 End: July 28, 2024 Mine Rodriguez NP, SOX ANALYST-C Attending Provider Active Start: July 28, 2024 End: July 28, 2024 Mine Rodriguez NP SOX ANALYST-C Referring Provider Active Start: July 28, 2024 End: July 28, 2024 Team Status: Inactive Member Role/Relationship Status Dates Dr. Andriy Jones MD Primary Care Provider Active Start: August 15, 2024 End: August 15, 2024 Dr. Andriy Jones MD Referring Provider Active St art: August 15, 2024 End: August 15, 2024 DEISI SweeneyC Attending Provider Active Start: August 15, 2024 End: August 15, 2024 Team Status: Inactive Member Role/Relationship Status Dates Dr. Andriy Jones MD Primary Care Provider Active Start: August 17, 2024 End: August 17, 2024 DEISI SweeneyC Attending Provider Active Start: August 17, 2024 End: August 17, 2024 Team Status: Inactive Member Role/Relationship Status Dates Dr. Andriy Jones MD Primary Care Provider Active Start: September 16, 2024 End: September 16, 2024 Dr. Andriy Jones MD Attending Provider Active St art: September 16, 2024 End: September 16, 2024 Dr. Andriy Jones MD Referring Provider Active St art: September 16, 2024 End: September 16, 2024 Director Nursing Service Relationship Specialty Start Date End Date Andriy Jones MD [address] [place] [id number] PCP - General Family Medicine 12/04/18 Lucille Churchill MD [address] [place] [address] Physician Radiation Oncology 07/02/16 INFORMATION SOURCE (unrecogn ized section and content) DATE CREATED AUTHOR 10/03/2024 [facility] DATE CREATED AUTHOR AUTHOR'S ORGANIZ ATION 11/29/2024 [facility] FOR RECORDS PERTAINING TO PATIENTS WHO ARE [...] BE BASED ON THE PRIMARY CLINICAL RECORDS. [employer] provides no warranty or guarantee of the accuracy or completeness of information in this document.
== END | disposition home or self-care (01) ==
LOC: US 07:19
PROVIDERS: PCP Family Medicine; Referring Provider Family Medicine; Visit Provider Family Medicine
DX: R10.84 Generalized abdominal pain (principal)
CPT/HCPCS: 76705

== ENCOUNTER → 2025-02-27 | Outpatient (CLI) | payer MEDICARE, OTHER, SELFPAY | END | disposition home or self-care (01) | LOC: LABSPEC 03-01 10:28 | PROVIDERS: PCP Family Medicine; Visit Provider Nurse Practitioner Family | DX: R30.0 Dysuria (principal) | CPT/HCPCS: 87077; 87086; 87088; 87186 ==

== ENCOUNTER → 2025-03-04 | Outpatient (CLI) | payer MEDICARE, OTHER, SELFPAY ==
--- NOTE | 2025-03-04 09:47 | NM_ITS ---
PROCEDURE: HEPATOBILLIARY IMG W/PHARM INT 03/04/2025 REASON FOR EXAM: COLICKY ABDOMINAL PAIN, NORMAL ULTRASOUND, SUSPECT BILIARY COMPARISON: 12/02/2024. TECHNIQUE: Procedure Code: [id number] Modality: NM Procedure: HEPATOBILLIARY IMG W/PHARM INT 6.0 mCi of technetium 99m Mebrofenin was administered. Injection site not provided. This was followed by anterior planar imaging for 60 minutes. Subsequently, 1.5 mcg cholecystokinin was administered prior to dynamic imaging for an additional 30 minutes to allow for calculation of gallbladder ejection fraction. FINDINGS: Hepatic uptake: Unremarkable. Hepatic uptake: Unremarkable. Hepatic morphology: Unremarkable. Hepatic clearance: Unremarkable. Gallbladder visualization: Visualized by 15-30 minutes. Small-bowel visualization: Probably faintly visualized by 45 minutes Gallbladder ejection fraction: No appreciable emptying by 30 minutes. Other: Per technologist report, there was recurrent RIGHT upper quadrant pain with CCK administration. NM/Hepatobilliary Img w/Pharm Int IMPRESSION: 1. No scintigraphic evidence of acute cholecystitis. 2. Little to no detectable gallbladder ejection up to 30 minutes following CCK administration which may suggest biliary dyskinesia/chronic cholecystitis given the appropriate clinical context, dwight r, it should be noted that dynamic imaging was obtained for only 30 minutes rather than 60 minutes, precluding definitive diag nosis. Reading Location: [id number]
== END | disposition home or self-care (01) ==
LOC: NM 09:47
PROVIDERS: PCP Family Medicine; Referring Provider Family Medicine; Visit Provider Family Medicine
DX: R10.84 Generalized abdominal pain (principal)
CPT/HCPCS: 78227; A9537; J2805